=== PATIENT | female | born 1940 | race Caucasian/White ===

== ENCOUNTER → 2016-12-14 | Outpatient (CLI) | payer OTHER | LOC: CIMAGING 07:43 | DX: R41.0 Disorientation, unspecified (principal) | CPT/HCPCS: 70450-PO ==

== ENCOUNTER 2016-12-15 17:56 | Emergency (ER) | payer OTHER ==
[2016-12-15 18:06] VITALS: TEMP 97.9
--- NOTE | 2016-12-15 18:33 | EDPHY ---
H & P Stated Complaint: hypertension Time Seen by Provider: 12/15/16 18:18 HPI/ROS: CHIEF COMPLAINT: New onset hypertension. HISTORY OF PRESENT ILLNESS: This patient is a 76 year old female with history of Parkinson's disease and chronic pain arriving with her complaining of high blood pressure onset around 10 days ago. She has been measuring orthostatic blood pressures twice a day for the last 10 days, and has noted it to be consistently high around 160/80 , particularly in the morning. She called her primary care provider's office at [place], who recommended she come for evaluation. She is currently asymptomatic. She denies headache, chest pain, or other associated symptoms. She has chronic back pain, and is scheduled for L3-L5 fusion 12/30/[address] Franz. She states her pain has been worse in the morning. She generally takes one Vicodin and 2 Advil to control her pain. She had has multiple falls lately related to gait instability from Parkinson's disease and had a head CT yesterday due to history of prior subdural hematoma, which was negative for acute findings. REVIEW OF SYSTEMS: A 10 point review of systems was performed and is negative with the exception of the elements mentioned in the history of present illness. - Personal History Current Tetanus/Diphtheria Vaccine: Yes Tetanus Vaccine Date: WITHIN 10 Y - Medical/Surgical History PMH: 1. Parkinson's disease 2. Chronic back pain 3. Brain surgery 4. Tonsillectomy 5. Appendectomy 6. Gene transfer therapy 7. Orthostatic BP Hx Asthma: No Hx Chronic Respiratory Disease: No Hx Diabetes: No Hx Cardiac Disease: No Hx Renal Disease: No Hx Cirrhosis: No Hx Alcoholism: No Hx HIV/AIDS: No Hx Splenectomy or Spleen Trauma: No Other PMH: DDD, Pack pain, Polydiculitis, incontinence, dyskinesia, orthostatic , Parkinsons, dyskinesia, cholecystectomy, tonsilectomy, appendectomy, brain surgery. Gene transfer therapy - Social History Smoking Status: Former smoker Additional Social History: . at bedside. PCP Dr. Jefferson. - Physical Exam Exam: General Appearance: Alert, pleasant Eyes: Pupils equal and round, no conjunctival pallor or injection ENT, Mouth: Mucous membranes moist Neck: Normal inspection Respiratory: Lungs are clear to auscultation Cardiovascular: Regular rate and rhythm Gastrointestinal: Abdomen is soft and non-tender Neurological: A&O, motor 5/5, gait not assessed Skin: Warm and dry, no rash Extremities: Nontender, no pedal edema Psychiatric: Mood and affect normal Constitutional: Initial Vital Signs Temperature (C) 36.6 C 12/15/16 18:02 Heart Rate 56 L 12/15/16 18:02 Respiratory Rate 16 12/15/16 18:02 Blood Pressure 160/52 H 12/15/16 18:02 O2 Sat (%) 94 12/15/16 18:02 O2 Delivery Mode Room Air Allergies/Adverse Reactions: No Known Allergies Allergy (Verified 12/15/16 18:01) Home Medications: Medication Instructions Recorded Amantadine HCl [Symmetrel] 100 mg PO TID@,,07/10/13 Carbidopa/Levo Cr 25/100Mg 1 tab PO BID 07/10/13 [Sinemet CR 25/100 MG (*)] Carbidopa/Levodopa 25/100Mg 1 tab PO QID@,,,07/10/13 [Sinemet 25/100 MG (*)] Cholecalciferol Vit D3 [Vitamin D3 5,000 units PO HS 07/10/13 (*)] Citalopram [CeleXA 20 MG] 20 mg PO DAILY 07/10/13 Entacapone [Comtan] 200 mg PO QID@,,,18 07/10/13 Levothyroxine [Synthroid 50 mcg 50 mcg PO DAILY@07/10/13 (*)] Multivitamins [Multivitamin (*)] 1 tab PO DAILY@18 07/10/13 rOPINIRole HCL [Requip XL 6mg] 6 mg PO BID@,07/10/13 Docusate Sodium [Colace 100 MG (*)] 100 mg PO BID 07/17/13 Herbals/Supplements -Info Only 1 ea PO DAILY 07/17/13 C/E/Zn/Cu/OM3/DHA/EPA/LUT/ZEAX 1 each PO BID 04/01/15 [Preservision Areds 2 Softgel] clonazePAM [Klonopin (*)] 0.5 mg PO HS 04/01/15 Aspirin EC [Aspirin EC 81 mg (*)] 81 mg PO DAILY #0 tab 04/06/15 Atorvastatin Calcium [Lipitor 20 20 mg PO DAILY #30 tab 04/06/15 mg (*)] Advil 12/14/16 Gabapentin 12/14/16 Tylenol 12/14/16 Vicodin 5-300 mg Tablet 12/14/16 Medical Decision Making ED Course/Re-evaluation: This patient presents with intermittent hypertension, up to 200/90, which alternates with normal blood pressure, as low as 100/70. She is complicated, given chronic pain, recently stopping Florinef and gabapentin. I discussed with the patient and her that I will not place her on a blood pressure medication this evening, since her blood pressure fluctuates widely and is now normal. She is at increased risk for falling if she becomes hypotensive, given her advanced Parkinson's disease. They would like for her to be cleared for surgery (lumbar fusion) and remained concerned about episodes of elevated BP. Plan to consult with cardiology. I consulted with Dr. Garcia and he will see the patient tomorrow at 10:00 a.m. BP 116/56 on discharge. Return precautions discussed. The patient and her are comfortable with this plan. Differential Diagnosis: Differential diagnosis includes does not limited to intracranial hemorrhage, acute coronary syndrome, acute renal failure, hypertensive urgency. Departure - Departure Disposition: Home, Routine, Self-Care Clinical Impression: Hypertension Qualifiers: Hypertension type: essential hypertension Qualified Code(s): I10 - Essential ( primary) hypertension Condition: Good Instructions: Hypertension (ED) Additional Instructions: 1. Follow up with a interface developer for discussion of your blood pressure concerns. We have referred you to our interface developer diamond die polisher, Dr. Garcia, at [facility]. He will be able to see you at 10:00am tomorrow, as we discussed. 2. Return to the emergency department for severe headache, weakness, fainting, chest pain, difficulty breathing, or other worsening of condition. Referrals: Antonia Jefferson MD [Primary Care Provider] - As per Instructions Saroj Garcia MD [Medical Doctor] - As per Instructions (Dr. Garcia will see you at 10am tomorrow. Go to [facility] (2nd floor).) Report Scribed for: Geri Londono Report Scribed by: Wendy Gutierrez Date of Report: 12/15/16 Time of Report: 18:33 Physician Review and Approval Statement: 12/15/16 18:33 Portions of this note were transcribed by a medical imaging specialist. I personally performed a history, physical exam, medical decision making, and confirmed accuracy of information the transcribed note.
[2016-12-15 18:52] VITALS: BP 116/56; PULSE 55; RESP 18; O2SAT 98
== END 2016-12-15 19:09 | disposition home or self-care (01) ==
DX: I10 Essential (primary) hypertension (principal); G20 Parkinson's disease; Z79.82 Long term (current) use of aspirin; Z87.891 Personal history of nicotine dependence

== ENCOUNTER → 2016-12-26 | Outpatient (CLI) | payer OTHER ==
[~2016-12-26] MED LIST: REGADENOSON 0.4 MG/5 ML SYR IVP ONE
--- NOTE | 2016-12-26 18:35 | CPR ---
[f rep st] NONINVASIVE CARDIAC PROCEDURE REPORT NAME OF STUDY: Lexiscan myocardial perfusion imaging study. INDICATION FOR STRESS TEST: Pre-surgical cardiac evaluation, hypertension, multiple cardiac risk fac tors, sedentary lifestyle. PRE: After obtaining informed consent, ensuring patient's n.p.o. status of caffeine for greater than 12 hours, the patient was placed on electrocardiogram. Initial EKG showed sinus rhythm, normal axis , with no significant ST or T-wave abnormalities suggesting of ischemia. Initial blood pressure 180/ 88, saturation 94%. The patient denies of any chest pain, shortness of breath, or symptoms suggestin g of ischemia. INJECTION: Patient was given Lexiscan slow IV push, followed by nuclear isotope. Patient reported m ild chest pressure within 1 minute of injection, reporting radiating into her abdomen. She was noted to have some mild flattening of T-waves in her lateral leads with injection. The patient was given caffeinated beverage, and within 5 minutes, symptoms all subsided. EKG returned back to baseline, bl ood pressure remained stable throughout the procedure, final blood pressure 150/60, saturation 98%. IMPRESSION: A 76-year-old female, going in for significant back surgery, undergoing pre-surgical car diac evaluation with Lexiscan myocardial perfusion imaging study, the patient reporting mild chest pr essure with injection of Lexiscan and noted with flattening of the T-waves within 1 minute, which ret urned back to normal within 5 minutes post injection with caffeine beverage. Vital signs are stable, she is asymptomatic at this time, and denies of any symptoms suggesting of ischemia. She will finis h post-stress MPI imaging in Nuclear Medicine at this time. /[id number]/MODL
== END ==
LOC: FIMAGING 13:59
PROVIDERS: ATTEND Physician Assistant
PROC: C22G1ZZ Tomographic (Tomo) Nuclear Medicine Imaging of Myocardium using Technetium 99m (Tc-99m) (ICD-10-PCS; principal; 2016-12-26)
DX: Z01.810 Encounter for preprocedural cardiovascular examination (principal); I10 Essential (primary) hypertension
CPT/HCPCS: 78452; A9500; J2785

== ENCOUNTER 2016-12-30 05:37 | Inpatient (IN) | payer OTHER ==
[~2016-12-30 05:37] MED LIST changes: -REGADENOSON 0.4 MG/5 ML SYR IVP ONE; +ceFAZolin 2 GM/SWFI 2 GM/20 ML SYR IVP ONE
[2016-12-30] MEDS ORDERED: GABAPENTIN 300 MG CAP PO ONE (05:57)
[2016-12-30] MEDS ORDERED: morphINE PF 5 MG/10 ML INJ IT ONE (05:57)
[2016-12-30] MEDS ORDERED: morphINE SR 15 MG TAB PO ONE (05:57)
[2016-12-30] MEDS ORDERED: ACETAMINOPHEN 500 MG TAB PO ONE (05:57)
[2016-12-30] MEDS ORDERED: LIDOCAINE 1% 2 ML INJ ID PRN (06:00)
[2016-12-30] MEDS ORDERED: LR 1,000 ML IV ONE (06:00)
[2016-12-30] MEDS ORDERED: ceFAZolin 2 GM/DEXTROSE 100 ML IV ONE (06:00)
[2016-12-30] MEDS ORDERED: BUPIVACAINE 0.25% 30 ML SDV ONE (06:45)
[2016-12-30] MEDS ORDERED: CHLORHEXIDINE GLUC HIBICLENS 118 ML BTL TP ONE (06:46)
[2016-12-30] MEDS ORDERED: CITRATE DEXTROSE SOLN 500 ML BAG ONE (06:46)
[2016-12-30] MEDS ORDERED: BACITRACIN 50,000 UNITS/10 ML SYR IRR ONE (06:47)
[2016-12-30] MEDS ORDERED: MIDAZOLAM 2 MG/2 ML VIAL IVP ONE (07:03)
--- NOTE | 2016-12-30 07:06 | PDHPUP ---
History & Physical Update H&P update statement: This history and physical update is based on an assessment of the patient which was completed after admission or registration (within 24 hours), but prior to the surgery/procedure. H&P update: H&P reviewed & patient examined, no change in patient's condition since H&P completed (Consents signed and site marked. Plan for 2 staged anterior /posterior L4/L5/S1 ALIF and fusion.)
--- NOTE | 2016-12-30 07:16 | PDANEPAE ---
ANE History of Present Illness A and P fusion ANE Past Medical History - Cardiovascular History Hx Hypertension: No Hx Arrhythmias: No Hx Chest Pain: No Hx Coronary Artery / Peripheral Vascular Disease: No Hx CHF / Valvular Disease: No Hx Palpitations: No Cardiovascular History Comment: Hx of Orthostatic Hypotension - Pulmonary History Hx COPD: No Hx Asthma/Reactive Airway Disease: No Hx Recent Upper Respiratory Infection: No Hx Oxygen in Use at Home: No Hx Sleep Apnea: No Sleep Apnea Screening Result - Last Documented: Negative - Neurologic History Hx Cerebrovascular Accident: No Hx Seizures: No Hx Dementia: No Neurologic History Comment: Parkinsons. Hx of Right parietal subdural hematoma - Endocrine History Hx Diabetes: No Hypothyroid: No Hyperthyroid: No Obesity: no Endocrine History Comment: Hypothyroid - Renal History Hx Renal Disorders: No - Liver History Hx Hepatic Disorders: No - Neurological & Psychiatric Hx Hx Neurological and Psychiatric Disorders: Yes Neurological / Psychiatric History Comment: CITALOPRAM - Cancer History Hx Cancer: No - Congenital Disorder History Hx Congenital Disorders: No - GI History Hx Gastrointestinal Disorders: Yes Gastrointestinal History Comment: Chronic constipation - Other Health History Other Health History: Hx of Anemia. Osteoporosis - Chronic Pain History Chronic Pain: Yes - Surgical History Prior Surgeries: L4-L5 Laminectomy. L5-S1 Laminoforaminotomy. 2012 Revision L4 -5 Laminectomy. L2-3,L3-4 Laminectomy decompression. Eye surgery. Foot neuroma surgery. Facial Cosmetic surgery. Appendectomy. Cholecystectomy. Tonsillectomy ANE Review of Systems Review of Systems: - Exercise capacity METS (RN): 3 METS ANE Patient History - Allergies Allergies/Adverse Reactions: No Known Allergies Allergy (Verified 12/15/16 18:01) - Home Medications Home Medications: Amantadine HCl [Symmetrel] 100 mg PO TID@,,07/10/13 [Last Taken 12/29/16] Carbidopa/Levo Cr 25/100Mg [Sinemet CR 25/100 MG (*)] 1 tab PO BID 07/10/13 [ Last Taken 12/29/16] Carbidopa/Levodopa 25/100Mg [Sinemet 25/100 MG (*)] 1 tab PO QID@,,,18 [Last Taken 12/29/16] Cholecalciferol Vit D3 [Vitamin D3 (*)] 5,000 units PO HS 07/10/13 [Last Taken 12/23/16] Citalopram [CeleXA 20 MG] 20 mg PO DAILY 07/10/13 [Last Taken 12/29/16] Entacapone [Comtan] 200 mg PO QID@,,,07/10/13 [Last Taken 12/29/16] Levothyroxine [Synthroid 50 mcg (*)] 50 mcg PO DAILY@07/10/13 [Last Taken ] Multivitamins [Multivitamin (*)] 1 tab PO DAILY@07/10/13 [Last Taken 12/29/16 ] rOPINIRole HCL [Requip XL 6mg] 6 mg PO BID@,07/10/13 [Last Taken 12/29/16] Docusate Sodium [Colace 100 MG (*)] 100 mg PO BID 07/17/13 [Last Taken 12/29/16] Herbals/Supplements -Info Only 1 ea PO DAILY 07/17/13 [Last Taken 12/23/16] C/E/Zn/Cu/OM3/DHA/EPA/LUT/ZEAX [Preservision Areds 2 Softgel] 1 each PO BID [Last Taken 12/29/16] clonazePAM [Klonopin (*)] 0.5 mg PO HS 04/01/15 [Last Taken 12/29/16] Advil 12/14/16 [Last Taken 12/23/16] Gabapentin 12/14/16 [Last Taken 12/28/16] Tylenol 12/14/16 [Last Taken 12/29/16] Vicodin 5-300 mg Tablet 12/14/16 [Last Taken 12/29/16] - NPO status NPO Since - Liquids (Date): 12/29/16 NPO Since - Liquids (Time): 23:45 NPO Since - Solids (Date): 12/29/16 NPO Since - Solids (Time): 10:00 - Anes Hx Anes Hx: no prior problems - Smoking Hx Smoking Status: Former smoker - Alcohol Use Alcohol Use: Rarely - Family Anes Hx Family Anes Hx: none Family Hx Anesthesia Complications: NONE ANE Labs/Vital Signs - Vital Signs Blood Pressure: 193/75 Heart Rate: 52 Respiratory Rate: 16 O2 Sat (%): 95 Height: 157.48 cm Weight: 52.163 kg ANE Physical Exam - Airway Neck exam: decreased ROM Mallampati Score: Class 1 Mouth exam: normal dental/mouth exam - Pulmonary Pulmonary: no respiratory distress - Cardiovascular Cardiovascular: regular rate and rhythym, systolic murmur - ASA Status ASA Status: III ANE Anesthesia Plan Anesthesia Plan: general endotracheal anesthesia Lines/Monitors: arterial line Specialized Airway: video laryngoscope
[2016-12-30] MEDS ORDERED: fentaNYL 100 MCG/2 ML INJ ONE ×6 (07:21→14:27)
[2016-12-30] MEDS ORDERED: LIDOCAINE 2% 5 ML SDV ONE (07:22)
[2016-12-30] MEDS ORDERED: ROCURONIUM 50 MG/5 ML VIAL ONE ×2 (07:22→08:34)
[2016-12-30] MEDS ORDERED: DEXAMETHASONE 4 MG/ML VIAL ONE (07:22)
[2016-12-30] MEDS ORDERED: PROPOFOL/EMULSION 500 MG/50 ML BOTTLE IV ONE (07:22)
[2016-12-30] MEDS ORDERED: GLYCOPYRROLATE 0.2 MG/1 ML VIAL ONE ×2 (07:22→13:54)
[2016-12-30] MEDS ORDERED: MIDAZOLAM 2 MG/2 ML VIAL ONE (07:39)
[2016-12-30] MEDS ORDERED: BUPIVACAINE 0.5% 30 ML SDV ONE (07:39)
[2016-12-30] MEDS ORDERED: PETROLAT,WHT/MIN OIL/SOD CHL 3.5 GM OPHT.OINT ONE ×3 (07:40→13:54)
[2016-12-30] MEDS ORDERED: PROPOFOL 200 MG/20 ML VIAL ONE ×2 (08:25→13:01)
[2016-12-30] MEDS ORDERED: REMIFENTANIL HCL 1 MG VIAL ONE (08:36)
[2016-12-30] MEDS ORDERED: SURGIFLO MATRIX KIT WITH THROMBIN TP ONE (09:52)
[2016-12-30] MEDS ORDERED: epHEDrine SULFATE 10 MG/ML SYR ONE (10:47)
[2016-12-30] MEDS ORDERED: THROMBIN (BOVINE) 20,000 UNIT VIAL TP ONE (11:34)
[2016-12-30] MEDS ORDERED: CARBIDOPA/LEVODOPA 25 MG/100 MG TAB PO ONE (11:45)
[2016-12-30] MEDS ORDERED: ceFAZolin 2 GM/SWFI 2 GM/20 ML SYR IVP ONE ×2 (13:00→13:15)
[2016-12-30] MEDS ORDERED: ONDANSETRON 4 MG/2 ML VIAL IVP PRN (13:27)
[2016-12-30] MEDS ORDERED: NALOXONE HCL 0.4 MG/ML INJ IVP PRN (13:27)
[2016-12-30] MEDS ORDERED: HYDROmorphONE/DILAUDID 1 MG/ML INJ IVP PRN ×2 (13:27→14:08)
[2016-12-30] MEDS ORDERED: NEOSTIGMINE METHYLSULFATE 3 MG/3 ML SYR ONE (13:54)
[2016-12-30] MEDS ORDERED: BISACODYL 10 MG SUPP PR PRN (14:08)
[2016-12-30] MEDS ORDERED: POLYETHYLENE GLYCOL 3350 17 GM PKT PO PRN (14:08)
[2016-12-30] MEDS ORDERED: MAGNESIUM HYDROXIDE 30 ML UDCUP PO PRN (14:08)
[2016-12-30] MEDS ORDERED: DIAZEPAM 10 MG/2 ML SYR IVP PRN (14:08)
[2016-12-30] MEDS ORDERED: diphenhydrAMINE 25 MG CAP PO PRN (14:08)
[2016-12-30] MEDS ORDERED: METHOCARBAMOL 750 MG TAB PO PRN (14:08)
[2016-12-30] MEDS ORDERED: LACTULOSE 20 GM/30 ML UDCUP PO PRN (14:08)
[2016-12-30] MEDS ORDERED: ONDANSETRON DISINTEGRATING 4 MG TAB PO PRN (14:08)
[2016-12-30] MEDS: CARBIDOPA/LEVODOPA 25 MG/100 MG TAB PO SCH ×2 (14:15→19:22)
--- NOTE | 2016-12-30 14:22 | POSTOPPROG ---
Post Op Note Date of Operation: 12/30/16 Surgeon: Lia Springer Corral Boss: Elijah Springer PA-C Anesthesiologist: Cortez Anesthesia: GET(General Endotracheal) Pre-op Diagnosis: lumbar spondylolisthesis, weakness Post-op Diagnosis: same Indication: nerve compression, spondylolisthesis Procedure: L4/5/S1 ALIF with L3-S1 posterior fuison Findings: Please see dictation Inf/Abcess present in the surg proc area at time of surgery?: No Depth: Organ Space EBL: 100-500 Complications: none Drains: Hunter Mojica Specimen(s): none PA Addendum - Addendum .: S: Pt in PACU, c/o abdominal pain O: Awake and alert Tremor with increased muscle tone MAEx4 Motor 5/5 BUE, 5/5 BLE with exception of L EHL 4+ to 5-/5 Incisions are cdi +LT JPx1 Steve in A: 76 yo F with Parkinson's disease s/p L4/5/S1 ALIFs with L3-S1 posterior fusion P: PT/OT Brace when OOB TEDs, SCDs, Lovenox POD#1 (24 hrs post op) Clear liquid diet Post op xrays pending Call NS with any issues/questions D/w Dr Franz
[2016-12-30] MEDS: fentaNYL 100 MCG/2 ML INJ IVP PRN ×2 (14:28→14:43)
[2016-12-30] MEDS ORDERED: HYDROmorphONE/DILAUDID 1 MG/ML INJ ONE (14:45)
[2016-12-30] MEDS: NS W/ 20 KCl/L 1,000 ML IV SCH (16:42)
[2016-12-30] MEDS: ceFAZolin 2 GM in D5W 100 ML IV SCH ×2 (17:00→23:26)
[2016-12-30] MEDS: ROPINIROLE HCL 6 MG PO SCH (17:03)
[2016-12-30] MEDS: DIAZEPAM 5 MG TAB PO PRN ×2 (17:13→23:26)
[2016-12-30] MEDS: POLYETHYLENE GLYCOL 3350 17 GM PKT PO SCH ×2 (17:19→21:58)
[2016-12-30] MEDS: ENTACAPONE 200 MG TAB PO SCH (19:22)
[2016-12-30] MEDS: MULTIVITAMINS 1 EACH TAB PO SCH (19:23)
--- NOTE | 2016-12-30 20:49 | GOP ---
[f rep st] OPERATIVE REPORT DATE OF OPERATION: 12/30/2016 SURGEON: Korey Franz MD CO-SURGEON: Cj Andrade MD COMPLICATIONS: None. PROFESSOR OF FOOD BIOCHEMISTRY: ELIJAH Puri ANESTHESIA: General. PREOPERATIVE DIAGNOSIS: 1. History of prior lumbar laminectomy L3 through S1 with grade 1/grade 2 spondylolisthesis L4 and L5. 2. L5-S1 spondylosis. 3. Bilateral severe foraminal stenosis. 4. Low back pain and lower extremity radiculopathy and weakness. 5. Treatment refractory to nonoperative intervention. POSTOPERATIVE DIAGNOSIS: 1. History of prior lumbar laminectomy L3 through S1 with grade 1/grade 2 spondylolisthesis L4 and L5. 2. L5-S1 spondylosis. 3. Bilateral severe foraminal stenosis. 4. Low back pain and lower extremity radiculopathy and weakness. 5. Treatment refractory to nonoperative intervention. PROCEDURE PERFORMED: 1. Anterior arthrodesis with approach to L4, L5, and S1. 2. L4-L5 diskectomy and interbody fusion using a 16 mm x 12-degree perimeter Peek cage filled with morselized allograft. 3. Anterior lumbar fusion L4-L5 with a large Medtronic Pivox plate. 4. L5-S1 diskectomy and interbody fusion using a 14 mm x 8-degree perimeter Peek cage filled with morselized allograft. 5. Anterior lumbar fusion L5-S1 with a large Medtronic Pivox plate. 6. Use of intraoperative fluoroscopy, less than 1-hour physician time. 7. Use of neuromonitoring. FINDINGS: per imaging SPECIMENS: None. ESTIMATED BLOOD LOSS: 250 mL. The patient received 135 mL of her blood back from the [facility]. INDICATIONS: Patient is a 76-year-old woman with prior history of lumbar laminectomy L3 through S1 from which she did quite well for several years. She presented with lower extremity radiculopathy, back pain and weakness. She had evidence of Parkinson's as well and a scoliosis. After discussion of risks, benefits, and treatment alternatives, we decided to proceed forth with surgery as described above. Please note, this is stage 1 of a planned 2-stage anterior- posterior surgery. Stage 2 will be dictated in a separate operative report. DESCRIPTION OF PROCEDURE: Patient was brought to the operating theater and underwent general endotracheal anesthesia without complication. She had Venodynes, HEDY hose, and the appropriate lines placed by Anesthesia. Her arms were maintained extended out to the sides and she was maintained supine with a small bump placed under the small of her back. The anterior abdomen was then prepped and draped in the usual sterile surgical fashion. A time-out was completed per protocol, and the patient received antibiotics within [address] Andrade and his team will then dictate in a separate operative report the anterior approach to the L4, L5, S1 levels. Once this was completed, our team was called into the field. We confirmed our level at the L4-L5 level using lateral fluoroscopy and a spinal needle. At this point, we completed L4-5 distraction using sequential distraction to a 16 mm interbody space. We then completed a an L4-L5 discectomy and prepared the cartilaginous endplates. We measured the interbody space and placed a 16 mm x 12-degree perimeter Peek cage filled with morselized allograft into the L4-5 disk space. We secured a large Medtronic Pivox plate onto the anterior vertebral bodies with a screw into L4 and a screw into L5. Lateral x-rays demonstrated good placement of the hardware and good distraction of the L4-5 foramina. We then moved down to the L5-S1 space where we completed a distraction of the L5 -S1 interspace and completed an L5-S1 diskectomy. We prepared the cartilaginous endplates and measured the interbody space. We placed a 14 mm x 8 -degree perimeter Peek cage filled with morselized allograft into the L5-S1 disk space. We secured a large Medtronic Pivox plate onto the vertebral bodies of L5 and S1 anteriorly. AP and lateral x-rays demonstrated good placement of the hardware and good distraction at both levels. At this point, Dr. Andrade and his team will dictate in a separate operative report the anterior abdominal closure. There were no complications and no noted changes on neuromonitoring throughout the procedure. /[id number]/MODL MTDD
--- NOTE | 2016-12-30 21:09 | GOP ---
[f rep st] OPERATIVE REPORT DATE OF OPERATION: 12/30/2016 SURGEON: Korey Franz MD HEALTH INFORMATION SYSTEMS TECHNICIAN: ELIJAH Puri ANESTHESIA: General. PREOPERATIVE DIAGNOSIS: 1. L4-L5 grade 1/grade 2 spondylolisthesis with spondylosis L5-S1. 2. History of prior lumbar laminectomy L3 through S1. 3. Lower extremity radiculopathy and weakness. 4. Back pain. 5. Treatment refractory to nonoperative intervention. POSTOPERATIVE DIAGNOSIS: 1. L4-L5 grade 1/grade 2 spondylolisthesis with spondylosis L5-S1. 2. History of prior lumbar laminectomy L3 through S1. 3. Lower extremity radiculopathy and weakness. 4. Back pain. 5. Treatment refractory to nonoperative intervention. PROCEDURE PERFORMED: 1. Posterior arthrodesis with approach to L3, L4, L5, S1. 2. Posterolateral fusion with bilateral pedicle screw placement into L3, L4, L5 , S1 from YR Free Solera 4.75 system. 3. Posterolateral fusion bilaterally L3 to S1 with morselized autograft. 4. Use of intraoperative 3D Stealth navigation. 5. Use of intraoperative fluoroscopy, less than 1-hour physician time. 6. Use of neuromonitoring. FINDINGS: per imaging SPECIMENS: None. ESTIMATED BLOOD LOSS: 100 mL. INDICATIONS: Patient is a 76-year-old woman with a history of Parkinson's and prior laminectomy of L3 through S1 from which she did quite well for several years. She presented with lower extremity claudication, back pain and weakness , and evidence of grade 1/grade 2 spondylolisthesis of L4-5 and spondylosis L5- S1. After discussion of risks, benefits, and treatment alternatives, we decided to proceed forth with surgery as described above. The patient now presents for surgical intervention. Please note, this is stage 2 of a planned 2 -stage surgical procedure. Stage 1 was an anterior lumbar interbody fusion at L4 through S1 which was completed earlier in the day and is dictated in a separate operative report. DESCRIPTION OF PROCEDURE: Patient was already asleep at the time of this dictation from completion of stage 1 anterior surgery. At this point, the patient was flipped prone onto the Hunter table and the lower lumbar region prepped and draped in usual sterile surgical fashion. Another time-out was completed per protocol. The patient had re-dosing of her antibiotics at the appropriate time. All bony processes were inspected and padded. The previous lumbar incision was infiltrated with Marcaine with epinephrine and taken down with the scalpel blade. Using the monopolar, the incision was then taken down the midline at which point we landed on the inferior aspect of the spinous process of L2 and skived off laterally and a subperiosteal dissection carried out over the L3, L4, L5, and S1 levels. We attached the 3D Stealth navigation clamp to the spinous process of L2 and completed a 3D Stealth navigation spin. Using 3D Stealth navigation, we placed the pilot boat operator holes for the bilateral pedicle screws into L4, L5 and S1. The patient had extremely tiny elongated pedicles at L4 and given the fact that her bone was quite soft, I elected to add 1 set of screws into L3 to assist with reduction of the stress into the L4-L5 spondylolisthesis. We then tapped and placed a 6.5 x 55 mm screw on the left at L3, 6.5 x 45 mm screw on the right at L3, a 4.5 x 50 mm screw bilaterally in L4, 6.5 x 40 mm screw bilaterally in L5, and a 7.5 x 40 mm screw bilaterally in S1 from the YR Free Solera 4.75 system. Another 3D Stealth navigation spin demonstrated good placement of the hardware. We then decorticated the bone bilaterally between L3 and S1. We placed 2 lordotic rods into the heads of the screws between L3 and S1 and secured them down with cap screws, which were tightened per director cloud transformation's setting. The wound was irrigated copiously with bacitracin irrigation and drain left in the subfascial space. The wound was then closed in multiple layers using Vicryl sutures for the deep layers and Dermabond for the skin. The patient was noted to have some changes on neuromonitoring in a subcortical manner. She was still asleep at the time of this dictation. There were no other complications. COMPLICATIONS: None. /[id number]/MODL MTDD
[2016-12-30] MEDS: ONDANSETRON 4 MG/2 ML VIAL IVP PRN (21:51)
[2016-12-30] MEDS: ACETAMINOPHEN 500 MG TAB PO SCH (21:52)
[2016-12-30] MEDS: PRESERVISION AREDS2 FORMULA EYE VIT 1 EACH PO SCH (21:54)
[2016-12-30] MEDS: CHOLECALCIFEROL VIT D3 1,000 UNITS TAB PO SCH (21:55)
[2016-12-30] MEDS: clonazePAM 0.5 MG TAB PO SCH (21:55)
[2016-12-30] MEDS: CARBIDOPA/LEVO CR 25 MG/100 MG TAB PO SCH (21:55)
[2016-12-30] MEDS: SENNOSIDES/DOCUSATE SODIUM TAB PO SCH (21:56)
[2016-12-30] MEDS: FAMOTIDINE 20 MG TAB PO SCH (21:56)
[2016-12-30] MEDS: DOCUSATE SODIUM 100 MG CAP PO SCH (21:56)
[2016-12-30] MEDS ORDERED: ceFAZolin 2 GM/DEXTROSE 100 ML IV SCH (22:00)
[2016-12-30] MEDS: oxyCODONE IR 5 MG TAB PO PRN (23:26)
[2016-12-31] MEDS: oxyCODONE IR 5 MG TAB PO PRN ×3 (03:24→12:24)
[2016-12-31 05:38] LABS: % IMMATURE GRANULYOCYTES 0.2 % (0.0-1.1); ABSOLUTE IMMATURE GRANULOCYTES 0.01 10^3/uL (0.00-0.10); ADD DIFF? NO; ADD MORPH? NO; ADD SCAN? NO; ATYPICAL LYMPHOCYTE FLAG 0 (0-99); FRAGMENT RBC FLAG 0 (0-99); HEMATOCRIT 27.7 % (38.0-47.0); HEMOGLOBIN 9.1 g/dL (12.6-16.3); LEFT SHIFT FLG 20 (0-99); LIPEMIA HEMOLYSIS FLAG 80 (0-99); MEAN CELL HEMOGLOBIN 30.6 pg (27.9-34.1); MEAN CELL HEMOGLOBIN CONCENTR. 32.9 g/dL (32.4-36.7); MEAN CELL VOLUME 93.3 fL (81.5-99.8); MEAN PLATELET VOLUME 9.2 fL (8.7-11.7); PLATELET CLUMPS FLAG 10 (0-99); PLATELET COUNT 153 10^3/uL (150-400); RED BLOOD CELL COUNT 2.97 10^6/uL (4.18-5.33); RED CELL DISTRIBUTION WIDTH 12.8 % (11.5-15.2)
[2016-12-31 06:00] LABS: ANION GAP 7 mEq/L (8-16); CALCIUM 7.5 mg/dL (8.5-10.4); CARBON DIOXIDE 26 mEq/l (22-31); CHLORIDE 110 mEq/L (97-110); CREATININE 0.8 mg/dL (0.6-1.0); GLOMERULAR FILTRATION RATE > 60; GLUCOSE 91 mg/dL (70-100); POTASSIUM 3.9 mEq/L (3.5-5.2); SODIUM 143 mEq/L (134-144)
[2016-12-31] MEDS: NS W/ 20 KCl/L 1,000 ML IV SCH (06:04)
[2016-12-31] MEDS: ACETAMINOPHEN 500 MG TAB PO SCH ×3 (06:14→20:55)
[2016-12-31] MEDS: ENTACAPONE 200 MG TAB PO SCH ×4 (06:15→17:15)
[2016-12-31] MEDS: LEVOTHYROXINE 50 MCG TAB PO SCH (06:15)
[2016-12-31] MEDS: CARBIDOPA/LEVODOPA 25 MG/100 MG TAB PO SCH ×4 (06:16→17:16)
[2016-12-31] MEDS: ROPINIROLE HCL 6 MG PO SCH ×2 (06:16→14:15)
--- NOTE | 2016-12-31 07:27 | NEUSURGPN ---
Assessment/Plan: A: 76 yo F with Parkinson's disease s/p L4/5/S1 ALIFs with L3-S1 posterior fusion POD1 P: PT/OT Brace when OOB TEDs, SCDs, Lovenox POD today Clear liquid diet, advance per general surgery Post op xrays pending Call NS with any issues/questions Continue SHARON drain this morning D/w Dr Franz Subjective: low back pain, tolerable with medications, resting comfortably Objective: Awake and alert, calm with out tremor this morning MAEx4 Motor 5/5 BUE, 5/5 BLE with exception of L EHL 4+ to 5-/5 Incisions are cdi - Physician Discussed Patient with : [facility] Physical Exam - Vitals, I&O, Labs I and O 12/30/16 12/31/16 01/01/17 05:59 05:59 05:59 Intake Total 5380 Output Total 1320 Balance 4060 Weight 52.163 kg Intake: Oral (ml) 250 IV Intake (ml) 4000 IV Infused (ml) 1130 NS W/ 20 KCl/L 1,000 ml @ 1130 75 mls/hr IV CONT MOSHE Rx #:[id number] Output: Urine (ml) 650 Catheter 650 Estimated Blood Loss (ml) 350 SHARON Drain Output (ml) 320 #1 Posterior Back Hunter 320 Mojica Vital Signs Temp Pulse Resp BP Pulse Ox 37.0 C 67 16 125/36 H 97 12/31/16 03:39 12/31/16 03:39 12/31/16 03:39 12/31/16 03:39 12/31/16 03:39 Laboratory Results 12/31/16 04:59 12/31/16 04:59 ICD10 Worksheet Patient Problems: Problems Problem Status Onset Transient ischemic attack Active Generalized weakness Acute Hypertension Acute Hypocalcemia Acute Intracranial hemorrhage following injury Acute Parkinson disease Acute Subdural hematoma, acute Acute
[2016-12-31] MEDS: ATORVASTATIN CALCIUM 20 MG TAB PO SCH (09:27)
[2016-12-31] MEDS: GABAPENTIN 300 MG CAP PO SCH (09:27)
[2016-12-31] MEDS: DOCUSATE SODIUM 100 MG CAP PO SCH ×2 (09:27→20:57)
[2016-12-31] MEDS: CITALOPRAM 20 MG TAB PO SCH (09:27)
[2016-12-31] MEDS: PRESERVISION AREDS2 FORMULA EYE VIT 1 EACH PO SCH ×2 (09:27→20:56)
[2016-12-31] MEDS: AMANTADINE HCL 100 MG CAP PO SCH ×2 (09:27→13:24)
[2016-12-31] MEDS: SENNOSIDES/DOCUSATE SODIUM TAB PO SCH ×2 (09:28→20:58)
[2016-12-31] MEDS: FAMOTIDINE 20 MG TAB PO SCH ×2 (09:28→20:57)
[2016-12-31] MEDS: CARBIDOPA/LEVO CR 25 MG/100 MG TAB PO SCH ×2 (09:29→20:56)
[2016-12-31] MEDS: POLYETHYLENE GLYCOL 3350 17 GM PKT PO SCH ×3 (09:32→20:58)
--- NOTE | 2016-12-31 10:51 | SOAPPROG ---
SOAP Progress Note Assessment/Plan: Assessment/Plan: 76yo F POD#1 s/p anterior spinal exposure for ALIF - Abdomen is soft and minimally distended. Incision is covered with clean dressing, will plan to remove tomorrow - Tolerating the CLD without nausea or vomiting, has hypoactive bowel sounds. Plan to keep clears today, likely advance tomorrow if continues to progress. 12/31/16 10:50 Subjective: Pain last night, feeling better today. No bowel function. Objective: Vital Signs Temp Pulse Resp BP Pulse Ox 36.4 C 74 14 130/49 H 97 12/31/16 07:31 12/31/16 07:31 12/31/16 07:31 12/31/16 07:31 12/31/16 07:31 Laboratory Results 12/31/16 04:59 12/31/16 04:59 12/30/16 12/31/16 01/01/17 05:59 05:59 05:59 Intake Total 5380 Output Total 1320 Balance 4060 ICD10 Worksheet Patient Problems: Problems Problem Status Onset Transient ischemic attack Active Generalized weakness Acute Hypertension Acute Hypocalcemia Acute Intracranial hemorrhage following injury Acute Parkinson disease Acute Subdural hematoma, acute Acute
[2016-12-31 13:17] LABS: CK-MB INTERPRETATION NEGATIVE (NEGATIVE); TROPONIN I < 0.012 ng/mL (0.000-0.034)
--- NOTE | 2016-12-31 13:24 | CPEKG ---
Heart Rate: 77 RR Interval: 779 P-R Interval: 172 QRSD Interval: 86 QT Interval: 396 QTC Interval: 449 P [place]: 23 QRS [place]: 43 T Wave [place]: -56 EKG Severity - ABNORMAL ECG - EKG Impression: SINUS RHYTHM EKG Impression: ATRIAL PREMATURE COMPLEX EKG Impression: CONSIDER LEFT VENTRICULAR HYPERTROPHY EKG Impression: BORDERLINE T ABNORMALITIES, INFERIOR LEADS Electronically Signed By: Kody Thakkar 31-Dec-2016 19:31:01
--- NOTE | 2016-12-31 15:40 | ASMTCMCOM ---
CM Note CM Note Notes: Pt w Parkinsons; had planned surgery for back pain, spondylolisthesis. PT rec inpatient rehab, OT rec SNF. This CM did not get to meet pt to discuss d/c plan of care as pt was having chest pain. Of note: Chart review indicates pt has had [facility] in past. CM to follow. Date Signed: 12/31/2016 03:39 PM Electronically Signed By:EVAN Zurita
--- NOTE | 2016-12-31 15:54 | PDGENHP ---
History and Physical - Chief Complaint Acute chest pain - History of Present Illness PCP: Dr. Jefferson Primary Service: NSGY Dr. Franz Reason for Consultation: Chest pain HPI: 76 yo F experienced acute chest pain characterized as a pressure-like sensation located in her left upper quadrant and mid-epigastric/substernal area , with onset of symptoms on POD#1 ALIF anterior approach, after going down for a lumbar x-ray. Duration was approx 30 minutes, and resolved w/o intervention. She reports it was exacerbated by palpated the specific location in her LUQ. She has yet to have a BM and has some associated abdominal bloating, hunger. Her witnessed the event, and he reports no SOB/diaphoresis. Prior to the surgery, patient had otherwise not been experiencing any abd/chest pain, and her recent physical activity has been impaired by her LE radiculopathy. History Information - Allergies/Home Medication List Allergies/Adverse Reactions: No Known Allergies Allergy (Verified 12/15/16 18:01) Home Medications: Amantadine HCl [Symmetrel] 100 mg PO TID@,,07/10/13 [Last Taken 12/29/16] Carbidopa/Levo Cr 25/100Mg [Sinemet CR 25/100 MG (*)] 1 tab PO BID 07/10/13 [ Last Taken 12/29/16] Carbidopa/Levodopa 25/100Mg [Sinemet 25/100 MG (*)] 1 tab PO QID@,,,18 [Last Taken 04/01/15] Citalopram [CeleXA 20 MG] 20 mg PO DAILY 07/10/13 [Last Taken 04/01/15] Entacapone [Comtan] 200 mg PO QID@,,,07/10/13 [Last Taken 04/01/15] Multivitamins [Multivitamin (*)] 1 tab PO DAILY@07/10/13 [Last Taken 03/31/15 ] rOPINIRole HCL [Requip XL 6mg] 6 mg PO BID@,16 07/10/13 [Last Taken 04/01/15] Docusate Sodium [Colace 100 MG (*)] 100 mg PO DAILY 07/17/13 [Last Taken ] Herbals/Supplements -Info Only 1 ea PO DAILY 07/17/13 [Last Taken Unknown] C/E/Zn/Cu/OM3/DHA/EPA/LUT/ZEAX [Preservision Areds 2 Softgel] 1 each PO BID [Last Taken 12/29/16] clonazePAM [Klonopin (*)] 0.5 mg PO HS 04/01/15 [Last Taken 03/31/15] Acetaminophen [Tylenol 325mg (*)] 325 mg PO Q6 PRN 12/30/16 [Last Taken Unknown] Gabapentin [Neurontin 300 MG (*)] 300 mg PO DAILY 12/30/16 [Last Taken Unknown] Hydrocodone/Acetaminophen [[place] 5/325 (*)] 1 each PO DAILY PRN 12/30/16 [Last Taken Unknown] I have personally reviewed and updated: family history, medical history, social history, surgical history - Past Medical History Additional medical history: Parkinson's Disease with autonomic disregulation. SDH 2013. Osteopenia. Chronic opiate dependency from chronic pain. Hypothyroidism. TIA 2015. Depression. Pulmonary HTN. GERD. HLD. HTN. Radiculopathy from spinal stenosis - Surgical History Reports: cholecystectomy Additional surgical history: L3-S1 laminectomy x 2 ([address] Vaughn). SI injection 07/27. CEA R 2015 - Family History Additional family history: Father w/ [place] at 88, Mother w/ breast/uterine cancer, Sibling w/ melanoma - Social History Smoking Status: Former smoker Alcohol Use: Rarely Drug Use: None Additional social history: normally ambulatory Review of Systems Review of Systems: ROS: 10pt was reviewed & negative except for what was stated in HPI & below Cardiac: Reports: chest pain Gastrointestinal: Reports: abdominal pain, constipation Physical Exam Physical Exam: Temp Pulse Resp BP Pulse Ox 36.6 C 68 16 146/67 H 97 12/31/16 10:55 12/31/16 10:55 12/31/16 10:55 12/31/16 10:55 12/31/16 10:55 O2 (L/minute) 2 Constitutional: no apparent distress, appears nourished, not in pain Eyes: PERRL, anicteric sclera, EOMI Ears, Nose, Mouth, Throat: moist mucous membranes, hearing normal, ears appear normal, no oral mucosal ulcers Cardiovascular: regular rate and rhythym, no murmur, rub, or gallop, No edema Respiratory: no respiratory distress, no rales or rhonchi, clear to auscultation Gastrointestinal: normoactive bowel sounds, no palpable masses, tenderness ( around surg site on L, mid-epigastric area), No guarding, No rebound Skin: other (no erythema around surg site, no induration or ecchymoses) Neurologic: AAOx3, sensation intact bilaterally, weakness (4/5 motor bilat LE w / midline inversion LLE), No facial droop Psychiatric: not anxious, thought process linear, other (lethargic but arousable to voice), No agitated Lab Data & Imaging Review 12/31/16 04:59 12/31/16 04:59 WBC 5.63 10^3/uL (3.80-9.50) 12/31/16 04:59 RBC 2.97 10^6/uL (4.18-5.33) L 12/31/16 04:59 Hgb 9.1 g/dL (12.6-16.3) L 12/31/16 04:59 Hct 27.7 % (38.0-47.0) L 12/31/16 04:59 MCV 93.3 fL (81.5-99.8) 12/31/16 04:59 MCH 30.6 pg (27.9-34.1) 12/31/16 04:59 MCHC 32.9 g/dL (32.4-36.7) 12/31/16 04:59 RDW 12.8 % (11.5-15.2) 12/31/16 04:59 Plt Count 153 10^3/uL (150-400) 12/31/16 04:59 MPV 9.2 fL (8.7-11.7) 12/31/16 04:59 Neut % (Auto) 73.8 % (39.3-74.2) 12/31/16 04:59 Lymph % (Auto) 18.8 % (15.0-45.0) 12/31/16 04:59 [place] % (Auto) 6.2 % (4.5-13.0) 12/31/16 04:59 Eos % (Auto) 0.5 % (0.6-7.6) L 12/31/16 04:59 Baso % (Auto) 0.5 % (0.3-1.7) 12/31/16 04:59 Nucleat RBC Rel Count 0.0 % (0.0-0.2) 12/31/16 04:59 Absolute Neuts (auto) 4.15 10^3/uL (1.70-6.50) 12/31/16 04:59 Absolute Lymphs (auto) 1.06 10^3/uL (1.00-3.00) 12/31/16 04:59 Absolute Monos (auto) 0.35 10^3/uL (0.30-0.80) 12/31/16 04:59 Absolute Eos (auto) 0.03 10^3/uL (0.03-0.40) 12/31/16 04:59 Absolute Basos (auto) 0.03 10^3/uL (0.02-0.10) 12/31/16 04:59 Absolute Nucleated RBC 0.00 10^3/uL (0-0.01) 12/31/16 04:59 Immature Gran % 0.2 % (0.0-1.1) 12/31/16 04:59 Immature Gran # 0.01 10^3/uL (0.00-0.10) 12/31/16 04:59 Sodium 143 mEq/L (134-144) 12/31/16 04:59 Potassium 3.9 mEq/L (3.5-5.2) 12/31/16 04:59 Chloride 110 mEq/L (97-110) 12/31/16 04:59 Carbon Dioxide 26 mEq/l (22-31) 12/31/16 04:59 Anion Gap 7 mEq/L (8-16) L 12/31/16 04:59 BUN 25 mg/dL (7-23) H 12/31/16 04:59 Creatinine 0.8 mg/dL (0.6-1.0) 12/31/16 04:59 Estimated GFR > 60 12/31/16 04:59 Glucose 91 mg/dL (70-100) 12/31/16 04:59 Calcium 7.5 mg/dL (8.5-10.4) L 12/31/16 04:59 Creatine Kinase 1464 IU/L (0-156) H 12/31/16 12:37 CK-MB (CK-2) Fraction 19.30 ng/mL (0.00-3.19) H 12/31/16 12:37 CK-MB (CK-2) % 1.3 % (0.0-4.0) 12/31/16 12:37 Creatine Kinase Interp NEGATIVE (NEGATIVE) 12/31/16 12:37 Troponin I < 0.012 ng/mL (0.000-0.034) 12/31/16 12:37 Patient ABO/Rh O POSITIVE 12/29/16 13:25 Antibody Screen NEGATIVE 12/29/16 13:25 Visualized and Interpreted EKG results: Yes EKG Interpretation: Positive for: other (NSR w/ isolated ARSH in V3, Q III) Assessment & Plan Assessment: 76 yo F w/ acute chest pain following ALIF Plan: # Chest pain. Acute, new problem, further w/u indicated. Suspect this is 2/2 either ileus/constipation, or surgical site pain. - that said, reviewed outside records (12/26/16 nuc stress test w/ possibly tiny area of inferior apex ischemia) and patient could have had evelio-op myocardial ischemia - repeat Trop at 6 p.m., monitor on tele - suspect elevated CK/CK-MB are post-surg muscular irritation, and, if above negative, would not recommend repeat stress test given that she just had Nuc/ Echo as part of pre-op eval (reviewed 12/29/16 [facility] note by Moni Viera) - w/o tachycardia or hypoxia, likelihood of PE is very low, will not get further w/u unless situation changes - will get CXR to ensure no PTX/CHF, eval for atelectasis and cont IS - treat post-surg pain regularly, under direction of primary service - aggressively work towards BM # Post-op ileus. Acute, BS present but no BM, patient feeling constipated, likely contributing to above - bowel regimen ordered - adv diet under primary service direction # Chronic pain w/ continuous opiate dependency. Currently receiving adequate pain mgmt # HTN. Chronic, cont home Rx, monitor for hypotension w/ hx of autonomic dysregulation Hospital Medicine will continue to consult daily and will f/u above. Discussed w/ Shelli Dill, hospitalist, she has signed out patient to me for evaluation.
[2016-12-31] MEDS: DIAZEPAM 5 MG TAB PO PRN (16:20)
[2016-12-31] MEDS: ENOXAPARIN 40 MG/0.4 ML SYR SC SCH (17:15)
[2016-12-31] MEDS: MULTIVITAMINS 1 EACH TAB PO SCH (17:15)
[2016-12-31] MEDS ORDERED: FLU VACC QS 2017-18 (3YR+)/PF 0.5 ML SYR (FLUARIX QUAD) IM ONE (17:38)
[2016-12-31] MEDS: CHOLECALCIFEROL VIT D3 1,000 UNITS TAB PO SCH (20:56)
[2016-12-31] MEDS: clonazePAM 0.5 MG TAB PO SCH (20:57)
[2016-12-31] MEDS: ONDANSETRON 4 MG/2 ML VIAL IVP PRN (23:57)
[2017-01-01] MEDS: NS W/ 20 KCl/L 1,000 ML IV SCH ×2 (00:14→05:44)
[2017-01-01] MEDS: oxyCODONE IR 5 MG TAB PO PRN ×4 (02:56→23:11)
[2017-01-01 05:19] LABS: % IMMATURE GRANULYOCYTES 0.5 % (0.0-1.1); ABSOLUTE IMMATURE GRANULOCYTES 0.04 10^3/uL (0.00-0.10); ADD DIFF? NO; ADD MORPH? NO; ADD SCAN? NO; ATYPICAL LYMPHOCYTE FLAG 0 (0-99); FRAGMENT RBC FLAG 0 (0-99); HEMATOCRIT 25.7 % (38.0-47.0); HEMOGLOBIN 8.1 g/dL (12.6-16.3); LEFT SHIFT FLG 50 (0-99); LIPEMIA HEMOLYSIS FLAG 80 (0-99); MEAN CELL HEMOGLOBIN 29.8 pg (27.9-34.1); MEAN CELL HEMOGLOBIN CONCENTR. 31.5 g/dL (32.4-36.7); MEAN CELL VOLUME 94.5 fL (81.5-99.8); MEAN PLATELET VOLUME 9.1 fL (8.7-11.7); PLATELET CLUMPS FLAG 10 (0-99); PLATELET COUNT 138 10^3/uL (150-400); RED BLOOD CELL COUNT 2.72 10^6/uL (4.18-5.33); RED CELL DISTRIBUTION WIDTH 12.5 % (11.5-15.2)
[2017-01-01 05:30] LABS: ANION GAP 6 mEq/L (8-16); CALCIUM 7.7 mg/dL (8.5-10.4); CARBON DIOXIDE 26 mEq/l (22-31); CHLORIDE 109 mEq/L (97-110); CREATININE 0.6 mg/dL (0.6-1.0); GLOMERULAR FILTRATION RATE > 60; GLUCOSE 91 mg/dL (70-100); SODIUM 141 mEq/L (134-144)
[2017-01-01] MEDS: ACETAMINOPHEN 500 MG TAB PO SCH ×3 (05:50→20:48)
[2017-01-01] MEDS: CARBIDOPA/LEVODOPA 25 MG/100 MG TAB PO SCH ×4 (05:50→18:12)
[2017-01-01] MEDS: AMANTADINE HCL 100 MG CAP PO SCH ×3 (05:50→13:51)
[2017-01-01] MEDS: ENTACAPONE 200 MG TAB PO SCH ×4 (05:51→18:12)
[2017-01-01] MEDS: LEVOTHYROXINE 50 MCG TAB PO SCH (05:51)
[2017-01-01] MEDS: ROPINIROLE HCL 6 MG PO SCH ×2 (05:52→13:58)
--- NOTE | 2017-01-01 08:14 | SOAPPROG ---
SOAP Progress Note Assessment/Plan: Assessment/Plan: 76yo F POD#2 s/p anterior spinal exposure for ALIF - Abdomen remains soft and ND. She is tolerating clears and passing flatus. Has decent bowel sounds. advance diet to reg 12/31/16 10:50 01/01/17 08:14 Subjective: Passing flatus, tolerating clears Objective: Vital Signs Temp Pulse Resp BP Pulse Ox 36.9 C 72 16 117/49 L 98 12/31/16 23:28 12/31/16 23:28 12/31/16 23:28 12/31/16 23:28 12/31/16 23:28 Laboratory Results 01/01/17 05:00 01/01/17 05:00 12/31/16 01/01/17 01/02/17 05:59 05:59 05:59 Intake Total 5380 500 Output Total 1320 983 Balance 4060 -786 ICD10 Worksheet Patient Problems: Problems Problem Status Onset Transient ischemic attack Active Generalized weakness Acute Hypertension Acute Hypocalcemia Acute Intracranial hemorrhage following injury Acute Parkinson disease Acute Subdural hematoma, acute Acute
[2017-01-01] MEDS: PRESERVISION AREDS2 FORMULA EYE VIT 1 EACH PO SCH ×2 (08:52→20:47)
[2017-01-01] MEDS: ENOXAPARIN 40 MG/0.4 ML SYR SC SCH ×2 (08:52→09:18)
[2017-01-01] MEDS: POLYETHYLENE GLYCOL 3350 17 GM PKT PO SCH ×3 (08:52→21:19)
[2017-01-01] MEDS: DOCUSATE SODIUM 100 MG CAP PO SCH ×2 (08:52→21:19)
[2017-01-01] MEDS: SENNOSIDES/DOCUSATE SODIUM TAB PO SCH ×2 (08:52→21:19)
[2017-01-01] MEDS: ATORVASTATIN CALCIUM 20 MG TAB PO SCH (08:53)
[2017-01-01] MEDS: FAMOTIDINE 20 MG TAB PO SCH ×2 (08:53→20:48)
[2017-01-01] MEDS: CARBIDOPA/LEVO CR 25 MG/100 MG TAB PO SCH ×2 (08:53→20:48)
[2017-01-01] MEDS: CITALOPRAM 20 MG TAB PO SCH (08:53)
[2017-01-01] MEDS: GABAPENTIN 300 MG CAP PO SCH (08:54)
[2017-01-01] MEDS ORDERED: diphenhydrAMINE 25 MG CAP PO PRN (09:08)
[2017-01-01] MEDS ORDERED: METHOCARBAMOL 750 MG TAB PO PRN (09:08)
--- NOTE | 2017-01-01 09:15 | HOSPPROG ---
Hospitalist Progress Note Assessment/Plan: Assessment: 76 yo F w/ acute chest pain following ALIF, c/b acute encephalopathy Plan: # Chest pain. Acute, most likely 2/2 post-surg abd pain in LUQ + constipation, trops neg, CXR normal (personally interpreted) # Acute encephalopathy. Evidenced by global brain dysfunction characterized by somnolence, poor concentration, poor attention, delayed cognition, all of which is an acute change this AM from our encounter yesterday, most likely 2/2 toxic effects of multiple pain Rx - she received valium 5 + klonopin 0.5 + gabapentin 30 + oxy IR 5 last PM, all likely contributing - since the valium and oxy IR are new and being used for acute pain, would recommend reducing dosages and gauging response - since klonopin and gabapentin are home Rx, will cont at current doses - reduced PRN dosing of benadryl and robaxin, discontinued IV PRNs to avoid confusion - since her RN and I have concerns about PO intake while she is so encephalopathic, we will increase rate of maint IVF to 100cc/hr # Atelectasis. Acute, L base on exam, 2/2 poor mentation and surg site pain - get IS # Post-op ileus. Acute, BS present but no BM - bowel regimen ordered - adv diet under primary service direction - suppository/enema if mental status remains suppressed # Acute blood loss anemia. Hgb 9->8, no current loss apparent, cont to monitor Hgb daily # Chronic pain w/ continuous opiate dependency. See Rx adjustments above # HTN. Chronic, cont home Rx, monitor for hypotension w/ hx of autonomic dysregulation # Acute urinary retention. Straight cath yesterday, likely retaining 2/2 immobility and pain Rx, cont to monitor via bladder scanner # Parkinson's Disease. Chronic, cont home Rx, anticipate protracted recovery in setting of this high-risk co-morbidity Hospital Medicine will continue to consult daily and will f/u above. Subjective: patient feels better than yesterday, but she cannot articulate, somnolent Objective: Vital Signs Temp Pulse Resp BP Pulse Ox 36.7 C 76 14 129/47 H 99 01/01/17 08:00 01/01/17 08:00 01/01/17 08:00 01/01/17 08:00 01/01/17 08:00 Laboratory Results 01/01/17 05:00 01/01/17 05:00 12/31/16 01/01/17 01/02/17 05:59 05:59 05:59 Intake Total 5380 500 Output Total 3730 123 Balance 4060 -649 - Physical Exam Constitutional: no apparent distress, appears nourished, not in pain Cardiovascular: regular rate and rhythym, no murmur, rub, or gallop, No edema Respiratory: reduced air movement (L base on insp), No expiratory wheeze, No inspiratory crackles, No bronchial breath sounds, No respiratory distress Gastrointestinal: normoactive bowel sounds, no palpable masses, tenderness (LUQ around surg site), No guarding, No rebound, No distension Skin: other (no erythema around surg bandage) Neurologic: sensation intact bilaterally, CN II-XII Intact, other (AAOx2 ( person and time, not place)), No weakness (motor 5/5 mental health worker) Psychiatric: not anxious, encephalopathic, flat affect, poor memory, other ( concentration 5/7, delayed verbal responsiveness, somnolent, arousable to verbal stimuli), No agitated ICD10 Worksheet Patient Problems: Problems Problem Status Onset Transient ischemic attack Active Intracranial hemorrhage following injury Acute Subdural hematoma, acute Acute Parkinson disease Acute Generalized weakness Acute Hypocalcemia Acute Hypertension Acute
[2017-01-01] MEDS ORDERED: diphenhydrAMINE 12.5 MG/5 ML UDCUP PO PRN (09:17)
--- NOTE | 2017-01-01 14:29 | NEUSURGPN ---
Assessment/Plan: A: 76 yo F with Parkinson's disease s/p L4/5/S1 ALIFs with L3-S1 posterior fusion POD1 P: PT/OT Brace when OOB TEDs, SCDs, Lovenox Advance per general surgery. Post op xrays with intact hardware Call NS with any issues/questions Appreciate medical assistance with management. d/c SHARON drain today Optmize pain management without increasing solumence. Discussed with nurse. D/w Dr Franz Subjective: low back pain, Denies any leg pain numbness, tingling or weakness. Objective: NAD Alert adn appropriately answering questions. MAEx4 5/5 and equal in BUE and BLE. Incision c/d/i - Physician Discussed Patient with : [facility] Physical Exam - Vitals, I&O, Labs I and O 12/31/16 01/01/17 01/02/17 05:59 05:59 05:59 Intake Total 5380 500 Output Total 1320 983 Balance 4060 -483 Weight 52.163 kg Intake: Oral (ml) 250 IV Intake (ml) 4000 IV Infused (ml) 1130 500 NS W/ 20 KCl/L 1,000 ml @ 1130 500 100 mls/hr IV CONT MOSHE Rx#:[id number] Output: Urine (ml) 650 783 Bedside Commode 383 Catheter 650 400 Estimated Blood Loss (ml) 350 SHARON Drain Output (ml) 320 200 #1 Posterior Back Hunter 320 200 Mojica Other: Intake Quantity Yes Sufficient Output Comment Catheter Straight cath by RN Number of Voids Bedside Commode 1 Catheter 1 Bladder Scan Volume (ml) Bedside Commode 460 526 Vital Signs Temp Pulse Resp BP Pulse Ox 36.7 C 76 14 129/47 H 99 01/01/17 08:00 01/01/17 08:00 01/01/17 08:00 01/01/17 08:00 01/01/17 08:00 Laboratory Results 01/01/17 05:00 01/01/17 05:00 ICD10 Worksheet Patient Problems: Problems Problem Status Onset Transient ischemic attack Active Generalized weakness Acute Hypertension Acute Hypocalcemia Acute Intracranial hemorrhage following injury Acute Parkinson disease Acute Subdural hematoma, acute Acute
[2017-01-01] MEDS: MULTIVITAMINS 1 EACH TAB PO SCH (18:12)
[2017-01-01] MEDS: CHOLECALCIFEROL VIT D3 1,000 UNITS TAB PO SCH (20:45)
[2017-01-01] MEDS: DIAZEPAM 5 MG TAB PO PRN (20:49)
[2017-01-01] MEDS: clonazePAM 0.5 MG TAB PO SCH (20:49)
[2017-01-02] MEDS: oxyCODONE IR 5 MG TAB PO PRN (04:58)
[2017-01-02] MEDS: LEVOTHYROXINE 50 MCG TAB PO SCH (04:58)
[2017-01-02] MEDS: ACETAMINOPHEN 500 MG TAB PO SCH ×3 (04:58→20:37)
--- NOTE | 2017-01-02 07:07 | NEUSURGPN ---
Date of Surgery: 12/30/16 Post Op Day: 3 Assessment/Plan: Assessment: 76 yo F with Parkinson's disease s/p L4/5 and L5/S1 ALIFs with L3- S1 posterior fusion POD3 Plan: -continue with PT/OT -pt with some confusion last night and medications were held-better this am per reports -Brace when OOB -TEDs, SCDs, Lovenox -Advance diet per general surgery -Post op xrays with intact hardware -Call NS with any issues or questions -Appreciate medical assistance with management -SHARON drain removed yesterday -optmize pain management without confusion -D/W Dr Franz Subjective: Awake and alert. NAD. Pt with reports of some confusion last night that is a bit better. No new [place]/neck/chest/abd or gu complaints Objective: NAD, alert appropriately answering questions MAEx4 5/5 and equal in BUE and BLE. Incision c/d/i Neuro Check Frequency: per routine Urinary Catheter in Place: No - Physician Discussed Patient with : [facility] Physical Exam - Vitals, I&O, Labs I and O 01/01/17 01/02/17 01/03/17 05:59 05:59 05:59 Intake Total 500 475 Output Total 983 810 Balance -483 -335 Intake: Oral (ml) 475 IV Infused (ml) 500 NS W/ 20 KCl/L 1,000 ml @ 500 100 mls/hr IV CONT MOSHE Rx#:[id number] Output: Urine (ml) 783 750 Bedside Commode 383 750 Catheter 400 SHARON Drain Output (ml) 200 60 #1 Posterior Back Hunter 200 60 Mojica Other: Intake Quantity Yes Sufficient Output Comment Catheter Straight cath by RN Number of Voids Bedside Commode 1 1 Catheter 1 Number of Stools Bedside Commode 1 Bladder Scan Volume (ml) Bedside Commode 460 526 Vital Signs Temp Pulse Resp BP Pulse Ox 36.6 C 80 18 163/88 H 97 01/02/17 04:13 01/02/17 04:13 01/02/17 04:13 01/02/17 04:13 01/02/17 04:13 Laboratory Results 01/01/17 05:00 01/01/17 05:00 ICD10 Worksheet Patient Problems: Problems Problem Status Onset Transient ischemic attack Active Generalized weakness Acute Hypertension Acute Hypocalcemia Acute Intracranial hemorrhage following injury Acute Parkinson disease Acute Subdural hematoma, acute Acute
[2017-01-02] MEDS: PRESERVISION AREDS2 FORMULA EYE VIT 1 EACH PO SCH ×2 (08:24→20:38)
[2017-01-02] MEDS: CITALOPRAM 20 MG TAB PO SCH (08:24)
[2017-01-02] MEDS: CARBIDOPA/LEVODOPA 25 MG/100 MG TAB PO SCH ×4 (08:25→18:26)
[2017-01-02] MEDS: GABAPENTIN 300 MG CAP PO SCH (08:25)
[2017-01-02] MEDS: CARBIDOPA/LEVO CR 25 MG/100 MG TAB PO SCH ×2 (08:25→20:38)
[2017-01-02] MEDS: AMANTADINE HCL 100 MG CAP PO SCH ×3 (08:26→14:04)
[2017-01-02] MEDS: FAMOTIDINE 20 MG TAB PO SCH ×2 (08:26→20:40)
[2017-01-02] MEDS: ENTACAPONE 200 MG TAB PO SCH ×4 (08:26→18:26)
[2017-01-02] MEDS: DOCUSATE SODIUM 100 MG CAP PO SCH ×2 (08:26→20:40)
[2017-01-02] MEDS: ATORVASTATIN CALCIUM 20 MG TAB PO SCH (08:26)
[2017-01-02] MEDS: ENOXAPARIN 40 MG/0.4 ML SYR SC SCH (08:27)
--- NOTE | 2017-01-02 09:57 | SOAPPROG ---
SOAP Progress Note Assessment/Plan: Assessmen/Plan:76yo F POD#3 s/p anterior spinal exposure for ALIF. Diet advanced yesterday. Tolerating it well. Had pancakes this am. Bowel protocol ordered. Appreciated NS and IM's input. S: Pain is controlled. Sitting up in chair with abd binder/brace in place. Was apparently very confused yesterday. This is my first day seeing patient, however , mental status seems appropriate this morning. O: alert, nad, no pallor, smiling abd binder/brace on. +BS. soft. Did not directly view surgical incision as patient was with visitors. Plan to return later today. 01/02/17 09:53 Objective: Vital Signs Temp Pulse Resp BP Pulse Ox 36.9 C 79 18 143/61 H 90 L 01/02/17 07:46 01/02/17 08:40 01/02/17 07:46 01/02/17 08:40 01/02/17 07:46 Laboratory Results 01/01/17 05:00 01/01/17 05:00 01/01/17 01/02/17 01/03/17 05:59 05:59 05:59 Intake Total 500 475 Output Total 983 810 Balance -483 -335 ICD10 Worksheet Patient Problems: Problems Problem Status Onset Transient ischemic attack Active Generalized weakness Acute Hypertension Acute Hypocalcemia Acute Intracranial hemorrhage following injury Acute Parkinson disease Acute Subdural hematoma, acute Acute
[2017-01-02] MEDS: ROPINIROLE HCL 6 MG PO SCH ×2 (10:46→16:00)
[2017-01-02] MEDS: POLYETHYLENE GLYCOL 3350 17 GM PKT PO SCH ×3 (10:47→20:40)
[2017-01-02] MEDS: SENNOSIDES/DOCUSATE SODIUM TAB PO SCH ×2 (10:47→20:41)
--- NOTE | 2017-01-02 12:12 | POSTANESTH ---
Post Anesthetic Evaluation Cardiovascular Status: Normal, Stable Respiratory Status: Normal, Stable Level of Consciousness/Mental Status: Can Participate in Eval Pain Control: Adequate, Prn Tx Ordered Nausea/Vomiting Control: Adequate, Prn Tx Ordered Complications Possibly Related to Anesthesia: None Noted
--- NOTE | 2017-01-02 14:58 | HOSPPROG ---
Hospitalist Progress Note Assessment/Plan: Assessment: 76 yo F w/ acute chest pain following ALIF, c/b acute encephalopathy Plan: # Chest pain. Acute, most likely 2/2 post-surg abd pain in LUQ + constipation, trops neg, CXR normal # Acute encephalopathy. Evidenced by global brain dysfunction characterized by somnolence, poor concentration, poor attention, delayed cognition, all of which are an acute change, most likely 2/2 toxic effects of multiple pain Rx - persisting today, warranting further w/u to r/o infxn/anemia/HALEY, get CBC and BMP - suspect that meds continue to cause this - received valium last PM, klonopin last PM, oxy IR 5mg this AM, robaxin 375 this AM - reduce robaxin further to quarter tab PRN, reduce oxy IR to 2.5mg PRN, cont benzos as needed, as her spasms seem to escalate at night - if WBC rising, get UA # Atelectasis. Acute, L base on exam, 2/2 poor mentation and surg site pain - get IS # Post-op ileus. Resolved # Acute blood loss anemia. Hgb 9->8, no current loss apparent, cont to monitor Hgb daily # Chronic pain w/ continuous opiate dependency. See Rx adjustments above # HTN. Chronic, cont home Rx, monitor for hypotension w/ hx of autonomic dysregulation # Acute urinary retention. Cont to monitor via bladder scanner # Parkinson's Disease. Chronic, cont home Rx, anticipate protracted recovery in setting of this high-risk co-morbidity Hospital Medicine will continue to consult daily and will f/u above. Subjective: patient lethargic this afternoon, more active in AM, moved bowels Objective: Vital Signs Temp Pulse Resp BP Pulse Ox 36.6 C 84 16 122/58 H 92 01/02/17 11:19 01/02/17 11:19 01/02/17 11:19 01/02/17 11:19 01/02/17 11:19 Laboratory Results 01/01/17 05:00 01/01/17 05:00 01/01/17 01/02/17 01/03/17 05:59 05:59 05:59 Intake Total 500 475 240 Output Total 983 810 300 Balance -483 -335 -60 - Physical Exam Constitutional: no apparent distress, not in pain, chronically ill appearing, No uncomfortable Cardiovascular: regular rate and rhythym, no murmur, rub, or gallop, No edema Respiratory: reduced air movement (poor effort), No expiratory wheeze, No inspiratory crackles, No bronchial breath sounds Gastrointestinal: normoactive bowel sounds, tenderness (around surg site), No guarding, No distension Skin: other (no erythema/induration/ecchymoses/break-down around surg site on abd) Neurologic: sensation intact bilaterally, weakness (motor 4/5 bilat LE proximally), other (AAOx2 (person and place), masked facies) Psychiatric: not anxious, encephalopathic (w/ concentration 4/7), flat affect, No agitated ICD10 Worksheet Patient Problems: Problems Problem Status Onset Transient ischemic attack Active Intracranial hemorrhage following injury Acute Subdural hematoma, acute Acute Parkinson disease Acute Generalized weakness Acute Hypocalcemia Acute Hypertension Acute
--- NOTE | 2017-01-02 16:15 | ASMTCMCOM ---
CM Note CM Note Notes: Patient is POD #3 ALIF with acute chest pain following procedure. Per PT eval today, patient may be candidate for [facility] inpatient rehab. Consult was ordered, and Brooke Love from inpatient rehab said she will "follow" patient. CM will also follow for discharge planning. Date Signed: 01/02/2017 04:14 PM Electronically Signed By:Merna Connor RN
[2017-01-02 16:24] LABS: % IMMATURE GRANULYOCYTES 0.5 % (0.0-1.1); ABSOLUTE IMMATURE GRANULOCYTES 0.03 10^3/uL (0.00-0.10); ADD DIFF? NO; ADD MORPH? NO; ADD SCAN? NO; ATYPICAL LYMPHOCYTE FLAG 0 (0-99); FRAGMENT RBC FLAG 0 (0-99); HEMATOCRIT 24.6 % (38.0-47.0); HEMOGLOBIN 7.8 g/dL (12.6-16.3); LEFT SHIFT FLG 20 (0-99); LIPEMIA HEMOLYSIS FLAG 80 (0-99); MEAN CELL HEMOGLOBIN 29.5 pg (27.9-34.1); MEAN CELL HEMOGLOBIN CONCENTR. 31.7 g/dL (32.4-36.7); MEAN CELL VOLUME 93.2 fL (81.5-99.8); MEAN PLATELET VOLUME 8.8 fL (8.7-11.7); PLATELET CLUMPS FLAG 0 (0-99); PLATELET COUNT 175 10^3/uL (150-400); RED BLOOD CELL COUNT 2.64 10^6/uL (4.18-5.33); RED CELL DISTRIBUTION WIDTH 12.3 % (11.5-15.2)
[2017-01-02 17:28] LABS: ANION GAP 7 mEq/L (8-16); CALCIUM 7.5 mg/dL (8.5-10.4); CARBON DIOXIDE 27 mEq/l (22-31); CHLORIDE 105 mEq/L (97-110); CREATININE 0.6 mg/dL (0.6-1.0); GLOMERULAR FILTRATION RATE > 60; GLUCOSE 97 mg/dL (70-100); POTASSIUM 3.4 mEq/L (3.5-5.2); SODIUM 139 mEq/L (134-144)
[2017-01-02] MEDS: MULTIVITAMINS 1 EACH TAB PO SCH (18:26)
[2017-01-02] MEDS: CHOLECALCIFEROL VIT D3 1,000 UNITS TAB PO SCH (20:39)
[2017-01-02] MEDS: clonazePAM 0.5 MG TAB PO SCH (20:39)
[2017-01-03] MEDS: ACETAMINOPHEN 500 MG TAB PO SCH ×3 (06:09→21:05)
[2017-01-03] MEDS: CARBIDOPA/LEVO CR 25 MG/100 MG TAB PO SCH ×4 (06:10→17:58)
[2017-01-03] MEDS: ENTACAPONE 200 MG TAB PO SCH ×4 (06:10→17:58)
[2017-01-03] MEDS: AMANTADINE HCL 100 MG CAP PO SCH ×5 (06:10→15:13)
[2017-01-03] MEDS: LEVOTHYROXINE 50 MCG TAB PO SCH (06:11)
[2017-01-03] MEDS: ROPINIROLE HCL 6 MG PO SCH ×2 (06:11→15:16)
--- NOTE | 2017-01-03 07:43 | NEUSURGPN ---
Assessment/Plan: Assessment: 76 yo F with Parkinson's disease s/p L4/5 and L5/S1 ALIFs with L3- S1 posterior fusion POD#4 Plan: -continue with PT/OT -pt with some confusion yesterday, pain meds reduced. OK this AM. -Brace when OOB -TEDs, SCDs, Lovenox -Advance diet per general surgery -Post op xrays with intact hardware -Call NS with any issues or questions -Appreciate medical assistance with management -optmize pain management without confusion -Dispo: to rehab/SNF when cleared by IM -Pt seen and D/W Dr Franz Subjective: Pt resting in bed, states she is feeling good and making progress this AM. Objective: AAOx3 NAD VSS MAEx4 Motor 5/5 BLE +LT Incisions dressed Urinary Catheter in Place: No - Physician Discussed Patient with : Osei Patient Seen by : Osei Neurosurgery Physical Exam - Vitals, I&O, Labs I and O 01/02/17 01/03/17 01/04/17 05:59 05:59 05:59 Intake Total 475 240 400 Output Total 810 1100 Balance -335 -860 400 Intake: Oral (ml) 475 240 400 Output: Urine (ml) 750 1100 Bedside Commode 750 1100 SHARON Drain Output (ml) 60 #1 Posterior Back Hunter 60 Mojica Other: Intake Quantity Yes Sufficient Number of Voids Bedside Commode 1 1 Number of Stools Bedside Commode 1 Bladder Scan Volume (ml) Bedside Commode 526 Vital Signs Temp Pulse Resp BP Pulse Ox 36.8 C 81 16 164/86 H 93 01/03/17 07:20 01/03/17 07:20 01/03/17 00:00 01/03/17 07:20 01/03/17 07:20 Laboratory Results 01/02/17 16:16 01/02/17 16:16 ICD10 Worksheet Patient Problems: Problems Problem Status Onset Transient ischemic attack Active Generalized weakness Acute Hypertension Acute Hypocalcemia Acute Intracranial hemorrhage following injury Acute Parkinson disease Acute Subdural hematoma, acute Acute
[2017-01-03] MEDS: oxyCODONE IR 5 MG TAB PO PRN (07:46)
[2017-01-03] MEDS: SENNOSIDES/DOCUSATE SODIUM TAB PO SCH ×2 (07:47→21:01)
[2017-01-03] MEDS: PRESERVISION AREDS2 FORMULA EYE VIT 1 EACH PO SCH ×2 (07:47→21:03)
[2017-01-03] MEDS: ENOXAPARIN 40 MG/0.4 ML SYR SC SCH (07:48)
[2017-01-03] MEDS: ATORVASTATIN CALCIUM 20 MG TAB PO SCH (07:48)
[2017-01-03] MEDS: CITALOPRAM 20 MG TAB PO SCH (07:48)
[2017-01-03] MEDS: GABAPENTIN 300 MG CAP PO SCH (07:48)
[2017-01-03] MEDS: FAMOTIDINE 20 MG TAB PO SCH ×2 (07:48→21:01)
[2017-01-03] MEDS: POLYETHYLENE GLYCOL 3350 17 GM PKT PO SCH ×3 (07:49→21:07)
[2017-01-03] MEDS: DOCUSATE SODIUM 100 MG CAP PO SCH ×2 (07:49→21:01)
[2017-01-03] MEDS ORDERED: POTASSIUM CL 20 MEQ TAB PO ONE (09:27)
--- NOTE | 2017-01-03 09:32 | HOSPPROG ---
Hospitalist Progress Note Assessment/Plan: Assessment: 76 yo F w/ acute chest pain following ALIF, c/b acute encephalopathy and acute blood loss anemia Plan: # Chest pain. Not cardiac, resolved # Acute encephalopathy. Evidenced by global brain dysfunction characterized by somnolence, poor concentration, poor attention, delayed cognition, all of which are an acute change, most likely 2/2 toxic effects of multiple pain Rx - patient has returned to baseline, tolerating current pain Rx well - continue the current Rx at SNF # Atelectasis. Acute, resolved - cont IS, on room air # Post-op ileus. Resolved, moved bowels x 1 - cont bowel regimen at [facility] # Acute blood loss anemia. Hgb 9->7.8, no current loss apparent - rec repeat Hgb/Hct at [facility] in 1 week, labs to be followed up by NSGY at clinic appt # Chronic pain w/ continuous opiate dependency. Cont current Rx # HTN. Chronic, cont home Rx, has wide fluctuations and is at risk of hypotension if too tightly managed - cont current home Rx w/o changes # Acute urinary retention. Resolved # Parkinson's Disease. Chronic, cont home Rx, anticipate protracted recovery in setting of this high-risk co-morbidity Patient is medically safe for discharge to SNF w/ outpt f/u via NSGY. Subjective: pain better managed, mentation improved Objective: Vital Signs Temp Pulse Resp BP Pulse Ox 36.8 C 81 16 164/86 H 93 01/03/17 07:20 01/03/17 07:20 01/03/17 00:00 01/03/17 07:20 01/03/17 07:20 Laboratory Results 01/02/17 16:16 01/02/17 16:16 01/02/17 01/03/17 01/04/17 05:59 05:59 05:59 Intake Total 475 240 400 Output Total 810 1100 Balance -335 -860 400 - Physical Exam Constitutional: no apparent distress, not in pain, chronically ill appearing, No uncomfortable Cardiovascular: regular rate and rhythym, no murmur, rub, or gallop, No edema Respiratory: no respiratory distress, no rales or rhonchi, clear to auscultation Gastrointestinal: normoactive bowel sounds, soft, non-tender abdomen, no palpable masses, other (L abd surg site) Skin: other (no erythema/induration/ecchymoses or break down at surg site, ariadna in place) Neurologic: AAOx3, No facial droop Psychiatric: interacting appropriately, not anxious, not encephalopathic, thought process linear ICD10 Worksheet Patient Problems: Problems Problem Status Onset Transient ischemic attack Active Intracranial hemorrhage following injury Acute Subdural hematoma, acute Acute Parkinson disease Acute Generalized weakness Acute Hypocalcemia Acute Hypertension Acute
--- NOTE | 2017-01-03 10:22 | SOAPPROG ---
SOAP Progress Note Assessment/Plan: Assessmen/Plan:76yo F POD#4 s/p anterior spinal exposure for ALIF. Seen with internal medicine today. Possible d/c to SNF today. [place] out late next week. Will add f/u info to d/c plan. S: Tolerating diet. Pain controlled. No complaints. O: alert, nad, slouched in bed, comfortable, does not want to be moved. abd soft, appropriately ttp, inc cdi c ariadna, no erythema. 01/03/17 10:21 Objective: Vital Signs Temp Pulse Resp BP Pulse Ox 36.8 C 81 16 164/86 H 93 01/03/17 07:20 01/03/17 07:20 01/03/17 00:00 01/03/17 07:20 01/03/17 07:20 Laboratory Results 01/02/17 16:16 01/02/17 16:16 01/02/17 01/03/17 01/04/17 05:59 05:59 05:59 Intake Total 475 240 400 Output Total 810 1100 Balance -335 -860 400 ICD10 Worksheet Patient Problems: Problems Problem Status Onset Transient ischemic attack Active Generalized weakness Acute Hypertension Acute Hypocalcemia Acute Intracranial hemorrhage following injury Acute Parkinson disease Acute Subdural hematoma, acute Acute
[2017-01-03] MEDS: MULTIVITAMINS 1 EACH TAB PO SCH (17:58)
[2017-01-03] MEDS: DIAZEPAM 5 MG TAB PO PRN (21:02)
[2017-01-03] MEDS: CHOLECALCIFEROL VIT D3 1,000 UNITS TAB PO SCH (21:03)
[2017-01-03] MEDS: clonazePAM 0.5 MG TAB PO SCH (21:04)
[2017-01-04] MEDS: METHOCARBAMOL 500 MG TAB PO PRN (01:15)
[2017-01-04] MEDS: oxyCODONE IR 5 MG TAB PO PRN (01:16)
[2017-01-04] MEDS: CARBIDOPA/LEVO CR 25 MG/100 MG TAB PO SCH ×4 (06:06→18:43)
[2017-01-04] MEDS: ACETAMINOPHEN 500 MG TAB PO SCH ×3 (06:06→21:07)
[2017-01-04] MEDS: ENTACAPONE 200 MG TAB PO SCH ×4 (06:06→18:43)
[2017-01-04] MEDS: LEVOTHYROXINE 50 MCG TAB PO SCH (06:06)
[2017-01-04] MEDS: ROPINIROLE HCL 6 MG PO SCH ×2 (06:09→15:11)
--- NOTE | 2017-01-04 08:16 | SOAPPROG ---
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 Objective: Vital Signs Temp Pulse Resp BP Pulse Ox 36.7 C 78 16 161/83 H 94 01/04/17 08:09 01/04/17 08:09 01/04/17 08:09 01/04/17 08:09 01/04/17 08:09 Laboratory Results 01/02/17 16:16 01/02/17 16:16 01/03/17 01/04/17 01/05/17 05:59 05:59 05:59 Intake Total 240 400 Output Total 1100 1240 Balance -860 -840 AAOx4, +FC PERRL, EOMI, no facial droop 5/5 + light touch C/D/I ICD10 Worksheet Patient Problems: Problems Problem Status Onset Transient ischemic attack Active Generalized weakness Acute Hypertension Acute Hypocalcemia Acute Intracranial hemorrhage following injury Acute Parkinson disease Acute Subdural hematoma, acute Acute
--- NOTE | 2017-01-04 09:17 | HOSPPROG ---
Hospitalist Progress Note Assessment/Plan: 76 yo F w/ acute chest pain following ALIF, c/b acute encephalopathy and acute blood loss anemia. Today is my first encounter with the patient, chart reviewed. # Chest pain. Not cardiac, resolved -trop negative # Acute encephalopathy. -resolved/ back to her baseline #spondylolisthesis -s/p L3-S1 spinal fusion # Atelectasis. Acute, resolved - cont IS, on room air # Post-op ileus. Resolved - cont bowel regimen at [facility] # Acute blood loss anemia. Hgb 9->7.8, no current loss apparent - recheck today to be sure not trending down *Hypokalemia -electrolyte protocol # Chronic pain w/ continuous opiate dependency. Cont current Rx # HTN. - cont current home Rx w/o changes # Acute urinary retention. Resolved # Parkinson's Disease. -home meds resumed #. Plan: awaiting input for IP rehab/dc per neurosurgery Subjective: Hallie is feeling much better today/ no complaints. Objective: Vital Signs Temp Pulse Resp BP Pulse Ox 36.7 C 78 16 161/83 H 94 01/04/17 08:09 01/04/17 08:09 01/04/17 08:09 01/04/17 08:09 01/04/17 08:09 Laboratory Results 01/02/17 16:16 01/02/17 16:16 01/03/17 01/04/17 01/05/17 05:59 05:59 05:59 Intake Total 240 400 Output Total 1100 1240 Balance -860 -840 - Physical Exam Constitutional: no apparent distress, chronically ill appearing Eyes: PERRL Ears, Nose, Mouth, Throat: hearing normal Cardiovascular: regular rate and rhythym Respiratory: no respiratory distress, reduced air movement Gastrointestinal: normoactive bowel sounds Skin: warm Musculoskeletal: generalized weakness Neurologic: AAOx3 Psychiatric: interacting appropriately ICD10 Worksheet Patient Problems: Problems Problem Status Onset Transient ischemic attack Active Generalized weakness Acute Hypertension Acute Hypocalcemia Acute Intracranial hemorrhage following injury Acute Parkinson disease Acute Subdural hematoma, acute Acute
[2017-01-04] MEDS ORDERED: PROTOCOL POTASSIUM 1 DOSE MISC PRN (09:21)
[2017-01-04] MEDS: SENNOSIDES/DOCUSATE SODIUM TAB PO SCH ×2 (09:32→20:15)
[2017-01-04] MEDS: GABAPENTIN 300 MG CAP PO SCH (09:33)
[2017-01-04] MEDS: ATORVASTATIN CALCIUM 20 MG TAB PO SCH (09:33)
[2017-01-04] MEDS: FAMOTIDINE 20 MG TAB PO SCH ×2 (09:33→20:15)
[2017-01-04] MEDS: DOCUSATE SODIUM 100 MG CAP PO SCH ×2 (09:33→20:15)
[2017-01-04] MEDS: ENOXAPARIN 40 MG/0.4 ML SYR SC SCH (09:33)
[2017-01-04] MEDS: AMANTADINE HCL 100 MG CAP PO SCH ×2 (09:33→15:11)
[2017-01-04] MEDS: PRESERVISION AREDS2 FORMULA EYE VIT 1 EACH PO SCH ×2 (09:33→20:14)
[2017-01-04] MEDS: CITALOPRAM 20 MG TAB PO SCH (09:33)
[2017-01-04] MEDS: POLYETHYLENE GLYCOL 3350 17 GM PKT PO SCH ×3 (09:34→21:07)
[2017-01-04 10:04] LABS: HEMATOCRIT 28.7 % (38.0-47.0); HEMOGLOBIN 9.3 g/dL (12.6-16.3)
[2017-01-04 10:15] LABS: POTASSIUM 3.9 mEq/L (3.5-5.2)
--- NOTE | 2017-01-04 16:44 | ASMTCMCOM ---
CM Note CM Note Notes: Spoke with Linda from [facility] [phone] and faxed updated clinicals F [phone]. No ins auth received today. Noni from [facility] to call tomorrow and may file a complaint with [facility] for this pt's delay in d/c. Also spoke with Win and Kevin who have not received ins auth either. Date Signed: 01/04/2017 04:43 PM Electronically Signed By:EVAN Moreno
[2017-01-04] MEDS: MULTIVITAMINS 1 EACH TAB PO SCH (18:42)
[2017-01-04 18:51] LABS: POTASSIUM 4.2 mEq/L (3.5-5.2)
[2017-01-04] MEDS: DIAZEPAM 5 MG TAB PO PRN (20:13)
[2017-01-04] MEDS: CHOLECALCIFEROL VIT D3 1,000 UNITS TAB PO SCH (20:15)
[2017-01-04] MEDS: clonazePAM 0.5 MG TAB PO SCH (20:16)
[2017-01-05] MEDS: oxyCODONE IR 5 MG TAB PO PRN (04:18)
[2017-01-05] MEDS: METHOCARBAMOL 500 MG TAB PO PRN ×2 (04:19→20:54)
[2017-01-05 05:44] LABS: POTASSIUM 3.9 mEq/L (3.5-5.2)
[2017-01-05] MEDS: LEVOTHYROXINE 50 MCG TAB PO SCH (06:12)
[2017-01-05] MEDS: CARBIDOPA/LEVO CR 25 MG/100 MG TAB PO SCH ×4 (06:12→18:34)
[2017-01-05] MEDS: ACETAMINOPHEN 500 MG TAB PO SCH ×3 (06:12→21:04)
[2017-01-05] MEDS: ENTACAPONE 200 MG TAB PO SCH ×4 (06:12→18:34)
[2017-01-05] MEDS: AMANTADINE HCL 100 MG CAP PO SCH ×3 (06:12→15:49)
[2017-01-05] MEDS: ROPINIROLE HCL 6 MG PO SCH ×2 (06:19→15:20)
[2017-01-05 07:43] VITALS: RESP 16
--- NOTE | 2017-01-05 08:11 | NEUSURGPN ---
Date of Surgery: 12/30/16 Post Op Day: 6 Assessment/Plan: Assessment: 76 yo F POD#6 L3-S1 fusion Plan: neuro: stable and doing well overall PT/OT scd/sparkle/lovenox for dvt prophylaxis post op x-rays look great case management looking at SNF options contact neurosurgery with any questions/concerns discussed with Dr Franz Subjective: Patient leg pain improved but not completely gone, feeling better each day Objective: AxO x4 PERRLA, EOMI 5/5 BUE, BLE Sensation intact to light touch BLE Posterior dressing CDI Anterior incision site CDI with ariadna Neuro Check Frequency: per routine Urinary Catheter in Place: No - Physician Discussed Patient with : Osei Neurosurgery Physical Exam - Vitals, I&O, Labs I and O 01/04/17 01/05/17 01/06/17 05:59 05:59 05:59 Intake Total 400 750 Output Total 1240 500 Balance -840 250 Intake: Oral (ml) 400 750 Output: Urine (ml) 1240 500 Bedside Commode 1240 500 Other: Intake Quantity Yes Sufficient Number of Voids Bedside Commode 2 1 Toilet 1 Post Void Residual Scan Volume (ml) Bedside Commode 157 Vital Signs Temp Pulse Resp BP Pulse Ox 36.7 C 78 16 158/68 H 100 01/05/17 07:41 01/05/17 07:41 01/05/17 07:41 01/05/17 07:41 01/05/17 07:41 Laboratory Results 01/04/17 09:53 01/05/17 04:43 ICD10 Worksheet Patient Problems: Problems Problem Status Onset Transient ischemic attack Active Generalized weakness Acute Hypertension Acute Hypocalcemia Acute Intracranial hemorrhage following injury Acute Parkinson disease Acute Subdural hematoma, acute Acute
--- NOTE | 2017-01-05 09:04 | HOSPPROG ---
Hospitalist Progress Note Assessment/Plan: 76 yo F w/ acute chest pain following ALIF, c/b acute encephalopathy and acute blood loss anemia. # Chest pain. Not cardiac, resolved -trop negative # Acute encephalopathy. -resolved/ back to her baseline #spondylolisthesis -s/p L3-S1 spinal fusion # Atelectasis. Acute, resolved - cont IS, on room air # Post-op ileus. Resolved - cont bowel regimen at SNF # Acute blood loss anemia. -repeat labs are stable *Hypokalemia -electrolyte protocol #insomnia -add melatonin # Chronic pain w/ continuous opiate dependency. Cont current Rx # HTN. - cont current home Rx w/o changes # Acute urinary retention. Resolved # Parkinson's Disease. -home meds resumed #. Plan: dc per neurosurgery Subjective: Hallie has no complaints except she is tired/didn't sleep well. Objective: Vital Signs Temp Pulse Resp BP Pulse Ox 36.7 C 78 16 158/68 H 100 01/05/17 07:41 01/05/17 07:41 01/05/17 07:41 01/05/17 07:41 01/05/17 07:41 Laboratory Results 01/04/17 09:53 01/05/17 04:43 01/04/17 01/05/17 01/06/17 05:59 05:59 05:59 Intake Total 400 750 Output Total 1240 500 Balance -840 250 - Physical Exam Constitutional: chronically ill appearing, uncomfortable Eyes: PERRL Ears, Nose, Mouth, Throat: hearing normal Cardiovascular: regular rate and rhythym Respiratory: no respiratory distress Gastrointestinal: normoactive bowel sounds Skin: warm Musculoskeletal: generalized weakness Neurologic: AAOx3 Psychiatric: interacting appropriately, not anxious ICD10 Worksheet Patient Problems: Problems Problem Status Onset Transient ischemic attack Active Generalized weakness Acute Hypertension Acute Hypocalcemia Acute Intracranial hemorrhage following injury Acute Parkinson disease Acute Subdural hematoma, acute Acute
[2017-01-05] MEDS: ENOXAPARIN 40 MG/0.4 ML SYR SC SCH (09:05)
[2017-01-05] MEDS: PRESERVISION AREDS2 FORMULA EYE VIT 1 EACH PO SCH ×2 (09:05→20:54)
[2017-01-05] MEDS: SENNOSIDES/DOCUSATE SODIUM TAB PO SCH ×2 (09:05→20:54)
[2017-01-05] MEDS: ATORVASTATIN CALCIUM 20 MG TAB PO SCH (09:05)
[2017-01-05] MEDS: FAMOTIDINE 20 MG TAB PO SCH ×2 (09:05→20:55)
[2017-01-05] MEDS: POLYETHYLENE GLYCOL 3350 17 GM PKT PO SCH ×3 (09:05→21:05)
[2017-01-05] MEDS: DOCUSATE SODIUM 100 MG CAP PO SCH ×2 (09:05→21:06)
[2017-01-05] MEDS: CITALOPRAM 20 MG TAB PO SCH (09:05)
[2017-01-05] MEDS: GABAPENTIN 300 MG CAP PO SCH (09:05)
[2017-01-05] MEDS ORDERED: POTASSIUM CL 10 MEQ TAB PO ONE (10:49)
[2017-01-05] MEDS ORDERED: POTASSIUM CL 20 MEQ/15 ML UDCUP PO ONE (15:15)
--- NOTE | 2017-01-05 16:48 | ASMTCMCOM ---
CM Note CM Note Notes: This pm Luis Angel declined authorizing [facility] inpatient rehab, stating pt did not meet inpatient rehab level of care (pt is minimal assist and at baseline pt has assist w ADLs). Luis Angel has authorized [facility] and [facility] SNFs. Pt chose [facility]. Pt Vladimir wants to appeal the denial w Luis Angel, per [employer] ([phone]) this can take 2-4 business days. Luis Angel case # is [id number] F:[phone]. Updated neurosurgery RENATE Frias. Informed Vladimir pursuing an appeal can result in pt being here through early next week, [facility] can transfer pt to inpatient rehab if [employer] appeal approves inpatient rehab level of care and Dr. Franz approves SNF level of care. Vladimir wants to discuss further with pt. RN and RENATE Frias updated. CM to follow. Date Signed: 01/05/2017 04:48 PM Electronically Signed By:EVAN Zurita
[2017-01-05] MEDS: MULTIVITAMINS 1 EACH TAB PO SCH (18:34)
[2017-01-05 18:50] LABS: POTASSIUM 4.3 mEq/L (3.5-5.2)
[2017-01-05] MEDS: CHOLECALCIFEROL VIT D3 1,000 UNITS TAB PO SCH (20:54)
[2017-01-05] MEDS: DIAZEPAM 5 MG TAB PO PRN (20:55)
[2017-01-05] MEDS: clonazePAM 0.5 MG TAB PO SCH (20:56)
[2017-01-05] MEDS ORDERED: MELATONIN 3 MG TAB PO SCH (21:00)
[2017-01-06] MEDS: DIAZEPAM 5 MG TAB PO PRN (05:27)
[2017-01-06] MEDS: ACETAMINOPHEN 500 MG TAB PO SCH ×2 (05:27→14:15)
[2017-01-06] MEDS: LEVOTHYROXINE 50 MCG TAB PO SCH (05:27)
[2017-01-06] MEDS: CARBIDOPA/LEVO CR 25 MG/100 MG TAB PO SCH ×3 (06:03→14:11)
[2017-01-06] MEDS: AMANTADINE HCL 100 MG CAP PO SCH ×3 (06:03→14:11)
[2017-01-06] MEDS: ROPINIROLE HCL 6 MG PO SCH ×2 (06:03→14:12)
[2017-01-06] MEDS: ENTACAPONE 200 MG TAB PO SCH ×3 (06:03→14:10)
[2017-01-06] MEDS: PRESERVISION AREDS2 FORMULA EYE VIT 1 EACH PO SCH (07:45)
[2017-01-06] MEDS: CITALOPRAM 20 MG TAB PO SCH (07:46)
[2017-01-06] MEDS: FAMOTIDINE 20 MG TAB PO SCH (07:46)
[2017-01-06] MEDS: SENNOSIDES/DOCUSATE SODIUM TAB PO SCH (07:46)
[2017-01-06] MEDS: GABAPENTIN 300 MG CAP PO SCH (07:47)
[2017-01-06] MEDS: DOCUSATE SODIUM 100 MG CAP PO SCH (07:47)
[2017-01-06] MEDS: ENOXAPARIN 40 MG/0.4 ML SYR SC SCH (07:47)
[2017-01-06] MEDS: ATORVASTATIN CALCIUM 20 MG TAB PO SCH (07:47)
[2017-01-06] MEDS: POLYETHYLENE GLYCOL 3350 17 GM PKT PO SCH (07:47)
--- NOTE | 2017-01-06 07:49 | NEUSURGPN ---
Assessment/Plan: Assessment: 76 yo F POD#7 L3-S1 fusion Plan: neuro: stable and doing well overall PT/OT scd/sparkle/lovenox for dvt prophylaxis post op x-rays show stable hardware dispo: dc to rehab once placement obtained contact neurosurgery with any questions/concerns discussed with Dr Franz Subjective: Pt resting in bedside chair, states she is happy overall with surgery. Objective: AAOx3 NAD VSS MAEx4 Motor 5/5 BLE Brace on, up in chair +LT Urinary Catheter in Place: No - Physician Discussed Patient with : Osei Neurosurgery Physical Exam - Vitals, I&O, Labs I and O 01/05/17 01/06/17 01/07/17 05:59 05:59 05:59 Intake Total 750 1050 Output Total 500 1325 Balance 250 -275 Intake: Oral (ml) 750 1050 Output: Urine (ml) 500 1325 Bedside Commode 500 Toilet 1325 Other: Intake Quantity Yes Sufficient Number of Voids Bedside Commode 1 Toilet 1 1 Vital Signs Temp Pulse Resp BP Pulse Ox 36.9 C 68 16 167/67 H 100 01/05/17 23:53 01/05/17 23:53 01/05/17 23:53 01/06/17 03:34 01/05/17 23:53 Laboratory Results 01/04/17 09:53 01/06/17 05:19 ICD10 Worksheet Patient Problems: Problems Problem Status Onset Transient ischemic attack Active Generalized weakness Acute Hypertension Acute Hypocalcemia Acute Intracranial hemorrhage following injury Acute Parkinson disease Acute Subdural hematoma, acute Acute
[2017-01-06 08:07] VITALS: TEMP 97.7
--- NOTE | 2017-01-06 13:45 | HOSPPROG ---
Hospitalist Progress Note Assessment/Plan: 76 yo F w/ acute chest pain following ALIF, c/b acute encephalopathy and acute blood loss anemia. First encounter, chart reviewed. D/W CM. # Chest pain. Not cardiac, resolved -trop negative # Acute encephalopathy. -resolved/ back to her baseline #spondylolisthesis -s/p L3-S1 spinal fusion # Atelectasis. Acute, resolved - cont IS, on room air # Post-op ileus. Resolved - cont bowel regimen at SNF # Acute blood loss anemia. -repeat labs are stable *Hypokalemia -electrolyte protocol #insomnia -add melatonin # Chronic pain w/ continuous opiate dependency. Cont current Rx # HTN. - cont current home Rx w/o changes # Acute urinary retention. Resolved # Parkinson's Disease. -home meds resumed #. Plan: dc per neurosurgery wants inpt rehab insurance denied, appealing insurance Subjective: Feels well. No pain currently. No issues. Objective: Vital Signs Temp Pulse Resp BP Pulse Ox 36.5 C 76 16 132/44 H 97 01/06/17 08:00 01/06/17 08:00 01/06/17 08:00 01/06/17 08:00 01/06/17 08:00 Laboratory Results 01/04/17 09:53 01/06/17 05:19 01/05/17 01/06/17 01/07/17 05:59 05:59 05:59 Intake Total 750 1050 480 Output Total 500 1325 Balance 250 -275 480 - Physical Exam Constitutional: no apparent distress, appears nourished, not in pain Eyes: PERRL, anicteric sclera, EOMI Ears, Nose, Mouth, Throat: moist mucous membranes, hearing normal, ears appear normal Cardiovascular: regular rate and rhythym, No JVD, No edema Respiratory: no respiratory distress, no rales or rhonchi, reduced air movement Gastrointestinal: normoactive bowel sounds, No tenderness, No ascites Skin: warm, normal color, No mottled Musculoskeletal: no joint effusions, pain with ROM, generalized weakness Neurologic: AAOx3 Psychiatric: interacting appropriately, not anxious, not encephalopathic ICD10 Worksheet Patient Problems: Problems Problem Status Onset Transient ischemic attack Active Intracranial hemorrhage following injury Acute Subdural hematoma, acute Acute Parkinson disease Acute Generalized weakness Acute Hypocalcemia Acute Hypertension Acute
--- NOTE | 2017-01-06 15:22 | PDIAF ---
- Diagnosis Code Status: Full Code - Medication Management Discharge Medications: Medications to Continue on Transfer Amantadine HCl [Symmetrel] 100 mg PO TID@,,07/10/13 [Last Taken 12/29/16] Carbidopa/Levo Cr 25/100Mg [Sinemet CR 25/100 MG (*)] 1 tab PO BID 07/10/13 [ Last Taken 12/29/16] Citalopram [CeleXA 20 MG] 20 mg PO DAILY 07/10/13 [Last Taken 04/01/15] Entacapone [Comtan] 200 mg PO QID@,,,07/10/13 [Last Taken 04/01/15] Multivitamins [Multivitamin (*)] 1 tab PO DAILY@18 07/10/13 [Last Taken 03/31/15 ] rOPINIRole HCL [Requip XL 6mg] 6 mg PO BID@,07/10/13 [Last Taken 04/01/15] Docusate Sodium [Colace 100 MG (*)] 100 mg PO DAILY 07/17/13 [Last Taken ] clonazePAM [Klonopin (*)] 0.5 mg PO HS 04/01/15 [Last Taken 03/31/15] Atorvastatin Calcium [Lipitor 20 mg (*)] 20 mg PO DAILY #30 tab 04/06/15 [Last Taken Unknown] Gabapentin [Neurontin 300 MG (*)] 300 mg PO DAILY 12/30/16 [Last Taken Unknown] Acetaminophen [Tylenol ES 500 mg (*)] 1,000 mg PO Q8HRS tab 01/06/17 [Last Taken Unknown] Cholecalciferol Vit D3 [Vitamin D3 (*)] 5,000 units PO HS tab 01/06/17 [Last Taken Unknown] Diazepam [Valium 5 MG (*)] 2.5 mg PO Q8 PRN tab 01/06/17 [Last Taken Unknown] Enoxaparin [Lovenox 40 MG (*)] 40 mg SC DAILY syr 01/06/17 [Last Taken Unknown] Famotidine [Pepcid 20 MG (*)] 20 mg PO BID tab 01/06/17 [Last Taken Unknown] Levothyroxine [Synthroid 50 mcg (*)] 50 mcg PO DAILY@06 tab 01/06/17 [Last Taken Unknown] Melatonin [Melatonin 3 MG (*)] 3 mg PO HS tab 01/06/17 [Last Taken Unknown] Methocarbamol [Robaxin 500 mg (*)] 250 mg PO QID PRN tab 01/06/17 [Last Taken Unknown] oxyCODONE IR [Oxycodone Ir (*)] 2.5 mg PO Q4HRS PRN tab 01/06/17 [Last Taken Unknown] Discharge Medications: Refer to the Discharge Home Medication list for PRN reason. - Orders Services needed: Registered Nurse, Physical Therapy, Occupational Therapy Diet Recommendation: no restrictions on diet Diet Texture: Regular Texture Diet - Follow Up Care Current Providers and Referrals: Cj Andrade MD [Medical Doctor] - follow up in 10 days (please call for an appt for late next week for post op check and staple removal) Antonia Jefferson MD [Primary Care Provider] -
[2017-01-06 15:34] VITALS: BP 134/46; PULSE 80; O2SAT 100
--- NOTE | 2017-01-06 16:42 | ASMTCMCOM ---
CM Note CM Note Notes: In the afternoon pt reported [employer] responded to his appeal and now authorizes [facility] inpatient rehab. Noni Tran at [facility] IPR confirmed w [employer] and d/c orders obtained. Pt husb agrees to have [employer] pt and transport set for 1600. Orders obtained via [employer] and FARHAD Gómez to call report. Date Signed: 01/06/2017 04:42 PM Electronically Signed By:EVAN Zurita
--- NOTE | 2017-01-06 16:44 | ASDISCHSUM ---
Discharge Information Plan Status:Inpatient Rehab Medically Cleared to Leave: Discharge Date:01/06/2017 04:21 PM D/C Disposition:[facility] Acute ADT D/C Disposition:Home, Routine, Self-Care Projected Discharge Date:01/06/2017 11:00 AM Transportation at D/C:Wheelchair Van Discharge Delay Reason: Follow-Up Date:01/06/2017 11:00 AM Discharge Slot: Final Diagnosis: Placement Information Referral Type:*Correction/SNF Referral ID:[id number] Provider Name: Address 1: Phone Number: Address 2: Fax Number: City: Selection Factors: State: Referral Type:Rehabilitation Hospital Referral ID:[id number] Provider Name:[facility] Address 1:[address] [place] [address] Phone Number: Address 2: Fax Number: [facility]:[place] Selection Factors: State:[place] Patient Contact Information Contact Name:ALTAGRACIA Relationship: Address:[address] [place] [address] City:[place] Alternate Phone: State/Zip Code:[place] [phone] Email: Financial Information Financial Class:Medicare Advantage Plans Primary Plan Desc:LUIS ANGEL TORRES MEDICARE Primary Plan Number:[id number] Secondary Plan Desc: Secondary Plan Number: Assessment Information [facility] CM Progress Note CM Note CM Note Notes: Pt w Parkinsons; had planned surgery for back pain, spondylolisthesis. PT rec inpatient rehab, OT rec SNF. This CM did not get to meet pt to discuss d/c plan of care as pt was having chest pain. Of note: Chart review indicates pt has had [facility] in past. CM to follow. Date Signed: 12/31/2016 03:39 PM Electronically Signed By:EVAN Zurita [facility] CM Progress Note CM Note CM Note Notes: Patient is POD #3 ALIF with acute chest pain following procedure. Per PT eval today, patient may be candidate for [facility] inpatient rehab. Consult was ordered, and Brooke Ratliffkahlil from inpatient rehab said she will "follow" patient. CM will also follow for discharge planning. Date Signed: 01/02/2017 04:14 PM Electronically Signed By:Merna Connor RN [facility] CM Progress Note CM Note CM Note Notes: Spoke with Linda from [facility] [phone] and faxed updated clinicals [phone]. No ins auth received today. Noni from [facility] to call tomorrow and may file a complaint with Luis Angel for this pt's delay in d/c. Also spoke with [place] and Kevin who have not received ins auth either. Date Signed: 01/04/2017 04:43 PM Electronically Signed By:EVAN Moreno [facility] CM Progress Note CM Note CM Note Notes: This pm Luis Angel declined authorizing [facility] inpatient rehab, stating pt did not meet inpatient rehab level of care (pt is minimal assist and at baseline pt has assist w ADLs). [facility] has authorized [facility] and [facility] SNFs. Pt chose [facility]. Pt Vladimir wants to appeal the denial khadar Plasencia, per [employer] ([phone]) this can take 2-4 business days. Luis Angel case # is [id number] F:[phone]. Updated neurosurgery RENATE Frias. Informed Vladimir pursuing an appeal can result in pt being here through early next week, [facility] can transfer pt to inpatient rehab if [employer] appeal approves inpatient rehab level of care and Dr. Franz approves SNF level of care. Vladimir wants to discuss further with pt. RN and RENATE Frias updated. CM to follow. Date Signed: 01/05/2017 04:48 PM Electronically Signed By:EVAN Zurita [facility] CM Progress Note CM Note CM Note Notes: In the afternoon pt lilibeth Plasencia responded to his appeal and now authorizes [facility] inpatient rehab. Noni Tran at [facility] IPR confirmed w [employer] and d/c orders obtained. Pt tasia agrees to have [employer] pt and transport set for 1600. Orders obtained via [employer] and FARHAD Gómez to call report. Date Signed: 01/06/2017 04:42 PM Electronically Signed By:EVAN Zurita Intervention Information
== END 2017-01-06 16:21 | DRG 453 ==
LOC: F3N 05:37
PROVIDERS: ADMIT Neurological Surgery; ATTEND Neurological Surgery
PROC: 0SG3071 Fusion of Lumbosacral Joint with Autologous Tissue Substitute, Posterior Approach, Posterior Column, Open Approach (ICD-10-PCS; principal; 2016-12-30 07:15)
PROC: 0SG30A0 Fusion of Lumbosacral Joint with Interbody Fusion Device, Anterior Approach, Anterior Column, Open Approach (ICD-10-PCS; principal; 2016-12-30 07:15)
PROC: 0SG1071 Fusion of 2 or more Lumbar Vertebral Joints with Autologous Tissue Substitute, Posterior Approach, Posterior Column, Open Approach (ICD-10-PCS; principal; 2016-12-30 07:15)
PROC: 4A10X4G Monitoring of Central Nervous Electrical Activity, Intraoperative, External Approach (ICD-10-PCS; principal; 2016-12-30 07:15)
PROC: 8E0WXBZ Computer Assisted Procedure of Trunk Region (ICD-10-PCS; principal; 2016-12-30 07:15)
PROC: 00NY0ZZ Release Lumbar Spinal Cord, Open Approach (ICD-10-PCS; principal; 2016-12-30 07:15)
PROC: 0SG00A0 Fusion of Lumbar Vertebral Joint with Interbody Fusion Device, Anterior Approach, Anterior Column, Open Approach (ICD-10-PCS; principal; 2016-12-30 07:15)
PROC: 01NB0ZZ Release Lumbar Nerve, Open Approach (ICD-10-PCS; principal; 2016-12-30 07:15)
PROC: 0ST20ZZ Resection of Lumbar Vertebral Disc, Open Approach (ICD-10-PCS; principal; 2016-12-30 07:15)
DX: M43.16 Spondylolisthesis, lumbar region (principal); M47.27 Other spondylosis with radiculopathy, lumbosacral region; K91.89 Other postprocedural complications and disorders of digestive system; K56.0 Paralytic ileus; G92 Toxic encephalopathy; T40.2X5A Adverse effect of other opioids, initial encounter; T42.4X5A Adverse effect of benzodiazepines, initial encounter; D62 Acute posthemorrhagic anemia; R33.9 Retention of urine, unspecified; E87.6 Hypokalemia; G20 Parkinson's disease; M81.0 Age-related osteoporosis without current pathological fracture; Z87.310 Personal history of (healed) osteoporosis fracture; F11.20 Opioid dependence, uncomplicated; I10 Essential (primary) hypertension; E03.9 Hypothyroidism, unspecified; Z87.891 Personal history of nicotine dependence; Z23 Encounter for immunization
CPT/HCPCS: 97110-GP; 97116-GP; 97162-GP; 97165-GO; 97166-GO; 97530-GO; 97530-GP; 97535-GO; C1713; C1762; G0008; G8978-GP-CL; G8979-GP-CJ; G8987-GO-CK; G8988-GO-CI; J0171; J0690; J1100; J1170; J1650; J2250; J2405; J2704; J2710; J3010; J7060

== ENCOUNTER 2017-01-06 16:26 | Inpatient (IN) | payer OTHER ==
--- NOTE | 2017-01-06 19:19 | GHP ---
[f rep st] HISTORY AND PHYSICAL POST-ADMISSION PHYSICIAN EVALUATION AND REHABILITATION TREATMENT PLAN DATE OF ADMISSION: 01/06/2017 DATE OF EVALUATION: 01/06/2017 TIME OF EVALUATION: 1520 hours. REFERRING FACILITY: [facility]. IMPAIRMENT GROUP: 3.2, DATE OF ONSET: 12/20/2016 REFERRING PHYSICIAN: Dr. Franz. CONSULTING PHYSICIANS: She was seen by the hospitalist service, Dr. Kennedy. REHABILITATION DIAGNOSIS: Debility due to Parkinson disease following lumbar surgery. ETIOLOGIC DIAGNOSIS: Parkinsonism. DATE OF SURGERY: 12/30/2016 HISTORY OF PRESENT ILLNESS: This patient had severe lumbar spinal stenosis and spondylolisthesis. She had low back and sciatic pain. She had had 2 previous lumbar surgeries. She underwent an elective L4-5 and L5-S1 anterior lumbar interbody fusion, and an L3 to S1 posterior fusion on 12/30/2016. Postoperatively, she had acute encephalopathy, atelectasis, postop ileus, anemia , and urinary retention. Her medical issues were stabilized. She was participating in therapies and appropriate for inpatient rehabilitation. She currently complains of feeling weak in the legs. However, she has been able to stand up and walk, and she is enthusiastic to work with therapies. STUDIES AND LABS IN THE HOSPITAL: She had anemia, which was improving. Her most recent hemoglobin and hematocrit were at 9.3 and 28.7 on 01/04/2017. She may have had a transfusion because the previous numbers on 01/02 were 7.8 and 24.6. Serum chemistry showed a low potassium at 3.4 01/02/2017, which improved likely with supplementation. Otherwise, renal function and electrolytes were overall within normal limits. There was an episode of chest pain. She had an elevated creatine kinase, but a negative troponin, and the creatine kinase was not consistent with myocardial ischemia. EKG showed a normal sinus rhythm with atrial premature complexes and was possibly consistent with left ventricular hypertrophy. Chest x-ray done the day after surgery showed mild perihilar bronchitis, with no focal infiltrate, CHF, or pneumothorax. PRECAUTIONS: She is a fall risk. She has orthopedic precautions, with spinal precautions. ACTIVE COMORBIDITIES: She has no active tier 1, tier 2, or tier 3 comorbidities. PAST MEDICAL HISTORY: 1. Parkinson disease diagnosed in 1992, and she was enrolled in an experimental trial with stem cells. 2. Spinal stenosis and radiculopathy. 3. Subdural hematoma in 2013. 4. Osteopenia. 5. Hypothyroidism. 6. TIA in 2016. 7. Depression. 8. Pulmonary hypertension. 9. Gastroesophageal reflux disorder. 10. Dyslipidemia. 11. Hypertension. PAST SURGICAL HISTORY: She has had a cholecystectomy. She had an L3-S1 laminectomy x2 in 2008 and in 2011. She had a sacroiliac injection in July of 2016. She had a carotid endarterectomy on the right in 2015. PRE-HOSPITAL MEDICATIONS: 1. Amantadine 100 mg p.o. three times daily at 7:00 a.m., 10:00 a.m., and 1400 hours. 2. Carbidopa/levodopa continuous release 25/100 mg, 1 tab p.o. twice daily. 3. Carbidopa/levodopa 25/100 mg, 1 tab p.o. four times daily at 0700 hours, 10 o'clock, 1400 hours, and 1800 hours. 4. Citalopram 20 mg p.o. daily. 5. Entacapone 200 mg p.o. four times daily. 6. Multivitamin, 1 tab p.o. daily. 7. Ropinirole 6 mg p.o. twice daily. 8. Docusate 100 mg p.o. daily. 9. PreserVision soft gel, 1 p.o. twice daily. 10. Clonazepam 0.5 mg p.o. at bedtime. 11. Acetaminophen 325 mg p.o. q.6 hours p.r.n. 12. Gabapentin 300 mg p.o. daily. 13. Hydrocodone/acetaminophen 5/325, one p.o. daily p.r.n. ADMISSION MEDICATIONS: 1. Acetaminophen 1000 mg p.o. q.8 hours. 2. Amantadine 100 mg p.o. three times daily at 0700 hours, 10 o'clock, and 1400 hours. 3. Atorvastatin 20 mg p.o. daily. 4. Carbidopa/levodopa continuous release 25/100 mg, 1 p.o. twice daily. 5. Cholecalciferol 5000 units p.o. at bedtime. 6. Citalopram 20 mg p.o. daily. 7. Clonazepam 0.5 mg at bedtime. 8. Diazepam 2.5 mg p.o. q.8 hours p.r.n. 9. Docusate 100 mg p.o. daily. 10. Enoxaparin 40 mg subcutaneous daily. 11. Entacapone 200 mg four times daily. 12. Famotidine 20 mg p.o. twice daily. 13. Gabapentin 300 mg p.o. daily. 14. Levothyroxine 50 mcg p.o. daily. 15. Melatonin 3 mg p.o. at bedtime. 16. Methocarbamol 250 mg p.o. four times daily p.r.n. 17. Multivitamin p.o. daily at 1800 hours. 18. Oxycodone 2.5 mg p.o. q.4 hours p.r.n. 19. Ropinirole 6 mg p.o. twice daily at 0700 hours and 1600 hours. ALLERGIES: There are no known drug allergies. FAMILY HISTORY: Father suffered an NH at age 88. Mother had breast and uterine cancer. She has had a sibling with melanoma. PSYCHOSOCIAL HISTORY: She is . She lives with her . She has 2 local sons. 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 She is a nonsmoker and nondrinker. She has a history of smoking in the past. She uses alcohol rarely. REVIEW OF SYSTEMS: She is remarkably pain-free. She reports that the pain that went down her legs previously has resolved. She feels she is still somewhat weak in the legs, and she feels wobbly when she stands up. She denies lightheadedness with standing. She feels she is fairly flexible and does not feel that she has rigidity. She denies fevers or chills, cough or dyspnea, nausea, vomiting, constipation, or diarrhea. She had a large bowel movement today and had been constipated previously. She denies dysuria or urinary frequency. She denies joint pain, joint stiffness, or swelling. She denies skin rash or skin breakdown. She is in good spirits. Otherwise, a 10-point review of systems is negative. PHYSICAL EXAMINATION: VITAL SIGNS: Vitals are not yet available in the chart. This afternoon at the hospital, her blood pressure was 134/46. Her heart rate was 80. Respiratory rate was 16. Oxygen saturation was 100% on 2 L and in the morning, it was 97% on room air. Temperature was 36.5 degrees centigrade. Her weight is 52.2 kg, for a body mass index of 21. GENERAL: This is a thin, elderly woman, who appears her chronologic age. Cooperative and in no acute distress. HEENT: Extraocular movements are intact. Mucous membranes are mildly dry. Dentition is in good condition. There is no posterior oropharyngeal mucus. She has an uncrowded airway, Mallampati class 1. NECK: Supple. HEART: There is a regular rate and rhythm, with no murmurs , rubs, or gallops. LUNGS: Clear to auscultation bilaterally. ABDOMEN: Soft , nontender, and nondistended, with normoactive bowel sounds. EXTREMITIES: There is no cyanosis, clubbing, or edema. The radial and dorsalis pedis pulses are 2+ bilaterally. NEUROLOGIC: She is alert and oriented x3. She is hypophonic. Cranial nerves 2 through 12 are grossly intact. There is no focal weakness. Sensation is intact to light touch. Deep tendon reflexes are 2+ bilaterally at the biceps, patellae, and Achilles tendons. There is no rigidity. She has full faces. She was observed subsequently to be standing in her room with her 4-wheeled walker. She appeared to be somewhat unsteady, with mildly flexed posture at the hips and knees. There was no tremor. She has mild dyskinesia, with subtle involuntary movements of the shoulders and arms. SKIN: She has a well-approximated surgical scar arcing from midline suprapubic towards her left abdomen below the umbilicus. It is stapled. There is no drainage or erythema. She has a midline lumbar incision, which appears to be either glued or to have internal sutures. There is no dehiscence and no drainage. CURRENT LEVEL OF FUNCTION: Per the pre-admission screen regarding diet, feeding , and swallowing, she required setup. Dressing required total assist in sitting for upper body. Bladder: She was noted to have urinary incontinence. She required straight catheterization during her hospital stay. Subsequently, she was voiding well. She was continent of bowel. Bed mobility required moderate assistance for log rolling, and that was consistent with today's exam. Transfers required moderate assistance with voice cues. She was using a 4- wheeled walker. Balance required minimal to moderate assistance. Endurance was fair. She ambulated 6 feet with minimal to moderate assistance with voice cues. She was noted to have periods of confusion. IMPRESSION: This patient is a 76-year-old woman with a long history of Parkinson disease and spinal stenosis, with essentially a failed back after 2 previous surgeries. She came in electively and had a definitive operative repair with anterior lumbar interbody fusion at L4-5 and L5-S1, and a posterior fusion at L3-S1. She had postoperative complications including encephalopathy, atelectasis, ileus, anemia, and urinary retention. However, she has largely recovered from these complications, is surprisingly pain-free, and is appropriate for inpatient rehabilitation. She will benefit from physical and occupational therapy to optimize her mobility and activities of daily living; from nursing care for fall risk, bowel and bladder, skin integrity, and wound healing; and medication administration and education. She will benefit from the care of a physician regarding pain management, Parkinson disease, anemia, cardiopulmonary status, and DVT prophylaxis. Her goal is to complete a rehabilitation course and go home with her family and home health services. For a safe discharge, it is anticipated that she will achieve independence with eating and grooming, modified independence or continue to require some assistance for bathing, dressing and transfers, and ambulation with a least restrictive device for household distances. She will have physical therapy and occupational therapy for 90 minutes per day per discipline on 5-7 days per week. Her expected duration of stay is 7-10 days. It is anticipated that upon discharge, she will continue to benefit from home health services, including nursing, a nurse's aide, a social media developer, occupational therapy, and physical therapy. PLAN: 1. Debility with Parkinson disease and lumbar spinal surgery on 12/30/16. PT and OT to optimize mobility and activities of daily living. 2. Status post lumbar surgery. She is relatively pain-free. She will be continued on pain medications ordered out of the hospital, which are acetaminophen and low-dose oxycodone. She also has methocarbamol and diazepam in case there are muscle spasms. 3. Parkinson disease. Continue her medications. She sees Dr. Jena Winslow at the [facility] neurology department in [place] and would consider asking for her advice should the dyskinesias prove to be limiting in therapy or should she have freezing episodes. Consider speech therapy referral regarding hypophonia. 4. Possible coronary artery disease. She had an evaluation for chest pain while in the hospital. The hospitalist noted that she had a nuclear stress test prior to surgery, which showed a small area of ischemia. However, she ruled out for any myocardial etiology of her chest pain. She is on atorvastatin. She has a history of hypertension, but is not on any antihypertensives at present. She denies orthostatic symptoms. If she has elevated blood pressure, we will have a low threshold to initiate antihypertensive medications, but would rule out orthostatic hypotension first. 5. Hypothyroidism. Continue her levothyroxine. 6. Question of delirium and sleep-wake issues. She has clonazepam prescribed at bedtime. There is also a prescription for melatonin on a p.r.n. basis. She will be observed for full clearing of her mental status and for adequate sleep. 7. Constipation, possibly due to pain medications. Has responded to laxatives. She has docusate prescribed out of the hospital. I will add p.r.n. senna and polyethylene glycol. 8. DVT prophylaxis. Continue enoxaparin until her mobility is considerably improved. 9. Famotidine has also presumably been prescribed for gastroenterological prophylaxis. 10. Anemia. We will recheck her blood counts in the morning to be assured that her anemia is resolving. 11. Hypokalemia in the hospital has resolved, and there is no need to continue to follow her serum chemistries. FOLLOWUP: She is to follow up in [address] Cj Andrade for a postop check and staple removal. Dr. Anrdade assisted in the anterior approach to the surgery. She is to follow up with her primary care provider, Dr. Antonia Jefferson after her discharge. /[id number]/MODL MTDD
--- NOTE | 2017-01-06 19:25 | PDOREHIP ---
Admission [facility] - Admission - 3 Day Assessment Period Admission Date/Day 1: 01/06/17 Day 2: 01/07/17 Day 3: 01/08/17 - Active Diagnoses Comorbidities and Co-existing Conditions at Admission: 62371. None of the Above - Skin Conditions Unhealed Pressure Ulcer (1 or more/Stage 1 or >)-Admission: 0. No
[2017-01-06] MEDS: MELATONIN 3 MG TAB PO SCH (20:34)
[2017-01-06] MEDS: ACETAMINOPHEN 500 MG TAB PO SCH (20:34)
[2017-01-06] MEDS: ENTACAPONE 200 MG TAB PO SCH (20:34)
[2017-01-06] MEDS: CHOLECALCIFEROL VIT D3 2,000 UNITS TAB/CAP PO SCH (20:34)
[2017-01-06] MEDS: FAMOTIDINE 20 MG TAB PO SCH (20:34)
[2017-01-06] MEDS: clonazePAM 0.5 MG TAB PO SCH (20:34)
[2017-01-06] MEDS: CARBIDOPA/LEVO CR 25 MG/100 MG TAB PO SCH (20:34)
[2017-01-06] MEDS: MULTIVITAMINS 1 EACH TAB PO SCH (20:37)
[2017-01-06] MEDS: METHOCARBAMOL 500 MG TAB PO PRN (20:37)
[2017-01-07] MEDS: ACETAMINOPHEN 500 MG TAB PO SCH ×3 (05:01→21:11)
[2017-01-07] MEDS: LEVOTHYROXINE 50 MCG TAB PO SCH (05:01)
[2017-01-07] MEDS: GABAPENTIN 300 MG CAP PO SCH (07:39)
[2017-01-07] MEDS: AMANTADINE HCL 100 MG CAP PO SCH ×3 (07:39→14:41)
[2017-01-07] MEDS: CITALOPRAM 20 MG TAB PO SCH (07:39)
[2017-01-07] MEDS: CARBIDOPA/LEVO CR 25 MG/100 MG TAB PO SCH ×2 (07:39→21:11)
[2017-01-07] MEDS: FAMOTIDINE 20 MG TAB PO SCH ×2 (07:39→21:11)
[2017-01-07] MEDS: DOCUSATE SODIUM 100 MG CAP PO SCH (07:40)
[2017-01-07] MEDS: ENTACAPONE 200 MG TAB PO SCH ×4 (07:40→17:45)
[2017-01-07] MEDS: ENOXAPARIN 40 MG/0.4 ML SYR SC SCH (07:40)
[2017-01-07] MEDS ORDERED: ATORVASTATIN CALCIUM 20 MG TAB PO SCH (09:00)
[2017-01-07] MEDS: ROPINIROLE HCL PO SCH ×2 (11:24→16:32)
[2017-01-07 12:16] LABS: % IMMATURE GRANULYOCYTES 1.5 % (0.0-1.1); ABSOLUTE IMMATURE GRANULOCYTES 0.12 10^3/uL (0.00-0.10); ADD DIFF? NO; ADD MORPH? NO; ADD SCAN? NO; ATYPICAL LYMPHOCYTE FLAG 10 (0-99); FRAGMENT RBC FLAG 0 (0-99); HEMATOCRIT 27.2 % (38.0-47.0); LEFT SHIFT FLG 20 (0-99); LIPEMIA HEMOLYSIS FLAG 80 (0-99); MEAN CELL HEMOGLOBIN 30.4 pg (27.9-34.1); MEAN CELL HEMOGLOBIN CONCENTR. 33.1 g/dL (32.4-36.7); MEAN CELL VOLUME 91.9 fL (81.5-99.8); MEAN PLATELET VOLUME 9.2 fL (8.7-11.7); PLATELET CLUMPS FLAG 0 (0-99); PLATELET COUNT 423 10^3/uL (150-400); RED BLOOD CELL COUNT 2.96 10^6/uL (4.18-5.33); RED CELL DISTRIBUTION WIDTH 13.2 % (11.5-15.2)
[2017-01-07] MEDS: METHOCARBAMOL 500 MG TAB PO PRN (14:41)
--- NOTE | 2017-01-07 14:55 | SOAPPROG ---
SOAP Progress Note Assessment/Plan: * status post lumbar surgery * Continue aggressive therapy * Parkinson's * Stable on current medications * possible coronary artery disease * Denying chest pain * hypothyroidism * constipation * Improved * anemia * Stable Subjective: No new complaints. Had a large bowel movement yesterday Objective: Vital Signs Temp Pulse Resp BP Pulse Ox 36.6 C 84 18 147/76 H 92 01/07/17 06:53 01/07/17 06:53 01/07/17 06:53 01/07/17 06:53 01/07/17 06:53 Laboratory Results 01/07/17 10:20 01/06/17 01/07/17 01/08/17 05:59 05:59 05:59 Intake Total 555 311 Output Total 250 Balance 305 311 Physical Exam - Physical Exam General Appearance: WD/WN, alert, no apparent distress EENT: PERRL/EOMI Respiratory: No respiratory distress Neuro/Psych: alert, normal mood/affect, oriented x 3 ICD10 Worksheet Patient Problems: Problems Problem Status Onset Transient ischemic attack Active Generalized weakness Acute Hypertension Acute Hypocalcemia Acute Intracranial hemorrhage following injury Acute Parkinson disease Acute Subdural hematoma, acute Acute
[2017-01-07] MEDS: MULTIVITAMINS 1 EACH TAB PO SCH (17:44)
[2017-01-07] MEDS: CHOLECALCIFEROL VIT D3 2,000 UNITS TAB/CAP PO SCH (21:10)
[2017-01-07] MEDS: ATORVASTATIN CALCIUM 20 MG TAB PO SCH (21:11)
[2017-01-07] MEDS: MELATONIN 3 MG TAB PO SCH (21:11)
[2017-01-07] MEDS: CALCIUM CARBONATE 500 MG TAB PO SCH (21:11)
[2017-01-07] MEDS: clonazePAM 0.5 MG TAB PO SCH (21:11)
[2017-01-08] MEDS: LEVOTHYROXINE 50 MCG TAB PO SCH (05:01)
[2017-01-08] MEDS: ACETAMINOPHEN 500 MG TAB PO SCH ×3 (05:01→20:09)
[2017-01-08] MEDS: ROPINIROLE HCL PO SCH ×2 (07:01→15:53)
[2017-01-08] MEDS: CARBIDOPA/LEVO CR 25 MG/100 MG TAB PO SCH ×2 (07:02→20:10)
[2017-01-08] MEDS: ENTACAPONE 200 MG TAB PO SCH ×4 (07:02→17:56)
[2017-01-08] MEDS: AMANTADINE HCL 100 MG CAP PO SCH ×3 (07:02→14:29)
[2017-01-08] MEDS: ENOXAPARIN 40 MG/0.4 ML SYR SC SCH (08:26)
[2017-01-08] MEDS: CITALOPRAM 20 MG TAB PO SCH (08:26)
[2017-01-08] MEDS: GABAPENTIN 300 MG CAP PO SCH (08:26)
[2017-01-08] MEDS: CALCIUM CARBONATE 500 MG TAB PO SCH ×2 (08:26→20:09)
[2017-01-08] MEDS: DOCUSATE SODIUM 100 MG CAP PO SCH (08:26)
[2017-01-08] MEDS: FAMOTIDINE 20 MG TAB PO SCH ×2 (08:26→20:10)
--- NOTE | 2017-01-08 11:54 | SOAPPROG ---
SOAP Progress Note Assessment/Plan: * status post lumbar surgery * Continue aggressive therapy * Parkinson's * Stable on current medications * possible coronary artery disease * Denying chest pain * hypothyroidism * constipation * Prune juice and possible suppository today * anemia * Stable 01/08/17 11:53 Subjective: Having a little bit of abdominal pain. She feels that this is constipation Objective: Vital Signs Temp Pulse Resp BP Pulse Ox 36.8 C 77 16 164/71 H 93 01/08/17 06:33 01/08/17 06:33 01/08/17 06:33 01/08/17 06:33 01/08/17 06:33 Laboratory Results 01/07/17 10:20 01/07/17 01/08/17 01/09/17 05:59 05:59 05:59 Intake Total 555 611 240 Output Total 250 800 Balance 305 -189 240 Physical Exam - Physical Exam General Appearance: alert, no apparent distress Respiratory: No respiratory distress Abdomen: normal bowel sounds, non-tender, distended (Slightly), other (Incision is clean and dry) Back: Other (Incision is clean) Neuro/Psych: alert, normal mood/affect, oriented x 3 ICD10 Worksheet Patient Problems: Problems Problem Status Onset Transient ischemic attack Active Generalized weakness Acute Hypertension Acute Hypocalcemia Acute Intracranial hemorrhage following injury Acute Parkinson disease Acute Subdural hematoma, acute Acute
[2017-01-08] MEDS: METHOCARBAMOL 500 MG TAB PO PRN (14:31)
[2017-01-08] MEDS: MULTIVITAMINS 1 EACH TAB PO SCH (17:55)
[2017-01-08] MEDS: CHOLECALCIFEROL VIT D3 2,000 UNITS TAB/CAP PO SCH (20:09)
[2017-01-08] MEDS: MELATONIN 3 MG TAB PO SCH (20:09)
[2017-01-08] MEDS: clonazePAM 0.5 MG TAB PO SCH (20:09)
[2017-01-08] MEDS: ATORVASTATIN CALCIUM 20 MG TAB PO SCH (20:10)
[2017-01-09] MEDS: ACETAMINOPHEN 500 MG TAB PO SCH ×3 (05:50→20:26)
[2017-01-09] MEDS: LEVOTHYROXINE 50 MCG TAB PO SCH (05:50)
[2017-01-09] MEDS: CARBIDOPA/LEVO CR 25 MG/100 MG TAB PO SCH ×2 (06:50→20:29)
[2017-01-09] MEDS: AMANTADINE HCL 100 MG CAP PO SCH ×3 (06:50→15:01)
[2017-01-09] MEDS: ENTACAPONE 200 MG TAB PO SCH ×4 (06:50→18:30)
[2017-01-09] MEDS: ROPINIROLE HCL PO SCH ×2 (06:58→15:53)
[2017-01-09] MEDS ORDERED: BISACODYL 10 MG SUPP PR PRN (09:12)
[2017-01-09] MEDS: oxyCODONE IR 5 MG TAB PO PRN (10:01)
[2017-01-09] MEDS: ENOXAPARIN 40 MG/0.4 ML SYR SC SCH (10:03)
[2017-01-09] MEDS: GABAPENTIN 300 MG CAP PO SCH (10:04)
[2017-01-09] MEDS: CALCIUM CARBONATE 500 MG TAB PO SCH ×2 (10:05→20:26)
[2017-01-09] MEDS: CITALOPRAM 20 MG TAB PO SCH (10:05)
[2017-01-09] MEDS: DOCUSATE SODIUM 100 MG CAP PO SCH (10:06)
[2017-01-09] MEDS: FAMOTIDINE 20 MG TAB PO SCH ×2 (10:06→20:29)
[2017-01-09] MEDS: SENNOSIDES 1 TAB PO SCH (10:06)
[2017-01-09] MEDS: POLYETHYLENE GLYCOL 3350 17 GM PKT PO SCH (10:10)
--- NOTE | 2017-01-09 11:21 | SOAPPROG ---
SOAP Progress Note Assessment/Plan: Assessment: Debility with Parkinson disease and lumbar spinal surgery on 12/30/16. PT and OT to optimize mobility and activities of daily living. * Initial functional independence measure 87 on 01/09/2017. Ambulated 200 feet contact guard assist with 4 wheeled walker. Climbed and descended 12 stairs with bilateral hand rail contact guard assist. Has fatigue in the afternoon after therapies. Minimal assist for ADLs, needs cuing for strategies regarding spinal got precautions. * ContinuePT & OT to optimize mobility and ADLs Status post lumbar surgery. * She is relatively pain-free. She will be continued on pain medications ordered out of the hospital, which are acetaminophen and low-dose oxycodone. She also has methocarbamol and diazepam in case there are muscle spasms. Question of delirium and sleep-wake issues; possible cognitive impairment. * She has clonazepam prescribed at bedtime. There is also a prescription for melatonin on a p.r.n. basis. She will be observed for full clearing of her mental status and for adequate sleep. * Scored / on SLUMS, c/w dementia. Deficits to executive function including decreased organization, planning and working memory. Continue MINE SAFETY DIRECTOR. Constipation, possibly due to pain medications. Has responded to laxatives. * She has docusate prescribed out of the hospital. I will add p.r.n. senna and polyethylene glycol. Anemia. * Slight decrease H/H 01/07/17. Recheck 01/10/17 along with iron panel. Parkinson disease. Continue her medications. * She sees Dr. Jena Winslow at the [facility] neurology department in [place] and would consider asking for her advice should the dyskinesias prove to be limiting in therapy or should she have freezing episodes. Consider speech therapy referral regarding hypophonia. Possible coronary artery disease. * She had an evaluation for chest pain while in the hospital. The hospitalist noted that she had a nuclear stress test prior to surgery, which showed a small area of ischemia. However, she ruled out for any myocardial etiology of her chest pain. * She is on atorvastatin. * She has a history of hypertension, but is not on any antihypertensives at present. She denies orthostatic symptoms. If she has elevated blood pressure, we will have a low threshold to initiate antihypertensive medications, but would rule out orthostatic hypotension first. Hypothyroidism. Continue her levothyroxine. Hypokalemia in the hospital has resolved, and there is no need to continue to follow her serum chemistries. DVT prophylaxis. * Continue enoxaparin until her mobility is considerably improved. * Famotidine has also presumably been prescribed for gastroenterological prophylaxis. FOLLOWUP: D/W [facility]. She is to see Dr. Andrade 01/16/17 at 1:15 PM. OK to D/C [facility] at 2 weeks, 01/14/17. She is to follow up with her primary care provider, Dr. Antonia Jefferson after her discharge. Attended staffing, 15 minutes. Discussed with case management, dietitian, nursing, PT, OT, MINE SAFETY DIRECTOR. Lives with in a ranch style home and he is likely available for 24 hour supervision. Set discharge goal of 01/13-2016. Home PT, OT and MINE SAFETY DIRECTOR. Plan: 01/09/17 11:09 Objective: Vital Signs Temp Pulse Resp BP Pulse Ox 36.7 C 79 18 118/61 95 01/09/17 06:14 01/09/17 06:14 01/09/17 06:14 01/09/17 10:00 01/09/17 06:14 Laboratory Results 01/07/17 10:20 01/08/17 01/09/17 01/10/17 05:59 05:59 05:59 Intake Total 611 1226 300 Output Total 800 500 Balance -189 726 300 - Time Spent With Patient Time Spent With Patient: Greater than 35 minutes floor time today, including more than 50% of time in coordination of care during staffing meeting, and counseling patient. ICD10 Worksheet Patient Problems: Problems Problem Status Onset Transient ischemic attack Active Generalized weakness Acute Hypertension Acute Hypocalcemia Acute Intracranial hemorrhage following injury Acute Parkinson disease Acute Subdural hematoma, acute Acute
[2017-01-09] MEDS: MULTIVITAMINS 1 EACH TAB PO SCH (18:30)
[2017-01-09] MEDS: clonazePAM 0.5 MG TAB PO SCH (20:29)
[2017-01-09] MEDS: ATORVASTATIN CALCIUM 20 MG TAB PO SCH (20:29)
[2017-01-09] MEDS: MELATONIN 3 MG TAB PO SCH (20:29)
[2017-01-09] MEDS: CHOLECALCIFEROL VIT D3 2,000 UNITS TAB/CAP PO SCH (20:29)
[2017-01-10] MEDS: ACETAMINOPHEN 500 MG TAB PO SCH ×3 (05:09→20:54)
[2017-01-10] MEDS: LEVOTHYROXINE 50 MCG TAB PO SCH (05:09)
[2017-01-10] MEDS: ROPINIROLE HCL PO SCH ×2 (06:22→16:16)
[2017-01-10] MEDS: AMANTADINE HCL 100 MG CAP PO SCH ×3 (06:22→13:35)
[2017-01-10] MEDS: ENTACAPONE 200 MG TAB PO SCH ×4 (06:22→18:05)
[2017-01-10] MEDS: CARBIDOPA/LEVO CR 25 MG/100 MG TAB PO SCH ×2 (06:22→20:54)
[2017-01-10] MEDS: POLYETHYLENE GLYCOL 3350 17 GM PKT PO SCH (08:15)
[2017-01-10] MEDS: ENOXAPARIN 40 MG/0.4 ML SYR SC SCH (08:15)
[2017-01-10] MEDS: oxyCODONE IR 5 MG TAB PO PRN ×2 (08:16→18:32)
[2017-01-10] MEDS: CITALOPRAM 20 MG TAB PO SCH (08:16)
[2017-01-10] MEDS: DOCUSATE SODIUM 100 MG CAP PO SCH (08:16)
[2017-01-10] MEDS: SENNOSIDES 1 TAB PO SCH (08:16)
[2017-01-10] MEDS: GABAPENTIN 300 MG CAP PO SCH (08:16)
[2017-01-10] MEDS: FAMOTIDINE 20 MG TAB PO SCH ×2 (08:17→20:54)
[2017-01-10] MEDS: CALCIUM CARBONATE 500 MG TAB PO SCH ×2 (08:19→20:51)
--- NOTE | 2017-01-10 11:12 | SOAPPROG ---
ANDREWS Progress Note Assessment/Plan: 76-year-old woman with a past medical history of Parkinson's now status post a repeat lumbar surgery comma L4 comma 5 and L5, S1 anterior lumbar interbody fusion and L3-S1 posterior fusion on 12/30/2016 complicated by delirium and other medical complications on inpatient rehabilitation for impairments in mobility, self-care, and cognition Today's update: A total of 40 minutes was spent on the floor in the care of the patient, the majority of which was spent in counseling and coordination of care regarding dangers of supine hypertension and possible treatment options for orthostasis. Her therapy is otherwise going well, no other new concerns today. Delirium is resolving. Impaired mobility and self-care with Parkinson disease and lumbar spinal surgery on 12/30/16. PT and OT to optimize mobility and activities of daily living. * Initial functional independence measure 87 on 01/09/2017. Ambulated 200 feet contact guard assist with 4 wheeled walker. Climbed and descended 12 stairs with bilateral hand rail contact guard assist. Has fatigue in the afternoon after therapies. Minimal assist for ADLs, needs cuing for strategies regarding spinal got precautions. * ContinuePT & OT to optimize mobility and ADLs Supine hypertension and orthostatic hypotensive drop: This is a challenging problem that seems to be presenting with supine hypertension of extremely high values, sometimes with systolics over 200. Subsequently, she stands up and her blood pressure drops considerably, sometimes more than 50 points of an systolic and 30 points in diastolic without substantial change in her heart rate. This is most consistent with supine hypertension, or baseline hypertension, with an overlying orthostatic hypotensive drop that then drops or into the normal blood pressure range, sometimes around 130s/70s. The hypotension is likely related to her Parkinson's, the underlying supine hypertension is likely primary hypertension. Treatment is much more complicated. Currently, her level of supine hypertension is very concerning for stroke or cardiac event. * Consider initiation of a traditional beta-samson such as atenolol, metoprolol , or propranolol that exerts its action primarily on beta blockade. Avoid newer generation beta-blockers that have an affect on the peripheral vascular resistance. Simultaneously, consider addition of leg wraps and abdominal binders to prevent orthostatic hypotensive drop, and consider blood pressure support with a peripherally acting drugs such as Midrin. The goal would be to normalize blood pressure both supine and while out of bed, but treating different mechanisms. Plan to discuss this with Dr. Moreau and consider bringing in other consultants. May implement plan today. Status post lumbar surgery. * She is relatively pain-free. She will be continued on pain medications ordered out of the hospital, which are acetaminophen and low-dose oxycodone. She also has methocarbamol and diazepam in case there are muscle spasms. Delirium and sleep-wake issues; possible cognitive impairment. * She has clonazepam prescribed at bedtime. There is also a prescription for melatonin on a p.r.n. basis. She will be observed for full clearing of her mental status and for adequate sleep. * Scored 19/30 on SLUMS, c/w dementia. Deficits to executive function including decreased organization, planning and working memory. 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 Constipation, possibly due to pain medications. Has responded to laxatives. * She has docusate prescribed out of the hospital. I will add p.r.n. senna and polyethylene glycol. Anemia. * Slight decrease H/H 01/07/17. Recheck along with iron panel. Parkinson disease. Continue her medications. * She sees Dr. Jena Winslow at the [facility] ([place], [place]) neurology department in [place] and would consider asking for her advice should the dyskinesias prove to be limiting in therapy or should she have freezing episodes. Consider speech therapy referral regarding hypophonia. * The patient notes that she had a substantial drop in the dosing of her Parkinson's medications going into her surgery with the goal to prevent surgical complications from on intentional movements. She does note that with the considerable drop in the medication doses she has not noticed a functional difference in her other symptoms. She wants her providers to be aware of that in considering dosages going forward. Possible coronary artery disease. * She had an evaluation for chest pain while in the hospital. The hospitalist noted that she had a nuclear stress test prior to surgery, which showed a small area of ischemia. However, she ruled out for any myocardial etiology of her chest pain. * She is on atorvastatin. * See discussion about blood pressure above Hypothyroidism. Continue her levothyroxine. Hypokalemia in the hospital has resolved, and there is no need to continue to follow her serum chemistries. DVT prophylaxis. * Continue enoxaparin until her mobility is considerably improved. * Famotidine has also presumably been prescribed for gastroenterological prophylaxis. FOLLOWUP: D/W [facility]. She is to see Dr. Andrade 01/16/17 at 1:15 PM. OK to D/C ariadna at 2 weeks, 01/14/17. She is to follow up with her primary care provider, Dr. Antonia Jefferson after her discharge. Lives with in a ranch style home and he is likely available for 24 hour supervision. Set discharge goal of 01/13-01/16/2017. Home PT, OT and BOTTLING ATTENDANT. 01/10/17 11:04 01/10/17 11:14 Subjective: Chief complaint: Supine hypertension and orthostatic drop No acute events overnight. Patient denies any lightheadedness when getting up, no new chest pain, shortness of breath, or any new numbness, tingling, or weakness. She notes that she has had a very challenging time managing her blood pressure in the past sometimes with systolics over 200 which have confounded her physicians. She has at times in the past had orthostatic hypotension with symptoms of lightheadedness, but is not experiencing those things currently. She works with Jena Winslow on her primary Parkinson's management. She notes that there was some discussion of managing her supine hypertension prior to her surgery but the team elected to hold off until afterwards. Additionally she states that she had a substantial decrease in the amount of her Parkinson's medications and did not notice a functional change. Objective: Vital Signs Temp Pulse Resp BP Pulse Ox 36.6 C 72 15 177/98 H 94 01/10/17 05:47 01/10/17 05:47 01/10/17 05:47 01/10/17 05:47 01/10/17 05:47 Laboratory Results 01/07/17 10:20 01/09/17 01/10/17 01/11/17 05:59 05:59 05:59 Intake Total 1226 1210 300 Output Total 500 600 Balance 726 610 300 Physical Exam - Physical Exam General Appearance: WD/WN, alert, no apparent distress, thin EENT: No scleral icterus (R), No scleral icterus (L) Respiratory: normal breath sounds, rales, No respiratory distress, No accessory muscle use, No rhonchi, No wheezing, No prolonged expiration, No prolonged inspiration, No pain on movement Cardiac/Chest: normal peripheral pulses, regular rate, rhythm, No edema, No bradycardia, No diastolic murmur, No systolic murmur, No irregularly irregular Abdomen: normal bowel sounds, non-tender, soft Skin: normal color, warm/dry, No cyanosis Extremities: non-tender, No pedal edema, No calf tenderness, No swelling Neuro/Psych: alert, normal mood/affect, oriented x 3, other (Endorses confusion at night, improving) ICD10 Worksheet Patient Problems: Problems Problem Status Onset Transient ischemic attack Active Generalized weakness Acute Hypertension Acute Hypocalcemia Acute Intracranial hemorrhage following injury Acute Parkinson disease Acute Subdural hematoma, acute Acute
[2017-01-10] MEDS: MULTIVITAMINS 1 EACH TAB PO SCH (18:05)
[2017-01-10] MEDS: DIAZEPAM 5 MG TAB PO PRN (18:32)
[2017-01-10] MEDS: ATORVASTATIN CALCIUM 20 MG TAB PO SCH (20:52)
[2017-01-10] MEDS: CHOLECALCIFEROL VIT D3 2,000 UNITS TAB/CAP PO SCH (20:53)
[2017-01-10] MEDS: clonazePAM 0.5 MG TAB PO SCH (20:53)
[2017-01-10] MEDS: MELATONIN 3 MG TAB PO SCH (21:23)
[2017-01-10] MEDS: PROPRANOLOL HCL 20 MG TAB PO SCH (21:23)
[2017-01-11] MEDS: ACETAMINOPHEN 500 MG TAB PO SCH ×3 (04:52→20:46)
[2017-01-11] MEDS: LEVOTHYROXINE 50 MCG TAB PO SCH (04:52)
[2017-01-11] MEDS: AMANTADINE HCL 100 MG CAP PO SCH ×3 (07:20→13:57)
[2017-01-11] MEDS: ENTACAPONE 200 MG TAB PO SCH ×4 (07:20→17:38)
[2017-01-11] MEDS: ROPINIROLE HCL PO SCH ×2 (07:22→16:06)
[2017-01-11] MEDS: CARBIDOPA/LEVO CR 25 MG/100 MG TAB PO SCH ×2 (07:30→20:26)
[2017-01-11] MEDS: SENNOSIDES 1 TAB PO SCH (08:47)
[2017-01-11] MEDS: CITALOPRAM 20 MG TAB PO SCH (08:47)
[2017-01-11] MEDS: ENOXAPARIN 40 MG/0.4 ML SYR SC SCH (08:47)
[2017-01-11] MEDS: DOCUSATE SODIUM 100 MG CAP PO SCH (08:47)
[2017-01-11] MEDS: CALCIUM CARBONATE 500 MG TAB PO SCH ×2 (08:47→20:27)
[2017-01-11] MEDS: FAMOTIDINE 20 MG TAB PO SCH ×2 (08:47→20:26)
[2017-01-11] MEDS: POLYETHYLENE GLYCOL 3350 17 GM PKT PO SCH (08:48)
[2017-01-11] MEDS: GABAPENTIN 300 MG CAP PO SCH (08:50)
--- NOTE | 2017-01-11 09:38 | SOAPPROG ---
SOAP Progress Note Assessment/Plan: Assessment: Debility with Parkinson disease and lumbar spinal surgery on 12/30/16. PT and OT to optimize mobility and activities of daily living. * Initial functional independence measure 87 on 01/09/2017. Ambulated 200 feet contact guard assist with 4 wheeled walker. Climbed and descended 12 stairs with bilateral hand rail contact guard assist. Has fatigue in the afternoon after therapies. Minimal assist for ADLs, needs cuing for strategies regarding spinal got precautions. * Continue PT & OT to optimize mobility and ADLs Status post lumbar surgery. * She is relatively pain-free. She will be continued on pain medications ordered out of the hospital, which are acetaminophen and low-dose oxycodone. She also has methocarbamol and diazepam in case there are muscle spasms. Question of delirium and sleep-wake issues; possible cognitive impairment. * She has clonazepam prescribed at bedtime. There is also a prescription for melatonin on a p.r.n. basis. She will be observed for full clearing of her mental status and for adequate sleep. * Scored /30 on SLUMS, c/w dementia. Deficits to executive function including decreased organization, planning and working memory. 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 Supine hypertension and orthostatic hypotensive drop: Supine systolics sometimes over 200. Subsequently, she stands up and her blood pressure drops considerably, sometimes more than 50 points of an systolic and 30 points in diastolic without substantial change in her heart rate. * This is most consistent with orthostatic hypotension related to her Parkinson' s, the underlying supine hypertension is likely primary hypertension. * Initiated propranolol 20 mg at HS started 01/10/2017. Was not hypertensive early this morning 01/11/2017. Constipation, possibly due to pain medications. Has responded to laxatives. * She has docusate prescribed out of the hospital. Added p.r.n. senna and polyethylene glycol. Anemia. * Slight decrease H/H 01/07/17. Recheck 01/10/17 along with iron panel. Parkinson disease. Continue her medications. * She sees Dr. Jena Winslow at the [facility] neurology department in [place] and would consider asking for her advice should the dyskinesias prove to be limiting in therapy or should she have freezing episodes. Consider speech therapy referral regarding hypophonia. Possible coronary artery disease. * She had an evaluation for chest pain while in the hospital. The hospitalist noted that she had a nuclear stress test prior to surgery, which showed a small area of ischemia. However, she ruled out for any myocardial etiology of her chest pain. * She is on atorvastatin. * She has a history of hypertension, but is not on any antihypertensives at present. She denies orthostatic symptoms. If she has elevated blood pressure, we will have a low threshold to initiate antihypertensive medications, but would rule out orthostatic hypotension first. Hypothyroidism. Continue her levothyroxine. Hypokalemia in the hospital has resolved, and there is no need to continue to follow her serum chemistries. DVT prophylaxis. * Continue enoxaparin until her mobility is considerably improved. * Famotidine has also presumably been prescribed for gastroenterological prophylaxis. FOLLOWUP: D/W [facility]. She is to see Dr. Andrade 01/16/17 at 1:15 PM. OK to D/C ariadna at 2 weeks, 01/14/17. She is to follow up with her primary care provider, Dr. Antonia Jefferson after her discharge. Lives with in a ranch style home and he is likely available for 24 hour supervision. Set discharge goal of 01/13-01/16/2017. 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 Plan: 01/09/17 11:09 01/11/17 09:33 Subjective: No complaints. Not in pain. Reports she awoke about 3 in the morning. This often happens to her. Sometimes she is not sure if it is morning or afternoon or time for breakfast. Sometimes she just feels restless. Pain is not awakening her from sleep. Sometimes she finds it difficult to move when she is awake in bed. She was prescribed clonazepam to treat insomnia and it is helpful. Objective: Vital Signs Temp Pulse Resp BP Pulse Ox 36.5 C 62 16 146/67 H 96 01/11/17 05:51 01/11/17 05:51 01/11/17 05:51 01/11/17 05:51 01/11/17 05:51 Laboratory Results 01/07/17 10:20 01/10/17 01/11/17 01/12/17 05:59 05:59 05:59 Intake Total 1210 940 118 Output Total 600 1000 Balance 610 -60 118 Physical Exam - Physical Exam General Appearance: WD/WN, alert, no apparent distress Respiratory: No respiratory distress, No accessory muscle use Skin: normal color, warm/dry Neuro/Psych: alert, normal mood/affect, oriented x 3 ICD10 Worksheet Patient Problems: Problems Problem Status Onset Transient ischemic attack Active Generalized weakness Acute Hypertension Acute Hypocalcemia Acute Intracranial hemorrhage following injury Acute Parkinson disease Acute Subdural hematoma, acute Acute
[2017-01-11] MEDS: METHOCARBAMOL 500 MG TAB PO PRN (16:07)
[2017-01-11] MEDS: MULTIVITAMINS 1 EACH TAB PO SCH (17:38)
[2017-01-11] MEDS ORDERED: MAGNESIUM HYDROXIDE 30 ML UDCUP PO PRN (18:11)
[2017-01-11] MEDS: CHOLECALCIFEROL VIT D3 2,000 UNITS TAB/CAP PO SCH (20:25)
[2017-01-11] MEDS: clonazePAM 0.5 MG TAB PO SCH (20:26)
[2017-01-11] MEDS: MELATONIN 3 MG TAB PO SCH (20:26)
[2017-01-11] MEDS: ATORVASTATIN CALCIUM 20 MG TAB PO SCH (20:27)
[2017-01-11] MEDS: DIAZEPAM 5 MG TAB PO PRN (20:42)
[2017-01-11] MEDS: PROPRANOLOL HCL 20 MG TAB PO SCH (20:46)
[2017-01-12] MEDS: LEVOTHYROXINE 50 MCG TAB PO SCH (05:27)
[2017-01-12] MEDS: ACETAMINOPHEN 500 MG TAB PO SCH ×3 (05:27→20:56)
[2017-01-12] MEDS: ENTACAPONE 200 MG TAB PO SCH ×4 (08:26→18:06)
[2017-01-12] MEDS: POLYETHYLENE GLYCOL 3350 17 GM PKT PO SCH (08:26)
[2017-01-12] MEDS: CARBIDOPA/LEVO CR 25 MG/100 MG TAB PO SCH ×2 (08:26→20:58)
[2017-01-12] MEDS: CITALOPRAM 20 MG TAB PO SCH (08:26)
[2017-01-12] MEDS: DOCUSATE SODIUM 100 MG CAP PO SCH (08:26)
[2017-01-12] MEDS: SENNOSIDES 1 TAB PO SCH (08:26)
[2017-01-12] MEDS: FAMOTIDINE 20 MG TAB PO SCH ×2 (08:26→20:57)
[2017-01-12] MEDS: ENOXAPARIN 40 MG/0.4 ML SYR SC SCH (08:26)
[2017-01-12] MEDS: GABAPENTIN 300 MG CAP PO SCH (08:26)
[2017-01-12] MEDS: CALCIUM CARBONATE 500 MG TAB PO SCH ×2 (08:26→20:58)
[2017-01-12] MEDS: AMANTADINE HCL 100 MG CAP PO SCH ×3 (08:26→13:38)
--- NOTE | 2017-01-12 08:30 | SOAPPROG ---
ANDREWS Progress Note Assessment/Plan: 76-year-old woman with a past medical history of Parkinson's now status post a repeat lumbar surgery comma L4 comma 5 and L5, S1 anterior lumbar interbody fusion and L3-S1 posterior fusion on 12/30/2016 complicated by delirium and other medical complications on inpatient rehabilitation for impairments in mobility, self-care, and cognition Today's update: Patient endorses that delirium has improved quite a bit, still has difficulty sleeping at night. She has used amitriptyline in the past for sleep and she felt that it was very effective though she does not remember the dose. She is not sure why she stopped it. She has not had experience with trazodone in the past. Plan to switch to low-dose amitriptyline and stop the p.r.n. diazepam. A total of 25 minutes was spent on the floor in the care of the patient, the majority of which was spent in the counseling and coordination of care regarding sleep management strategies and delirium prevention. Debility with Parkinson disease and lumbar spinal surgery on 12/30/16. PT and OT to optimize mobility and activities of daily living. * Initial functional independence measure 87 on 01/09/2017. Ambulated 200 feet contact guard assist with 4 wheeled walker. Climbed and descended 12 stairs with bilateral hand rail contact guard assist. Has fatigue in the afternoon after therapies. Minimal assist for ADLs, needs cuing for strategies regarding spinal got precautions. * Continue PT & OT to optimize mobility and ADLs Status post lumbar surgery. * She is relatively pain-free. She will be continued on pain medications ordered out of the hospital, which are acetaminophen and low-dose oxycodone. She also has methocarbamol and diazepam in case there are muscle spasms. Delirium and sleep-wake issues; possible cognitive impairment. Multifactorial, likely also exacerbated by use of benzodiazepines. * She has clonazepam prescribed at bedtime. There is also a prescription for melatonin on a p.r.n. basis. She will be observed for full clearing of her mental status and for adequate sleep. * Scored 19/30 on SLUMS, c/w dementia. Deficits to executive function including decreased organization, planning and working memory. 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 * Trial of amitriptyline 25 mg p.o. at bedtime and stopping p.r.n. diazepam Supine hypertension and orthostatic hypotensive drop: Supine systolics sometimes over 200. Subsequently, she stands up and her blood pressure drops considerably, sometimes more than 50 points of an systolic and 30 points in diastolic without substantial change in her heart rate. * This is most consistent with orthostatic hypotension related to her Parkinson' s, the underlying supine hypertension is likely primary hypertension. * Initiated propranolol 20 mg at HS started 01/10/2017. Constipation, possibly due to pain medications. Has responded to laxatives. * She has docusate prescribed out of the hospital. Added p.r.n. senna and polyethylene glycol. Anemia. * Slight decrease H/H 01/07/17. Recheck 01/10/17 along with iron panel. Parkinson disease. Continue her medications. * She sees Dr. Jena Winslow at the [facility] neurology department in [place] and would consider asking for her advice should the dyskinesias prove to be limiting in therapy or should she have freezing episodes. Consider speech therapy referral regarding hypophonia. Possible coronary artery disease. * She had an evaluation for chest pain while in the hospital. The hospitalist noted that she had a nuclear stress test prior to surgery, which showed a small area of ischemia. However, she ruled out for any myocardial etiology of her chest pain. * She is on atorvastatin. * She has a history of hypertension, but is not on any antihypertensives at present. She denies orthostatic symptoms. If she has elevated blood pressure, we will have a low threshold to initiate antihypertensive medications, but would rule out orthostatic hypotension first. Hypothyroidism. Continue her levothyroxine. Hypokalemia in the hospital has resolved, and there is no need to continue to follow her serum chemistries. DVT prophylaxis. * Continue enoxaparin until her mobility is considerably improved. * Famotidine has also presumably been prescribed for gastroenterological prophylaxis. FOLLOWUP: D/W [facility]. She is to see Dr. Andrade 01/16/17 at 1:15 PM. OK to D/C ariadna at 2 weeks, 01/14/17. She is to follow up with her primary care provider, Dr. Antonia Jefferson after her discharge. Lives with in a ranch style home and he is likely available for 24 hour supervision. Set discharge goal of 01/13-01/16/2017. 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 01/10/17 11:04 01/10/17 11:14 01/12/17 08:27 Subjective: Chief complaint: Delirium No acute events overnight. Patient denies symptoms of confusion at night right now. She still has nighttime waking. She states she has been on clonazepam for years for sleep as she wakes up at about 3:00 a.m. and cannot go back to sleep. She also notes that the diazepam is new also for sleep management. It sounds like she has not had issues with delirium prior to this hospitalization, counseled her at length about the relationship between medications such as clonazepam and diazepam and delirium. She notes that she has tried amitriptyline in the past it was very helpful for sleep, she does not recall the dose. She has not worked with trazodone in the past. She is open to trying amitriptyline instead of the diazepam. Objective: Vital Signs Temp Pulse Resp BP Pulse Ox 36.8 C 62 15 138/87 H 95 01/12/17 06:18 01/12/17 06:18 01/12/17 06:18 01/12/17 06:18 01/12/17 06:18 Laboratory Results 01/07/17 10:20 01/11/17 01/12/17 01/13/17 05:59 05:59 05:59 Intake Total 940 728 200 Output Total 1000 225 Balance -60 503 200 Physical Exam - Physical Exam General Appearance: alert, no apparent distress EENT: No scleral icterus (R), No scleral icterus (L) Respiratory: No respiratory distress, No accessory muscle use Cardiac/Chest: normal peripheral pulses, regular rate, rhythm Skin: normal color, warm/dry, No cyanosis Neuro/Psych: alert, normal mood/affect ICD10 Worksheet Patient Problems: Problems Problem Status Onset Transient ischemic attack Active Generalized weakness Acute Hypertension Acute Hypocalcemia Acute Intracranial hemorrhage following injury Acute Parkinson disease Acute Subdural hematoma, acute Acute
[2017-01-12] MEDS: ROPINIROLE HCL PO SCH ×2 (08:33→16:36)
[2017-01-12] MEDS: MULTIVITAMINS 1 EACH TAB PO SCH (18:06)
[2017-01-12] MEDS: PROPRANOLOL HCL 20 MG TAB PO SCH (20:55)
[2017-01-12] MEDS: MELATONIN 3 MG TAB PO SCH (20:57)
[2017-01-12] MEDS: clonazePAM 0.5 MG TAB PO SCH (20:57)
[2017-01-12] MEDS: ATORVASTATIN CALCIUM 20 MG TAB PO SCH (20:57)
[2017-01-12] MEDS: AMITRIPTYLINE HCL 25 MG TAB PO SCH (20:58)
[2017-01-12] MEDS: CHOLECALCIFEROL VIT D3 2,000 UNITS TAB/CAP PO SCH (20:58)
[2017-01-13] MEDS: ACETAMINOPHEN 500 MG TAB PO SCH ×3 (05:30→21:03)
[2017-01-13] MEDS: LEVOTHYROXINE 50 MCG TAB PO SCH ×2 (05:31→05:32)
[2017-01-13] MEDS: POLYETHYLENE GLYCOL 3350 17 GM PKT PO SCH (07:59)
[2017-01-13] MEDS: CITALOPRAM 20 MG TAB PO SCH (07:59)
[2017-01-13] MEDS: CARBIDOPA/LEVO CR 25 MG/100 MG TAB PO SCH ×2 (07:59→20:35)
[2017-01-13] MEDS: ROPINIROLE HCL PO SCH ×2 (07:59→16:25)
[2017-01-13] MEDS: FAMOTIDINE 20 MG TAB PO SCH ×2 (07:59→20:35)
[2017-01-13] MEDS: SENNOSIDES 1 TAB PO SCH (08:00)
[2017-01-13] MEDS: CALCIUM CARBONATE 500 MG TAB PO SCH ×2 (08:00→20:36)
[2017-01-13] MEDS: DOCUSATE SODIUM 100 MG CAP PO SCH (08:00)
[2017-01-13] MEDS: ENTACAPONE 200 MG TAB PO SCH ×4 (08:00→18:51)
[2017-01-13] MEDS: ENOXAPARIN 40 MG/0.4 ML SYR SC SCH (08:00)
[2017-01-13] MEDS: GABAPENTIN 300 MG CAP PO SCH (08:00)
[2017-01-13] MEDS: AMANTADINE HCL 100 MG CAP PO SCH ×3 (08:00→14:46)
--- NOTE | 2017-01-13 10:37 | SOAPPROG ---
SOAP Progress Note Assessment/Plan: Assessment: Debility with Parkinson disease and lumbar spinal surgery on 12/30/16. PT and OT to optimize mobility and activities of daily living. * Initial functional independence measure 87 on 01/09/2017. Ambulated 200 feet contact guard assist with 4 wheeled walker. Climbed and descended 12 stairs with bilateral hand rail, contact guard assist. Has fatigue in the afternoon after therapies. Minimal assist for ADLs, needs cuing for strategies regarding spinal precautions. * Continue PT & OT to optimize mobility and ADLs Status post lumbar surgery. * She is relatively pain-free. She will be continued on pain medications ordered out of the hospital, which are acetaminophen and low-dose oxycodone. She also has methocarbamol in case there are muscle spasms. * Remove ariadna today 01/13/2017. Question of delirium and sleep-wake issues; possible cognitive impairment. * She has clonazepam prescribed at bedtime. There is also a prescription for melatonin on a p.r.n. basis. Slept better last night 01/12/2017 with amitriptyline 25 mg. * Scored /30 on SLUMS, c/w dementia. Deficits to executive function including decreased organization, planning and working memory. 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 Supine hypertension and orthostatic hypotensive drop: Supine systolics sometimes over 200. Subsequently, she stands up and her blood pressure drops considerably, sometimes more than 50 points of an systolic and 30 points in diastolic without substantial change in her heart rate. * This is most consistent with orthostatic hypotension related to her Parkinson' s, the underlying supine hypertension is likely primary hypertension. * Initiated propranolol 20 mg at started 01/10/2017. Constipation, possibly due to pain medications. Has responded to laxatives. * She has docusate prescribed out of the hospital. Added p.r.n. senna and polyethylene glycol. Anemia. * Slight decrease H/H 01/07/17. Improved 01/13/17 but with iron deficiency on iron panel. * Start ferrous sulfate 325 mg q.day today for a one-month duration. Parkinson disease. Continue her medications. * She sees Dr. Jena Winslow at the [facility] neurology department in [place] and would consider asking for her advice should the dyskinesias prove to be limiting in therapy or should she have freezing episodes. Consider speech therapy referral regarding hypophonia. Possible coronary artery disease. * She had an evaluation for chest pain while in the hospital. The hospitalist noted that she had a nuclear stress test prior to surgery, which showed a small area of ischemia. However, she ruled out for any myocardial etiology of her chest pain. * She is on atorvastatin. * She has a history of hypertension, but is not on any antihypertensives at present. She denies orthostatic symptoms. If she has elevated blood pressure, we will have a low threshold to initiate antihypertensive medications, but would rule out orthostatic hypotension first. Hypothyroidism. Continue her levothyroxine. Hypokalemia in the hospital has resolved, and there is no need to continue to follow her serum chemistries. DVT prophylaxis. * Continue enoxaparin until her mobility is considerably improved. * Famotidine has also presumably been prescribed for gastroenterological prophylaxis. FOLLOWUP: D/W [facility]. She is to see Dr. Andrade 01/16/17 at 1:15 PM. She is to follow up with her primary care provider, Dr. Antonia Jefferson after her discharge. Lives with in a ranch style home and he is likely available for 24 hour supervision. Reassess early next week regarding progress toward discharge. 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 01/13/17 12:25 Subjective: She slept better last night with amitriptyline. She complains of itching under bandage on her low back. Pain is well controlled. No cough, dyspnea, fevers, chills. Objective: Vital Signs Temp Pulse Resp BP Pulse Ox 36.6 C 62 15 165/87 H 94 01/13/17 05:48 01/13/17 05:48 01/13/17 05:48 01/13/17 05:48 01/13/17 05:48 Laboratory Results 01/07/17 10:20 01/12/17 01/13/17 01/14/17 05:59 05:59 05:59 Intake Total 728 750 540 Output Total 225 351 Balance 503 399 540 Physical Exam - Physical Exam General Appearance: WD/WN, alert, no apparent distress Respiratory: No respiratory distress, No accessory muscle use Cardiac/Chest: No edema Skin: normal color, warm/dry (Abdominal incision with ariadna, clean dry intact. Lumbar incision closed, minimal eschar, clean dry intact.) Neuro/Psych: alert, normal mood/affect, oriented x 3, other (Minimal assist to arise to seated from supine) ICD10 Worksheet Patient Problems: Problems Problem Status Onset Transient ischemic attack Active Generalized weakness Acute Hypertension Acute Hypocalcemia Acute Intracranial hemorrhage following injury Acute Parkinson disease Acute Subdural hematoma, acute Acute
[2017-01-13 11:46] LABS: HEMOGLOBIN 9.6 g/dL (12.6-16.3)
[2017-01-13 12:05] LABS: % SATURATION 16 % (20-55); TOTAL IRON BINDING CAPACITY 265 ug/dL (260-490)
[2017-01-13] MEDS: MULTIVITAMINS 1 EACH TAB PO SCH (18:51)
[2017-01-13] MEDS: clonazePAM 0.5 MG TAB PO SCH (20:34)
[2017-01-13] MEDS: CHOLECALCIFEROL VIT D3 2,000 UNITS TAB/CAP PO SCH (20:35)
[2017-01-13] MEDS: ATORVASTATIN CALCIUM 20 MG TAB PO SCH (20:35)
[2017-01-13] MEDS: PROPRANOLOL HCL 20 MG TAB PO SCH (20:36)
[2017-01-13] MEDS: MELATONIN 3 MG TAB PO SCH (20:36)
[2017-01-13] MEDS: AMITRIPTYLINE HCL 25 MG TAB PO SCH (20:36)
[2017-01-14] MEDS: AMANTADINE HCL 100 MG CAP PO SCH ×3 (06:00→14:29)
[2017-01-14] MEDS: CARBIDOPA/LEVO CR 25 MG/100 MG TAB PO SCH ×2 (06:00→20:15)
[2017-01-14] MEDS: ACETAMINOPHEN 500 MG TAB PO SCH ×3 (06:00→20:16)
[2017-01-14] MEDS: ENTACAPONE 200 MG TAB PO SCH ×4 (06:01→17:12)
[2017-01-14] MEDS: ROPINIROLE HCL PO SCH ×2 (06:02→16:27)
[2017-01-14] MEDS: FAMOTIDINE 20 MG TAB PO SCH ×2 (08:56→20:16)
[2017-01-14] MEDS: DOCUSATE SODIUM 100 MG CAP PO SCH (08:56)
[2017-01-14] MEDS: ENOXAPARIN 40 MG/0.4 ML SYR SC SCH (08:56)
[2017-01-14] MEDS: CITALOPRAM 20 MG TAB PO SCH (08:56)
[2017-01-14] MEDS: CALCIUM CARBONATE 500 MG TAB PO SCH ×2 (08:56→20:15)
[2017-01-14] MEDS: POLYETHYLENE GLYCOL 3350 17 GM PKT PO SCH (08:57)
[2017-01-14] MEDS: SENNOSIDES 1 TAB PO SCH (08:57)
[2017-01-14] MEDS: GABAPENTIN 300 MG CAP PO SCH (08:57)
--- NOTE | 2017-01-14 10:25 | SOAPPROG ---
SOAP Progress Note Assessment/Plan: Assessment: Debility with Parkinson disease and lumbar spinal surgery on 12/30/16. PT and OT to optimize mobility and activities of daily living. * Initial functional independence measure 87 on 01/09/2017. Ambulated 200 feet contact guard assist with 4 wheeled walker. Climbed and descended 12 stairs with bilateral hand rail, contact guard assist. Has fatigue in the afternoon after therapies. Minimal assist for ADLs, needs cuing for strategies regarding spinal precautions. * Continue PT & OT to optimize mobility and ADLs Status post lumbar surgery. * She is relatively pain-free. She will be continued on pain medications ordered out of the hospital, which are acetaminophen and low-dose oxycodone. She also has methocarbamol in case there are muscle spasms. ADVISED TO APPLY ICE TO LUMBAR REGION FOR LOCAL PAIN +/- SPASMS * Remove ariadna today 01/13/2017. Question of delirium and sleep-wake issues; possible cognitive impairment. * She has clonazepam prescribed at bedtime. There is also a prescription for melatonin on a p.r.n. basis. Slept better last night 01/12/2017 with amitriptyline 25 mg. * Scored /30 on SLUMS, c/w dementia. Deficits to executive function including decreased organization, planning and working memory. 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 Supine hypertension and orthostatic hypotensive drop: Supine systolics sometimes over 200. Subsequently, she stands up and her blood pressure drops considerably, sometimes more than 50 points of an systolic and 30 points in diastolic without substantial change in her heart rate. * This is most consistent with orthostatic hypotension related to her Parkinson' s, the underlying supine hypertension is likely primary hypertension. * Initiated propranolol 20 mg at started 01/10/2017. Constipation, possibly due to pain medications. Has responded to laxatives. * She has docusate prescribed out of the hospital. Added p.r.n. senna and polyethylene glycol. Parkinson disease. Continue her medications. * She sees Dr. Jena Winslow at the [facility] neurology department in [place] and would consider asking for her advice should the dyskinesias prove to be limiting in therapy or should she have freezing episodes. Consider speech therapy referral regarding hypophonia. Possible coronary artery disease. * She had an evaluation for chest pain while in the hospital. The hospitalist noted that she had a nuclear stress test prior to surgery, which showed a small area of ischemia. However, she ruled out for any myocardial etiology of her chest pain. * She is on atorvastatin. * She has a history of hypertension, but is not on any antihypertensives at present. She denies orthostatic symptoms. If she has elevated blood pressure, we will have a low threshold to initiate antihypertensive medications, but would rule out orthostatic hypotension first. Hypothyroidism. Continue her levothyroxine. Hypokalemia in the hospital has resolved, and there is no need to continue to follow her serum chemistries. DVT prophylaxis. * Continue enoxaparin until her mobility is considerably improved. * Famotidine has also presumably been prescribed for gastroenterological prophylaxis. Plan: 01/14/17 10:27 Subjective: NO COMPLAINTS THIS AM Objective: Vital Signs Temp Pulse Resp BP Pulse Ox 36.4 C 65 17 138/68 H 95 01/14/17 05:56 01/14/17 05:56 01/14/17 05:56 01/14/17 08:09 01/14/17 05:56 Laboratory Results 01/13/17 10:40 01/13/17 01/14/17 01/15/17 05:59 05:59 04:59 Intake Total 750 1120 420 Output Total 351 300 Balance 399 820 420 Physical Exam - Physical Exam General Appearance: WD/WN, alert, no apparent distress, thin Respiratory: lungs clear, normal breath sounds Cardiac/Chest: regular rate, rhythm (PULSE 68 AND REG), No edema Abdomen: non-tender, soft Back: Other (DECREASED LUMBAR LORDOSIS, MILD PARALUMBAR SPASMS) Skin: normal color, other (LUMBAR INCISION HEALING WELL, NO ERYTHEMA OR DRAINAGE ) Extremities: No swelling, No Jesus's sign (MILD LEFT FOOT DROP FROM PD. NO NOTICEABLE TREMOR) ICD10 Worksheet Patient Problems: Problems Problem Status Onset Transient ischemic attack Active Generalized weakness Acute Hypertension Acute Hypocalcemia Acute Intracranial hemorrhage following injury Acute Parkinson disease Acute Subdural hematoma, acute Acute
[2017-01-14] MEDS: MULTIVITAMINS 1 EACH TAB PO SCH (17:12)
[2017-01-14] MEDS: MELATONIN 3 MG TAB PO SCH (20:14)
[2017-01-14] MEDS: PROPRANOLOL HCL 20 MG TAB PO SCH (20:14)
[2017-01-14] MEDS: AMITRIPTYLINE HCL 25 MG TAB PO SCH (20:15)
[2017-01-14] MEDS: CHOLECALCIFEROL VIT D3 2,000 UNITS TAB/CAP PO SCH (20:15)
[2017-01-14] MEDS: ATORVASTATIN CALCIUM 20 MG TAB PO SCH (20:16)
[2017-01-14] MEDS: clonazePAM 0.5 MG TAB PO SCH (20:16)
[2017-01-15] MEDS: ACETAMINOPHEN 500 MG TAB PO SCH ×3 (05:04→20:32)
[2017-01-15] MEDS: LEVOTHYROXINE 50 MCG TAB PO SCH (05:05)
[2017-01-15] MEDS: AMANTADINE HCL 100 MG CAP PO SCH ×3 (07:20→14:03)
[2017-01-15] MEDS: CARBIDOPA/LEVO CR 25 MG/100 MG TAB PO SCH ×2 (07:20→20:33)
[2017-01-15] MEDS: ENTACAPONE 200 MG TAB PO SCH ×4 (07:20→17:28)
[2017-01-15] MEDS: ROPINIROLE HCL PO SCH ×2 (07:21→16:59)
[2017-01-15] MEDS: ENOXAPARIN 40 MG/0.4 ML SYR SC SCH (07:24)
[2017-01-15] MEDS: CITALOPRAM 20 MG TAB PO SCH (09:14)
[2017-01-15] MEDS: CALCIUM CARBONATE 500 MG TAB PO SCH ×2 (09:14→20:33)
[2017-01-15] MEDS: DOCUSATE SODIUM 100 MG CAP PO SCH (09:14)
[2017-01-15] MEDS: FAMOTIDINE 20 MG TAB PO SCH ×2 (09:15→20:32)
[2017-01-15] MEDS: GABAPENTIN 300 MG CAP PO SCH (09:15)
[2017-01-15] MEDS: SENNOSIDES 1 TAB PO SCH (09:16)
[2017-01-15] MEDS: POLYETHYLENE GLYCOL 3350 17 GM PKT PO SCH (09:16)
--- NOTE | 2017-01-15 10:11 | SOAPPROG ---
SOAP Progress Note Assessment/Plan: Assessment: Debility with Parkinson disease and lumbar spinal surgery on 12/30/16. PT and OT to optimize mobility and activities of daily living. * Initial functional independence measure 87 on 01/09/2017. Ambulated 200 feet contact guard assist with 4 wheeled walker. Climbed and descended 12 stairs with bilateral hand rail, contact guard assist. Has fatigue in the afternoon after therapies. Minimal assist for ADLs, needs cuing for strategies regarding spinal precautions. * Continue PT & OT to optimize mobility and ADLs COGNITVE DEFICITS- APPRECIATE SPEECH THERAPIES INPUT FOR STRATEGIES TO IMPROVE MEMORY Status post lumbar surgery. * She is relatively pain-free. She will be continued on pain medications ordered out of the hospital, which are acetaminophen and low-dose oxycodone. She also has methocarbamol in case there are muscle spasms. ADVISED TO APPLY ICE TO LUMBAR REGION FOR LOCAL PAIN +/- SPASMS. Question of delirium and sleep-wake issues; possible cognitive impairment. * She has clonazepam prescribed at bedtime. There is also a prescription for melatonin on a p.r.n. basis. Slept better last night 01/12/2017 with amitriptyline 25 mg. * Scored /30 on SLUMS, c/w dementia. Deficits to executive function including decreased organization, planning and working memory. 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 Supine hypertension and orthostatic hypotensive drop: Supine systolics sometimes over 200. Subsequently, she stands up and her blood pressure drops considerably, sometimes more than 50 points of an systolic and 30 points in diastolic without substantial change in her heart rate. * This is most consistent with orthostatic hypotension related to her Parkinson' s, the underlying supine hypertension is likely primary hypertension. * Initiated propranolol 20 mg at started 01/10/2017. Constipation, possibly due to pain medications. Has responded to laxatives. * She has docusate prescribed out of the hospital. Added p.r.n. senna and polyethylene glycol. Parkinson disease. Continue her medications. * She sees Dr. Jena Winslow at the [facility] neurology department in [place] and would consider asking for her advice should the dyskinesias prove to be limiting in therapy or should she have freezing episodes. Consider speech therapy referral regarding hypophonia. Possible coronary artery disease. * She had an evaluation for chest pain while in the hospital. The hospitalist noted that she had a nuclear stress test prior to surgery, which showed a small area of ischemia. However, she ruled out for any myocardial etiology of her chest pain. * She is on atorvastatin. * She has a history of hypertension, but is not on any antihypertensives at present. She denies orthostatic symptoms. If she has elevated blood pressure, we will have a low threshold to initiate antihypertensive medications, but would rule out orthostatic hypotension first. Hypothyroidism. Continue her levothyroxine. Hypokalemia in the hospital has resolved, and there is no need to continue to follow her serum chemistries. DVT prophylaxis. * Continue enoxaparin until her mobility is considerably improved. * Famotidine has also presumably been prescribed for gastroenterological prophylaxis. Plan: 01/14/17 10:27 01/15/17 10:08 Subjective: NO NEW COMPLAINTS Objective: Vital Signs Temp Pulse Resp BP Pulse Ox 36.8 C 61 16 142/77 H 95 01/15/17 05:05 01/15/17 05:05 01/15/17 05:05 01/15/17 06:17 01/15/17 05:05 Laboratory Results 01/13/17 10:40 01/14/17 01/15/17 01/16/17 06:59 05:59 05:59 Intake Total 180 Output Total Balance 180 Physical Exam - Physical Exam General Appearance: WD/WN, alert, no apparent distress Respiratory: lungs clear, normal breath sounds Back: Other (LUMBAR INCISION HEALING WELL. MILD PARAPLUMBAR TIGHTNESS) Neuro/Psych: alert, cognition abnormalities (SHORT TREM MEMORY DEFICITS. WORD APRAXIA) ICD10 Worksheet Patient Problems: Problems Problem Status Onset Transient ischemic attack Active Generalized weakness Acute Hypertension Acute Hypocalcemia Acute Intracranial hemorrhage following injury Acute Parkinson disease Acute Subdural hematoma, acute Acute
[2017-01-15] MEDS: oxyCODONE IR 5 MG TAB PO PRN (11:22)
[2017-01-15] MEDS: MULTIVITAMINS 1 EACH TAB PO SCH (17:28)
[2017-01-15] MEDS: CHOLECALCIFEROL VIT D3 2,000 UNITS TAB/CAP PO SCH (20:31)
[2017-01-15] MEDS: MELATONIN 3 MG TAB PO SCH (20:32)
[2017-01-15] MEDS: PROPRANOLOL HCL 20 MG TAB PO SCH (20:32)
[2017-01-15] MEDS: ATORVASTATIN CALCIUM 20 MG TAB PO SCH (20:33)
[2017-01-15] MEDS: AMITRIPTYLINE HCL 25 MG TAB PO SCH (20:33)
[2017-01-15] MEDS: clonazePAM 0.5 MG TAB PO SCH (20:33)
[2017-01-16] MEDS: LEVOTHYROXINE 50 MCG TAB PO SCH (04:53)
[2017-01-16] MEDS: ACETAMINOPHEN 500 MG TAB PO SCH (04:53)
[2017-01-16] MEDS: GABAPENTIN 300 MG CAP PO SCH (08:11)
[2017-01-16] MEDS: CALCIUM CARBONATE 500 MG TAB PO SCH ×2 (08:12→20:22)
[2017-01-16] MEDS: FAMOTIDINE 20 MG TAB PO SCH (08:12)
[2017-01-16] MEDS: AMANTADINE HCL 100 MG CAP PO SCH ×4 (08:12→16:42)
[2017-01-16] MEDS: SENNOSIDES 1 TAB PO SCH (08:12)
[2017-01-16] MEDS: POLYETHYLENE GLYCOL 3350 17 GM PKT PO SCH (08:13)
[2017-01-16] MEDS: CARBIDOPA/LEVO CR 25 MG/100 MG TAB PO SCH ×5 (08:13→20:23)
[2017-01-16] MEDS: DOCUSATE SODIUM 100 MG CAP PO SCH (08:13)
[2017-01-16] MEDS: ENTACAPONE 200 MG TAB PO SCH ×4 (08:13→17:39)
[2017-01-16] MEDS: CITALOPRAM 20 MG TAB PO SCH (08:13)
[2017-01-16] MEDS: ROPINIROLE HCL PO SCH ×2 (08:14→16:43)
[2017-01-16] MEDS: ENOXAPARIN 40 MG/0.4 ML SYR SC SCH (08:20)
--- NOTE | 2017-01-16 09:39 | SOAPPROG ---
SOAP Progress Note Assessment/Plan: Assessment: Debility with Parkinson disease and lumbar spinal surgery on 12/30/16. PT and OT to optimize mobility and activities of daily living. * Initial functional independence measure 87 on 01/09/2017 improved to 96 on 01/16/2017. Ambulated 300 feet standby assist with a 4 wheeled walker. Climbed 12 steps with 1 rail. Setup and supervision for activities of daily living with cues for safety. Will continue to need supervision at home. Climbed and descended 12 stairs with bilateral hand rail, contact guard assist. Has fatigue in the afternoon after therapies. * Continue PT & OT to optimize mobility and ADLs Status post lumbar surgery. * She is relatively pain-free. Change acetaminophen to p.r.n.. Continue ow- dose oxycodone. She also has methocarbamol in case there are muscle spasms. There seems to be no indication for daily gabapentin 3 mg. Will discontinue starting 01/17/2017. * Removed ariadna 01/13/2017. Question of delirium and sleep-wake issues; possible cognitive impairment. * She has clonazepam prescribed at bedtime. There is also a prescription for melatonin on a p.r.n. basis. Sleeping better with amitriptyline 25 mg started 01/12/2017. * Scored 19/30 on SLUMS, c/w dementia. Deficits to executive function including decreased organization, planning and working memory. 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 Supine hypertension and orthostatic hypotensive drop: Supine systolics sometimes over 200. Subsequently, she stands up and her blood pressure drops considerably, sometimes more than 50 points of an systolic and 30 points in diastolic without substantial change in her heart rate. * This is most consistent with orthostatic hypotension related to her Parkinson' s, the underlying supine hypertension is likely primary hypertension. * Initiated propranolol 20 mg at HS started 01/10/2017. Constipation, possibly due to pain medications. Has responded to laxatives. * She has docusate prescribed out of the hospital. Added p.r.n. senna and polyethylene glycol. Anemia. * Slight decrease H/H 01/07/17. Improved 01/13/17 but with iron deficiency on iron panel. * Ferrous sulfate contraindicated with Sinemet. Discussed iron rich foods with dietitian. Parkinson disease. Continue her medications. * Resumed home dosing. Sinemet had been twice daily, now four times daily. Amantadine was prescribed twice daily, changed to four times daily. Entacapone was three times daily, increased to four times daily. Monitor for dyskinesias. May improve her function with therapies in the afternoons. * She sees Dr. Jena Winslow at the [facility] neurology department in [place] and would consider asking for her advice should the dyskinesias prove to be limiting in therapy or should she have freezing episodes. Consider speech therapy referral regarding hypophonia. Possible coronary artery disease. * She had an evaluation for chest pain while in the hospital. The hospitalist noted that she had a nuclear stress test prior to surgery, which showed a small area of ischemia. However, she ruled out for any myocardial etiology of her chest pain. * She is on atorvastatin. Hypothyroidism. Continue her levothyroxine. Hypokalemia in the hospital has resolved, and there is no need to continue to follow her serum chemistries. DVT prophylaxis. * Mobility is considerably improved. Discontinue enoxaparin and famotidine 01/17. FOLLOWUP: D/W [facility]. She is to see Dr. Andrade 01/16/17 at 1:15 PM. She is to follow up with her primary care provider, Dr. Antonia Jefferson after her discharge. Attendant staffing, 15 minutes. Discussed with case management, dietitian, nursing, PT, OT, DIETARY SERVICES MANAGER. Lives with in a ranch style home and he is likely available for 24 hour supervision. They have hired television production assistant for her. Set discharge date for 01/19/2017. Home PT, OT and DIETARY SERVICES MANAGER, bath bench with back, handheld shower head, and tub rail.. 01/16/17 10:42 Subjective: No complaints. Slept well. reviewed medications a noted missing doses of Sinemet, amantadine and entacapone. Patient reported in physical therapy yesterday that she was feeling off. She is happy about being quite pain-free. Objective: Vital Signs Temp Pulse Resp BP Pulse Ox 36.4 C 65 16 166/81 H 96 01/16/17 06:11 01/16/17 06:11 01/16/17 06:11 01/16/17 06:11 01/16/17 06:11 Laboratory Results 01/13/17 10:40 01/15/17 01/16/17 01/17/17 05:59 05:59 05:59 Intake Total 960 640 Balance 960 640 Physical Exam - Physical Exam General Appearance: WD/WN, alert, no apparent distress Respiratory: No respiratory distress, No accessory muscle use Skin: normal color, warm/dry Neuro/Psych: alert, normal mood/affect, oriented x 3 ICD10 Worksheet Patient Problems: Problems Problem Status Onset Transient ischemic attack Active Generalized weakness Acute Hypertension Acute Hypocalcemia Acute Intracranial hemorrhage following injury Acute Parkinson disease Acute Subdural hematoma, acute Acute
[2017-01-16] MEDS ORDERED: MELATONIN 3 MG TAB PO PRN (09:45)
[2017-01-16] MEDS ORDERED: AMANTADINE HCL 100 MG CAP PO SCH (10:00)
[2017-01-16] MEDS ORDERED: CARBIDOPA/LEVO CR 25 MG/100 MG TAB PO SCH (10:00)
[2017-01-16] MEDS: MULTIVITAMINS 1 EACH TAB PO SCH (17:39)
[2017-01-16] MEDS: AMITRIPTYLINE HCL 25 MG TAB PO SCH (20:22)
[2017-01-16] MEDS: ATORVASTATIN CALCIUM 20 MG TAB PO SCH (20:22)
[2017-01-16] MEDS: clonazePAM 0.5 MG TAB PO SCH (20:23)
[2017-01-16] MEDS: PROPRANOLOL HCL 20 MG TAB PO SCH (20:23)
[2017-01-16] MEDS: CHOLECALCIFEROL VIT D3 2,000 UNITS TAB/CAP PO SCH (20:23)
[2017-01-17] MEDS: LEVOTHYROXINE 50 MCG TAB PO SCH (05:07)
[2017-01-17] MEDS: CARBIDOPA/LEVO CR 25 MG/100 MG TAB PO SCH ×4 (06:58→17:51)
[2017-01-17] MEDS: AMANTADINE HCL 100 MG CAP PO SCH ×4 (06:58→16:46)
[2017-01-17] MEDS: ENTACAPONE 200 MG TAB PO SCH ×4 (06:58→17:51)
[2017-01-17] MEDS: ROPINIROLE HCL PO SCH ×2 (07:57→16:44)
[2017-01-17] MEDS: CITALOPRAM 20 MG TAB PO SCH (08:00)
[2017-01-17] MEDS: POLYETHYLENE GLYCOL 3350 17 GM PKT PO SCH ×2 (08:00→08:09)
[2017-01-17] MEDS: DOCUSATE SODIUM 100 MG CAP PO SCH (08:00)
[2017-01-17] MEDS: SENNOSIDES 1 TAB PO SCH (08:00)
[2017-01-17] MEDS: CALCIUM CARBONATE 500 MG TAB PO SCH ×2 (08:00→20:00)
--- NOTE | 2017-01-17 10:01 | SOAPPROG ---
LAURIEAP Progress Note Assessment/Plan: 76-year-old woman with a past medical history of Parkinson's now status post a repeat lumbar surgery comma L4 comma 5 and L5, S1 anterior lumbar interbody fusion and L3-S1 posterior fusion on 12/30/2016 complicated by delirium and other medical complications on inpatient rehabilitation for impairments in mobility, self-care, and cognition Today's update: Patient feels that poor sleep at night may be related to a sustained release dose of Sinemet in the evening. She is requesting that dose to be changed accordingly to a immediate release. I did slightly decrease the dose and changed it to immediate release at her request, keeping the remainder of sustained release doses the same. Remainder of plan is relatively unchanged. A total of 25 minutes was spent on the floor in the care of the patient, the majority of which was spent counseling and coordination of care regarding dosing options for her Parkinson's medications as well as rehabilitation progress and expected outcomes Impairments in mobility and self-care with Parkinson disease and lumbar spinal surgery on 12/30/16. PT and OT to optimize mobility and activities of daily living. * Initial functional independence measure 87 on 01/09/2017 improved to 96 on 01/16/2017. Ambulated 300 feet standby assist with a 4 wheeled walker. Climbed 12 steps with 1 rail. Setup and supervision for activities of daily living with cues for safety. Will continue to need supervision at home. Climbed and descended 12 stairs with bilateral hand rail, contact guard assist. Has fatigue in the afternoon after therapies. * Continue PT & OT to optimize mobility and ADLs Status post lumbar surgery. * She is relatively pain-free. Change acetaminophen to p.r.n.. Continue ow- dose oxycodone. She also has methocarbamol in case there are muscle spasms. There seems to be no indication for daily gabapentin 3 mg. discontinued starting 01/17/2017. * Removed ariadna 01/13/2017. Question of delirium and sleep-wake issues; possible cognitive impairment. * She has clonazepam prescribed at bedtime. There is also a prescription for melatonin on a p.r.n. basis. Sleeping better with amitriptyline 25 mg started 01/12/2017. * Scored 19/30 on SLUMS, c/w dementia. Deficits to executive function including decreased organization, planning and working memory. 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 Supine hypertension and orthostatic hypotensive drop: Supine systolics sometimes over 200. Subsequently, she stands up and her blood pressure drops considerably, sometimes more than 50 points of an systolic and 30 points in diastolic without substantial change in her heart rate. * This is most consistent with orthostatic hypotension related to her Parkinson' s, the underlying supine hypertension is likely primary hypertension. * Initiated propranolol 20 mg at HS started 01/10/2017. Constipation, possibly due to pain medications. Has responded to laxatives. * She has docusate prescribed out of the hospital. Added p.r.n. senna and polyethylene glycol. Anemia. * Slight decrease H/H 01/07/17. Improved 01/13/17 but with iron deficiency on iron panel. * Ferrous sulfate contraindicated with Sinemet. Discussed iron rich foods with dietitian. Parkinson disease. Continue her medications. * Sinemet had been twice daily, now four times daily with immediate release evening dose. Amantadine was prescribed twice daily, changed to four times daily. Entacapone was three times daily, increased to four times daily. Monitor for dyskinesias. May improve her function with therapies in the afternoons. * She sees Dr. Jena Winslow at the [facility] neurology department in [place] and would consider asking for her advice should the dyskinesias prove to be limiting in therapy or should she have freezing episodes. Consider speech therapy referral regarding hypophonia. Possible coronary artery disease. * She had an evaluation for chest pain while in the hospital. The hospitalist noted that she had a nuclear stress test prior to surgery, which showed a small area of ischemia. However, she ruled out for any myocardial etiology of her chest pain. * She is on atorvastatin. Hypothyroidism. Continue her levothyroxine. Hypokalemia in the hospital has resolved, and there is no need to continue to follow her serum chemistries. DVT prophylaxis. * Mobility is considerably improved. Discontinue enoxaparin and famotidine 01/17. FOLLOWUP: D/W [facility]. She is to see Dr. Andrade 01/16/17 at 1:15 PM. She is to follow up with her primary care provider, Dr. Antonia Jefferson after her discharge. Lives with in a ranch style home and he is likely available for 24 hour supervision. They have hired family readiness support assistant for her. Set discharge date for 2016. Home PT, OT and PCI SECURITY CONSULTANT, bath bench with back, handheld shower head, and tub rail. 01/10/17 11:04 01/10/17 11:14 01/12/17 08:27 01/17/17 09:58 Subjective: Chief complaint: Insomnia No acute events overnight. No new shortness of breath or chest pain, no new numbness, tingling, or weakness. She has had some insomnia that she is associating with her sustained release dose of Sinemet. Additionally, she noted that her overall dose of Sinemet was lowered prior to surgery which she did not appreciate caused any ill effects. She is hoping to keep that at a low dose. Overall dose history during this hospitalization is unclear, plan to discuss with Dr. Moreau further. Otherwise, she endorses good progress in rehabilitation. Objective: Vital Signs Temp Pulse Resp BP Pulse Ox 36.6 C 63 15 133/73 H 98 01/17/17 05:23 01/17/17 05:23 01/17/17 05:23 01/17/17 05:23 01/17/17 05:23 Laboratory Results 01/13/17 10:40 01/16/17 01/17/17 01/18/17 05:59 05:59 05:59 Intake Total 960 1490 180 Balance 960 1490 180 Physical Exam - Physical Exam General Appearance: alert, no apparent distress EENT: No scleral icterus (R), No scleral icterus (L) Respiratory: No respiratory distress, No accessory muscle use Cardiac/Chest: normal peripheral pulses, regular rate, rhythm, No edema Skin: normal color, warm/dry, No cyanosis Neuro/Psych: alert, normal mood/affect, oriented x 3 ICD10 Worksheet Patient Problems: Problems Problem Status Onset Transient ischemic attack Active Generalized weakness Acute Hypertension Acute Hypocalcemia Acute Intracranial hemorrhage following injury Acute Parkinson disease Acute Subdural hematoma, acute Acute
[2017-01-17] MEDS: MULTIVITAMINS 1 EACH TAB PO SCH (17:51)
[2017-01-17] MEDS: AMITRIPTYLINE HCL 25 MG TAB PO SCH (20:00)
[2017-01-17] MEDS: CARBIDOPA/LEVODOPA 10MG/100MG 1 TAB PO SCH (20:00)
[2017-01-17] MEDS: clonazePAM 0.5 MG TAB PO SCH (20:01)
[2017-01-17] MEDS: PROPRANOLOL HCL 20 MG TAB PO SCH (20:01)
[2017-01-17] MEDS: ATORVASTATIN CALCIUM 20 MG TAB PO SCH (20:01)
[2017-01-17] MEDS: CHOLECALCIFEROL VIT D3 2,000 UNITS TAB/CAP PO SCH (20:02)
[2017-01-18] MEDS: ACETAMINOPHEN 500 MG TAB PO PRN ×2 (06:08→20:06)
[2017-01-18] MEDS: LEVOTHYROXINE 50 MCG TAB PO SCH (06:08)
[2017-01-18] MEDS: CARBIDOPA/LEVO CR 25 MG/100 MG TAB PO SCH ×4 (07:39→17:00)
[2017-01-18] MEDS: AMANTADINE HCL 100 MG CAP PO SCH ×4 (07:39→17:00)
[2017-01-18] MEDS: ENTACAPONE 200 MG TAB PO SCH ×4 (07:39→17:00)
[2017-01-18] MEDS: CALCIUM CARBONATE 500 MG TAB PO SCH ×2 (07:40→20:06)
[2017-01-18] MEDS: SENNOSIDES 1 TAB PO SCH (07:41)
[2017-01-18] MEDS: DOCUSATE SODIUM 100 MG CAP PO SCH (07:41)
[2017-01-18] MEDS: CITALOPRAM 20 MG TAB PO SCH (07:41)
[2017-01-18] MEDS: POLYETHYLENE GLYCOL 3350 17 GM PKT PO SCH (07:41)
[2017-01-18] MEDS: ROPINIROLE HCL PO SCH ×2 (07:47→17:02)
--- NOTE | 2017-01-18 12:16 | SOAPPROG ---
SOAP Progress Note Assessment/Plan: Assessment: Debility with Parkinson disease and lumbar spinal surgery on 12/30/16. PT and OT to optimize mobility and activities of daily living. * Initial functional independence measure 87 on 01/09/2017 improved to 96 on 01/16/2017. Ambulated 300 feet standby assist with a 4 wheeled walker. Climbed 12 steps with 1 rail. Setup and supervision for activities of daily living with cues for safety. Will continue to need supervision at home. Climbed and descended 12 stairs with bilateral hand rail, contact guard assist. Has fatigue in the afternoon after therapies. * Continue PT & OT to optimize mobility and ADLs Status post lumbar surgery. * She is relatively pain-free. Change acetaminophen to p.r.n.. Continue ow- dose oxycodone. She also has methocarbamol in case there are muscle spasms. There seems to be no indication for daily gabapentin 3 mg. Will discontinue starting 01/17/2017. * Removed ariadna 01/13/2017. Question of delirium and sleep-wake issues; possible cognitive impairment. * She has clonazepam prescribed at bedtime. There is also a prescription for melatonin on a p.r.n. basis. Sleeping better with amitriptyline 25 mg started 01/12/2017. * Scored /30 on SLUMS, c/w dementia. Deficits to executive function including decreased organization, planning and working memory. 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 Supine hypertension and orthostatic hypotensive drop: Supine systolics sometimes over 200. Subsequently, she stands up and her blood pressure drops considerably, sometimes more than 50 points of an systolic and 30 points in diastolic without substantial change in her heart rate. * This is most consistent with orthostatic hypotension related to her Parkinson' s, the underlying supine hypertension is likely primary hypertension. * Initiated propranolol 20 mg at HS started 01/10/2017. * Orthostasis worsened after resumption of home doses of Sinemet and amantadine. Will initiate thigh-high HEDY hose when out of bed. Consider otheroptions if symptoms continue. Constipation, possibly due to pain medications. Has responded to laxatives. * She has docusate prescribed out of the hospital. Added p.r.n. senna and polyethylene glycol. Anemia. * Slight decrease H/H 01/07/17. Improved 01/13/17 but with iron deficiency on iron panel. * Ferrous sulfate contraindicated with Sinemet. Discussed iron rich foods with dietitian. Parkinson disease. Continue her medications. * Resumed home dosing. Sinemet had been twice daily, now four times daily. Amantadine was prescribed twice daily, changed to four times daily. Entacapone was three times daily, increased to four times daily. Monitor for dyskinesias. May improve her function with therapies in the afternoons. * She sees Dr. Jena Winslow at the [facility] neurology department in [place] and would consider asking for her advice should the dyskinesias prove to be limiting in therapy or should she have freezing episodes. Consider speech therapy referral regarding hypophonia. Possible coronary artery disease. * She had an evaluation for chest pain while in the hospital. The hospitalist noted that she had a nuclear stress test prior to surgery, which showed a small area of ischemia. However, she ruled out for any myocardial etiology of her chest pain. * She is on atorvastatin. Hypothyroidism. Continue her levothyroxine. Hypokalemia in the hospital has resolved, and there is no need to continue to follow her serum chemistries. DVT prophylaxis. * Mobility is considerably improved. Discontinue enoxaparin and famotidine 01/17. FOLLOWUP: D/W [facility]. She is to see Dr. Andrade 01/16/17 at 1:15 PM. She is to follow up with her primary care provider, Dr. Antonia Jefferson after her discharge. Attendant staffing, 15 minutes. Discussed with case management, dietitian, nursing, PT, OT, PORCELAIN ENAMEL REPAIRER. Lives with in a ranch style home and he is likely available for 24 hour supervision. They have hired medical office receptionist assistant for her. Discharge home 01/20/2017. Family conference scheduled for 01/20/2017. Home PT , OT and PORCELAIN ENAMEL REPAIRER, bath bench with back, handheld shower head, and tub rail.. 01/18/17 14:41 Subjective: Note of lightheadedness while ambulating in the rose. Nursing found blood pressure to be elevated with systolic in the 180s. She denies any voiding difficulty. Nursing subsequently found her to be quite orthostatic with standing systolic of 70. Objective: Vital Signs Temp Pulse Resp BP Pulse Ox 37.0 C 71 16 169/81 H 93 01/18/17 06:19 01/18/17 06:19 01/18/17 06:19 01/18/17 06:19 01/18/17 06:19 Laboratory Results 01/13/17 10:40 01/17/17 01/18/17 01/19/17 05:59 05:59 05:59 Intake Total 1490 1218 360 Balance 1490 1218 360 Physical Exam - Physical Exam General Appearance: WD/WN, alert, no apparent distress Respiratory: No respiratory distress, No accessory muscle use Abdomen: other (No palpable bladder) Skin: normal color, warm/dry Neuro/Psych: no motor/sensory deficits, alert, normal mood/affect, oriented x 3 , other (Mild dyskinesias.) ICD10 Worksheet Patient Problems: Problems Problem Status Onset Transient ischemic attack Active Generalized weakness Acute Hypertension Acute Hypocalcemia Acute Intracranial hemorrhage following injury Acute Parkinson disease Acute Subdural hematoma, acute Acute
[2017-01-18] MEDS: MULTIVITAMINS 1 EACH TAB PO SCH (17:00)
[2017-01-18] MEDS: CHOLECALCIFEROL VIT D3 2,000 UNITS TAB/CAP PO SCH (20:05)
[2017-01-18] MEDS: CARBIDOPA/LEVODOPA 10MG/100MG 1 TAB PO SCH (20:05)
[2017-01-18] MEDS: PROPRANOLOL HCL 20 MG TAB PO SCH (20:06)
[2017-01-18] MEDS: clonazePAM 0.5 MG TAB PO SCH (20:06)
[2017-01-18] MEDS: ATORVASTATIN CALCIUM 20 MG TAB PO SCH (20:06)
[2017-01-18] MEDS: AMITRIPTYLINE HCL 25 MG TAB PO SCH (20:06)
[2017-01-19] MEDS: CARBIDOPA/LEVO CR 25 MG/100 MG TAB PO SCH ×4 (05:45→16:54)
[2017-01-19] MEDS: LEVOTHYROXINE 50 MCG TAB PO SCH (05:45)
[2017-01-19] MEDS: ENTACAPONE 200 MG TAB PO SCH ×4 (05:45→16:54)
[2017-01-19] MEDS: AMANTADINE HCL 100 MG CAP PO SCH ×4 (05:45→16:54)
[2017-01-19] MEDS: ROPINIROLE HCL PO SCH ×2 (05:46→16:53)
[2017-01-19] MEDS: POLYETHYLENE GLYCOL 3350 17 GM PKT PO SCH (09:57)
[2017-01-19] MEDS: DOCUSATE SODIUM 100 MG CAP PO SCH (09:58)
[2017-01-19] MEDS: CALCIUM CARBONATE 500 MG TAB PO SCH ×2 (09:58→20:19)
[2017-01-19] MEDS: SENNOSIDES 1 TAB PO SCH (09:58)
[2017-01-19] MEDS: CITALOPRAM 20 MG TAB PO SCH (09:58)
--- NOTE | 2017-01-19 14:13 | PDOREHIP ---
Admission IRF-TODD - Admission - 3 Day Assessment Period Admission Date/Day 1: 01/06/17 Day 2: 01/07/17 Day 3: 01/08/17 Discharge IRF-TODD - Discharge - 3 Day Assessment Period 2 Days Prior to Anticipated Discharge Date: 01/18/17 1 Day Prior to Anticipated Discharge Date: 01/19/17 Anticipated Discharge Date: 01/20/17 - Discharge Skin Conditions Unhealed Pressure Ulcer (1 or more/Stage 1 or >)-Discharge: 0. No
--- NOTE | 2017-01-19 16:39 | SOAPPROG ---
SOAP Progress Note Assessment/Plan: Assessment: Debility with Parkinson disease and lumbar spinal surgery on 12/30/16. PT and OT to optimize mobility and activities of daily living. * Initial functional independence measure 87 on 01/09/2017 improved to 96 on 01/16/2017. Ambulated 300 feet standby assist with a 4 wheeled walker. Climbed 12 steps with 1 rail. Setup and supervision for activities of daily living with cues for safety. Doing better functionally after resumption of home dosing of parkinsonian medications. No dyskinesias noted. Will continue to need supervision at home. * Continue PT & OT to optimize mobility and ADLs Status post lumbar surgery. * She is relatively pain-free. Change acetaminophen to p.r.n.. There seems to be no indication for daily gabapentin 3 mg. Discontinued 01/17/2017. * Removed ariadna 01/13/2017. Question of delirium and sleep-wake issues; possible cognitive impairment. * She has clonazepam prescribed at bedtime. There is also a prescription for melatonin on a p.r.n. basis. Sleeping better with amitriptyline 25 mg started 01/12/2017. * Scored 19/30 on SLUMS, c/w dementia. Deficits to executive function including decreased organization, planning and working memory. 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 Supine hypertension and orthostatic hypotensive drop: Supine systolics sometimes over 200. Subsequently, she stands up and her blood pressure drops considerably, sometimes more than 50 points of an systolic and 30 points in diastolic without substantial change in her heart rate. * This is most consistent with orthostatic hypotension related to her Parkinson' s, the underlying supine hypertension is likely primary hypertension. * Initiated propranolol 20 mg at HS started 01/10/2017. * Orthostasis worsened after resumption of home doses of Sinemet and amantadine. Will initiate thigh-high HEDY hose when out of bed. Consider other options if symptoms continue. Constipation, possibly due to pain medications. Has responded to laxatives. * She has docusate prescribed out of the hospital. Added p.r.n. senna and polyethylene glycol. Anemia. * Slight decrease H/H 01/07/17. Improved 01/13/17 but with iron deficiency on iron panel. * Ferrous sulfate contraindicated with Sinemet. Discussed iron rich foods with dietitian. Parkinson disease. Continue her medications. * Resumed home dosing. Sinemet had been twice daily, now four times daily. Amantadine was prescribed twice daily, changed to four times daily. Entacapone was three times daily, increased to four times daily. Monitor for dyskinesias. May improve her function with therapies in the afternoons. * She sees Dr. Jena Winslow at the [facility] neurology department in [place] and would consider asking for her advice should the dyskinesias prove to be limiting in therapy or should she have freezing episodes. Consider speech therapy referral regarding hypophonia. Possible coronary artery disease. * She had an evaluation for chest pain while in the hospital. The hospitalist noted that she had a nuclear stress test prior to surgery, which showed a small area of ischemia. However, she ruled out for any myocardial etiology of her chest pain. * She is on atorvastatin. Hypothyroidism. Continue her levothyroxine. Hypokalemia in the hospital has resolved, and there is no need to continue to follow her serum chemistries. DVT prophylaxis. * Mobility is considerably improved. Discontinue enoxaparin and famotidine 01/17. FOLLOWUP: D/W [facility]. She is to see Dr. Andrade 01/16/17 at 1:15 PM. She is to follow up with her primary care provider, Dr. Antonia Jefferson after her discharge. Attended family meeting, 30 minutes. Discussed with case management, dietitian , nursing, PT, OT, SIGNAL HELPER. Lives with in a ranch style home and he is likely available for 24 hour supervision. They have hired engineering assistant for her. Discharge home 01/20/2017. Home PT, OT and SIGNAL HELPER, bath bench with back, handheld shower head, and tub rail.. 01/19/17 16:36 Subjective: No complaints. Happy to be going home tomorrow. Objective: Vital Signs Temp Pulse Resp BP Pulse Ox 36.4 C 63 16 142/72 H 92 01/19/17 06:11 01/19/17 06:11 01/19/17 06:11 01/19/17 06:11 01/19/17 06:11 Laboratory Results 01/13/17 10:40 01/18/17 01/19/17 01/20/17 05:59 05:59 05:59 Intake Total 1218 1140 358 Balance 1218 1140 358 - Time Spent With Patient Time Spent With Patient: Greater than 35 minutes floor time today, including more than 50% of time in coordination of care and counseling patient and during family meeting. Physical Exam - Physical Exam General Appearance: WD/WN, alert, no apparent distress Respiratory: No respiratory distress, No accessory muscle use Skin: normal color, warm/dry Neuro/Psych: alert, normal mood/affect, oriented x 3, other (Ambulates with flexed posture at knees and hips using 4 wheeled walker. Takes short steps. EN bloc turning. Needs reminders to place hands on arms of chair prior to sitting down.) ICD10 Worksheet Patient Problems: Problems Problem Status Onset Transient ischemic attack Active Generalized weakness Acute Hypertension Acute Hypocalcemia Acute Intracranial hemorrhage following injury Acute Parkinson disease Acute Subdural hematoma, acute Acute
[2017-01-19] MEDS: MULTIVITAMINS 1 EACH TAB PO SCH (16:54)
[2017-01-19] MEDS: AMITRIPTYLINE HCL 25 MG TAB PO SCH (20:19)
[2017-01-19] MEDS: CARBIDOPA/LEVODOPA 10MG/100MG 1 TAB PO SCH (20:19)
[2017-01-19] MEDS: clonazePAM 0.5 MG TAB PO SCH (20:19)
[2017-01-19] MEDS: ATORVASTATIN CALCIUM 20 MG TAB PO SCH (20:19)
[2017-01-19] MEDS: CHOLECALCIFEROL VIT D3 2,000 UNITS TAB/CAP PO SCH (20:20)
[2017-01-19] MEDS: PROPRANOLOL HCL 20 MG TAB PO SCH (20:21)
[2017-01-20] MEDS: ACETAMINOPHEN 500 MG TAB PO PRN (05:20)
[2017-01-20] MEDS: LEVOTHYROXINE 50 MCG TAB PO SCH (05:21)
[2017-01-20 05:50] VITALS: BP 154/73; PULSE 60; RESP 18; TEMP 97.5; O2SAT 94
[2017-01-20] MEDS: SENNOSIDES 1 TAB PO SCH (07:45)
[2017-01-20] MEDS: DOCUSATE SODIUM 100 MG CAP PO SCH (07:45)
[2017-01-20] MEDS: POLYETHYLENE GLYCOL 3350 17 GM PKT PO SCH (07:45)
[2017-01-20] MEDS: AMANTADINE HCL 100 MG CAP PO SCH ×2 (07:45→10:02)
[2017-01-20] MEDS: ROPINIROLE HCL PO SCH (07:45)
[2017-01-20] MEDS: ENTACAPONE 200 MG TAB PO SCH ×2 (07:45→10:02)
[2017-01-20] MEDS: CALCIUM CARBONATE 500 MG TAB PO SCH (07:45)
[2017-01-20] MEDS: CITALOPRAM 20 MG TAB PO SCH (07:46)
[2017-01-20] MEDS: CARBIDOPA/LEVO CR 25 MG/100 MG TAB PO SCH ×2 (07:46→10:02)
--- NOTE | 2017-01-24 04:43 | GDS ---
[f rep st] DISCHARGE SUMMARY ADMITTING DIAGNOSIS: Parkinson disease with debility status post lumbar surgery. OTHER DISCHARGE DIAGNOSES: 1. Cognitive impairment. 2. Orthostatic hypotension. 3. Iron deficiency anemia. 4. Possible coronary artery disease. CONSULTATIONS: There were none. PROCEDURES: There were none. COMPLICATIONS: There were none. HISTORY AND HOSPITAL COURSE: This patient came to [facility] from [facility] where she had undergone an anterior lumbar spinal fusion by Dr. Franz. She has a long history of Parkinson disease and had increased debility after the surgery, so she was appropriate for rehabilitation. She did well in rehabilitation. Her initial functional independence measure was 87 on 01/09/2017. This is consistent with assisted living level of function. She was able to ambulate 200 feet with contact guard assist and a 4- wheeled walker. She could climb and descend 12 stairs with bilateral hand rails and contact guard assist. She had afternoon fatigue after therapies. During her stay, her dosing of her parkinsonian medications was returned to her home dosing, and she had considerable improvement with the afternoon fatigue. Her functional independence measure improved to 96 by 01/16/2017, which is almost at independent function, but still in the realm of assisted living level of function. She had ambulated 300 feet with standby assist using a 4-wheeled walker. Should climb 12 steps with 1 rail. She required setup and supervision for activities of daily living with cues for safety. She continued to need supervision for safety in the home setting. She had likely delirium including sleep-wake reversal when she 1st was admitted. Amitriptyline was added on 01/12/2017 to her other hypnotics, which were clonazepam and melatonin, and she was sleeping better. The [facility] Mental Status Exam was administered, and she scored 19/30, which is in the dementia range. She was noted to have deficits to executive function including decreased organization, planning, and working memory. These deficits contributed to her need for supervision. She had orthostatic hypotension and was noted to have considerable hypertension in the supine position in the evenings with a systolic as high as 200. She was begun on propranolol at 20 mg at h.s., and no longer had such markedly elevated blood pressures. She did, however, continue to have orthostatic hypotension, sometimes with a drop as much as 50 points systolic with 30 points diastolic with no change in her heart rate, consistent with autonomic dysfunction associated with Parkinson disease. This worsened after resumption of home doses of antiparkinsonian medications. She was treated with thigh-high HEDY hose when out of bed. She was noted to have postoperative anemia with an initial slight decrease in hemoglobin and hematocrit from hospitalization when 1st checked on 01/07/2017. This had improved on 01/13/2017, but she had mild iron deficiency on an iron panel. Ferrous sulfate was contraindicated in conjunction with Sinemet, so dietitian was asked to discuss with the patient iron rich foods. While she was in the hospital, she had chest pain and had an evaluation. Hospitalist noted a prior nuclear stress test which showed a small area of ischemia. In the hospital she was ruled out for any myocardial etiology of her chest pain. LABORATORIES AND STUDIES: During her stay on 01/07/2017, CBC showed a hemoglobin of 9 and a hematocrit of 27.2. On 01/13, hemoglobin was 9.6 and hematocrit was 31. Iron panel on 01/13 showed an iron at 42, a TIBC at 265, and an iron saturation at 16%. DISCHARGE PLAN: Condition upon discharge is good. Activity is ad venkatesh but she needs supervision for safety. Diet is regular but to add iron rich foods. DATE OF NEXT APPOINTMENT: She has followup with her neurologist, Dr. Jena Winslow, at the [facility] Neurology Department on 01/24/2017. With general surgeon, Cj Andrade, who assisted with the anterior approach to her lumbar spine, on 01/25/2017. With primary care, Dr. Antonia Jefferson, on 01/26/2017. She saw a neurosurgeon Dr. Korey Franz on 12/2016. ISSUES TO BE ADDRESSED AT FOLLOWUP: 1. Functional status. She will continue to have therapies and can follow up with primary care regarding her progress. 2. Parkinson disease. To follow up with Dr. Jena Winslow. 3. Status post anterior lumbar fusion, to follow up with Dr. Franz and Dr. Andrade. 4. Iron deficiency anemia, she can follow up with primary care. MEDICATIONS AT DISCHARGE: 1. Multivitamin 1 tablet daily. 2. Docusate 100 mg p.o. daily. 3. Cholecalciferol 5000 units p.o. at bedtime. 4. Acetaminophen 1000 mg p.o. q.8 hours. 5. Ropinirole 6 mg p.o. twice daily. 6. Clonazepam 0.5 mg at bedtime. 7. Senna 1 tab p.o. daily. 8. Propranolol 20 mg p.o. at bedtime. 9. Polyethylene glycol 17 g p.o. daily. 10. Levothyroxine 50 mcg p.o. daily. 11. Entacapone 200 mg p.o. four times daily. 12. Citalopram 20 mg p.o. daily. 13. Carbidopa/levodopa 1 tab at 2100 daily. 14. Carbidopa/levodopa CR 10/100 one tab four times daily. 15. Calcium carbonate 500 mg p.o. twice daily. 16. Atorvastatin 20 mg p.o. daily. 17. Amitriptyline 25 mg p.o. at bedtime. 18. Amantadine 100 mg p.o. four times daily. Copy requested to: Dr. Jena Winslow /[id number]/MODL [id number]
== END 2017-01-20 10:45 | disposition home health service (06) | DRG 57 ==
LOC: BREH 16:48
PROVIDERS: ADMIT Internal Medicine; ATTEND Internal Medicine
DX: G20 Parkinson's disease (principal); R53.81 Other malaise; R41.844 Frontal lobe and executive function deficit; Z48.811 Encounter for surgical aftercare following surgery on the nervous system; Z98.1 Arthrodesis status; G90.3 Multi-system degeneration of the autonomic nervous system; F05 Delirium due to known physiological condition; I10 Essential (primary) hypertension; R07.9 Chest pain, unspecified; K59.00 Constipation, unspecified; G47.00 Insomnia, unspecified; D64.89 Other specified anemias; M85.89 Other specified disorders of bone density and structure, multiple sites; E03.9 Hypothyroidism, unspecified; I27.20 Pulmonary hypertension, unspecified; F32.9 Major depressive disorder, single episode, unspecified; K21.9 Gastro-esophageal reflux disease without esophagitis; Z86.73 Personal history of transient ischemic attack (TIA), and cerebral infarction without residual deficits
CPT/HCPCS: 92507-GN; 92522-GN; 97110-GO; 97110-GP; 97112-GO; 97112-GP; 97116-GP; 97162-GP; 97166-GO; 97530-GO; 97530-GP; 97532-GO; 97535-GO; 99366-GO; J1650

== ENCOUNTER → 2017-02-16 | Outpatient (CLI) | payer OTHER | LOC: FIMAGING 14:07 | PROVIDERS: ATTEND Physician Assistant Surgical | DX: Z09 Encounter for follow-up examination after completed treatment for conditions other than malignant neoplasm (principal); Z98.1 Arthrodesis status; K59.00 Constipation, unspecified ==

== ENCOUNTER → 2017-03-27 | Outpatient (CLI) | payer OTHER | LOC: FIMAGING 13:50 | PROVIDERS: ATTEND Physician Assistant Surgical | DX: Z09 Encounter for follow-up examination after completed treatment for conditions other than malignant neoplasm (principal); Z98.1 Arthrodesis status ==

== ENCOUNTER 2017-04-15 07:37 | Emergency (ER) | payer OTHER ==
--- NOTE | 2017-04-15 08:01 | EDPHY ---
HPI/HX/ROS/PE/MDM Narrative: CHIEF COMPLAINT: Fall HPI: This patient is a non-anticoagulated 76 y/o female history of Parkinson's disease complaining of back, jaw, and head pain secondary to a mechanical fall this morning. She has had frequent falls recently, six in the last seven days, secondary to imbalance due to her Parkinson's presentation. This imbalance comes on very quickly and unpredictably. She sometimes walks with a walker, sometimes without. This morning, she went to the restroom and then lost her balance suddenly as she was turning to hospitalist nocturnist physician the light. She struck her right side and jaw on the tub. She was able to contact a family member, who found her lying next to the tub and brought her to the emergency department. The patient denies loss of consciousness. She complains of difficulty breathing due to pain in her back. No vomiting, fever, diarrhea, dizziness, or other associated symptoms. REVIEW OF SYSTEMS: Aside from elements discussed in the HPI, a comprehensive 10-point review of systems was reviewed and is negative. PMH: Parkinson's disease. Hyperlipidemia (Atorvastatin) . Multilevel back surgery, L3-S1, 12/30/16. SOCIAL HISTORY: PHYSICAL EXAM: General:Patient is alert, in no acute distress. ENT:Eyes are normal to inspection. ENT inspection normal. Neck: Normal inspection. Full range of motion. Respiratory: Tenderness to anterior part of lower costal margin. No respiratory distress. Breath sounds normal bilaterally. Cardiovascular: Regular rate and rhythm. Strong peripheral pulses. Normal cap refill. Abdomen:The abdomen is nontender to palpation. There are no peritoneal signs. There are normal bowel sounds. Back: Normal to inspection. No tenderness to palpation. Skin: Normal color. No rash. Warm and dry. Extremities: Normal appearance. Full range of motion. Neuro: Oriented x3. Normal motor function. Normal sensory function. ED Course: 76 y/o female with history of Parkinson's disease presents with right-sided rib and jaw pain secondary to a fall earlier today. Exam reveals tenderness to anterior part of lower costal margin. Plan for CT head and cervical spine. Plan for x-ray ribs. Administered 2mg IV morphine for pain relief. Rib/chest x-ray negative for fracture or other acute processes. 09:[address] Arguello, radiologist. CT head/c-spine negative for acute processes. 09:45 Reassessed patient. Discussed imaging results. She refuses CT chest for further evaluation. She is still experiencing pain despite 2mg morphine, but she declines additional pain medication pain medication at this time. Patient has an incentive spirometer at home. She generally takes 1000mg acetaminophen Q8 , discussed use of ibuprofen for pain/anti-inflammatory effects. Plan to discharge home in good condition. Follow up and return precautions discussed. The patient is comfortable with this plan. - Data Points Imaging Results: Imaging Impressions Cervical Spine CT 04/15/17 07:52 Impression: 1. No acute fracture or soft tissue swelling. 2. Multilevel degenerative disk disease, worse at the C4-C5 and C5-C6 levels and is unchanged. 3. If the patient has persistent pain or neurologic deficits, consider cervical spine MRI. Findings discussed with Emergency Department physician, Tang Hodge MD, on 04/15/2017, 9:40. Head CT 04/15/17 07:52 Impression: Negative. No acute intracranial hemorrhage or fracture. Findings discussed with Emergency Department physician, Tang Hodge MD, on 04/15/2017, 0940 hours. Ribs w/Chest X-Ray 04/15/17 07:52 Impression: Negative. No pneumothorax, effusion, or discernible acute rib fracture. Imaging: Discussed imaging studies w/ order desk caller Radiologist, I viewed and interpreted images myself Medications Given: Discontinued Medications Morphine Sulfate (Morphine) 2 mg IVP EDNOW ONE Stop: 04/15/17 08:10 Last Admin: 04/15/17 08:28 Dose: 2 mg General Time Seen by Provider: 04/15/17 07:45 Initial Vital Signs: Initial Vital Signs Temperature (C) 36.4 C 04/15/17 07:39 Heart Rate 81 04/15/17 07:39 Respiratory Rate 17 04/15/17 07:39 Blood Pressure 162/79 H 04/15/17 07:39 O2 Sat (%) 98 04/15/17 07:39 O2 Delivery Mode Room Air Allergies/Adverse Reactions: No Known Allergies Allergy (Verified 04/15/17 07:39) Home Medications: Medication Instructions Recorded Multivitamins [Multivitamin (*)] 1 tab PO DAILY@18 07/10/13 Docusate Sodium [Colace 100 MG (*)] 100 mg PO DAILY 07/17/13 Acetaminophen [Tylenol ES 500 mg 1,000 mg PO Q8HRS tab 01/06/17 (*)] Cholecalciferol Vit D3 [Vitamin D3 5,000 units PO HS tab 01/06/17 (*)] Amantadine HCl [Symmetrel] 100 mg PO TID@07,,14 #90 cap 01/19/17 Amitriptyline HCl [Elavil] 25 mg PO HS #30 tab 01/19/17 Atorvastatin Calcium [Lipitor 20 20 mg PO DAILY #30 tab 01/19/17 mg (*)] Calcium Carbonate [Oyster Shell 500 mg PO BID tab 01/19/17 Calcium 500 mg (*)] Carbidopa/Levo Cr 25/100Mg 1 tab PO 0700,1000,1400,1800 #120 01/19/17 [Sinemet CR 25/100 MG (*)] tab.cr Carbidopa/Levodopa 10/100Mg 1 tab PO 2100 #30 tab 01/19/17 [Sinemet 10/100 MG (*)] Citalopram [CeleXA 20 MG] 20 mg PO DAILY #30 tab 01/19/17 Entacapone [Comtan] 200 mg PO QID@,,14,18 #120 tab 01/19/17 Levothyroxine [Synthroid 50 mcg 50 mcg PO DAILY@06 #30 tab 01/19/17 (*)] Polyethylene Glycol 3350 [Miralax 17 gm PO DAILY pkt 01/19/17 17 gm (*)] Propranolol HCl [Inderal 20mg (*)] 20 mg PO HS #30 tab 01/19/17 Sennosides [Senokot] 1 tab PO DAILY tab 01/19/17 clonazePAM [Klonopin (*)] 0.5 mg PO HS #30 tab 01/19/17 rOPINIRole HCL [Requip XL 6mg] 6 mg PO BID@,16 #60 tab.er.24h 01/19/17 Departure - Departure Disposition: Home, Routine, Self-Care Clinical Impression: Contusion of rib on right side Qualifiers: Encounter type: initial encounter Qualified Code(s): S20.211A - Contusion of right front wall of thorax, initial encounter Contusion of face Qualifiers: Encounter type: initial encounter Qualified Code(s): S00.83XA - Contusion of other part of head, initial encounter Condition: Good Instructions: Contusion in Adults (ED), Rib Contusion (ED), Facial Contusion ( ED) Additional Instructions: 1. Follow up with your primary care provider for further evaluation. 2. You may take Ibuprofen as directed on the packaging as needed for pain. 3. Use your incentive spirometer at home as directed. 4. Return to the emergency department for worsening pain, severe headache, confusion, vomiting, difficulty breathing, chest pain, or other worsening of condition. Referrals: Silvia Live DO [Doctor of Osteopathy] - As per Instructions Report Scribed for: Tang Hodge Report Scribed by: Wendy Gutierrez Date of Report: 04/15/17 Time of Report: 09:02 Physician Review and Approval Statement: Portions of this note were transcribed by an ED scribe. I personally performed the history, physical exam, and medical decision making; and confirm the accuracy of the information in the transcribed note.
[2017-04-15 08:31] VITALS: RESP 16; O2SAT 97
[2017-04-15 10:06] LABS: PLATELET COUNT 307 10^3/uL (150-400)
[2017-04-15 10:22] VITALS: BP 158/78; PULSE 72; TEMP 98.6
== END 2017-04-15 10:22 | disposition home or self-care (01) ==
DX: S20.211A Contusion of right front wall of thorax, initial encounter (principal); S00.83XA Contusion of other part of head, initial encounter; G20 Parkinson's disease; W01.190A Fall on same level from slipping, tripping and stumbling with subsequent striking against furniture, initial encounter; Y92.89 Other specified places as the place of occurrence of the external cause; Y93.89 Activity, other specified
CPT/HCPCS: 96374

== ENCOUNTER 2017-05-21 22:51 | Emergency (ER) | payer OTHER ==
[2017-05-21 23:00] VITALS: TEMP 98.2
--- NOTE | 2017-05-21 23:49 | EDPHY ---
H & P Stated Complaint: Skin Tear Time Seen by Provider: 05/21/17 23:10 HPI/ROS: HPI The patient presents with fall which occurred just prior to arrival. She was seated and fell forward, cutting her right forearm on her wooden bed. She did hit her posterior occiput as well. She did not lose consciousness. She said she felt "wobbly" and this is what led to her fall. She does not have a headache, nausea or vomiting. She does have a history of Parkinson's disease associated with gait disturbance and frequent falls. Her reports that over the last 1 week or to her falls have become more frequent and she seems more unsteady on her feet. He also reports that she is very photophobic when she goes out into the sun. She has had some hallucinations as well which are visual over the last 1 week. They are not sure if this is related to her Parkinson's. She had these before about 2 years ago while admitted to the hospital. She says in general she has not been sleeping well. REVIEW OF SYSTEMS Constitutional: No fever, no chills. Eyes: No discharge. ENT: No sore throat. Cardiovascular: No chest pain, no palpitations. Respiratory: No cough, no shortness of breath. Gastrointestinal: No abdominal pain, no vomiting. Genitourinary: No hematuria. Musculoskeletal: No back pain. Skin: No rashes. Neurological: No headache. PMHx: Parkinson's disease, history of subdural hematoma, spinal surgery Soc Hx: Lives at home with her FHx: PHYSICAL General Appearance: Alert, no distress Eyes: Pupils equal and round no pallor or injection ENT, Mouth: Mucous membranes moist Respiratory: There are no retractions, lungs are clear to auscultation Cardiovascular: Regular rate and rhythm Gastrointestinal: Abdomen is soft and non-tender, no masses, bowel sounds normal Neurological: A&O, moves all extremities, parkinsonian tremor is present Skin: Warm and dry, no rashes Musculoskeletal: Neck is supple non tender Extremities: symmetrical, full range of motion, right medial forearm with 8 cm skin tear with skin flap which is about half a cm Psychiatric: Patient is oriented X 3, there is no agitation Source: Patient, Family - Personal History Current Tetanus/Diphtheria Vaccine: Unsure Current Tetanus Diphtheria and Acellular Pertussis (TDAP): Unsure Tetanus Vaccine Date: WITHIN 10 Y - Medical/Surgical History Hx Asthma: No Hx Chronic Respiratory Disease: No Hx Diabetes: No Hx Cardiac Disease: No Hx Renal Disease: No Hx Cirrhosis: No Hx Alcoholism: No Hx HIV/AIDS: No Hx Splenectomy or Spleen Trauma: No Other PMH: DDD, Pack pain, Polydiculitis, incontinence, dyskinesia, orthostatic , Parkinsons, dyskinesia, cholecystectomy, tonsilectomy, appendectomy, brain surgery. Gene transfer therapy/back surg - Social History Smoking Status: Former smoker Constitutional: Initial Vital Signs Temperature (C) 36.8 C 05/21/17 22:57 Heart Rate 58 L 05/21/17 22:57 Respiratory Rate 18 05/21/17 22:57 Blood Pressure 132/74 H 05/21/17 22:57 O2 Sat (%) 97 05/21/17 22:57 O2 Delivery Mode Room Air Allergies/Adverse Reactions: No Known Allergies Allergy (Verified 04/15/17 07:39) Home Medications: Medication Instructions Recorded Multivitamins [Multivitamin (*)] 1 tab PO DAILY@18 07/10/13 Docusate Sodium [Colace 100 MG (*)] 100 mg PO DAILY 07/17/13 Acetaminophen [Tylenol ES 500 mg 1,000 mg PO Q8HRS tab 01/06/17 (*)] Cholecalciferol Vit D3 [Vitamin D3 5,000 units PO HS tab 01/06/17 (*)] Amantadine HCl [Symmetrel] 100 mg PO TID@,, #90 cap 01/19/17 Atorvastatin Calcium [Lipitor 20 20 mg PO DAILY #30 tab 01/19/17 mg (*)] Calcium Carbonate [Oyster Shell 500 mg PO BID tab 01/19/17 Calcium 500 mg (*)] Carbidopa/Levo Cr 25/100Mg 1 tab PO 0700,1000,1400,1800 #120 01/19/17 [Sinemet CR 25/100 MG (*)] tab.cr Carbidopa/Levodopa 10/100Mg 1 tab PO 2100 #30 tab 01/19/17 [Sinemet 10/100 MG (*)] Citalopram [CeleXA 20 MG] 20 mg PO DAILY #30 tab 01/19/17 Entacapone [Comtan] 200 mg PO QID@,,,18 #120 tab 01/19/17 Levothyroxine [Synthroid 50 mcg 50 mcg PO DAILY@06 #30 tab 01/19/17 (*)] Polyethylene Glycol 3350 [Miralax 17 gm PO DAILY pkt 01/19/17 17 gm (*)] Sennosides [Senokot] 1 tab PO DAILY tab 01/19/17 clonazePAM [Klonopin (*)] 0.5 mg PO HS #30 tab 01/19/17 rOPINIRole HCL [Requip XL 6mg] 6 mg PO BID@07,16 #60 tab.er.24h 01/19/17 Cephalexin [Keflex (*)] 500 mg PO Q6H #28 cap 05/22/17 Medical Decision Making - Diagnostics Imaging Results: Imaging Impressions Head CT 05/21/17 23:40 Impression: 1. Mild age-related atrophy stable in appearance. 2. No hemorrhage, mass effect, or definite acute peripheral infarct. If symptoms worsen, additional imaging may be necessary. Findings discussed with Gladys Carabllo MD at 0:04 hour, 05/22/2017. Differential Diagnosis: This is a 76-year-old female with Parkinson's disease, brought in by her after a fall which occurred just prior to arrival. She fell from a seated position onto her right arm and hit her head. She did not have any loss of consciousness. She has been more unsteady on her feet over the last 1-2 weeks, also experiencing photophobia and hallucinations. Unclear if this is related to Parkinson's disease versus intracranial process. She does not have any fever or nuchal rigidity making meningitis unlikely. Given that she has had frequent falls she could have had a head injury leading to concussion or intracranial hemorrhage and that could be causing some of her symptoms. These also could be related to worsening Parkinson's disease. In the emergency department, plan for CT scan of head, basic labs and wound care for her skin tear. Given that there is avulsion of tissue, sutures will not be helpful. Plan for cleansing of wound and will place antibiotic ointment and a dressing. Patient's CT scan of her head was unremarkable. Her labs were checked and were indicative of urinary tract infection. I feel this could be responsible for some of her symptoms including her hallucinations an increased unsteadiness. I have given her a dose of ceftriaxone here. Urine culture has been sent. I will discharge her with Thomasflex. She will follow up with her primary care doctor as needed. I have answered all of her questions. - Data Points Laboratory Results: Laboratory Results 05/22/17 00:00 05/22/17 00:00 05/22/17 05/22/17 05/22/17 00:15 00:00 00:00 WBC 8.24 10^3/uL 10^3/uL (3.80-9.50) RBC 4.28 10^6/uL 10^6/uL (4.18-5.33) Hgb 12.1 g/dL L g/dL (12.6-16.3) Hct 37.7 % L % (38.0-47.0) MCV 88.1 fL fL (81.5-99.8) MCH 28.3 pg pg (27.9-34.1) MCHC 32.1 g/dL L g/dL (32.4-36.7) RDW 15.7 % H % (11.5-15.2) Plt Count 283 10^3/uL 10^3/uL (150-400) MPV 8.6 fL L fL (8.7-11.7) Neut % (Auto) 63.8 % % (39.3-74.2) Lymph % (Auto) 22.9 % % (15.0-45.0) [place] % (Auto) 8.1 % % (4.5-13.0) Eos % (Auto) 4.1 % % (0.6-7.6) Baso % (Auto) 0.7 % % (0.3-1.7) Nucleat RBC Rel Count 0.0 % % (0.0-0.2) Absolute Neuts (auto) 5.25 10^3/uL 10^3/uL (1.70-6.50) Absolute Lymphs (auto) 1.89 10^3/uL 10^3/uL (1.00-3.00) Absolute Monos (auto) 0.67 10^3/uL 10^3/uL (0.30-0.80) Absolute Eos (auto) 0.34 10^3/uL 10^3/uL (0.03-0.40) Absolute Basos (auto) 0.06 10^3/uL 10^3/uL (0.02-0.10) Absolute Nucleated RBC 0.00 10^3/uL 10^3/uL (0-0.01) Immature Gran % 0.4 % % (0.0-1.1) Immature Gran # 0.03 10^3/uL 10^3/uL (0.00-0.10) Sodium 147 mEq/L H mEq/L (135-145) Potassium 4.6 mEq/L mEq/L (3.5-5.2) Chloride 108 mEq/L mEq/L (97-110) Carbon Dioxide 28 mEq/l mEq/l (22-31) Anion Gap 11 mEq/L mEq/L (8-16) BUN 33 mg/dL H mg/dL (7-23) Creatinine 1.0 mg/dL mg/dL (0.6-1.0) Estimated GFR 54 Glucose 77 mg/dL mg/dL (70-100) Calcium 9.3 mg/dL mg/dL (8.5-10.4) Total Bilirubin 0.6 mg/dL mg/dL (0.1-1.4) AST 25 IU/L IU/L (14-46) ALT 23 IU/L IU/L (9-52) Alkaline Phosphatase 139 IU/L H IU/L (38-126) Total Protein 6.7 g/dL g/dL (6.3-8.2) Albumin 4.2 g/dL g/dL (3.5-5.0) Urine Color SHELLIE Urine Appearance CLEAR Urine pH 6.0 (5.0-7.5) Ur Specific [place] 1.023 (1.002-1.030) Urine Protein NEGATIVE (NEGATIVE) Urine Ketones TRACE H (NEGATIVE) Urine Blood NEGATIVE (NEGATIVE) Urine Nitrate NEGATIVE (NEGATIVE) Urine Bilirubin NEGATIVE (NEGATIVE) Urine Urobilinogen NEGATIVE EU EU (0.2-1.0) Ur Leukocyte Esterase 2+ H (NEGATIVE) Urine RBC 1-3 /hpf /hpf (0-3) Urine WBC 5-10 /hpf H /hpf (0-3) Ur Epithelial Cells TRACE /lpf /lpf (NONE-1+) Urine Mucus TRACE /lpf /lpf (NONE-1+) Urine Glucose NEGATIVE (NEGATIVE) Medications Given: Discontinued Medications Ceftriaxone Sodium/Dextrose (Rocephin 1 Gm (Premix)) 50 mls @ 100 mls/hr IV EDNOW ONE PRN Reason: Protocol Stop: 05/22/17 01:32 Last Admin: 05/22/17 01:08 Dose: 50 mls Departure - Departure Disposition: Home, Routine, Self-Care Clinical Impression: Fall Qualifiers: Encounter type: initial encounter Qualified Code(s): W19.XXXA - Unspecified fall, initial encounter UTI (urinary tract infection) Qualifiers: Urinary tract infection type: site unspecified Hematuria presence: without hematuria Qualified Code(s): N39.0 - Urinary tract infection, site not specified Laceration of right forearm Qualifiers: Encounter type: initial encounter Qualified Code(s): S51.811A - Laceration without foreign body of right forearm, initial encounter Condition: Good Instructions: Urinary Tract Infection in Women (ED), Acute Wounds (ED) Additional Instructions: Please return to the emergency department if your worse in any way. Please complete the course of antibiotics for urinary tract infection. We will call you if your culture results show that you should be on a different antibiotic. You should change her dressing once a day on your arm and apply antibiotic ointment to it. You should avoid swimming for 1-2 weeks or until the wound is mostly healed. Referrals: Antonia Jefferson MD [Primary Care Provider] - As per Instructions Prescriptions: Cephalexin [Keflex (*)] 500 mg PO Q6H #28 cap
[2017-05-22 00:09] LABS: PLATELET COUNT 283 10^3/uL (150-400)
[2017-05-22 01:29] VITALS: BP 131/74; PULSE 79; RESP 16; O2SAT 95
== END 2017-05-22 01:35 | disposition home or self-care (01) ==
DX: S51.811A Laceration without foreign body of right forearm, initial encounter (principal); N39.0 Urinary tract infection, site not specified; B96.89 Other specified bacterial agents as the cause of diseases classified elsewhere; G20 Parkinson's disease; Z87.891 Personal history of nicotine dependence; W18.09XA Striking against other object with subsequent fall, initial encounter
CPT/HCPCS: 70450; 96374; 99285; J0696

== ENCOUNTER → 2017-06-16 | Outpatient (CLI) | payer OTHER | LOC: FIMAGING 08:20 | DX: G31.9 Degenerative disease of nervous system, unspecified (principal); R29.6 Repeated falls; G20 Parkinson's disease; I95.1 Orthostatic hypotension ==

== ENCOUNTER 2017-06-19 09:19 | Emergency (ER) | payer OTHER ==
[2017-06-19 10:49] LABS: PLATELET COUNT 237 10^3/uL (150-400)
--- NOTE | 2017-06-19 10:57 | EDPHY ---
H & P Smoking Status: Former smoker Time Seen by Provider: 06/19/17 09:33 HPI/ROS: CHIEF COMPLAINT: Fall, head injury HISTORY OF PRESENT ILLNESS: 76-year-old female presents to the emergency department with her after having an unwitnessed fall at home. The patient has a history of Parkinson's disease. The notes that she has had frequent falls specially over last several months. He also notes a decline in her ability to take care of herself and walk independently and feed herself over last 3 weeks. She has fallen multiple times sometimes multiple times per day. Today he states that she was resting in bed and he went to get her Parkinson's medication and when he came back up to the room he found her lying on the ground and her head was up against the leg of a wooden chair. He did not hear a fall. He notes that she was slurring her words which is not uncommon for her specially in the morning, however he seemed to think that she was a bit more out of it. He does report that they have been changing her medications a bit. She apparently had a decrease in some for Parkinson's medication because of her insomnia. Then they also tried increased her Klonopin. The patient has no headache. She denies neck or back pain. She was complaining of some pain and some numbness in her left fingers. Her appetite has been normal per her . REVIEW OF SYSTEMS: Constitutional: No fever, no chills. Eyes: No double or blurry vision. ENT: No sore throat. Respiratory: No cough, no shortness of breath. Cardiac: No chest pain. Gastrointestinal: No abdominal pain, vomiting or diarrhea. Genitourinary: No dysuria. Musculoskeletal: No neck or back pain. Skin: No rashes. Neurological: No headache. (Luiza Fabian) Past Medical/Surgical History: Degenerative disc disease, Parkinson's, dyskinesia, frequent falls, cholecystectomy, tonsillectomy, appendectomy, history of subdural hematoma, back surgery (Luiza Fabian) Social History: and lives independently with her and has home health. (Luiza Fabian) Physical Exam: General Appearance: Alert, no distress. at bedside. The patient is very soft-spoken and difficult to understand. No visible signs of trauma to her head. She is tremulous. Eyes: Pupils equal and round. Extraocular motions are all intact. ENT: Mouth: Mucous membranes appears very dry Respiratory: No wheezing, rhonchi, or rales, lungs are clear to auscultation. Cardiovascular: Regular rate and rhythm. Gastrointestinal: Abdomen is soft and nontender, no masses, no rebound or guarding, bowel sounds normal. Neurological: Alert and oriented x 3, cranial nerves II through XII grossly intact Skin: Warm and dry, no rashes. Musculoskeletal: Nontender to palpate along the cervical, thoracic or lumbar spine. Neck is supple. Extremities: Resolving ecchymosis noted to the anterior aspect of her right knee. She has full range of motion of her upper lower extremities. Her gait is not tested. Psychiatric: Patient is oriented X 3, there is no agitation. (Luiza Fabian) Constitutional: Initial Vital Signs Temperature (C) 36.7 C 06/19/17 09:23 Heart Rate 56 L 06/19/17 09:23 Respiratory Rate 20 06/19/17 09:23 Blood Pressure 141/95 H 06/19/17 09:23 O2 Sat (%) 95 06/19/17 09:23 O2 Delivery Mode Room Air Allergies/Adverse Reactions: No Known Allergies Allergy (Verified 06/19/17 09:22) Home Medications: Medication Instructions Recorded Multivitamins [Multivitamin (*)] 1 tab PO DAILY@18 07/10/13 Docusate Sodium [Colace 100 MG (*)] 100 mg PO DAILY 07/17/13 Acetaminophen [Tylenol ES 500 mg 1,000 mg PO Q8HRS tab 01/06/17 (*)] Cholecalciferol Vit D3 [Vitamin D3 5,000 units PO HS tab 01/06/17 (*)] Amantadine HCl [Symmetrel] 100 mg PO TID@,, #90 cap 01/19/17 Atorvastatin Calcium [Lipitor 20 20 mg PO DAILY #30 tab 01/19/17 mg (*)] Calcium Carbonate [Oyster Shell 500 mg PO BID tab 01/19/17 Calcium 500 mg (*)] Carbidopa/Levo Cr 25/100Mg 1 tab PO 0700,1000,1400,1800 #120 01/19/17 [Sinemet CR 25/100 MG (*)] tab.cr Carbidopa/Levodopa 10/100Mg 1 tab PO 2100 #30 tab 01/19/17 [Sinemet 10/100 MG (*)] Citalopram [CeleXA 20 MG] 20 mg PO DAILY #30 tab 01/19/17 Entacapone [Comtan] 200 mg PO QID@07,,14,18 #120 tab 01/19/17 Levothyroxine [Synthroid 50 mcg 50 mcg PO DAILY@06 #30 tab 01/19/17 (*)] Polyethylene Glycol 3350 [Miralax 17 gm PO DAILY pkt 01/19/17 17 gm (*)] Sennosides [Senokot] 1 tab PO DAILY tab 01/19/17 clonazePAM [Klonopin (*)] 0.5 mg PO HS #30 tab 01/19/17 rOPINIRole HCL [Requip XL 6mg] 6 mg PO BID@07,16 #60 tab.er.24h 01/19/17 Cephalexin [Keflex (*)] 500 mg PO Q6H #28 cap 05/22/17 Medical Decision Making - Diagnostics Imaging: Discussed imaging studies w/ hat and cap parts cutter hand Radiologist ED Course/Re-evaluation: 76-year-old female with a known history of Parkinson's presents to the emergency department after she potentially fell and hit her head. Her notes a significant change in her activities of daily leaving and living independently in that she has had numerous falls and requires assistance now with walking and sitting in a chair and getting to the bathroom and meals. This is a change even from the last [address] imaging of the brain reveals no intracranial bleeding. No acute findings noted. The case was discussed with Dr. Lucas Quintana, secondary supervising physician, who did not directly evaluate the patient but agrees with treatment and plan. Given her history of frequent falls, laboratory studies have been drawn. She does have a reported history of a recent urinary tract infection treated with antibiotics. I spoke with the patient's primary care provider, Dr. Jefferson, at 12:10 p.m. She will see them as scheduled in follow-up on Monday. She did not feel that she needed to see the many sooner. The felt comfortable taking her home. He will return to the emergency department with her if he has any other concerns. (Luiza Fabian) I did not see this patient while she was in the emergency department. However her care was discussed with the PA while the patient was in the department. I agree with treatment plan and management (Lucas Quintana) Differential Diagnosis: Head injury including but not limited to concussion, skull fracture, intraparenchymal contusion, subarachnoid, subdural and epidural hematoma. (Luiza Fabian) - Data Points Laboratory Results: Laboratory Results 06/19/17 10:36 06/19/17 10:36 Medications Given: Discontinued Medications Sodium Chloride (Ns) 500 mls @ 0 mls/hr IV ONCE ONE PRN Reason: Wide Open Stop: 06/19/17 11:05 Last Admin: 06/19/17 11:29 Dose: 500 mls Departure - Departure Disposition: Home, Routine, Self-Care Clinical Impression: Head injury, Parkinson disease, History of frequent falls Condition: Good Instructions: Parkinson Disease (ED), Head Injury (ED), Fall Prevention (ED) Additional Instructions: Keep scheduled follow-up appointment with your primary care provider on Monday. Return to the emergency department if she develops a fever, if she develops headache, vomiting, altered mental status, or any other concerns. Referrals: Antonia Jefferson MD [Primary Care Provider] - 2-3 days without fail
[2017-06-19] MEDS ORDERED: NS 500 ML IV ONE (11:04)
[2017-06-19 12:27] VITALS: BP 129/59
== END 2017-06-19 12:27 | disposition home or self-care (01) ==
DX: S09.90XA Unspecified injury of head, initial encounter (principal); G20 Parkinson's disease; Z87.891 Personal history of nicotine dependence; Z91.81 History of falling; W18.39XA Other fall on same level, initial encounter; Y92.009 Unspecified place in unspecified non-institutional (private) residence as the place of occurrence of the external cause; Y99.8 Other external cause status; Y93.89 Activity, other specified

== ENCOUNTER 2017-06-20 16:37 | Inpatient (IN) | payer OTHER ==
--- NOTE | 2017-06-20 17:38 | EDPHY ---
H & P Time Seen by Provider: 06/20/17 17:10 HPI/ROS: HPI Delirium. Needs placement. 76-year-old female by private vehicle with . This patient has a history of Parkinson's, frequent falls as well as dementia. Patient was seen in the emergency department just yesterday when she was evaluated after she fell. She currently ambulates with a walker but was somebody right behind her. She fell backwards and struck her head. She had a negative noncontrast CT scan of her brain yesterday. She also had an MRI of her brain a couple of days ago on June 16. This showed no acute pathology. She was at her rehab facility today with her . The rehab staff was unable to work with her because of her inability to follow commands. He then was taking her to see her neurologist, Dr. Winslow, when she tried to get out of a moving car thinking that she saw her dog across the street. Her feels that this time that he can no longer take care of her safely at home. He is requesting us to evaluate her again, admit her to the hospital and arrange for placement to a higher level of care. ROS: Constitutional: No fever, no chills. As above. Eyes: No discharge. No changes in vision. ENT: No sore throat. No nasal congestion or rhinorrhea. Respiratory: No cough. No shortness of breath. Cardiac: No chest pain, no palpitations. Gastrointestinal: No abdominal pain, no vomiting, no diarrhea. Genitourinary: No hematuria. No dysuria or increased frequency with urination. Musculoskeletal: No back pain. No neck pain. No myalgias or arthralgias. Skin: No rashes. Neurological: No headache. No focal weakness or altered sensation. Past medical history: Degenerative disc disease, Parkinson's, incontinence, dyskinesia, orthostatic hypotension, dementia, cholecystectomy, tonsillectomy, appendectomy, brain surgery. Social history: Here with her . No smoking. No alcohol. Physical Exam: General Appearance: Alert, no distress, intermittently shots her eyes. This patient is responding to questions appropriately and in full sentences. This patient appears well-hydrated and well-nourished. Eyes: Pupils equal and round no pallor or injection. No lid edema, erythema or injection. ENT, Mouth: Mucous membranes are moist. The pharyngeal tissues are unremarkable. No edema or swelling. No asymmetry suggestive of abscess. No erythema or exudates. Respiratory: There are no retractions, lungs are clear to auscultation with good air movement bilaterally. Cardiovascular: Regular rate and rhythm. No murmur. Gastrointestinal: Abdomen is soft and nontender, no masses, bowel sounds normal. No focal tenderness at McBurney's point. No Pisano sign. Neurological: Motor sensory function is grossly intact. Cranial nerves are grossly normal. Shorts shuffling gait. Skin: Warm and dry, no rashes. Musculoskeletal: Neck is supple and nontender. Extremities are symmetrical. All joints range without pain or impingement. Psychiatric: No agitation. No depression. Database: EKG: Imaging: Procedures: Emergency department course: Vital signs reviewed and are normal. IV placed. She will be started on IV normal saline with 500 cc to be given over the next hour. Discussed plan for admission for placement to a long-term facility or residential with . He endorses. 5:45 p.m., spoke with hospitalist Dr. Linda Sutherland, patient accepted for admission. The patient's remaining emergency department course under my care has been uneventful. Results of blood work discussed with the patient and her . She was admitted to the hospitalist service in stable condition. Differential Diagnosis: The differential diagnosis on this patient includes but is not limited to dementia, Parkinson's disease, failure to thrive, delirium. This represents a partial list of diagnoses considered. These considerations are based on history , physical exam, past history, reassessment and diagnostic testing. Smoking Status: Former smoker Constitutional: Initial Vital Signs Temperature (C) 36.7 C 06/20/17 16:45 Heart Rate 64 06/20/17 16:45 Respiratory Rate 18 06/20/17 16:45 Blood Pressure 133/69 H 06/20/17 16:45 O2 Sat (%) 94 06/20/17 16:45 O2 Delivery Mode Room Air Allergies/Adverse Reactions: No Known Allergies Allergy (Verified 06/20/17 16:44) Home Medications: Medication Instructions Recorded Multivitamins [Multivitamin (*)] 1 tab PO DAILY@18 07/10/13 Docusate Sodium [Colace 100 MG (*)] 100 mg PO BID 07/17/13 Cholecalciferol Vit D3 [Vitamin D3 5,000 units PO HS tab 01/06/17 (*)] Calcium Carbonate [Oyster Shell 500 mg PO BID tab 01/19/17 Calcium 500 mg (*)] Carbidopa/Levo Cr 25/100Mg 1 tab PO 0700,1000,1400,1800 #120 01/19/17 [Sinemet CR 25/100 MG (*)] tab.cr Citalopram [CeleXA 20 MG] 20 mg PO DAILY #30 tab 01/19/17 Entacapone [Comtan] 200 mg PO QID@07,,,18 #120 tab 01/19/17 Levothyroxine [Synthroid 50 mcg 50 mcg PO DAILY@06 #30 tab 01/19/17 (*)] Sennosides [Senokot] 1 tab PO DAILY tab 01/19/17 clonazePAM [Klonopin (*)] 0.5 mg PO HS #30 tab 01/19/17 Amantadine HCl [Symmetrel] 100 mg PO QID@,,14,18 06/20/17 Atorvastatin Calcium [Lipitor 20 20 mg PO HS 06/20/17 mg (*)] C/E/Zn/Cu/OM3/DHA/EPA/LUT/ZEAX 1 each PO BID 06/20/17 [Preservision Areds 2 Softgel] hydrALAZINE [Apresoline 10 mg (*)] 10 mg PO HS PRN 06/20/17 rOPINIRole HCL [Requip XL 6mg] 6 mg PO BID@07,14 06/20/17 Medical Decision Making - Data Points Laboratory Results: Laboratory Results 06/20/17 17:30 06/20/17 17:30 06/20/17 06/20/17 17:30 17:30 WBC 7.12 10^3/uL 10^3/uL (3.80-9.50) RBC 4.28 10^6/uL 10^6/uL (4.18-5.33) Hgb 12.4 g/dL L g/dL (12.6-16.3) Hct 38.8 % % (38.0-47.0) MCV 90.7 fL fL (81.5-99.8) MCH 29.0 pg pg (27.9-34.1) MCHC 32.0 g/dL L g/dL (32.4-36.7) RDW 13.9 % % (11.5-15.2) Plt Count 247 10^3/uL 10^3/uL (150-400) MPV 9.2 fL fL (8.7-11.7) Neut % (Auto) 68.6 % % (39.3-74.2) Lymph % (Auto) 15.2 % % (15.0-45.0) Sweet [place] % (Auto) 9.3 % % (4.5-13.0) Eos % (Auto) 5.2 % % (0.6-7.6) Baso % (Auto) 1.4 % % (0.3-1.7) Nucleat RBC Rel Count 0.0 % % (0.0-0.2) Absolute Neuts (auto) 4.89 10^3/uL 10^3/uL (1.70-6.50) Absolute Lymphs (auto) 1.08 10^3/uL 10^3/uL (1.00-3.00) Absolute Monos (auto) 0.66 10^3/uL 10^3/uL (0.30-0.80) Absolute Eos (auto) 0.37 10^3/uL 10^3/uL (0.03-0.40) Absolute Basos (auto) 0.10 10^3/uL 10^3/uL (0.02-0.10) Absolute Nucleated RBC 0.00 10^3/uL 10^3/uL (0-0.01) Immature Gran % 0.3 % % (0.0-1.1) Immature Gran # 0.02 10^3/uL 10^3/uL (0.00-0.10) Sodium 145 mEq/L mEq/L (135-145) Potassium 4.5 mEq/L mEq/L (3.5-5.2) Chloride 109 mEq/L mEq/L (97-110) Carbon Dioxide 26 mEq/l mEq/l (22-31) Anion Gap 10 mEq/L mEq/L (8-16) BUN 42 mg/dL H mg/dL (7-23) Creatinine 1.1 mg/dL H mg/dL (0.6-1.0) Estimated GFR 48 Glucose 84 mg/dL mg/dL (70-100) Calcium 9.5 mg/dL mg/dL (8.5-10.4) Total Bilirubin 0.7 mg/dL mg/dL (0.1-1.4) Conjugated Bilirubin 0.6 mg/dL H mg/dL (0.0-0.5) Unconjugated Bilirubin 0.1 mg/dL mg/dL (0.0-1.1) AST 26 IU/L IU/L (14-46) ALT 27 IU/L IU/L (9-52) Alkaline Phosphatase 117 IU/L IU/L (38-126) Total Protein 7.1 g/dL g/dL (6.3-8.2) Albumin 4.4 g/dL g/dL (3.5-5.0) Ethyl Alcohol < 10 mg/dL mg/dL (0-10) Medications Given: Discontinued Medications Sodium Chloride (Ns) 500 mls @ 0 mls/hr IV EDNOW ONE; Wide Open PRN Reason: Protocol Stop: 06/20/17 17:44 Last Admin: 06/20/17 18:48 Dose: 500 mls Departure - Departure Disposition: [facility] Acute Clinical Impression: Delirium
[2017-06-20] MEDS ORDERED: NS 500 ML IV ONE (17:43)
[2017-06-20] MEDS ORDERED: ACETAMINOPHEN 325 MG TAB PO PRN (17:45)
[2017-06-20] MEDS ORDERED: ONDANSETRON 4 MG/2 ML VIAL IVP PRN (17:45)
[2017-06-20] MEDS ORDERED: ONDANSETRON DISINTEGRATING 4 MG TAB PO PRN (17:45)
[2017-06-20 17:52] LABS: PLATELET COUNT 247 10^3/uL (150-400)
[2017-06-20] MEDS ORDERED: hydrALAZINE 10 MG TAB PO PRN (20:14)
[2017-06-20] MEDS: CALCIUM CARBONATE 500 MG TAB PO SCH (20:50)
[2017-06-20] MEDS: PRESERVISION AREDS2 FORMULA EYE VIT 1 EACH PO SCH (20:50)
[2017-06-20] MEDS: CHOLECALCIFEROL VIT D3 1,000 UNITS TAB PO SCH (20:50)
[2017-06-20] MEDS: DOCUSATE SODIUM 100 MG CAP PO SCH (20:51)
[2017-06-20] MEDS: ATORVASTATIN CALCIUM 20 MG TAB PO SCH (20:52)
--- NOTE | 2017-06-20 20:59 | GHP ---
[f rep st] HISTORY AND PHYSICAL DATE OF ADMISSION: 06/20/2017 CHIEF COMPLAINT: Falls, hallucinations. HISTORY OF PRESENT ILLNESS: A 76-year-old female with history of Parkinson disease, followed by Dr. Winslow at [facility], was brought in by her . She was seen in the ER yesterday after a fall. At that time, she had a negative CT head. Her neurologist ordered an MRI and brain MRI that was done 06/16 that showed no acute infarct or hemorrhage. It showed nonspecific hyperintense FLAIR in the brainstem and through the white matter. Yesterday, her found her in her bedroom on her back. She was awake. It was unclear if she crawled down or fell. She was at her physical therapy today, and they said that she has declined rapidly over the last week, both with her cognition and speech. She normally uses a walker 24 hours a day, but needs assistance. Per her , she was walking with a cane 3 weeks ago several blocks without issue. Today, she tried to jump out of the car as she thought she saw her dog on the street. He is mainly concerned about increased hallucinations and falls. Her specialist recommended changing her medications, skipping her evening dose of levodopa, as well as amantadine, thought to cause insomnia. This has been going on for the past week. She has missed her levothyroxine dose for several weeks. UA yesterday showed 5-10 whites, and she has been complaining of increased urinary frequency. She has been eating and drinking less. She is now needing more assistance with her ADLs. Since March, she has had nearly 30 falls or near fall episodes. She had a recent lumbar surgery and now is pain free. She is not on any narcotics. She has had no medication changes. REVIEW OF SYSTEMS: I completed a 10-point review of systems, negative except as noted in the HPI. PAST MEDICAL HISTORY: Pulmonary hypertension, depression, subdural hematoma in 2013, osteopenia, Parkinson's I said diagnosed in 1989. E coli UTI, lumbar stenosis, GERD, hyperlipidemia. PAST SURGICAL HISTORY: 1. L4-5, L5-S1 fusion. 2. L3-S1 fusion. FAMILY HISTORY: Dad had IL at 88. Mother with breast and uterine cancer. SOCIAL HISTORY: She is since 1994. Lives in [place]. 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 Uses a walker. HOME MEDICATIONS: Requip 6 mg b.i.d., hydralazine 10 mg q.h.s., Klonopin 0.5 q.h.s., senna, multivitamin, levothyroxine 50 mcg daily, has missed several weeks. 20 mg q.i.d., docusate, citalopram 20 mg daily, vitamin D3, levodopa 1 tab p.o. 0700, 1000, 1400 and 1800, calcium, atorvastatin 20 q.h.s., amantadine 100 mg q.i.d. ALLERGIES: No known drug allergies. PHYSICAL EXAMINATION: VITAL SIGNS: Temperature 36.5, blood pressure 154/64, heart rate 50s, respirations 16, 94% on room air. GENERAL: Thin female lying in bed, no acute distress. HEENT: PERRLA. Mildly dry mucous membranes. CV: Regular rhythm. No murmurs, gallops, or rubs. LUNGS: Clear. ABDOMEN: Soft, nontender, nondistended. No suprapubic or CVA tenderness. MUSCULOSKELETAL: She is moving all extremities. NEURO: No focal deficits. PSYCH: Alert and oriented. LABS: UA 06/19/2017, 5-10 WBCs, trace leukocyte esterase. Blood alcohol is negative. Sodium 145, potassium 4.5, chloride 109, carbon dioxide 26, creatinine 1.1 (baseline 0.9 to 1.0). LFTs within normal. TSH is pending. WBC 7, hemoglobin 12, hematocrit 38, platelets 247. CT head 06/19/2017 features with no acute intracranial abnormality. ASSESSMENT AND PLAN: 1. Falls: This is more frequent over the last several weeks. I would suspect this is related to her Parkinson's or polypharmacy. CT head and recent MRI were negative for acute hemorrhage. Repeat a UA and culture here as has had increased dysuria. Afebrile without leukocytosis. Denies any other infectious symptoms. Check an EKG. Check a TSH. Have PT/OT. 2. Parkinson's. Resume home medications for now. Call Dr. Winslow in morning 3. Pyuria: UA and culture. 4. Lumbar stenosis. Recent surgery, now back pain-free. She is not on any narcotics. 5. Gastroesophageal reflux disease. PPI. 6. Hyperlipidemia. Statin. 7. Depression: home medications. This has been a sudden decline and query if this is progression of her disease. 8. Hypertension. cont home meds 9. Diet: Regular. 10. Deep venous thrombosis prophylaxis. SCDs. Disposition: Patient warrants inpatient admission given recurrent falls requiring PT, OT, possible placement. /[id number]/MODL MTDD
[2017-06-20] MEDS ORDERED: clonazePAM 0.5 MG TAB PO SCH (21:00)
[2017-06-20] MEDS ORDERED: NS 1,000 ML IV SCH (22:15)
[2017-06-21] MEDS: ENTACAPONE 200 MG TAB PO SCH ×4 (06:48→17:52)
[2017-06-21] MEDS: CARBIDOPA/LEVO CR 25 MG/100 MG TAB PO SCH ×4 (06:48→17:52)
[2017-06-21] MEDS: AMANTADINE HCL 100 MG CAP PO SCH ×3 (06:48→15:26)
[2017-06-21] MEDS: LEVOTHYROXINE 50 MCG TAB PO SCH (06:48)
[2017-06-21] MEDS: 1/2 NS 1,000 ML IV SCH ×2 (06:49→20:12)
[2017-06-21] MEDS ORDERED: ROPINIROLE HCL 6 MG PO SCH ×3 (07:00→09:45)
[2017-06-21] MEDS: ENOXAPARIN 40 MG/0.4 ML SYR SC SCH (08:48)
[2017-06-21] MEDS: CITALOPRAM 20 MG TAB PO SCH (08:49)
[2017-06-21] MEDS: CALCIUM CARBONATE 500 MG TAB PO SCH ×2 (08:49→20:16)
[2017-06-21] MEDS: SENNOSIDES 1 TAB PO SCH (08:49)
[2017-06-21] MEDS: PRESERVISION AREDS2 FORMULA EYE VIT 1 EACH PO SCH ×2 (08:49→20:14)
[2017-06-21] MEDS: DOCUSATE SODIUM 100 MG CAP PO SCH ×2 (08:49→20:48)
--- NOTE | 2017-06-21 10:03 | PDMN ---
Medical Necessity Medical necessity: [facility] neurology: Increased falls, hallucinations, increased urinary frequency, sig. decline in last 3 weeks, poss. related to Parkinson' s vs. ? further monitoring, eval and tx. needed > 2 midnights anticipated.
--- NOTE | 2017-06-21 10:27 | HOSPPROG ---
Hospitalist Progress Note Assessment/Plan: Falls - Seems like this is related to her Parkinson's. No e/o acute infection. CT brain neg for acute process. Also had recent brain MRI without acute change. The klonopin could be contributory though she's been on this for several years. -decrease Klonopin dose -PT/OT eval -Neurology to see Parkinsons - Marked retropulsion and worsening symptoms. I have a call out to Dr. Winslow, her movement disorder specialist, for recommendations and have also requested a neurology consult here. -cont Entacapone, Sinemet, Ropinirole -f/u neurology / movement disorder specialist recommendations Hypernatremia / Hyperchloremia - change to 1/2 NS, recheck BMP this afternoon. Hypertension - BP's labile -cont hs hydralazine Hyperlipidemia - cont statin GERD - cont PPI Depression - Cont celexa DVT PPLX - Lovenox Full code Subjective: Pt is confused, hallucinatory at times. Unsafe with PT, who reported marked retropulsion. No fevers/chills. No CP, cough, SOB. No neurodeficits Objective: Vital Signs Temp Pulse Resp BP Pulse Ox 36.9 C 57 L 18 171/67 H 91 L 06/21/17 09:00 06/21/17 09:00 06/21/17 09:00 06/21/17 09:00 06/21/17 09:00 Laboratory Results 06/21/17 03:17 06/20/17 06/21/17 06/22/17 05:59 05:59 05:59 Intake Total 950 790 Output Total 150 250 Balance 800 540 - Physical Exam Constitutional: no apparent distress Eyes: PERRL Ears, Nose, Mouth, Throat: moist mucous membranes Cardiovascular: regular rate and rhythym Respiratory: no respiratory distress Gastrointestinal: normoactive bowel sounds, soft, non-tender abdomen Skin: warm Musculoskeletal: other (b/l tremor) Neurologic: other (confused) Psychiatric: poor memory ICD10 Worksheet Patient Problems: Problems Problem Status Onset Delirium Acute Transient ischemic attack Active Generalized weakness Acute Hypertension Acute Hypocalcemia Acute Intracranial hemorrhage following injury Acute Subdural hematoma, acute Acute
[2017-06-21] MEDS ORDERED: ROPINIROLE HCL 4 MG PO SCH (13:51)
--- NOTE | 2017-06-21 13:53 | ASMTCMCOM ---
CM Note CM Note Notes: Discussed pt in rounds today and met w/pt and , Vladimir. Pt has hx of Parkinsons and has had rapid recent decline in functioning. , very supportive, helps care for her and also has private duty help w/[facility]. They just recently have needed private duty help. They are interested in [facility] prior to going home as pt was there last December and had very good experience. PT recommending inpt rehab, OT- SNF. Notified Noni at Inpt rehab of eval order. Date Signed: 06/21/2017 01:52 PM Electronically Signed By:Aidee Lainez RN
[2017-06-21] MEDS: MULTIVITAMINS 1 EACH TAB PO SCH (17:52)
[2017-06-21] MEDS: ATORVASTATIN CALCIUM 20 MG TAB PO SCH (20:14)
[2017-06-21] MEDS: CHOLECALCIFEROL VIT D3 1,000 UNITS TAB PO SCH (20:15)
[2017-06-21] MEDS: clonazePAM 0.5 MG TAB PO SCH (20:17)
[2017-06-22] MEDS ORDERED: hydrALAZINE 10 MG TAB PO PRN (04:12)
[2017-06-22] MEDS: ENTACAPONE 200 MG TAB PO SCH ×4 (04:31→20:54)
[2017-06-22] MEDS: CARBIDOPA/LEVO CR 25 MG/100 MG TAB PO SCH ×4 (04:31→20:53)
[2017-06-22] MEDS: LEVOTHYROXINE 50 MCG TAB PO SCH (04:31)
[2017-06-22] MEDS: ROPINIROLE HCL 4 MG PO SCH ×2 (04:37→16:20)
--- NOTE | 2017-06-22 05:03 | GCON ---
[f rep st] CONSULTATION NEUROLOGIC CONSULTATION REFERRING PHYSICIAN: Skylar Kenney MD HISTORY: The patient is a 76-year-old woman who has advanced Parkinson disease, and the history is o btained from reviewing the medical records and discussions directly with the patient, who is a reliab le historian for some aspects, but other aspects of her history are little more challenging to fully ascertain yet. I am in the process of trying to fully understand everything, but there is a nice rev iew and a general sense of what is occurring from all my review of records. Basically, it sounds as if there has been Parkinson disease for over 20 years and her care has been established with movement disorder specialist, Dr. Winslow, at the [facility], and she sees her in the [facility] regularly. The patient has been struggling with falls recently and was directly a dmitted to the hospital yesterday because of inability to be safe in her home environment. She has h ad undoubtedly innumerable adjustments in medications over the years and is currently on a regimen th at had been relatively stable. Unfortunately, she has had a rather subacute decline and this has aff ected some of her cognition, as well as her physical skills. There have been some hallucinations and inappropriate behavior including nearly trying to jump out of a moving car. When it comes to ascert aining this kind of historical detail, the patient cannot provide any of this directly. She does ack nowledge that she sometimes has hallucinations. According to Dr. Kenney's note from today, she had extensive discussions with Dr. Winslow and it was recommended that the patient have lowering of her dopa mine agonist, ropinirole, as well as amantadine. At this point, amantadine has been cut in half and her ropinirole is currently on hold, but she is continuing on her dopamine therapy. That specific do sing at this point is Sinemet CR at 7 in the morning, 10 in the morning, 1400, and 1800. She is also on Comtan 200 mg at those same times 4 times a day. The amantadine dosing is 100 mg at 0800 and 140 0. Previously, she was taking ropinirole 6 mg at 0700 and at 1400. In her current state, she is telling me that she has had the frequent falls, and then tells me she barajas d spine surgery back in January, through I believe a [facility] neurosurgeon, and had an excellent result after 5 years of chronic back pain. She said that mostly resolved. However, she s ays when she spoke to her surgeon about falling, he advised her to go to the hospital. I do not real ly have direct confirmation of exactly what happened, but that is what she is telling me. At times, she makes some tangential and confusing statements that are hard to fully interpret. PAST MEDICAL HISTORY: Notable for multiple emergency room visits and evaluations for falls, among ot her medical problems. The patient has history of lumbar spine disease with spinal surgery apparently in January. There was a very good result by her report in terms of controlling pain. History of p ulmonary hypertension, depression, subdural hematoma in 2013, E. coli urinary tract infection and the prior spinal stenosis, hyperlipidemia, reflux. FAMILY HISTORY: Of myocardial infarction at 88. Breast and uterine cancer in mother. 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 The information we have has been that she typically would ambulate with a walker, and even a cane as recently as 3 weeks ago. There is also reference that Dr. Barnett had recommended skipping an evening d ose of levodopa, as well as amantadine, which was thought to be causing some insomnia. That aspect o f her problem had been going on over the course of a week. It is documented that since March she h as probably had as many as 30 falls or near falls, and according to the records her has felt he really can no longer manage her care at home and is considering her need for higher level of care. PHYSICAL EXAM: The blood pressure is 171/70, pulse of 60, respirations 20, temperature 37.1. In regency meridian, she is lying in the bed, no acute distress. She was initially lethargic when I went in, but aw anahi and maintained eye contact throughout my evaluation. Her interaction at times seemed as if she w as quite confused, but with careful elaboration and listening to what she was saying, much of what feliberto hernandez described seemed logical and probably reliable. She mumbles so frequently that it is sometimes anjum d to understand what she is saying, but then she can clarify. At times, I think she is making jokes and that can make it a little confusing as to what she actually understands. On direct questioning, she thought it was June 05. She knew it was 2017. She thought she was "still in [place]." She co roger tell me her old address, although she missed the actual street number by 1 number, and then she s ays she now lives at another address, but I could not confirm if that is true or not. She can relate the fact that she has had the spinal surgery and described that. She can talk to me about her disea se and some manifestations of it included on/off periods and freezing and frequent falls. She is den maxx any focal numbness or weakness at the moment. Pupils are 3 mm and reactive. Extraocular movements are intact. Normal facial sensation. Some decr eased facial expression without focal facial weakness. No oral buccal dyskinesias. In the upper ext remities, she has periodic myoclonic jerks and some dyskinetic movements and a little bit of tremulou sness, but not a classic unilateral resting tremor. Similar comments can be made about what I witnes sed in the lower extremities at times. She is bradykinetic with some hypertonicity. There is more t remulousness on [id number]-[id number]-ctak on the left and there is motor impersistence. There is not gross atax ic movement. In fact, on wymceu-uj-sawn on the right the degree of tremor is fairly mild and she is accurate on her movement. The rapid alternating movements are slowed. Muscle bulk is generally decr eased. Muscle power is symmetric and about 4/5 bilaterally. Reflexes 2+. Sensation is preserved. I did not have her try to walk with me currently. I have reviewed her recent emergency room visits, as well as the documentation of imaging with head C T and brain MRI, which were obtained on May 21 and then June 16, respectively. There is no ifrah dence of hemorrhage or stroke, but just vascular disease in a nonspecific fashion. She had another h ead CT obtained on June 19, and that study shows no changes compared to the prior studies with estrellita scent changes and atrophy. LABORATORY STUDIES: White count is 7000, hematocrit is 38%, platelet count 247,000, normal INR. Alison ciro: Sodium 145, potassium 4.1, chloride 113, BUN 34, creatinine 0.9. Urinalysis showing 5-10 wh ite blood cells from June 20, and also from the 9th. Nonspecific bacteria identified. Negative d rug screen. IMPRESSION: This 70 minute visit total unit time consisted of detailed review of her history and dis cussions with her examination and discussions about a treatment plan. I did not get to talk direct zack maderactly to Dr. Winslow, but the most logical approach for her management is to continue to work as close ly as possible with her regular treating neurologist and movement disorder specialist. We can contin ue to make rounds and participate in any way that is helpful as long she is here at our hospital. I do not have any different recommendations from what is being tried and what will undoubtedly be a tri al and error process to see if we can maximize her function utilizing subtle medication adjustments a nd physical and occupational therapy. There are some cognitive changes that have included either amna lucinations or delusional thinking, and she does have significant risk of this phenomenon. Perhaps a djustment in medicines will minimize this. I do not know enough about her chronic history to know ho w truly different she is, but it sounds as if these declines have been rather profound over the last month and it does seem reasonable to consider higher level of care. I am sure I will get an opportun ity to speak to her as well. We will try to do so soon as I can, make sure I understand his expectations and goals. Copy requested to: Jena Winslow /[id number]/ANDRESSAL
[2017-06-22] MEDS ORDERED: ROPINIROLE HCL 4 MG PO SCH (07:00)
--- NOTE | 2017-06-22 08:28 | NEUROPROG ---
Assessment: Pt seems to be stable but not at baseline and still is in a state of mild delirium and physical decline. No clear explanation for the decline at this point beyond the meds and underlying disease. Dr. Winslow is willing to work with Dr. Kenney and medical team to guide therapy. Therefore I will not attempt to cloud the picture by making changes to the meds. This consistency will be best, but certainly I am happy to add input as needed. Thanks, Duarte Objective: Vital Signs Temp Pulse Resp BP Pulse Ox 36.8 C 61 16 157/46 H 93 06/22/17 07:50 06/22/17 07:50 06/22/17 07:50 06/22/17 07:50 06/22/17 07:50 Laboratory Results 06/22/17 03:26 06/21/17 06/22/17 06/23/17 05:59 05:59 05:59 Intake Total 950 1707 Output Total 150 1600 Balance 800 107 Allergies/Adverse Reactions: No Known Allergies Allergy (Verified 06/20/17 16:44)
[2017-06-22] MEDS ORDERED: D5W 250 ML IV ONE (09:00)
[2017-06-22] MEDS: CITALOPRAM 20 MG TAB PO SCH (10:14)
[2017-06-22] MEDS: ENOXAPARIN 40 MG/0.4 ML SYR SC SCH (10:14)
[2017-06-22] MEDS: PRESERVISION AREDS2 FORMULA EYE VIT 1 EACH PO SCH ×2 (10:14→20:56)
[2017-06-22] MEDS: DOCUSATE SODIUM 100 MG CAP PO SCH ×2 (10:14→20:55)
[2017-06-22] MEDS: CALCIUM CARBONATE 500 MG TAB PO SCH ×2 (10:15→20:56)
[2017-06-22] MEDS: SENNOSIDES 1 TAB PO SCH (10:17)
--- NOTE | 2017-06-22 10:38 | HOSPPROG ---
Hospitalist Progress Note Assessment/Plan: Falls - Seems like this is related to her Parkinson's with marked retropulsion. No e/o acute infection. CT brain neg for acute process. Also had recent brain MRI without acute change. The klonopin could be contributory though she' s been on this for several years. -decreased Klonopin dose -cont PT/OT -likely needs higher level of care / placement Parkinsons - Marked retropulsion and worsening delirium and hallucinatory symptoms. Considering Requip and Hydralazine as possible agents which could hasten delirium. -decrease requip to 4 gm bid -decrease amantadine to 100 mg bid (2nd dose before 3 pm) -d/c hydralazine -cont Entacapone, Sinemet (will d/w neurology if she is too dopaminergic with severe dyskinesia- might she need less sinemet?) -f/u neurology / movement disorder specialist recommendations (Dr. Jena Winslow, cell/pager) -will also inquire abt addition of melatonin at bedtime to possibly help regulate her circadian rhythm, I'm not sure if this is appropriate in advanced parkinsons Hypernatremia / Hyperchloremia - Na responded to hypotonic fluids, but these were stopped during nightclub manager for unclear reasons -resume 03/14 NS -recheck Na this afternoon and in am Hypertension - BP's labile -d/c hydralazine due to risk of delirium side effect Hyperlipidemia - cont statin GERD - cont PPI Depression - Cont celexa DVT PPLX - Lovenox Full code Dispo - cont inpt, CM to work on placement options as she is not safe to d/c home with severe movement disorder, fall risk and unable to ambulate without assistance. Subjective: Pt sleeping soundly. Had an uneventful night. No fevers. Not eating much, but notes she did ask for an ensure and is drinking a little more. Objective: Vital Signs Temp Pulse Resp BP Pulse Ox 36.8 C 61 16 157/46 H 93 06/22/17 07:50 06/22/17 07:50 06/22/17 07:50 06/22/17 07:50 06/22/17 07:50 Laboratory Results 06/22/17 03:26 06/21/17 06/22/17 06/23/17 05:59 05:59 05:59 Intake Total 950 1707 Output Total 150 1600 Balance 800 107 - Physical Exam Constitutional: no apparent distress Eyes: PERRL Ears, Nose, Mouth, Throat: moist mucous membranes Cardiovascular: regular rate and rhythym Respiratory: no respiratory distress Gastrointestinal: normoactive bowel sounds, soft, non-tender abdomen Skin: warm Musculoskeletal: other (marked dyskinesias when awake) Psychiatric: encephalopathic ICD10 Worksheet Patient Problems: Problems Problem Status Onset Delirium Acute Transient ischemic attack Active Generalized weakness Acute Hypertension Acute Hypocalcemia Acute Intracranial hemorrhage following injury Acute Subdural hematoma, acute Acute
[2017-06-22] MEDS: AMANTADINE HCL 100 MG CAP PO SCH ×2 (10:57→16:18)
--- NOTE | 2017-06-22 15:18 | ASMTCMCOM ---
CM Note CM Note Notes: Pts case discussed in morning rounds. CM spoke w/ Vladimir, on the phone regarding d/c POC. Vladimir's first choice is [facility] inpatient rehab. CM spoke w/ Noni from inpatient rehab and they are in the process to get authorization. CM spoke w/ Vladimir about a back up plan if insurance does not approve authorization for inpatient rehab. Vladimir would like referrals made to [facility]. CM to follow. Plan: Inpatient rehab vs SNF Date Signed: 06/22/2017 03:18 PM Electronically Signed By:TU Bajwa
[2017-06-22] MEDS: 1/2 NS 1,000 ML IV SCH (20:53)
[2017-06-22] MEDS: ATORVASTATIN CALCIUM 20 MG TAB PO SCH (20:54)
[2017-06-22] MEDS: CHOLECALCIFEROL VIT D3 1,000 UNITS TAB PO SCH (20:55)
[2017-06-22] MEDS: MULTIVITAMINS 1 EACH TAB PO SCH (20:56)
[2017-06-22] MEDS: QUEtiapine FUMARATE 25 MG TAB PO PRN (20:57)
[2017-06-22] MEDS: clonazePAM 0.5 MG TAB PO SCH (20:58)
[2017-06-23] MEDS: ENTACAPONE 200 MG TAB PO SCH ×4 (06:19→21:59)
[2017-06-23] MEDS: LEVOTHYROXINE 50 MCG TAB PO SCH (06:19)
[2017-06-23] MEDS: CARBIDOPA/LEVO CR 25 MG/100 MG TAB PO SCH ×4 (06:19→21:59)
[2017-06-23] MEDS: ROPINIROLE HCL 4 MG PO SCH ×2 (06:28→16:49)
[2017-06-23] MEDS: AMANTADINE HCL 100 MG CAP PO SCH ×2 (08:14→16:48)
[2017-06-23] MEDS: PRESERVISION AREDS2 FORMULA EYE VIT 1 EACH PO SCH ×2 (09:32→22:01)
[2017-06-23] MEDS: ENOXAPARIN 40 MG/0.4 ML SYR SC SCH (09:33)
[2017-06-23] MEDS: DOCUSATE SODIUM 100 MG CAP PO SCH ×2 (09:33→22:02)
[2017-06-23] MEDS: CALCIUM CARBONATE 500 MG TAB PO SCH ×2 (09:33→22:01)
[2017-06-23] MEDS: CITALOPRAM 20 MG TAB PO SCH (09:33)
[2017-06-23] MEDS: SENNOSIDES 1 TAB PO SCH (09:33)
--- NOTE | 2017-06-23 10:07 | ECHO ---
[email or web address] [address] [address] Main: [phone] Fax: Transthoracic Echocardiogram Name: LEXY GILMORE MR#: [id number] Study Date: 06/23/2017 Study Time: 07:32 AM Date of : 1940 Age: 76 year(s) Height: 157.5 cm (62 in.) Weight: 48.08 kg (106 lb.) BSA: 1.46 m2 Gender: Female Examination: Echo Indication: Enlarged cardiac dilhouette on CXR/question heart failure Image Quality: Technically Difficult Contrast: Requested by: Skylar Kenney BP: 149 mmHg/74 mmHg Heart Rate: Rhythm: Indication: Enlarged cardiac dilhouette on CXR/question heart failure Procedure Staff Quantitative Research Analyst: Linh Simmons RDCS Reading Physician: Brian Saunders MD Requesting Provider: Conclusions: No pericardial effusion. Ejection fraction 75%. No regional wall motion abnormalities. Elevated right ventricular systolic pressure at 59 mm of mercury with normal right ventricular size and function. Mild tricuspid and mitral regurgitation. Measurements: Chambers Valvular Assessment AV/MV Valvular Assessment TV/PV Normal Normal Normal Name Value Range Name Value Range Name Value Range Ao Gianna (MM): 3.2 cm (2.2 cm-3.7 AV meanP mmHg ( - ) TR Vmax: 3.68 mm/s ( - ) cm) MV E Vmax: 0.86 m/s ( - ) TR PGmax: 54 mmHg ( - ) IVSd (2D): 0.6 cm (0.6 cm-1.1 MV A Vmax: 0.66 m/s ( - ) syst. PAP: 59 mmHg ( - ) cm) MV E/A: 1.30 ( - ) LVDd (2D): 4.5 cm (3.9 cm-5.3 cm) LVDs (2D): 2.8 cm (2.1 cm-4 cm) LVPWd (2D): 0.7 cm ( - ) LVEF (MOD4): 73 % (>=55 %) EF Range: 70-75 % Continued Measurements: Chambers Valvular Assessment AV/MV Valvular Assessment TV/PV Name Value Name Value Name Value LADs: 3.5 cm MV E' Septal: 0.07 m/s CVP (est.): 5 mmHg LADs Lon.5 cm MV E/E' Septal: 13.00 LA Area: 13.6 cm2 MV E/E' Lateral: 8.50 Patient: LEXY GILMORE Study Date: 06/23/2017 Page 1 of 2 07:32 AM Findings: Left Ventricle: Normal size left ventricle. No LV hypertrophy. Normal global systolic LV function. The ejection fraction is estimated to be 70-75 %. No regional wall motion abnormality. Normal diastolic LV function. Right Ventricle: Normal size right ventricle. Left Atrium: The left atrium is normal in size. Right Atrium: The right atrium is normal in size. Mitral Valve: The mitral valve is normal in appearance and function. Mild mitral valve regurgitation is present. Aortic Valve: Minimal aortic cusp calcification is noted. Trivial aortic valve regurgitation. Tricuspid Valve: The tricuspid valve is normal in appearance and function. Mild tricuspid regurgitation is present. The pulmonary artery pressure is mild to moderately increased. RVSP is 59mmHG.. Pulmonic Valve: Pulmonary valve not well visualized. Trivial to mild pulmonic valve regurgitation. Aorta: The aorta is normal. Pericardium: No pericardial effusion. Left side pleural effusion. (No Signature Object) Patient: LEXY GILMORE Study Date: 06/23/2017 Page 2 of 2 07:32 AM [id number]
--- NOTE | 2017-06-23 13:17 | HOSPPROG ---
Hospitalist Progress Note Assessment/Plan: Falls - Likely related to her Parkinson's with marked retropulsion. No e/o acute infection. CT brain neg for acute process. Also had recent brain MRI without acute change. The klonopin could be contributory though she's been on this for several years. -decreased Klonopin dose -cont PT/OT -likely needs higher level of care / placement for safety Parkinsons - Marked retropulsion and worsening delirium and hallucinatory symptoms. Considering Requip and Hydralazine as possible agents which could hasten delirium. Symptoms seem improved with decreased doses of Requip and Amantadine. -decreased requip to 4 gm bid -decreased amantadine to 100 mg bid (2nd dose before 3 pm) -d/c'd hydralazine -cont Entacapone, Sinemet at current doses -f/u neurology / movement disorder specialist recommendations (Dr. Jena Winslow, cell/pager) -also added low dose seroquel at bedtime and this seems to be helping to regulate her sleep/wake cycle Hypernatremia / Hyperchloremia - resolved with hypotonic fluids, since d/c'd Hypertension - BP's labile -d/c'd hydralazine due to risk of delirium side effect Hyperlipidemia - cont statin GERD - cont PPI Depression - Cont celexa DVT PPLX - Lovenox Full code Dispo - cont inpt, CM to work on placement options as she is not safe to d/c home with severe movement disorder, fall risk and unable to ambulate without assistance. Likely needs memory care. Also, will request palliative care involvement given end stage parkinsons picture. Subjective: Pt doing a bit better this am. She is up in chair, commnicating better. Denies hallucinations at this time. No CP, SOB, orthonpnea or PND. NO fevers. Taking po better. Ambulates in halls with assistance and walker. Objective: Vital Signs Temp Pulse Resp BP Pulse Ox 36.6 C 77 12 153/78 H 93 06/23/17 12:14 06/23/17 12:14 06/23/17 12:14 06/23/17 12:14 06/23/17 12:14 Microbiology 06/20/17 21:25 Urine Culture - Final Unspecified [place] Types Laboratory Results 06/23/17 08:20 06/22/17 06/23/17 06/24/17 05:59 05:59 05:59 Intake Total 1707 1600 Output Total 1600 500 750 Balance 107 1100 -750 - Physical Exam Constitutional: no apparent distress Eyes: PERRL Ears, Nose, Mouth, Throat: moist mucous membranes Cardiovascular: regular rate and rhythym Respiratory: no respiratory distress, clear to auscultation Gastrointestinal: normoactive bowel sounds, soft, non-tender abdomen Skin: warm Musculoskeletal: abnormal gait, other Neurologic: other (marked dyskinesias, severe parkinsonian tremor) ICD10 Worksheet Patient Problems: Problems Problem Status Onset Delirium Acute Transient ischemic attack Active Generalized weakness Acute Hypertension Acute Hypocalcemia Acute Intracranial hemorrhage following injury Acute Subdural hematoma, acute Acute
--- NOTE | 2017-06-23 14:39 | ASMTCMCOM ---
CM Note CM Note Notes: 06/23/2017 Case Management Note Reviewed chart. Discussed with team members during rounds this morning. Lengthy phone call with Bipin today. Pt was denied inpatient rehab stay by [facility]. Informed who is contemplating an appeal. [facility] and [facility] have both declined pt d/t high level of needs. Both will follow along over the weekend but neither anticipate being able to accept pt unless behaviors and mentation improve. Discussed above with Bipin. Discussed that memory care SNF rehab would be able to provide the appropriate levels of care. Bipin was distressed, stating that his should be able to return to her baseline of a month ago of ambulating 2 miles a day with just a cane and without any dementia related issues. Bipin did agree to referrals to [facility] ([phone]) and [facility] ([phone]). Faxed referrals to all three and left VM with all three admission offices. Placement will be pending bed availability and authorization from [facility]. [facility] is not open on the weekends for authorizations. Case Management d/c poc: to memory care unit for SNF rehab pending acceptance and authorization from [facility]. Case Management to follow. Date Signed: 06/23/2017 02:38 PM Electronically Signed By:Kendra Toro RN
[2017-06-23] MEDS: MULTIVITAMINS 1 EACH TAB PO SCH (16:48)
[2017-06-23] MEDS: QUEtiapine FUMARATE 25 MG TAB PO PRN (22:02)
[2017-06-23] MEDS: ATORVASTATIN CALCIUM 20 MG TAB PO SCH (22:02)
[2017-06-23] MEDS: clonazePAM 0.5 MG TAB PO SCH (22:02)
[2017-06-24] MEDS: CARBIDOPA/LEVO CR 25 MG/100 MG TAB PO SCH ×4 (06:00→18:11)
[2017-06-24] MEDS: LEVOTHYROXINE 50 MCG TAB PO SCH (06:00)
[2017-06-24] MEDS: ENTACAPONE 200 MG TAB PO SCH ×4 (06:01→18:11)
[2017-06-24] MEDS: ROPINIROLE HCL 4 MG PO SCH ×2 (07:25→15:11)
[2017-06-24] MEDS: ENOXAPARIN 40 MG/0.4 ML SYR SC SCH (08:12)
[2017-06-24] MEDS: CITALOPRAM 20 MG TAB PO SCH (08:13)
[2017-06-24] MEDS: PRESERVISION AREDS2 FORMULA EYE VIT 1 EACH PO SCH ×2 (08:13→20:10)
[2017-06-24] MEDS: DOCUSATE SODIUM 100 MG CAP PO SCH ×2 (08:13→20:08)
[2017-06-24] MEDS: AMANTADINE HCL 100 MG CAP PO SCH ×2 (08:14→15:11)
[2017-06-24] MEDS: SENNOSIDES 1 TAB PO SCH (08:14)
[2017-06-24] MEDS: CALCIUM CARBONATE 500 MG TAB PO SCH ×2 (08:14→20:09)
--- NOTE | 2017-06-24 10:22 | HOSPPROG ---
Hospitalist Progress Note Assessment/Plan: Falls - Likely related to her Parkinson's with marked retropulsion. No e/o acute infection. CT brain neg for acute process. Also had recent brain MRI without acute change. The klonopin could be contributory though she's been on this for several years. Also, she had been using marijuana. -decreased Klonopin dose -cont PT/OT -working on appeal for inpt rehab per 's wishes Parkinsons - Marked retropulsion and worsening delirium and hallucinatory symptoms seem improved with decreased doses of Requip and Amantadine. In addition, consider if the marijuana disrupted her sleep cycle and agrees she will stop this. -decreased requip to 4 gm bid -decreased amantadine to 100 mg bid (2nd dose before 3 pm) -d/c'd hydralazine -cont Entacapone, Sinemet at current doses -f/u neurology / movement disorder specialist recommendations (Dr. Jena Winslow, cell/pager) -also added low dose seroquel at bedtime and this seems to be helping to regulate her sleep/wake cycle Mild hypoxemia - ~90% room air. CXR reviewed- possible mild pulmonary edema vs pneumonitis. Echo nl. -send resp viral panel -one time low dose lasix Hypernatremia / Hyperchloremia - resolved with hypotonic fluids, since d/c'd Hypertension - BP's labile -d/c'd hydralazine due to risk of delirium side effect Hyperlipidemia - cont statin GERD - cont PPI Depression - Cont celexa DVT PPLX - Lovenox Full code Dispo - cont inpt, desires inpt rehab placement and we are working on appeal process for this. Subjective: Pt doing better. More present, less hallucinatory and less delirious. Ambulating in halls. notes recent URI symptoms, coughing and sneezing. No fevers. No headaches. Objective: Vital Signs Temp Pulse Resp BP Pulse Ox 36.6 C 82 16 157/82 H 92 06/24/17 07:51 06/24/17 07:51 06/24/17 07:51 06/24/17 07:51 06/24/17 07:51 Laboratory Results 06/23/17 08:20 06/23/17 06/24/17 06/25/17 05:59 05:59 05:59 Intake Total 1600 600 Output Total 500 1750 Balance 1100 -1150 - Physical Exam Constitutional: no apparent distress Eyes: PERRL Ears, Nose, Mouth, Throat: moist mucous membranes Cardiovascular: regular rate and rhythym Respiratory: no respiratory distress, clear to auscultation Gastrointestinal: normoactive bowel sounds, soft, non-tender abdomen Skin: warm Musculoskeletal: abnormal gait Neurologic: other (dyskinesias, tremor) Psychiatric: poor memory ICD10 Worksheet Patient Problems: Problems Problem Status Onset Delirium Acute Transient ischemic attack Active Generalized weakness Acute Hypertension Acute Hypocalcemia Acute Intracranial hemorrhage following injury Acute Subdural hematoma, acute Acute
[2017-06-24] MEDS ORDERED: FUROSEMIDE 20 MG/2 ML VIAL IVP ONE (10:28)
--- NOTE | 2017-06-24 13:26 | ASMTCMCOM ---
CM Note CM Note Notes: Patient discussed in rounds. Her continues to request acute inpatient rehab upon discharge and is unable to consider an alternate plan. He has asked hospitalist Dr Kenney to appeal to [facility] since they did not authorize the rehab stay. She is attempting to speak with someone at [facility] but is realistic in telling Vladimir that this will likely not happen over the weekend. When I asked Vladimir to consider a backup plan, he says that patient has been to [facility] 2x and that they have told him they'd like to have her. I supposed we will revisit this with [facility] staff on Monday. In the meantime, we have sent referrals to some Memory Care units. Date Signed: 06/24/2017 01:25 PM Electronically Signed By:Merna Connor RN
[2017-06-24] MEDS: MULTIVITAMINS 1 EACH TAB PO SCH (18:11)
[2017-06-24] MEDS: CHOLECALCIFEROL VIT D3 1,000 UNITS TAB PO SCH (20:08)
[2017-06-24] MEDS: ATORVASTATIN CALCIUM 20 MG TAB PO SCH (20:08)
[2017-06-24] MEDS: QUEtiapine FUMARATE 25 MG TAB PO SCH (20:09)
[2017-06-24] MEDS: clonazePAM 0.5 MG TAB PO SCH (20:11)
[2017-06-25] MEDS: LEVOTHYROXINE 50 MCG TAB PO SCH (06:10)
[2017-06-25] MEDS: CARBIDOPA/LEVO CR 25 MG/100 MG TAB PO SCH ×4 (07:42→17:43)
[2017-06-25] MEDS: ENTACAPONE 200 MG TAB PO SCH ×4 (07:42→17:43)
[2017-06-25] MEDS: AMANTADINE HCL 100 MG CAP PO SCH ×2 (07:43→14:19)
[2017-06-25] MEDS: ROPINIROLE HCL 4 MG PO SCH ×2 (07:43→14:19)
[2017-06-25] MEDS: SENNOSIDES 1 TAB PO SCH (07:46)
[2017-06-25] MEDS: ENOXAPARIN 40 MG/0.4 ML SYR SC SCH (07:46)
[2017-06-25] MEDS: CITALOPRAM 20 MG TAB PO SCH (07:47)
[2017-06-25] MEDS: PRESERVISION AREDS2 FORMULA EYE VIT 1 EACH PO SCH ×2 (07:47→20:00)
[2017-06-25] MEDS: CALCIUM CARBONATE 500 MG TAB PO SCH ×2 (07:47→20:02)
[2017-06-25] MEDS: DOCUSATE SODIUM 100 MG CAP PO SCH ×2 (07:48→20:01)
--- NOTE | 2017-06-25 10:52 | HOSPPROG ---
Hospitalist Progress Note Assessment/Plan: Falls - Likely related to her Parkinson's with marked retropulsion. No e/o acute infection. CT brain neg for acute process. Also had recent brain MRI without acute change. The klonopin could be contributory though she's been on this for several years. Also, she had been using marijuana. -decreased Klonopin dose -cont PT/OT -working on appeal for inpt rehab per 's wishes Parkinsons - Marked retropulsion and worsening delirium and hallucinatory symptoms seem improved with decreased doses of Requip and Amantadine. In addition, consider if the marijuana disrupted her sleep cycle and agrees she will stop this. -cont decreased requip dose 4 gm bid -decreased amantadine dose 100 mg bid (2nd dose before 3 pm) -d/c'd hydralazine -cont Entacapone, Sinemet at current doses -f/u neurology / movement disorder specialist regarding changes in status ( Dr. Jena Winslow, cell/pager) -cont low dose seroquel at bedtime as this seems to be helping to regulate her sleep/wake cycle. -seems to be close to baseline now Delirium - seems resolved. I suspect she had disruption of sleep, contributing to hallucinations and delirium. -cont seroquel Mild hypoxemia - Improved after IV Lasix yest, now 95% on room air. CXR - possible mild pulmonary edema vs pneumonitis. BNP elevated. Echo nl. Hypernatremia / Hyperchloremia - resolved with hypotonic fluids, since d/c'd Hypertension - BP's labile -d/c'd hydralazine due to risk of delirium side effect -treat if persistently elevated Hyperlipidemia - cont statin GERD - cont PPI Depression - Cont celexa DVT PPLX - Lovenox Full code Dispo - cont inpt, desires inpt rehab placement and we are working on appeal process for this as [facility] denied it. Waiting for call back from [facility] for "peer to peer" conversation. It seems she has done well at inpt rehab in past as a bridge to home. Subjective: Pt mentating much more clearly today, improving every day. Sleeping better. No fevers/chills. No CP or SOB. Ambulating in halls. Still with significant dyskinesia, but overall nearing baseline. Objective: Vital Signs Temp Pulse Resp BP Pulse Ox 37.0 C 74 16 163/109 H 94 06/25/17 06:57 06/25/17 06:57 06/25/17 06:57 06/25/17 06:57 06/25/17 06:57 Microbiology 06/24/17 18:15 Respiratory Panel (PCR) - Final Nasal, Sinus - Swab No Organism Detected Laboratory Results 06/25/17 03:26 06/24/17 06/25/17 06/26/17 05:59 05:59 05:59 Intake Total 600 450 Output Total 1750 900 Balance -1150 -450 - Physical Exam Constitutional: no apparent distress Eyes: PERRL Ears, Nose, Mouth, Throat: moist mucous membranes Cardiovascular: regular rate and rhythym Respiratory: no respiratory distress, clear to auscultation Gastrointestinal: normoactive bowel sounds, soft, non-tender abdomen Skin: warm Musculoskeletal: abnormal gait Neurologic: AAOx3, other (dyskinesias less today) Psychiatric: interacting appropriately ICD10 Worksheet Patient Problems: Problems Problem Status Onset Delirium Acute Transient ischemic attack Active Generalized weakness Acute Hypertension Acute Hypocalcemia Acute Intracranial hemorrhage following injury Acute Subdural hematoma, acute Acute
[2017-06-25] MEDS: MULTIVITAMINS 1 EACH TAB PO SCH (17:43)
[2017-06-25] MEDS: QUEtiapine FUMARATE 25 MG TAB PO SCH (20:01)
[2017-06-25] MEDS: ATORVASTATIN CALCIUM 20 MG TAB PO SCH (20:02)
[2017-06-25] MEDS: clonazePAM 0.5 MG TAB PO SCH (20:02)
[2017-06-25] MEDS: CHOLECALCIFEROL VIT D3 1,000 UNITS TAB PO SCH (20:03)
[2017-06-26] MEDS: LEVOTHYROXINE 50 MCG TAB PO SCH (05:54)
[2017-06-26] MEDS: ENTACAPONE 200 MG TAB PO SCH ×4 (08:59→17:45)
[2017-06-26] MEDS: AMANTADINE HCL 100 MG CAP PO SCH ×2 (08:59→14:22)
[2017-06-26] MEDS: CARBIDOPA/LEVO CR 25 MG/100 MG TAB PO SCH ×4 (08:59→17:44)
[2017-06-26] MEDS: ROPINIROLE HCL 4 MG PO SCH ×2 (09:46→14:22)
[2017-06-26] MEDS: CITALOPRAM 20 MG TAB PO SCH (09:47)
[2017-06-26] MEDS: DOCUSATE SODIUM 100 MG CAP PO SCH ×2 (09:47→20:29)
[2017-06-26] MEDS: ENOXAPARIN 40 MG/0.4 ML SYR SC SCH (09:47)
[2017-06-26] MEDS: SENNOSIDES 1 TAB PO SCH (09:47)
[2017-06-26] MEDS: CALCIUM CARBONATE 500 MG TAB PO SCH ×2 (09:47→20:29)
[2017-06-26] MEDS: PRESERVISION AREDS2 FORMULA EYE VIT 1 EACH PO SCH ×2 (09:47→20:29)
--- NOTE | 2017-06-26 12:11 | ASMTCMCOM ---
CM Note CM Note Notes: 06/26/2017 Case Management Note Call from Dr. Kenney. [facility]. Per Dr. Kenney pt is authorized for inpatient rehab by reviewing [facility]. Notified Brooke Dye at Inpatient Rehab. Brooke to contact [facility] for confirmation. Inpatient rehab will have a bed available tomorrow for pt. Notified members of interdisciplinary team during rounds of d/c poc. Notified family. Case Management d/c poc: to Inpatient Rehab tomorrow. Case Management to follow. Date Signed: 06/26/2017 12:10 PM Electronically Signed By:Kendra Toro RN
--- NOTE | 2017-06-26 17:39 | HOSPPROG ---
Hospitalist Progress Note Assessment/Plan: DIAGNOSES: # Severe gait instability with repeated Falls at home * Causative factors include severe Parkinson's disease, medications including Klonopin, hydralazine, marijuana and significant doses of multiple other medicines that may interact # Acute Delirium - seems resolved. * Multifactorial causes, including multiple medications, marijuana, sleep disruption and others * cont seroquel; marijuana stops at this time, doses of some medicines decreased # Parkinsons moderately advanced * The worsening retropulsion happening at such a rapid rate suggests acute issues, nothing shows up on imaging and there is no sign of infection * Suspect multiple medications, marijuana, sleep disruption and variety of other factors # Hypernatremia / Hyperchloremia - * resolved with hypotonic fluids, since d/c'd # Hypertension - BP's labile * d/c'd hydralazine due to risk of delirium side effect # Mild hypoxemia - * Improved after IV Lasix now 95% on room air. * CXR - possible mild pulmonary edema vs pneumonitis but no fevers or cough; staff has not noticed any tendency for aspiration nor has BNP elevated. Echo nl. # Hyperlipidemia - cont statin # GERD - cont PPI # Depression - Cont celexa PLANS: -continue fall risk precautions, PT, OT -continue at currently decreased doses of am anti Taz and Requip, her usual doses of and tack up own and Sinemet -continue off hydralazine -continue low-dose Seroquel at bedtime to help with sleep-wake cycle and resolving delirium, consider stopping this medicine over time -f/u neurology / movement disorder specialist regarding changes in status (Dr. Jena Winslow, cell/pager) -she has now been accepted at the inpatient rehabilitation unit, planned to transport her there potentially tomorrow if bed available, not available today Had multiple visits with the patient and her family at bedside today. All above reviewed with him in detail patient also seen on multidisciplinary rounds SUBJECTIVE: The patient is still having quite a bit of balance issues but feels physically comfortable otherwise. She and her both note that her mentation is notably better again today. No headaches, eating well, no fever symptoms She did work with physical therapy this morning and still has severe retropulsion and having quite a bit of difficulty ambulating even with the assistance of the therapists with that. This notably is in contrast to the patient walking independently outdoors 1-2 miles daily just 2 months ago. The notes that she has had stated decline over the last 6 weeks or so but a much more rapid decline in the last week or 2. Also notably here the medication schedule has been difficult as her usual dose times come in the middle of our shift change and her doses of come later making her have more trouble working with therapist this morning. OBJECTIVE Vitals reviewed: Stable without fever Saw Filer, my review: Sinus Exam: alert oriented talkative today skin warm dry color ok resps not labored lungs clear BSs heart regular abd soft nondistended nontender, bowel sounds present limbs warm, no edema iv site ok Laboratory data: Basic metabolic panel today is normal Objective: Vital Signs Temp Pulse Resp BP Pulse Ox 36.9 C 67 14 121/77 H 92 06/26/17 13:25 06/26/17 13:25 06/26/17 13:25 06/26/17 13:25 06/26/17 13:25 Laboratory Results 06/26/17 03:22 06/25/17 06/26/17 06/27/17 06:59 06:59 06:59 Intake Total 450 220 440 Output Total 900 1025 Balance -450 -805 440 - Time Spent With Patient Time Spent with Patient: greater than 35 minutes Time Spent with Patient: Greater than 35 minutes spent on this patients care, greater than 50% of time spent counseling, educating, and coordinating care regarding the above mentioned plan. ICD10 Worksheet Patient Problems: Problems Problem Status Onset Delirium Acute Transient ischemic attack Active Generalized weakness Acute Hypertension Acute Hypocalcemia Acute Intracranial hemorrhage following injury Acute Subdural hematoma, acute Acute
[2017-06-26] MEDS: MULTIVITAMINS 1 EACH TAB PO SCH (17:44)
[2017-06-26] MEDS: CHOLECALCIFEROL VIT D3 1,000 UNITS TAB PO SCH (20:29)
[2017-06-26] MEDS: clonazePAM 0.5 MG TAB PO SCH (20:29)
[2017-06-26] MEDS: QUEtiapine FUMARATE 25 MG TAB PO SCH (20:29)
[2017-06-26] MEDS: ATORVASTATIN CALCIUM 20 MG TAB PO SCH (20:29)
[2017-06-27] MEDS: CARBIDOPA/LEVO CR 25 MG/100 MG TAB PO SCH ×3 (06:01→13:41)
[2017-06-27] MEDS: LEVOTHYROXINE 50 MCG TAB PO SCH (06:02)
[2017-06-27] MEDS: AMANTADINE HCL 100 MG CAP PO SCH ×2 (06:02→13:41)
[2017-06-27] MEDS: ENTACAPONE 200 MG TAB PO SCH ×3 (06:02→13:41)
[2017-06-27] MEDS: ROPINIROLE HCL 4 MG PO SCH ×2 (06:48→13:42)
[2017-06-27] MEDS: PRESERVISION AREDS2 FORMULA EYE VIT 1 EACH PO SCH (08:26)
[2017-06-27] MEDS: DOCUSATE SODIUM 100 MG CAP PO SCH (08:26)
[2017-06-27] MEDS: CALCIUM CARBONATE 500 MG TAB PO SCH (08:26)
[2017-06-27] MEDS: SENNOSIDES 1 TAB PO SCH (08:26)
[2017-06-27] MEDS: ENOXAPARIN 40 MG/0.4 ML SYR SC SCH (08:26)
[2017-06-27] MEDS: CITALOPRAM 20 MG TAB PO SCH (08:26)
[2017-06-27 12:48] VITALS: BP 167/54
--- NOTE | 2017-06-27 12:51 | PDIAF ---
- Diagnosis Diagnosis: gait instability, parkinsons, acute encephalopathy Code Status: Full Code - Medication Management Discharge Medications: Medications to Continue on Transfer Multivitamins [Multivitamin (*)] 1 tab PO DAILY@18 07/10/13 [Last Taken 06/20/17 ] Docusate Sodium [Colace 100 MG (*)] 100 mg PO BID 07/17/13 [Last Taken 06/20/17] Cholecalciferol Vit D3 [Vitamin D3 (*)] 5,000 units PO HS tab 01/06/17 [Last Taken 06/19/17] Calcium Carbonate [Oyster Shell Calcium 500 mg (*)] 500 mg PO BID tab 01/19/17 [Last Taken 06/20/17 09:00] Carbidopa/Levo Cr 25/100Mg [Sinemet CR 25/100 MG (*)] 1 tab PO 0700,1000,1400, 1800 #120 tab.cr 01/19/17 [Last Taken 06/20/17 14:00] Citalopram [CeleXA 20 MG] 20 mg PO DAILY #30 tab 01/19/17 [Last Taken 06/20/17] Entacapone [Comtan] 200 mg PO QID@07,,,18 #120 tab 01/19/17 [Last Taken 12/28 14:00] Levothyroxine [Synthroid 50 mcg (*)] 50 mcg PO DAILY@06 #30 tab 01/19/17 [Last Taken 06/20/17] Sennosides [Senokot] 1 tab PO DAILY tab 01/19/17 [Last Taken 06/20/17] Atorvastatin Calcium [Lipitor 20 mg (*)] 20 mg PO HS 06/20/17 [Last Taken ] C/E/Zn/Cu/OM3/DHA/EPA/LUT/ZEAX [Preservision Areds 2 Softgel] 1 each PO BID 12/28 [Last Taken 06/20/17] rOPINIRole HCL [Requip] 4 mg PO BID #60 tablet 06/21/17 [Last Taken Unknown] Amantadine HCl [Symmetrel] 100 mg PO 0600,1400 cap 06/27/17 [Last Taken Unknown ] Enoxaparin [Lovenox 40 MG (*)] 40 mg SC DAILY syr 06/27/17 [Last Taken Unknown] Ropinirole Hcl [Requip Xl 6mg] 4 mg PO BID@0600,1400 06/27/17 [Last Taken Unknown] clonazePAM [Klonopin (*)] 0.25 mg PO HS tab 06/27/17 [Last Taken Unknown] Discharge Medications: Refer to the Discharge Home Medication list for PRN reason. - Orders Services needed: Registered Nurse, Certified Shipbuilding Draftsperson, Master Chimney Repairer , Physical Therapy, Occupational Therapy Isolation Type: None Diet Recommendation: no restrictions on diet Diet Texture: Regular Texture Diet - Follow Up Care Current Providers and Referrals: Antonia Jefferson MD [Primary Care Provider] - As per Instructions
--- NOTE | 2017-06-27 13:23 | PDDCSUM ---
Discharge Summary Discharge Summary: DISCHARGE DIAGNOSES: # Severe gait instability with repeated Falls at home # Acute encephalopathy / Delirium # Parkinsons moderately advanced # Acute Hypernatremia / Hyperchloremia # Hypertension complicated by orthostatic hypotension, symptomatic # Mild hypoxemia # Hyperlipidemia # GERD # Depression CONSULTANTS: Dr. Duarte Johnson, neurology PROCEDURES: Echocardiogram HOSPITAL COURSE SUMMARY: This patient with a long history of advanced Parkinson's disease, with also a history of repeated falls with some injury, comes into the hospital at this time with significant progression in balance issues occurring over period of several weeks but rapidly advancing over approximately a week before admission. She also was fairly confused at the time of admission. There were no fevers or other signs or symptoms of specific infection. She had been seen by her neurologist who recommended that she be hospitalized. As she came in that was clearly acute encephalopathy. There are no fevers and we did not find evidence of acute infection, acute organ failure, acute electrolyte abnormalities of significance. There was mild hypernatremia likely related to some dehydration. She also was identified as having significant orthostasis that was symptomatic. The patient had multiple medications that were likely aggravating her problems including hydralazine for hypertension, combination of 4 different medicines for her Parkinson's with high likelihood of interactions and side effects, scheduled use of clonazepam at moderately high dosing, and she was also using marijuana at home. The patient was brought in the hospital, hydrated, and there medication adjustments. Her hydralazine was discontinued. Her clonazepam her amantadine and her Requip were all decreased in dose. Over time with these changes see had a fairly remarkable recovery with returned to her baseline mentation, and some improvement in her balance and ambulation. However she still remains unsafe on her feet with high fall risk. This patient 2 months ago was walking outdoors on a regular doses 1-2 miles daily. At this point she still requiring assistance of therapist at her side to walk short distances in the hallway here to keep from falling largely due to retropulsion. She is safe for discharge from hospital but at this point as she is at very high fall risk we have recommended she not go directly home. We have arranged for her to be transferred today to the inpatient rehabilitation center at the [facility] of this facility. PENDING TEST RESULTS: None MEDICATION CHANGES: Decrease in doses of her amantadine and Requip Discontinuation of hydralazine due to her marked orthostasis Also she had been using marijuana at home and with strongly recommended that she discontinue use of any marijuana or other mind-altering substances including alcohol due to risk of falls and confusion FOLLOW-UP PLAN: Transfer today to inpatient rehabilitation unit Upon discharge she will follow up with her primary neurologist for review an ongoing monitoring and management Greater than 35 minutes bedside and care coordination time today
--- NOTE | 2017-06-27 13:29 | ASMTLACE ---
LEAH Length of stay for Answers: 4-6 days current admission Acuity / Level of Answers: Yes Care: Did the patient have an inpatient admission? Comorbidities - select Answers: Dementia all that apply History of falls Other Notes: Hx of parkinson's, GERD # of Emergency department Answers: 5-8 visits in the last 6 months Social determinants Answers: Mental health diagnosis (anxiety, depression, pers onality disorders, etc.) Score: 21 Date Signed: 06/27/2017 01:28 PM Electronically Signed By:Kendra Toro RN
--- NOTE | 2017-06-27 16:46 | ASDISCHSUM ---
Discharge Information Plan Status:Inpatient Rehab Medically Cleared to Leave:06/27/2017 Discharge Date:06/27/2017 02:25 PM D/C Disposition:[facility] IP ADT D/C Disposition:[facility] IP Projected Discharge Date:06/24/2017 11:00 AM Transportation at D/C:Wheelchair Van Discharge Delay Reason: Follow-Up Date:06/24/2017 11:00 AM Discharge Slot: Final Diagnosis: Placement Information Referral Type:*Care Home/SNF Referral ID:[id number] Provider Name: Address 1: Phone Number: Address 2: Fax Number: City: Selection Factors: State: Referral Type:Rehabilitation Hospital Referral ID:[id number] Provider Name:[facility] Address 1:[address] [place] [address] Phone Number: Address 2: Fax Number: [facility]:[place] Selection Factors: State:[place] Patient Contact Information Contact Name:ALTAGRACIA Relationship: Address:[address] [place] [address] City:State mental health facility Phone: State/Zip Code:[place] [phone] Email: Financial Information Financial Class:Medicare Advantage Plans Primary Plan Desc:[facility] [employer] [facility]ORRES MEDICARE Primary Plan Number:[id number] Secondary Plan Desc: Secondary Plan Number: Assessment Information LACE LACE Length of stay for Answers: 4-6 days current admission Acuity / Level of Answers: Yes Care: Did the patient have an inpatient admission? Comorbidities - select Answers: Dementia all that apply History of falls Other Notes: Hx of parkinson's, GERD # of Emergency department Answers: 5-8 visits in the last 6 months Social determinants Answers: Mental health diagnosis (anxiety, depression, pers onality disorders, etc.) Score: 21 Date Signed: 06/27/2017 01:28 PM Electronically Signed By:Kendra Toro RN [facility] Progress Note CM Note CM Note Notes: Discussed pt in rounds today and met w/pt and , Vladimir. Pt has hx of Parkinsons and has had rapid recent decline in functioning. , very supportive, helps care for her and also has private duty help w/[employer]. They just recently have needed private duty help. They are interested in [facility] Inpt Rehab prior to going home as pt was there last December and had very good experience. PT recommending inpt rehab, OT- SNF. Notified Noni at Inpt rehab of eval order. Date Signed: 06/21/2017 01:52 PM Electronically Signed By:Aidee Lainez RN [facility] Progress Note CM Note CM Note Notes: Pts case discussed in morning rounds. CM spoke w/ Vladimir, on the phone regarding d/c POC. Vladimir's first choice is [facility] inpatient rehab. CM spoke w/ Noni from inpatient rehab and they are in the process to get authorization. CM spoke w/ Vladimir about a back up plan if insurance does not approve authorization for inpatient rehab. Vladimir would like referrals made to [facility], [facility]. CM to follow. Plan: Inpatient rehab vs SNF Date Signed: 06/22/2017 03:18 PM Electronically Signed By:TU Bajwa [facility] Progress Note CM Note CM Note Notes: 06/23/2017 Case Management Note Reviewed chart. Discussed with team members during rounds this morning. Lengthy phone call with Bipin today. Pt was denied inpatient rehab stay by [facility]. Informed who is contemplating an appeal. [facility] and [facility] have both declined pt d/t high level of needs. Both will follow along over the weekend but neither anticipate being able to accept pt unless behaviors and mentation improve. Discussed above with Bipin. Discussed that memory care SNF rehab would be able to provide the appropriate levels of care. Bipin was distressed, stating that his should be able to return to her baseline of a month ago of ambulating 2 miles a day with just a cane and without any dementia related issues. Bipin did agree to referrals to [facility] ([phone]) and [facility] ([phone]). Faxed referrals to all three and left VM with all three admission offices. Placement will be pending bed availability and authorization from [facility]. [facility] is not open on the weekends for authorizations. Case Management d/c poc: to memory care unit for SNF rehab pending acceptance and authorization from [facility]. Case Management to follow. Date Signed: 06/23/2017 02:38 PM Electronically Signed By:Kendra Toro RN [facility] CM Progress Note CM Note CM Note Notes: Patient discussed in rounds. Her continues to request acute inpatient rehab upon discharge and is unable to consider an alternate plan. He has asked hospitalist Dr Kenney to appeal to [facility] since they did not authorize the rehab stay. She is attempting to speak with someone at [facility] but is realistic in telling Vladimir that this will likely not happen over the weekend. When I asked Vladimir to consider a backup plan, he says that patient has been to [facility] 2x and that they have told him they'd like to have her. I supposed we will revisit this with [facility] staff on Monday. In the meantime, we have sent referrals to some Memory Care units. Date Signed: 06/24/2017 01:25 PM Electronically Signed By:Merna Connor RN [facility] CM Progress Note CM Note CM Note Notes: 06/26/2017 Case Management Note Call from Dr. Kenney. She completed the Peer to Peer call with [facility] review MD this morning. Per Dr. Kenney pt is authorized for inpatient rehab by reviewing [facility]. Notified Brooke Dye at Inpatient Rehab. Brooke to contact [facility] for confirmation. Inpatient rehab will have a bed available tomorrow for pt. Notified members of interdisciplinary team during rounds of d/c poc. Notified family. Case Management d/c poc: to Inpatient Rehab tomorrow. Case Management to follow. Date Signed: 06/26/2017 12:10 PM Electronically Signed By:Kendra Toro RN Intervention Information Intervention Type:*IM-Signed Date of Service:06/27/2017 01:57 PM Patient Type:Inpatient Staff Member:Henna Moy Hours: Discipline: Severity: Comment:
== END 2017-06-27 14:25 | DRG 56 ==
LOC: F2W 20:12
PROVIDERS: ADMIT Internal Medicine; ATTEND Internal Medicine
DX: G20 Parkinson's disease (principal); G93.49 Other encephalopathy; N39.0 Urinary tract infection, site not specified; E87.0 Hyperosmolality and hypernatremia; F02.81 Dementia in other diseases classified elsewhere, unspecified severity, with behavioral disturbance; R29.6 Repeated falls; R09.02 Hypoxemia; E86.0 Dehydration; I95.1 Orthostatic hypotension; M48.061 Spinal stenosis, lumbar region without neurogenic claudication; K21.9 Gastro-esophageal reflux disease without esophagitis; E78.5 Hyperlipidemia, unspecified; F32.9 Major depressive disorder, single episode, unspecified; I10 Essential (primary) hypertension; E87.8 Other disorders of electrolyte and fluid balance, not elsewhere classified
CPT/HCPCS: 80305; 97110-GP; 97112-GP; 97116-GP; 97163-GP; 97166-GO; 97530-GO; 97530-GP; 97535-GO; G0480; G8987-GO-CL; G8988-GO-CJ; J1650; J1940

== ENCOUNTER 2017-06-26 12:30 | Inpatient (IN) | payer OTHER ==
[2017-06-27] MEDS ORDERED: ACETAMINOPHEN 650 MG/20.3 ML UDCUP PO PRN (16:06)
[2017-06-27] MEDS: ENTACAPONE 200 MG TAB PO SCH ×2 (16:31→21:06)
[2017-06-27] MEDS: AMANTADINE HCL 100 MG CAP PO SCH (16:32)
[2017-06-27] MEDS: MULTIVITAMINS 1 EACH TAB PO SCH (16:32)
[2017-06-27] MEDS: CARBIDOPA/LEVO CR 25 MG/100 MG TAB PO SCH ×2 (16:33→21:02)
[2017-06-27] MEDS ORDERED: CARBIDOPA/LEVO CR 25 MG/100 MG TAB PO SCH (18:00)
[2017-06-27] MEDS ORDERED: ENTACAPONE 200 MG TAB PO SCH (18:00)
--- NOTE | 2017-06-27 18:07 | GHP ---
[f rep st] HISTORY AND PHYSICAL POST ADMISSION PHYSICIAN EVALUATION AND REHABILITATION TREATMENT PLAN DATE OF ADMISSION: 06/27/2017 DATE OF EVALUATION: 06/27/2017. TIME OF EVALUATION: 1530. REFERRING FACILITY: [facility]. REFERRING PHYSICIAN: Melissa Sutherland MD IMPAIRMENT GROUP: 3.2. DATE OF ONSET: 06/20/2017. REHABILITATION DIAGNOSIS: Parkinson disease with recent falls and hallucinations. ETIOLOGIC DIAGNOSIS: Parkinsonism. HISTORY OF PRESENT ILLNESS: This patient has a history of Parkinson disease since 1989. She was admitted to [facility] on 06/20/2017 due to falls and hallucination. She had a decline in function over several weeks. In the hospital, she had medication changes made with reduction in clonazepam from 0.5 mg at h.s. to 0.25 mg, reduction in amantadine from q.i.d. to b.i.d. at 100 mg and elimination of hydralazine. She had improved mental status, but continues to be retropulsive and a fall risk and she is appropriate for inpatient rehabilitation. Additionally, there was hypernatremia, which resolved with hypotonic fluids. There was mild hypoxemia and possible mild pulmonary edema versus pneumonitis. This improved after IV Lasix. STUDIES/LABS: During her hospitalization, BMP was overall within normal limits. She had some hypernatremia with sodium as high as 149, but this normalized and on the day before discharge, her BMP was overall normal. BNP was markedly elevated at 4770 on 06/23/2017. Liver function tests revealed a slightly high conjugated bilirubin at 0.6, but otherwise was normal and TSH was normal. CBC revealed very mild anemia with a hemoglobin slightly low at 12.5, hematocrit was normal, MCHC was slightly low at 32, otherwise CBC was unremarkable. Urinalysis showed 1+ protein, trace ketones, trace leukocyte esterase and 5-10 white blood cells per high-powered field. Urine microbiology grew 4 colony types. She also had a respiratory panel done on a nasal swab which did not detect any viral organisms. Toxicology screen in the serum was negative for ethyl alcohol and in the urine was negative for any substances of abuse. Echocardiogram showed normal left ventricular systolic function, no diastolic dysfunction, and pulmonary hypertension with RVSP of 59. PRECAUTIONS: She is a fall risk. ACTIVE COMORBIDITIES: She has no active tier 1, tier 2 or tier 3 comorbidities. PAST MEDICAL HISTORY: 1. Parkinson disease since 1989. 2. Degenerative disk disease. 3. Orthostatic hypotension. 4. Cognitive impairment. 5. Cholecystitis. 6. Appendicitis. 7. Subdural hematoma in 2013. 8. Hypertension. 9. Hypothyroidism. 10. CHF with diastolic dysfunction and pulmonary hypertension with RVSP 59 in 2016. PAST SURGICAL HISTORY: 1. Cholecystectomy. 2. Appendectomy. 3. Lumbar fusion surgery. MEDICATIONS: 1. Multivitamin daily. 2. Docusate 100 mg p.o. b.i.d. 3. Cholecalciferol 5000 units p.o. q.h.s. 4. Calcium carbonate 500 mg p.o. b.i.d. 5. Carbidopa/levodopa 25/100 one tablet p.o. at 0700, 1000, 1400 and 1800. 6. Citalopram 20 mg p.o. daily. 7. Entacapone 200 mg p.o. q.i.d. at 0700, 1000, 1400 and 1800. 8. Levothyroxine 50 mcg p.o. daily. 9. Senna 1 tab p.o. daily. 10. Clonazepam 0.5 mg p.o. q.h.s. 11. Amantadine 100 mg q.i.d. at 0700, 1000, 1400 and 1800. 12. Atorvastatin 20 mg p.o. q.h.s. 13. PreserVision vitamins 2 p.o. b.i.d. 14. Hydralazine 10 mg p.o. q.h.s. p.r.n. 15. Ropinirole 6 mg p.o. b.i.d. at 0700 and 1400. ADMISSION MEDICATIONS: 1. Ropinirole 4 mg p.o. b.i.d. 2. PreserVision soft gels 1 p.o. b.i.d. 3. Atorvastatin 20 mg p.o. q.h.s. 4. Senna 1 tab p.o. daily. 5. Levothyroxine 50 mcg p.o. daily. 6. Entacapone 200 mg p.o. q.i.d. at 0700, 1000, 1400 and 1800. 7. Citalopram 20 mg p.o. daily. 8. Carbidopa/levodopa 1 tab p.o. at 0700, 1000, 1400 and 1800. 9. Multivitamin 1 tab p.o. daily. 10. Docusate 100 mg p.o. b.i.d. 11. Cholecalciferol 5000 units p.o. q.h.s. 12. Calcium carbonate 500 mg p.o. b.i.d. 13. Clonazepam 0.25 mg p.o. q.h.s. 14. Enoxaparin 40 mg subcutaneous daily. 15. Amantadine 100 mg p.o. at 0600 and 1400. ALLERGIES: There are no known drug allergies. 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 She is . She lives with her . She is a nonsmoker. FAMILY HISTORY: Noncontributory. REVIEW OF SYSTEMS: She reports that she has had weight loss and the chart documents a 5 kg weight loss since December of 2016. She has a reduced appetite. She denies nausea, vomiting, constipation, or diarrhea. She denies chest pain or palpitations. She denies fevers or chills. She has some low back pain related to her falls, but otherwise is not in pain. She has been sleeping well. Otherwise, a 10-point review of systems is negative. PHYSICAL EXAM: VITAL SIGNS: Blood pressure is 150/76, heart rate is 66, respiratory rate is 17, oxygen saturation is 95% on room air. Temperature is 37.1 degrees centigrade. Her weight is 46.9 kg for a body mass index of 18.9. GENERAL: This is a thin woman, dressed in street clothes, lying in bed, cooperative and in no acute distress. HEENT: Extraocular movements are intact. Pupils are equal, round, reactive to light. Mucous membranes are moist. Dentition is in good condition. She has non crowded airway. NECK: Supple. She has slight right torticollis. HEART: There is regular rate and rhythm with no murmurs, rubs, or gallops. LUNGS: Clear to auscultation bilaterally. ABDOMEN: Soft, nontender, nondistended with normoactive active bowel sounds. No hepatosplenomegaly. EXTREMITIES: There is no cyanosis, clubbing, or edema. Radial and dorsalis pedis pulses are 2+ bilaterally. NEUROLOGIC: She is alert and oriented x3. Cranial nerves 2-12 are grossly intact. She is hypophonic. She has slight right torticollis. She has no focal weakness and sensation is intact to light touch. She has a mild resting tremor. She has bradykinesia when she sits up. She is retropulsive. NEUROLOGIC EXAM: There is no erin rigidity, but she also exhibits mitgehen, in which she goes with the examiner's movements rather than being fully relaxed to allow assessment of rigidity. CURRENT LEVEL OF FUNCTION per the pre-admission screen. Regarding diet, feeding , and swallowing, she was on a regular diet but needed moderate assistance. For grooming, she needed minimal assistance with voice cues. Bathing required moderate assistance. Dressing the upper body required moderate assistance and lower body required moderate assistance. Toileting required maximal assistance with voice cues for clothing management. Toilet transfer required maximal assistance with voice cues. She was continent of bladder and bowel. She required moderate assistance for bed mobility. She required maximal assistance with voice cues for transfers and was noted to be retropulsive. She used a 4- wheeled walker. Seated balance required standby assist. Standing balance required maximal assist with voice cues and she was retropulsive. Endurance was poor to fair. She ambulated 175 feet with standby assist and voice cues for reciprocal arm swing and gait pattern. She also ambulated 400 feet with a 4- wheeled walker and modified independence to contact guard assist with a narrow base of support. Regarding cognition, she was noted to have some confusion and she was noted to have increased tone in the upper and lower extremities as well as chorea type movements in all 4 extremities. IMPRESSION: This is a 76-year-old woman who has had Parkinson disease for nearly 30 years. She has been managed by Dr. Jena Winslow at the [facility] at the [facility] in [place]. Dr. Winslow's phone number is [phone]. She has had recent medication changes, but developed confusion, hallucinations, hypernatremia, and frequent falls. She had brain imaging with an MRI several days prior to admission and subsequently after another fall with head trauma, after which she had a head CT. Imaging was unrevealing of any etiology regarding her recent decline. It was thought that use of marijuana may have played a role, specifically causing sleep disturbance. Additionally in the hospital medications which might promote delirium were either reduced or discontinued. Hydralazine was discontinued. Amantadine was reduced, clonazepam was reduced and ropinirole was reduced. She had considerable improvement in her mental status and normalization of her electrolytes, but continues to be debilitated with deficits to mobility, retropulsion when she sits or stands and deficits to cognition and activities of daily living. She is otherwise medically stable and appropriate for inpatient rehabilitation. She will benefit from physical and occupational therapy to optimize mobility and activities of daily living, and speech therapy regarding cognition as well as hypophonia. Her goal is to complete a rehabilitation stay and return home with her and supportive services. For a safe discharge it is anticipated that she will achieve independence with eating, grooming, and bed mobility. She will achieve modified independence for transfers and ambulation with the least restrictive device. She may continue to require assistance for dressing and bathing as well as household management, meal preparation and shopping. She will have therapy with physical therapy, occupational therapy, and speech and language pathology for 60 minutes per day for each discipline on 5-7 days of the week. Her expected duration of stay is 7-10 days. It is expected that upon discharge she will continue to benefit from home health services including speech and language pathology, social work, OT and PT. PLAN: 1. Deficits to mobility and activities of daily living due to recent frequent falls and confusion, improved with medication adjustments in the hospital. PT and OT to optimize mobility and activities of daily living to the modified independence to independent level for transfers, ambulation and eating. Expect her to require assistance for other ADLs. 2. Cognitive impairment with likely recent delirium due to medications and possible sleep disturbance. Medications have been adjusted. She will have assessment and treatment per speech and language pathology to optimize her cognition. 3. Hypertension with hydralazine having been discontinued. She is not currently on any other antihypertensives. Blood pressure will be monitored. Consider initiation of antihypertensive medication, but caution regarding orthostatic hypotension. We will check orthostatic blood pressure and pulse. 4. Parkinson disease. Continue carbidopa/levodopa, entacapone and ropinirole. If there are to be any medication changes made they will be due to findings of physical and occupational therapy, and they will be done in consultation with Dr. Winslow ([phone]).at the [facility]. 5. Congestive heart failure, with elevated BNP in the hospital and pulmonary hypertension on echocardiogram. Monitor for any respiratory compromise. She caution with diuretics due to history of orthostatic hypotension. 6. Hypothyroidism. Continue levothyroxine. 7. Dyslipidemia. Continue atorvastatin. 8. Depression. Continue citalopram and consider titrating or augmenting with alternative medications. 9. Insomnia. Continue clonazepam at a lower dose and monitor for adequate sleep. 10. Prophylaxis. She appears to have had good mobility. However, she has been discharged from the hospital on enoxaparin 40 mg subcutaneous daily. We will continue the enoxaparin initially but if mobility continues to be sufficient, we will have a low threshold to discontinue enoxaparin, especially as it increases her risk of bleed should she have a fall and injury. Followup. Her primary care provider is Dr. Antonia Jefferson. She can also follow up with Dr. Winslow at the [facility]. /[id number]/MODL and [id number]/MODL MTDD
[2017-06-27] MEDS: PRESERVISION AREDS2 FORMULA EYE VIT 1 EACH PO SCH (20:18)
[2017-06-27] MEDS: CALCIUM CARBONATE 500 MG TAB PO SCH (20:18)
[2017-06-27] MEDS: CHOLECALCIFEROL VIT D3 1,000 UNITS TAB PO SCH (20:19)
[2017-06-27] MEDS: clonazePAM 0.5 MG TAB PO SCH (20:19)
[2017-06-27] MEDS: DOCUSATE SODIUM 100 MG CAP PO SCH (20:20)
[2017-06-27] MEDS: ROPINIROLE HCL 4 MG PO SCH (20:21)
[2017-06-27] MEDS: ATORVASTATIN CALCIUM 20 MG TAB PO SCH (21:03)
[2017-06-27] MEDS: QUEtiapine FUMARATE 25 MG TAB PO SCH (22:31)
[2017-06-28] MEDS: LEVOTHYROXINE 50 MCG TAB PO SCH (05:04)
[2017-06-28] MEDS: AMANTADINE HCL 100 MG CAP PO SCH ×2 (05:04→13:46)
[2017-06-28] MEDS: ACETAMINOPHEN 325 MG TAB PO PRN (05:30)
[2017-06-28] MEDS ORDERED: AMANTADINE HCL 100 MG CAP PO SCH (06:00)
[2017-06-28] MEDS: ENTACAPONE 200 MG TAB PO SCH ×4 (06:09→17:46)
[2017-06-28] MEDS: CARBIDOPA/LEVO CR 25 MG/100 MG TAB PO SCH ×4 (06:09→17:47)
[2017-06-28] MEDS: PRESERVISION AREDS2 FORMULA EYE VIT 1 EACH PO SCH ×2 (08:35→20:12)
[2017-06-28] MEDS: CALCIUM CARBONATE 500 MG TAB PO SCH ×2 (08:39→20:12)
[2017-06-28] MEDS: CITALOPRAM 20 MG TAB PO SCH (08:39)
[2017-06-28] MEDS: DOCUSATE SODIUM 100 MG CAP PO SCH ×2 (08:40→20:12)
[2017-06-28] MEDS: SENNOSIDES 1 TAB PO SCH (08:40)
[2017-06-28] MEDS: ROPINIROLE HCL 4 MG PO SCH ×2 (09:32→20:40)
[2017-06-28] MEDS: ENOXAPARIN 40 MG/0.4 ML SYR SC SCH (09:34)
--- NOTE | 2017-06-28 09:47 | SOAPPROG ---
SOAP Progress Note Assessment/Plan: Assessment: 76-year-old woman with almost 30 years of Parkinson's disease and recently increased falls and confusion. * Deficits to mobility and activities of daily living due to recent frequent falls and confusion, improved with medication adjustments in the hospital. * PT and OT to optimize mobility and activities of daily living to the modified independence to independent level for transfers, ambulation and eating. Expect her to require assistance for other ADLs. * Cognitive impairment with likely recent delirium due to medications and possible sleep disturbance. Medications have been adjusted. She will have assessment and treatment per speech and language pathology to optimize her cognition. * Hypertension with hydralazine having been discontinued. * Blood pressure was elevated the evening of 06/27/2017. * She is markedly orthostatic, with 43 point drop in systolic blood pressure from supine to standing and no change in heart rate. * Hydralazine was discontinued in the hospital due to history of falls and confusion and possible cognitive effects. * Continue to monitor. Will not initiate any antihypertensives at present. * Parkinson disease. Continue carbidopa/levodopa, entacapone and ropinirole. If there are to be any medication changes made they will be due to findings of physical and occupational therapy, and they will be done in consultation with Dr. Winslow ([phone]).at the [facility]. * Congestive heart failure, with elevated BNP in the hospital and pulmonary hypertension on echocardiogram. * Appears compensated at present, with no need for oxygen and no dyspnea noted with activities. * Would exercisec aution with diuretics due to orthostatic hypotension. * Hypothyroidism. Continue levothyroxine. * Dyslipidemia. Continue atorvastatin. * Depression. Continue citalopram and consider titrating or augmenting with alternative medications. * Insomnia. Continue clonazepam at a lower dose and monitor for adequate sleep. * Prophylaxis. She appears to have had good mobility. However, she has been discharged from the hospital on enoxaparin 40 mg subcutaneous daily. Will continue the enoxaparin initially but if mobility continues to be sufficient, will have a low threshold to discontinue enoxaparin, especially as it increases her risk of bleed should she have a fall and injury. Followup. Her primary care provider is Dr. Antonia Jefferson. She can also follow up with Dr. Winslow at the [facility]. 06/28/17 13:44 Subjective: No complaints. Slept well. Denies pain. No cough or dyspnea, no fevers or chills. Good appetite. Bowels moved today. Objective: Vital Signs Temp Pulse Resp BP Pulse Ox 36.6 C 59 L 15 110/70 90 L 06/28/17 07:14 06/28/17 07:16 06/28/17 07:14 06/28/17 07:16 06/28/17 07:14 06/27/17 06/28/17 06/29/17 05:59 05:59 05:59 Intake Total 120 Output Total 200 200 Balance -200 -80 Physical Exam - Physical Exam General Appearance: WD/WN, alert, no apparent distress, thin Respiratory: normal breath sounds, No crackles, No rhonchi, No wheezing Cardiac/Chest: regular rate, rhythm, No edema, No diastolic murmur, No systolic murmur Skin: normal color, warm/dry Neuro/Psych: alert, normal mood/affect, other (Retropulsive. Minimal tremor.) ICD10 Worksheet Patient Problems: Problems Problem Status Onset Transient ischemic attack Active Delirium Acute Generalized weakness Acute Hypertension Acute Hypocalcemia Acute Intracranial hemorrhage following injury Acute Subdural hematoma, acute Acute
--- NOTE | 2017-06-28 16:08 | PDOREHIP ---
Admission [facility] - Admission - 3 Day Assessment Period Admission Date/Day 1: 06/27/17 Day 2: 06/28/17 Day 3: 06/29/17 - Active Diagnoses Comorbidities and Co-existing Conditions at Admission: 46517. None of the Above - Skin Conditions Unhealed Pressure Ulcer (1 or more/Stage 1 or >)-Admission: 0. No
[2017-06-28] MEDS: MULTIVITAMINS 1 EACH TAB PO SCH (17:48)
[2017-06-28] MEDS: QUEtiapine FUMARATE 25 MG TAB PO SCH (20:11)
[2017-06-28] MEDS: clonazePAM 0.5 MG TAB PO SCH (20:12)
[2017-06-28] MEDS: ATORVASTATIN CALCIUM 20 MG TAB PO SCH (20:12)
[2017-06-28] MEDS: CHOLECALCIFEROL VIT D3 1,000 UNITS TAB PO SCH (20:12)
[2017-06-29] MEDS: CARBIDOPA/LEVO CR 25 MG/100 MG TAB PO SCH ×4 (06:07→17:52)
[2017-06-29] MEDS: ENTACAPONE 200 MG TAB PO SCH ×4 (06:07→17:52)
[2017-06-29] MEDS: LEVOTHYROXINE 50 MCG TAB PO SCH (06:07)
[2017-06-29] MEDS: AMANTADINE HCL 100 MG CAP PO SCH ×2 (06:07→15:03)
[2017-06-29] MEDS: CITALOPRAM 20 MG TAB PO SCH (08:19)
[2017-06-29] MEDS: PRESERVISION AREDS2 FORMULA EYE VIT 1 EACH PO SCH ×2 (08:19→20:37)
[2017-06-29] MEDS: SENNOSIDES 1 TAB PO SCH (08:19)
[2017-06-29] MEDS: CALCIUM CARBONATE 500 MG TAB PO SCH ×2 (08:19→20:37)
[2017-06-29] MEDS: ROPINIROLE HCL 4 MG PO SCH ×2 (08:20→20:55)
[2017-06-29] MEDS: DOCUSATE SODIUM 100 MG CAP PO SCH ×2 (08:20→20:37)
[2017-06-29] MEDS: ENOXAPARIN 40 MG/0.4 ML SYR SC SCH (09:36)
--- NOTE | 2017-06-29 13:56 | SOAPPROG ---
SOAP Progress Note Assessment/Plan: Assessment: 76-year-old woman with almost 30 years of Parkinson's disease and recently increased falls and confusion. * Deficits to mobility and activities of daily living due to recent frequent falls and confusion, improved with medication adjustments in the hospital. * PT and OT to optimize mobility and activities of daily living to the modified independence to independent level for transfers, ambulation and eating. Expect her to require assistance for other ADLs. * Cognitive impairment with likely recent delirium due to medications and possible sleep disturbance. Medications have been adjusted. She will have assessment and treatment per speech and language pathology to optimize her cognition. * Hypertension with hydralazine having been discontinued. * Blood pressure was elevated the evening of 06/27/2017. * She is markedly orthostatic, with 43 point drop in systolic blood pressure from supine to standing and no change in heart rate. * Hydralazine was discontinued in the hospital due to history of falls and confusion and possible cognitive effects. * Continue to monitor. Will not initiate any antihypertensives at present. * Parkinson disease. Continue carbidopa/levodopa, entacapone and ropinirole. If there are to be any medication changes made they will be due to findings of physical and occupational therapy, and they will be done in consultation with Dr. Winslow ([phone]).at the [facility]. 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 * XR L hand to evaluation for dislocation or fracture. * May need MRI to fully diagnose, versus nerve conduction studies. * Mechanism of injury is obscure. * Congestive heart failure, with elevated BNP in the hospital and pulmonary hypertension on echocardiogram. * Appears compensated at present, with no need for oxygen and no dyspnea noted with activities. * Would exercisec aution with diuretics due to orthostatic hypotension. * Hypothyroidism. Continue levothyroxine. * Dyslipidemia. Continue atorvastatin. * Depression. Continue citalopram and consider titrating or augmenting with alternative medications. * Insomnia. Continue clonazepam at a lower dose and monitor for adequate sleep. * Prophylaxis. She appears to have had good mobility. However, she has been discharged from the hospital on enoxaparin 40 mg subcutaneous daily. Will continue the enoxaparin initially but if mobility continues to be sufficient, will have a low threshold to discontinue enoxaparin, especially as it increases her risk of bleed should she have a fall and injury. Followup. Her primary care provider is Dr. Antonia Jefferson. She can also follow up with Dr. Winslow at the [facility]. 06/28/17 13:44 06/29/17 13:40 Subjective: Concerned about fingers of left hand she reports that since her fall she has been unable to extend the 3rd and 4th fingers. She has had transient numbness but does not have numbness right now. There is no pain. Otherwise without complaints. Objective: Vital Signs Temp Pulse Resp BP Pulse Ox 36.4 C 60 16 143/92 H 95 06/29/17 06:15 06/29/17 06:15 06/29/17 06:15 06/29/17 06:15 06/29/17 06:15 06/28/17 06/29/17 06/30/17 05:59 05:59 05:59 Intake Total 120 558 340 Output Total 200 200 300 Balance -80 358 40 Physical Exam - Physical Exam General Appearance: WD/WN, alert, no apparent distress, thin Respiratory: No respiratory distress, No accessory muscle use Skin: normal color, warm/dry Extremities: other (Left hand 3rd and 4th fingers flexed at the MCP joint and unable to actively or passively extend. Normal range of motion of the wrist and the other fingers of the hand. No palmar nodules appreciated.) Neuro/Psych: alert, normal mood/affect, speech abnormalities (Hypophonic) ICD10 Worksheet Patient Problems: Problems Problem Status Onset Transient ischemic attack Active Delirium Acute Generalized weakness Acute Hypertension Acute Hypocalcemia Acute Intracranial hemorrhage following injury Acute Subdural hematoma, acute Acute
[2017-06-29] MEDS: MULTIVITAMINS 1 EACH TAB PO SCH (17:52)
[2017-06-29] MEDS: CHOLECALCIFEROL VIT D3 1,000 UNITS TAB PO SCH (20:37)
[2017-06-29] MEDS: ATORVASTATIN CALCIUM 20 MG TAB PO SCH (20:37)
[2017-06-29] MEDS: QUEtiapine FUMARATE 25 MG TAB PO SCH (20:38)
[2017-06-29] MEDS: clonazePAM 0.5 MG TAB PO SCH (20:38)
[2017-06-30] MEDS: AMANTADINE HCL 100 MG CAP PO SCH ×2 (04:59→14:00)
[2017-06-30] MEDS: LEVOTHYROXINE 50 MCG TAB PO SCH (04:59)
[2017-06-30] MEDS: CITALOPRAM 20 MG TAB PO SCH (07:48)
[2017-06-30] MEDS: PRESERVISION AREDS2 FORMULA EYE VIT 1 EACH PO SCH ×2 (07:48→20:54)
[2017-06-30] MEDS: CARBIDOPA/LEVO CR 25 MG/100 MG TAB PO SCH ×4 (07:48→18:19)
[2017-06-30] MEDS: CALCIUM CARBONATE 500 MG TAB PO SCH ×2 (07:48→20:53)
[2017-06-30] MEDS: SENNOSIDES 1 TAB PO SCH (07:48)
[2017-06-30] MEDS: DOCUSATE SODIUM 100 MG CAP PO SCH ×2 (07:49→20:54)
[2017-06-30] MEDS: ENOXAPARIN 40 MG/0.4 ML SYR SC SCH (07:49)
[2017-06-30] MEDS: ROPINIROLE HCL 4 MG PO SCH ×2 (07:53→20:54)
[2017-06-30] MEDS: ENTACAPONE 200 MG TAB PO SCH ×4 (07:58→18:19)
[2017-06-30] MEDS ORDERED: levETIRAcetam 500 MG TAB PO SCH (10:00)
[2017-06-30 11:21] LABS: PLATELET COUNT 375 10^3/uL (150-400)
--- NOTE | 2017-06-30 12:09 | SOAPPROG ---
SOAP Progress Note Assessment/Plan: Assessment: 76-year-old woman with almost 30 years of Parkinson's disease and recently increased falls and confusion. * Deficits to mobility and activities of daily living due to recent frequent falls and confusion, improved with medication adjustments in the hospital. * Initial functional independence measure of 62 on 06/30/2017. She she can arise from sit to stand with standby assist. She ambulated for 250 ft with standby assist and a front wheeled walker. She is initially retropulsive but subsequently ambulates better. She requires moderate assistance for upper body dressing and moderate to maximal assistance for lower body dressing. Her ambulation is more difficult in a small space or when frequent maneuvering is necessary. OT notes difficulty to let go of the walker to pull up her pants. She required moderate to moderate assistance for showering and maximal assistance for toileting. * Continue PT and OT to optimize mobility and activities of daily living to the modified independence to independent level for transfers, ambulation and eating. Expect her to require assistance for other ADLs. * Cognitive impairment with likely recent delirium due to medications and possible sleep disturbance. Medications have been adjusted in the hospital, with discontinuation of hydralazine, decreasing clonazepam, decrease in ropinirole and decrease in amantadine.. 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 Noted to be worse than on her prior rehabilitation stay last fall. * Continue PIPE FOREMAN. * Seizure 06/30/2017. * No obvious etiology from lab tests or head CT. * Discussed with neurologist Dr. Winslow. Unlikely related to Parkinson's disease or parkinsonian medications. Consider hydralazine withdrawal. Unable to predict likelihood of a subsequent seizure. Also had reduction in dose of clonazepam from 0.5 to 0.25 mg while in the hospital. * Patient does not want to add another medication. Will not continue levetiracetam; had 1 dose this morning after seizure 06/30/2017 Will resume 0.5 mg dose of clonazepam at bedtime. * Insomnia and REM sleep disorder. Continue clonazepam. Increased dose from 0.25 mg at bedtime to 0.5 mg starting 06/30/2017. With increased clonazepam, will discontinue quetiapine. * Hypertension with hydralazine having been discontinued. * Blood pressure was elevated the evening of 06/27/2017. * She is markedly orthostatic, with 43 point drop in systolic blood pressure from supine to standing and no change in heart rate. * Hydralazine was discontinued in the hospital due to history of falls and confusion and possible cognitive effects. * Continue to monitor. Will not initiate any antihypertensives at present. * Had been on HS propranolol initiated during her prior rehabilitation stay last fall. Dr. Winslow reports that her color consultant preferred hydralazine. * Parkinson disease. Continue carbidopa/levodopa, entacapone and ropinirole. If there are to be any medication changes made they will be due to findings of physical and occupational therapy, and they will be done in consultation with Dr. Winslow ([phone]).at the [facility]. 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 * XR L hand ruled out dislocation or fracture 06/29/2017. * May need MRI to fully diagnose, versus nerve conduction studies. * Mechanism of injury is obscure. * OT will focus on maximizing range of motion and use of the fingers. * Congestive heart failure, with elevated BNP in the hospital and pulmonary hypertension on echocardiogram. * Appears compensated at present, with no need for oxygen and no dyspnea noted with activities. * Would exercise caution with diuretics due to orthostatic hypotension. * Hypothyroidism. Continue levothyroxine. * Dyslipidemia. Continue atorvastatin. * Depression. Continue citalopram and consider titrating or augmenting with alternative medications. * Prophylaxis. She appears to have had good mobility. Ambulating 250 ft or more. Will discontinue enoxaparin starting 07/01/2017. Followup. Her primary care provider is Dr. Antonia Jefferson. She will also follow up with Dr. Winslow at the [facility]. Attended staffing, 15 min. Discussed with case management, nursing, dietitian, PT, OT, PIPE FOREMAN. She had 24 hr care with a home care agency augmenting her ' s availability, who works [email or web address]. She will likely continue to need 24 hr supervision. Set discharge date for 07/12/2017. Today's events and current plan discussed in detail with patient and her Vladimir. 06/30/17 13:17 Subjective: Had a seizure this morning. She was in the bathroom with OT and the nurse. She was noted to have increased tremor or tonic-clonic movements of the upper extremities and abnormal eye movements. She was placed sitting on the commode. There was no loss of bladder or bowel control and no tongue biting. She was postictal with disorientation. She reports that she recalls the entire event but when asked about specifics she evidently does not have recollection. She is otherwise without acute complaint. She is not in pain, she slept well, no cough or dyspnea, no fevers or chills. Objective: Vital Signs Temp Pulse Resp BP Pulse Ox 36.7 C 58 L 18 130/79 H 93 06/29/17 19:56 06/29/17 19:56 06/30/17 08:01 06/30/17 08:01 06/29/17 19:56 Laboratory Results 06/30/17 10:10 06/30/17 10:10 06/29/17 06/30/17 07/01/17 05:59 05:59 05:59 Intake Total 558 540 120 Output Total 200 700 300 Balance 358 -160 -180 - Time Spent With Patient Time Spent With Patient: Greater than 35 min floor time today, including more than 50% of time in coordination of care during staffing and regarding arrangements for head CT, and counseling patient and . Physical Exam - Physical Exam General Appearance: WD/WN, alert, no apparent distress, thin Skin: normal color, warm/dry Neuro/Psych: alert, normal mood/affect, oriented x 3 (Initially oriented to self only. Subsequently recovers orientation x3.), abnormal gait (Step through pattern, narrow base, with 4 wheel walker. Has shorter steps and some festination when distracted or when turning.), No motor weakness ICD10 Worksheet Patient Problems: Problems Problem Status Onset Transient ischemic attack Active Delirium Acute Generalized weakness Acute Hypertension Acute Hypocalcemia Acute Intracranial hemorrhage following injury Acute Subdural hematoma, acute Acute
[2017-06-30] MEDS: MULTIVITAMINS 1 EACH TAB PO SCH (18:18)
[2017-06-30] MEDS: clonazePAM 0.5 MG TAB PO SCH (20:53)
[2017-06-30] MEDS: CHOLECALCIFEROL VIT D3 1,000 UNITS TAB PO SCH (20:53)
[2017-06-30] MEDS: ATORVASTATIN CALCIUM 20 MG TAB PO SCH (20:54)
[2017-06-30] MEDS: ACETAMINOPHEN 325 MG TAB PO PRN (23:13)
[2017-07-01] MEDS: LEVOTHYROXINE 50 MCG TAB PO SCH (06:00)
[2017-07-01] MEDS: AMANTADINE HCL 100 MG CAP PO SCH ×2 (06:00→13:41)
[2017-07-01] MEDS: CARBIDOPA/LEVO CR 25 MG/100 MG TAB PO SCH ×4 (08:49→17:39)
[2017-07-01] MEDS: ENTACAPONE 200 MG TAB PO SCH ×4 (08:49→17:39)
[2017-07-01] MEDS: CALCIUM CARBONATE 500 MG TAB PO SCH ×2 (08:51→21:08)
[2017-07-01] MEDS: DOCUSATE SODIUM 100 MG CAP PO SCH ×2 (08:51→22:23)
[2017-07-01] MEDS: PRESERVISION AREDS2 FORMULA EYE VIT 1 EACH PO SCH ×2 (08:51→21:09)
[2017-07-01] MEDS: CITALOPRAM 20 MG TAB PO SCH (08:51)
[2017-07-01] MEDS: ROPINIROLE HCL 4 MG PO SCH ×2 (08:53→22:23)
[2017-07-01] MEDS: SENNOSIDES 1 TAB PO PRN (11:37)
--- NOTE | 2017-07-01 12:55 | HOSPPROG ---
Hospitalist Progress Note Assessment/Plan: Assessment: 76 yo F p/w increased falls and encephalopathy in setting of Parkinson's Disease Plan: # Parkinson's disease. Affects current mobility and ability to complete ADLs, cont home Rx and current Rx dosing of ropinorole and amanantadine - primary neurologist Dr. Winslow [phone], if needed - ongoing PT/OT/CT SCAN TECHNOLOGIST evals # Acute seizure. Occurred on 06/30, initially received Keppra, then Dr. Moreau addressed w/ patient/family/neurologist, decision made not to introduce additional Rx and Keppra discontinued - possibly potentiated by recent benzo reduction, in a patient already pre- disposed to seizure w/ PD - cont on seizure precautions # Suspected trigger finger. Recent pain and swelling in L 3rd PIP, x-ray w/ joint space narrowing at DIP/PIP and OA at 1st - OT placed splint, gauge effect - cont PRN Rx # HTN. Chronic, off hydralazine, SBP 130-150 which is goal in a patient w/ PD induced dysautonomia, do not medicate # Chronic diastolic CHF. No e/o acute exacerbation, cont to monitor volume status, monitor daily weights # Insomnia. Cont klonopin at 0.5mg HS # Hypothyroidism. Cont synthroid Diet. As tolerates PPx. Low risk, ambulating Code. Full Dispo. Ongoing therapy needs, anticipate 07/12/17. Subjective: patient reports no swelling L 3rd digt since splint ring placed Objective: Vital Signs Temp Pulse Resp BP Pulse Ox 36.6 C 61 17 147/78 H 86 L 07/01/17 08:00 07/01/17 08:00 07/01/17 08:00 07/01/17 08:00 07/01/17 08:00 Laboratory Results 06/30/17 10:10 06/30/17 10:10 06/30/17 07/01/17 07/02/17 05:59 05:59 05:59 Intake Total 761 099 0257 Output Total 700 1050 200 Balance -160 -460 840 - Physical Exam Constitutional: no apparent distress, not in pain, chronically ill appearing, other (thin appearing), No uncomfortable Cardiovascular: regular rate and rhythym, no murmur, rub, or gallop, No edema Respiratory: no respiratory distress, no rales or rhonchi, clear to auscultation Gastrointestinal: normoactive bowel sounds, soft, non-tender abdomen, no palpable masses Musculoskeletal: other (full ROM L wrist w/o pain, no joint swelling L 3rd DIP/ PIP/MCP, full flex/ext L 3rd MCP/DIP w/o pain) Neurologic: AAOx3, sensation intact bilaterally, other (masked facies) Psychiatric: not anxious, thought process linear, flat affect, No agitated ICD10 Worksheet Patient Problems: Problems Problem Status Onset Transient ischemic attack Active Intracranial hemorrhage following injury Acute Subdural hematoma, acute Acute Generalized weakness Acute Hypocalcemia Acute Hypertension Acute Delirium Acute
[2017-07-01] MEDS: MULTIVITAMINS 1 EACH TAB PO SCH (17:39)
[2017-07-01] MEDS: ACETAMINOPHEN 325 MG TAB PO PRN (19:47)
[2017-07-01] MEDS: CHOLECALCIFEROL VIT D3 1,000 UNITS TAB PO SCH (21:08)
[2017-07-01] MEDS: ATORVASTATIN CALCIUM 20 MG TAB PO SCH (21:09)
[2017-07-01] MEDS: clonazePAM 0.5 MG TAB PO SCH (21:09)
[2017-07-02] MEDS: AMANTADINE HCL 100 MG CAP PO SCH ×2 (06:03→15:08)
[2017-07-02] MEDS: LEVOTHYROXINE 50 MCG TAB PO SCH (06:03)
[2017-07-02] MEDS: CARBIDOPA/LEVO CR 25 MG/100 MG TAB PO SCH ×4 (07:18→18:05)
[2017-07-02] MEDS: ENTACAPONE 200 MG TAB PO SCH ×4 (07:18→18:05)
[2017-07-02] MEDS: CALCIUM CARBONATE 500 MG TAB PO SCH ×2 (08:42→21:20)
[2017-07-02] MEDS: PRESERVISION AREDS2 FORMULA EYE VIT 1 EACH PO SCH ×2 (08:42→21:21)
[2017-07-02] MEDS: CITALOPRAM 20 MG TAB PO SCH (08:43)
[2017-07-02] MEDS: DOCUSATE SODIUM 100 MG CAP PO SCH ×2 (08:43→21:21)
[2017-07-02] MEDS: ROPINIROLE HCL 4 MG PO SCH ×2 (08:45→21:22)
--- NOTE | 2017-07-02 13:00 | HOSPPROG ---
Hospitalist Progress Note Assessment/Plan: Assessment: 76 yo F p/w increased falls and encephalopathy in setting of Parkinson's Disease Plan: # Parkinson's disease. Affects current mobility and ability to complete ADLs, cont home Rx and current Rx dosing of ropinorole and amantadine - primary neurologist Dr. 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 Occurred on 06/30, initially received Keppra, then Dr. Moreau addressed w/ patient/family/neurologist, decision made not to introduce additional Rx and Keppra discontinued, no further seizures - possibly potentiated by recent benzo reduction, in a patient already pre- disposed to seizure w/ PD - cont on seizure precautions # Trigger finger. Recent pain and swelling in L 3rd PIP, x-ray w/ joint space narrowing at DIP/PIP and OA at 1st - OT placed splint, gauge effect, was removed prior to encounter today - does not appear to be resulting in effusion or ROM difficulty - cont PRN Rx # HTN. Chronic, off hydralazine, SBP 130-150 which is goal in a patient w/ PD induced dysautonomia, do not medicate # Chronic diastolic CHF. No e/o acute exacerbation, cont to monitor volume status, monitor daily weights # Insomnia. Cont klonopin at 0.5mg HS # Hypothyroidism. Cont synthroid Diet. As tolerates PPx. Low risk, ambulating Code. Full Dispo. Ongoing therapy needs, anticipate 07/12/17. Subjective: patient is disgruntled by the use of IS and thinks it is worthless; moving bowels Objective: Vital Signs Temp Pulse Resp BP Pulse Ox 36.4 C 65 14 140/85 H 93 07/02/17 10:54 07/02/17 10:54 07/02/17 10:54 07/02/17 10:54 07/02/17 10:54 Laboratory Results 06/30/17 10:10 06/30/17 10:10 07/01/17 07/02/17 07/03/17 05:59 05:59 05:59 Intake Total 590 1435 200 Output Total 1050 400 Balance -460 1035 200 - Physical Exam Constitutional: no apparent distress, not in pain, chronically ill appearing, No uncomfortable Cardiovascular: regular rate and rhythym, no murmur, rub, or gallop, No edema Respiratory: no respiratory distress, no rales or rhonchi, clear to auscultation Gastrointestinal: normoactive bowel sounds, soft, non-tender abdomen, no palpable masses Musculoskeletal: other (3rd L digit trigger finger, full ROM PIP w/o pain on flexion/extension, no joint effusion, no tenderness over MCP when tendon "pops") Neurologic: AAOx3, sensation intact bilaterally, other (masked facies), No weakness Psychiatric: not anxious, flat affect, agitated (slightly), poor insight, other (perseverates on finger, IS; perceptive observations, but does not appear to follow explanations) ICD10 Worksheet Patient Problems: Problems Problem Status Onset Transient ischemic attack Active Intracranial hemorrhage following injury Acute Subdural hematoma, acute Acute Generalized weakness Acute Hypocalcemia Acute Hypertension Acute Delirium Acute
[2017-07-02] MEDS: ACETAMINOPHEN 325 MG TAB PO PRN (17:01)
[2017-07-02] MEDS: MULTIVITAMINS 1 EACH TAB PO SCH (18:05)
[2017-07-02] MEDS: CHOLECALCIFEROL VIT D3 1,000 UNITS TAB PO SCH (21:20)
[2017-07-02] MEDS: ATORVASTATIN CALCIUM 20 MG TAB PO SCH (21:20)
[2017-07-02] MEDS: clonazePAM 0.5 MG TAB PO SCH (21:21)
[2017-07-03] MEDS: LEVOTHYROXINE 50 MCG TAB PO SCH (05:53)
[2017-07-03] MEDS: AMANTADINE HCL 100 MG CAP PO SCH ×2 (05:53→14:45)
[2017-07-03] MEDS: CARBIDOPA/LEVO CR 25 MG/100 MG TAB PO SCH ×4 (06:07→17:42)
[2017-07-03] MEDS: ENTACAPONE 200 MG TAB PO SCH ×4 (06:08→17:42)
[2017-07-03] MEDS: PRESERVISION AREDS2 FORMULA EYE VIT 1 EACH PO SCH ×2 (08:57→20:42)
[2017-07-03] MEDS: CALCIUM CARBONATE 500 MG TAB PO SCH ×2 (08:59→20:43)
[2017-07-03] MEDS: ROPINIROLE HCL 4 MG PO SCH ×2 (08:59→20:44)
[2017-07-03] MEDS: CITALOPRAM 20 MG TAB PO SCH (08:59)
[2017-07-03] MEDS: DOCUSATE SODIUM 100 MG CAP PO SCH ×2 (09:00→20:42)
--- NOTE | 2017-07-03 13:35 | SOAPPROG ---
SOAP Progress Note Assessment/Plan: Assessment: 76-year-old woman with almost 30 years of Parkinson's disease and recently increased falls and confusion. * Deficits to mobility and activities of daily living due to recent frequent falls and confusion, improved with medication adjustments in the hospital. * Initial functional independence measure of 62 on 06/30/2017. She she can arise from sit to stand with standby assist. She ambulated for 250 ft with standby assist and a front wheeled walker. She is initially retropulsive but subsequently ambulates better. She requires moderate assistance for upper body dressing and moderate to maximal assistance for lower body dressing. Her ambulation is more difficult in a small space or when frequent maneuvering is necessary. OT notes difficulty to let go of the walker to pull up her pants. She required moderate to moderate assistance for showering and maximal assistance for toileting. * Decreased function regarding ambulation over several days as of 07/03/2017. Message left for primary neurologist Dr. Winslow ([phone]) for advise regarding medications. * Continue PT and OT to optimize mobility and activities of daily living to the modified independence to independent level for transfers, ambulation and eating. Expect her to require assistance for other ADLs. * Cognitive impairment with likely recent delirium due to medications and possible sleep disturbance. Medications have been adjusted in the hospital, with discontinuation of hydralazine, decreasing clonazepam, decrease in ropinirole and decrease in amantadine.. 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 Noted to be worse than on her prior rehabilitation stay last fall. 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 * Seizure 06/30/2017. * No obvious etiology from lab tests or head CT. * Discussed with neurologist Dr. Winslow. Unlikely related to Parkinson's disease or parkinsonian medications. Consider hydralazine withdrawal. Unable to predict likelihood of a subsequent seizure. Also had reduction in dose of clonazepam from 0.5 to 0.25 mg while in the hospital. * Patient does not want to add another medication. Will not continue levetiracetam; had 1 dose this morning after seizure 06/30/2017 Will resume 0.5 mg dose of clonazepam at bedtime. * Insomnia and REM sleep disorder. Continue clonazepam. Increased dose from 0.25 mg at bedtime to 0.5 mg starting 06/30/2017. With increased clonazepam, discontinued quetiapine. Sleeping well. * Hypertension with hydralazine having been discontinued due to history of falls and confusion and possible cognitive effects. * Blood pressure was elevated the evening of 06/27/2017. Otherwise adequate control. * She is markedly orthostatic, with 43 point drop in systolic blood pressure from supine to standing and no change in heart rate. * Continue to monitor. Will not initiate any antihypertensives at present. * Had been on HS propranolol initiated during her prior rehabilitation stay last fall. Dr. Winslow reports that her behavioral health consultant preferred hydralazine. * Parkinson disease. Continue carbidopa/levodopa, entacapone and ropinirole. If there are to be any medication changes made they will be due to findings of physical and occupational therapy, and they will be done in consultation with Dr. Winslow at the [facility]. 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 * XR L hand ruled out dislocation or fracture 06/29/2017. * OT reports extensor tendon out of place over 3rd MCP. Has initiated taping. Reports full range of motion. * OT will focus on maximizing range of motion and use of the fingers. * Congestive heart failure, with elevated BNP in the hospital and pulmonary hypertension on echocardiogram. * Appears compensated at present, with no need for oxygen and no dyspnea noted with activities. * Would exercise caution with diuretics due to orthostatic hypotension. * Hypothyroidism. Continue levothyroxine. * Dyslipidemia. Continue atorvastatin. * Depression. Continue citalopram and consider titrating or augmenting with alternative medications. * Prophylaxis. She appears to have had good mobility. Ambulating 250 ft or more. Discontinued enoxaparin starting 07/01/2017. Followup. Her primary care provider is Dr. Antonia Jefferson. She will also follow up with Dr. Winslow at the [facility]. She had 24 hr care with a home care agency augmenting her 's availability , who works acquisition lead. She will likely continue to need 24 hr supervision. Discharge date is 07/12/2017. 07/03/17 13:39 Subjective: Has had episodes of increased freezing. Reported she had an episode 3 days ago when arising from the commode and get stuck in a usp to standing position. She subsequently developed pain in her inner thighs. Therapy staff is also noted episodes of freezing especially when turning or walking backwards. Sometimes she has gait past in a urbina on her toes instead of flat feet. Nurse reports urinary incontinence overnight and yesterday. She is otherwise without complaints. No cough or dyspnea, no fevers or chills. Sleeping very well per Objective: Vital Signs Temp Pulse Resp BP Pulse Ox 36.5 C 63 15 157/77 H 94 07/03/17 06:17 07/03/17 06:17 07/03/17 06:17 07/03/17 08:00 07/03/17 06:17 Laboratory Results 06/30/17 10:10 06/30/17 10:10 07/02/17 07/03/17 07/04/17 05:59 05:59 05:59 Intake Total 1435 700 295 Output Total 400 1300 Balance 1035 -600 295 Physical Exam - Physical Exam General Appearance: WD/WN, alert, no apparent distress, thin Respiratory: No respiratory distress, No accessory muscle use Cardiac/Chest: No edema Skin: normal color, warm/dry Neuro/Psych: alert, normal mood/affect, oriented x 3, abnormal gait (Flexed at hips and knees. Bilateral genu valgus. Short steps and festination if not cued by physical therapist. Has freezing when turning, resolves with cuing by physical therapist. Ambulates with contact guard assist and 4 wheeled walker.) , other (Resting tremor bilateral upper and lower extremities.) ICD10 Worksheet Patient Problems: Problems Problem Status Onset Transient ischemic attack Active Delirium Acute Generalized weakness Acute Hypertension Acute Hypocalcemia Acute Intracranial hemorrhage following injury Acute Subdural hematoma, acute Acute
[2017-07-03] MEDS: MULTIVITAMINS 1 EACH TAB PO SCH (17:42)
[2017-07-03] MEDS: ATORVASTATIN CALCIUM 20 MG TAB PO SCH (20:42)
[2017-07-03] MEDS: CHOLECALCIFEROL VIT D3 1,000 UNITS TAB PO SCH (20:42)
[2017-07-03] MEDS: clonazePAM 0.5 MG TAB PO SCH (20:43)
[2017-07-04] MEDS: LEVOTHYROXINE 50 MCG TAB PO SCH (06:21)
[2017-07-04] MEDS: CARBIDOPA/LEVO CR 25 MG/100 MG TAB PO SCH ×3 (06:21→14:36)
[2017-07-04] MEDS: ENTACAPONE 200 MG TAB PO SCH ×4 (06:21→17:33)
[2017-07-04] MEDS: AMANTADINE HCL 100 MG CAP PO SCH ×2 (06:21→14:32)
[2017-07-04] MEDS: CITALOPRAM 20 MG TAB PO SCH (07:43)
[2017-07-04] MEDS: DOCUSATE SODIUM 100 MG CAP PO SCH ×2 (07:43→20:40)
[2017-07-04] MEDS: CALCIUM CARBONATE 500 MG TAB PO SCH ×2 (07:43→20:40)
[2017-07-04] MEDS: PRESERVISION AREDS2 FORMULA EYE VIT 1 EACH PO SCH ×2 (07:43→20:40)
[2017-07-04] MEDS: ROPINIROLE HCL 4 MG PO SCH ×2 (07:44→20:42)
--- NOTE | 2017-07-04 14:20 | SOAPPROG ---
SOAP Progress Note Assessment/Plan: Assessment: 76-year-old woman with almost 30 years of Parkinson's disease and recently increased falls and confusion. * Parkinson disease. Increased freezing and difficulty with ambulation. Discussed with Dr. Winslow ([phone]), 07/04/2017. Advises change from Sinemet CR to Sinemet immediate release as there is better absorption observe for 1-2 days. If no improvement change from 4 times a day to 5 times a day. * Deficits to mobility and activities of daily living due to recent frequent falls and confusion, improved with medication adjustments in the hospital. * Initial functional independence measure of 62 on 06/30/2017. She she can arise from sit to stand with standby assist. She ambulated for 250 ft with standby assist and a front wheeled walker. She is initially retropulsive but subsequently ambulates better. She requires moderate assistance for upper body dressing and moderate to maximal assistance for lower body dressing. Her ambulation is more difficult in a small space or when frequent maneuvering is necessary. OT notes difficulty to let go of the walker to pull up her pants. She required moderate to moderate assistance for showering and maximal assistance for toileting. * Continue PT and OT to optimize mobility and activities of daily living to the modified independence to independent level for transfers, ambulation and eating. Expect her to require assistance for other ADLs. * Cognitive impairment with likely recent delirium due to medications and possible sleep disturbance. Medications have been adjusted in the hospital, with discontinuation of hydralazine, decreasing clonazepam, decrease in ropinirole and decrease in amantadine.. 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 Noted to be worse than on her prior rehabilitation stay last fall. 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 * Seizure 06/30/2017. * No obvious etiology from lab tests or head CT. * Discussed with neurologist Dr. Winslow. Unlikely related to Parkinson's disease or parkinsonian medications. Consider hydralazine withdrawal. Unable to predict likelihood of a subsequent seizure. Also had reduction in dose of clonazepam from 0.5 to 0.25 mg while in the hospital. * Patient does not want to add another medication. Will not continue levetiracetam; had 1 dose this morning after seizure 06/30/2017 Will resume 0.5 mg dose of clonazepam at bedtime. * Insomnia and REM sleep disorder. Continue clonazepam. Increased dose from 0.25 mg at bedtime to 0.5 mg starting 06/30/2017. With increased clonazepam, discontinued quetiapine. Sleeping well. * Hypertension with hydralazine having been discontinued due to history of falls and confusion and possible cognitive effects. * Blood pressure was elevated the evening of 06/27/2017. Otherwise adequate control. * She is markedly orthostatic, with 43 point drop in systolic blood pressure from supine to standing and no change in heart rate. * Continue to monitor. Will not initiate any antihypertensives at present. * Had been on HS propranolol initiated during her prior rehabilitation stay last fall. Dr. Winslow reports that her senior internet sales consultant preferred hydralazine. 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 * XR L hand ruled out dislocation or fracture 06/29/2017. * OT reports extensor tendon out of place over 3rd MCP. Has initiated taping. Reports full range of motion. * OT will focus on maximizing range of motion and use of the fingers. * Congestive heart failure, with elevated BNP in the hospital and pulmonary hypertension on echocardiogram. * Appears compensated at present, with no need for oxygen and no dyspnea noted with activities. * Would exercise caution with diuretics due to orthostatic hypotension. * Hypothyroidism. Continue levothyroxine. * Dyslipidemia. Continue atorvastatin. * Depression. Continue citalopram and consider titrating or augmenting with alternative medications. * Prophylaxis. She appears to have had good mobility. Ambulating 250 ft or more. Discontinued enoxaparin starting 07/01/2017. Followup. Her primary care provider is Dr. Antonia Jefferson. She will also follow up with Dr. Winslow at the [facility]. She had 24 hr care with a home care agency augmenting her 's availability , who works time stamp assembler. She will likely continue to need 24 hr supervision. Discharge date is 07/12/2017. 07/04/17 14:21 Subjective: Continues to report increased difficulty ambulating and freezing episodes especially with turning or stepping backwards. Otherwise without complaints. Sleeping well, not in pain, no fevers or chills, no cough or dyspnea. Objective: Vital Signs Temp Pulse Resp BP Pulse Ox 36.4 C 66 16 132/73 H 96 07/04/17 06:35 07/04/17 06:35 07/04/17 06:35 07/04/17 06:35 07/04/17 06:35 Laboratory Results 06/30/17 10:10 06/30/17 10:10 07/03/17 07/04/17 07/05/17 05:59 05:59 05:59 Intake Total 700 765 360 Output Total 1300 400 Balance -600 365 360 - Time Spent With Patient Time Spent With Patient: Greater than 35 min floor time today, including coordination of care in discussion with primary neurologist Dr. Winslow, and counseling patient. Physical Exam - Physical Exam General Appearance: WD/WN, alert, no apparent distress Respiratory: No respiratory distress, No accessory muscle use Skin: normal color, warm/dry Neuro/Psych: alert, normal mood/affect, oriented x 3 ICD10 Worksheet Patient Problems: Problems Problem Status Onset Transient ischemic attack Active Delirium Acute Generalized weakness Acute Hypertension Acute Hypocalcemia Acute Intracranial hemorrhage following injury Acute Subdural hematoma, acute Acute
[2017-07-04] MEDS ORDERED: CARBIDOPA/LEVODOPA 25 MG/100 MG TAB ONE (14:31)
[2017-07-04] MEDS: CARBIDOPA/LEVODOPA 25 MG/100 MG TAB PO SCH ×2 (14:33→17:33)
[2017-07-04] MEDS: MULTIVITAMINS 1 EACH TAB PO SCH (17:33)
[2017-07-04] MEDS: CHOLECALCIFEROL VIT D3 1,000 UNITS TAB PO SCH (20:39)
[2017-07-04] MEDS: ATORVASTATIN CALCIUM 20 MG TAB PO SCH (20:40)
[2017-07-04] MEDS: clonazePAM 0.5 MG TAB PO SCH (20:40)
[2017-07-05] MEDS: LEVOTHYROXINE 50 MCG TAB PO SCH (06:27)
[2017-07-05] MEDS: ENTACAPONE 200 MG TAB PO SCH ×4 (06:27→17:57)
[2017-07-05] MEDS: AMANTADINE HCL 100 MG CAP PO SCH ×2 (06:27→13:48)
[2017-07-05] MEDS: CARBIDOPA/LEVODOPA 25 MG/100 MG TAB PO SCH ×4 (06:28→17:57)
[2017-07-05] MEDS: CITALOPRAM 20 MG TAB PO SCH (07:53)
[2017-07-05] MEDS: CALCIUM CARBONATE 500 MG TAB PO SCH ×2 (07:53→21:11)
[2017-07-05] MEDS: PRESERVISION AREDS2 FORMULA EYE VIT 1 EACH PO SCH ×2 (07:53→21:11)
[2017-07-05] MEDS: ROPINIROLE HCL 4 MG PO SCH ×2 (07:54→21:12)
[2017-07-05] MEDS: DOCUSATE SODIUM 100 MG CAP PO SCH ×2 (07:56→21:12)
--- NOTE | 2017-07-05 12:19 | SOAPPROG ---
SOAP Progress Note Assessment/Plan: Assessment: 76-year-old woman with almost 30 years of Parkinson's disease and recently increased falls and confusion. * Parkinson disease. Continue carbidopa/levodopa, entacapone and ropinirole. Discussed with primary neurologist Dr. Winslow ([phone]) 07/04/2009. Advised changing from Sinemet CR to Sinemet a release for better absorption. Appears to have improved movements on modified medication. Can consider increasing frequency from 4X/day to 5X/day. * Deficits to mobility and activities of daily living due to recent frequent falls and confusion, improved with medication adjustments in the hospital. * Initial functional independence measure of 62 on 06/30/2017. She she can arise from sit to stand with standby assist. She ambulated for 250 ft with standby assist and a front wheeled walker. She is initially retropulsive but subsequently ambulates better. She requires moderate assistance for upper body dressing and moderate to maximal assistance for lower body dressing. Her ambulation is more difficult in a small space or when frequent maneuvering is necessary. OT notes difficulty to let go of the walker to pull up her pants. She required moderate to moderate assistance for showering and maximal assistance for toileting. * Decreased function regarding ambulation over several days as of 07/03/2017. Better 07/05/2017 after medication adjustments 07/04/2017. * Continue PT and OT to optimize mobility and activities of daily living to the modified independence to independent level for transfers, ambulation and eating. Expect her to require assistance for other ADLs. * Cognitive impairment with likely recent delirium due to medications and possible sleep disturbance. Medications have been adjusted in the hospital, with discontinuation of hydralazine, decreasing clonazepam, decrease in ropinirole and decrease in amantadine.. 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 Noted to be worse than on her prior rehabilitation stay last fall. 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 * Seizure 06/30/2017. * No obvious etiology from lab tests or head CT. * Discussed with neurologist Dr. Winslow. Unlikely related to Parkinson's disease or parkinsonian medications. Consider hydralazine withdrawal. Unable to predict likelihood of a subsequent seizure. Also had reduction in dose of clonazepam from 0.5 to 0.25 mg while in the hospital. * Patient does not want to add another medication. Will not continue levetiracetam; had 1 dose this morning after seizure 06/30/2017 Will resume 0.5 mg dose of clonazepam at bedtime. * Insomnia and REM sleep disorder. Continue clonazepam. Increased dose from 0.25 mg at bedtime to 0.5 mg starting 06/30/2017. With increased clonazepam, discontinued quetiapine. Sleeping well. * Hypertension with hydralazine having been discontinued due to history of falls and confusion and possible cognitive effects. * Blood pressure was elevated the evening of 06/27/2017. Otherwise adequate control. * She is markedly orthostatic, with 43 point drop in systolic blood pressure from supine to standing and no change in heart rate. * Continue to monitor. Will not initiate any antihypertensives at present. * Had been on HS propranolol initiated during her prior rehabilitation stay last fall. Dr. Winslow reports that her wireless sales consultant preferred hydralazine. 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 * XR L hand ruled out dislocation or fracture 06/29/2017. * OT reports extensor tendon out of place over 3rd MCP. Has initiated taping. Reports full range of motion. * OT will focus on maximizing range of motion and use of the fingers. * Congestive heart failure, with elevated BNP in the hospital and pulmonary hypertension on echocardiogram. * Appears compensated at present, with no need for oxygen and no dyspnea noted with activities. * Would exercise caution with diuretics due to orthostatic hypotension. * Hypothyroidism. Continue levothyroxine. * Dyslipidemia. Continue atorvastatin. * Depression. Continue citalopram and consider titrating or augmenting with alternative medications. * Prophylaxis. She appears to have had good mobility. Ambulating 250 ft or more. Discontinued enoxaparin starting 07/01/2017. Followup. Her primary care provider is Dr. Antonia Jefferson. She will also follow up with Dr. Winslow at the [facility]. She had 24 hr care with a home care agency augmenting her 's availability , who works virtualization architect. She will likely continue to need 24 hr supervision. She will continue home OT, PT and CUSTODIAN MANAGER after discharge. Discharge date is 2017. 07/05/17 12:07 Subjective: Feels she is moving much better today. Has not noticed any dyskinesias. Otherwise without complaints. Objective: Vital Signs Temp Pulse Resp BP Pulse Ox 36.6 C 63 14 136/75 H 93 07/05/17 06:37 07/05/17 06:37 07/05/17 06:37 07/05/17 06:37 07/05/17 06:37 Laboratory Results 06/30/17 10:10 06/30/17 10:10 07/04/17 07/05/17 07/06/17 05:59 05:59 05:59 Intake Total 765 900 120 Output Total 400 550 Balance 365 350 120 Physical Exam - Physical Exam General Appearance: WD/WN, alert, no apparent distress, thin Respiratory: normal breath sounds, No crackles, No rhonchi, No wheezing Cardiac/Chest: regular rate, rhythm, No diastolic murmur, No systolic murmur Skin: normal color, warm/dry Neuro/Psych: alert, normal mood/affect, oriented x 3, cognition abnormalities ( Does not recall medication changes, which were discussed with her yesterday.), other (Mild cogwheeling bilateral upper extremity. Minimal tremor bilateral upper [place].) ICD10 Worksheet Patient Problems: Problems Problem Status Onset Transient ischemic attack Active Delirium Acute Generalized weakness Acute Hypertension Acute Hypocalcemia Acute Intracranial hemorrhage following injury Acute Subdural hematoma, acute Acute
[2017-07-05] MEDS: MULTIVITAMINS 1 EACH TAB PO SCH (17:57)
[2017-07-05] MEDS: ATORVASTATIN CALCIUM 20 MG TAB PO SCH (21:11)
[2017-07-05] MEDS: CHOLECALCIFEROL VIT D3 1,000 UNITS TAB PO SCH (21:12)
[2017-07-05] MEDS: clonazePAM 0.5 MG TAB PO SCH (21:12)
[2017-07-06] MEDS: AMANTADINE HCL 100 MG CAP PO SCH ×2 (05:43→13:35)
[2017-07-06] MEDS: ENTACAPONE 200 MG TAB PO SCH ×4 (05:44→17:41)
[2017-07-06] MEDS: CARBIDOPA/LEVODOPA 25 MG/100 MG TAB PO SCH ×5 (05:45→17:42)
[2017-07-06] MEDS: LEVOTHYROXINE 50 MCG TAB PO SCH (05:45)
[2017-07-06] MEDS: CALCIUM CARBONATE 500 MG TAB PO SCH ×2 (07:58→20:42)
[2017-07-06] MEDS: DOCUSATE SODIUM 100 MG CAP PO SCH ×2 (07:58→20:42)
[2017-07-06] MEDS: PRESERVISION AREDS2 FORMULA EYE VIT 1 EACH PO SCH ×2 (07:58→20:42)
[2017-07-06] MEDS: CITALOPRAM 20 MG TAB PO SCH (07:58)
[2017-07-06] MEDS: ROPINIROLE HCL 4 MG PO SCH ×2 (08:03→20:43)
--- NOTE | 2017-07-06 13:45 | SOAPPROG ---
SOAP Progress Note Assessment/Plan: Assessment: 76-year-old woman with almost 30 years of Parkinson's disease and recently increased falls and confusion. * Parkinson disease. Continue carbidopa/levodopa, entacapone and ropinirole. Discussed with primary neurologist Dr. Winslow ([phone]) 07/04/2009. Advised changing from Sinemet CR to Sinemet a release for better absorption. * Appears to have improved movements on modified medication on 07/05/2017. * She woul dlike more medication to prevent freezing; tolerates a few dyskinesias. Will increase Sinemet frequency from 4X/day to 5X/day, as suggested by Dr. Winslow. * Deficits to mobility and activities of daily living due to recent frequent falls and confusion, improved with medication adjustments in the hospital. * Initial functional independence measure of 62 on 06/30/2017. She she can arise from sit to stand with standby assist. She ambulated for 250 ft with standby assist and a front wheeled walker. She is initially retropulsive but subsequently ambulates better. She requires moderate assistance for upper body dressing and moderate to maximal assistance for lower body dressing. Her ambulation is more difficult in a small space or when frequent maneuvering is necessary. OT notes difficulty to let go of the walker to pull up her pants. She required moderate to moderate assistance for showering and maximal assistance for toileting. * Decreased function regarding ambulation over several days as of 07/03/2017. Better 07/05/2017 after medication adjustments 07/04/2017. * Continue PT and OT to optimize mobility and activities of daily living to the modified independence to independent level for transfers, ambulation and eating. Expect her to require assistance for other ADLs. * Cognitive impairment with likely recent delirium due to medications and possible sleep disturbance. Medications have been adjusted in the hospital, with discontinuation of hydralazine, decreasing clonazepam, decrease in ropinirole and decrease in amantadine. 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 Noted to be worse than on her prior rehabilitation stay last fall. 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 * Seizure 06/30/2017. * No obvious etiology from lab tests or head CT. * Discussed with neurologist Dr. Winslow. Unlikely related to Parkinson's disease or parkinsonian medications. Consider hydralazine withdrawal. Unable to predict likelihood of a subsequent seizure. Also had reduction in dose of clonazepam from 0.5 to 0.25 mg while in the hospital. * Patient does not want to add another medication. Will not continue levetiracetam; had 1 dose this morning after seizure 06/30/2017 Will resume 0.5 mg dose of clonazepam at bedtime. * Insomnia and REM sleep disorder. Continue clonazepam. Increased dose from 0.25 mg at bedtime to 0.5 mg starting 06/30/2017. With increased clonazepam, discontinued quetiapine. Sleeping well. * Hypertension with hydralazine having been discontinued due to history of falls and confusion and possible cognitive effects. * Blood pressure was elevated the evening of 06/27/2017. Otherwise adequate control. * She is markedly orthostatic, with 43 point drop in systolic blood pressure from supine to standing and no change in heart rate. * Continue to monitor. Will not initiate any antihypertensives at present. * Had been on HS propranolol initiated during her prior rehabilitation stay last fall. Dr. Winslow reports that her quality improvement consultant preferred hydralazine. 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 * XR L hand ruled out dislocation or fracture 06/29/2017. * OT reports extensor tendon out of place over 3rd MCP. Has initiated taping. Reports full range of motion. * OT will focus on maximizing range of motion and use of the fingers. * Congestive heart failure, with elevated BNP in the hospital and pulmonary hypertension on echocardiogram. * Appears compensated at present, with no need for oxygen and no dyspnea noted with activities. * Would exercise caution with diuretics due to orthostatic hypotension. * Hypothyroidism. Continue levothyroxine. * Dyslipidemia. Continue atorvastatin. * Depression. Continue citalopram and consider titrating or augmenting with alternative medications. * Prophylaxis. She appears to have had good mobility. Ambulating 250 ft or more. Discontinued enoxaparin starting 07/01/2017. Followup. Her primary care provider is Dr. Antonia Jefferson. She will also follow up with Dr. Winslow at the [facility]. She had 24 hr care with a home care agency augmenting her 's availability , who works signal timer. She will likely continue to need 24 hr supervision. She will continue home OT, PT and GROUP DYNAMICS INSTRUCTOR after discharge. Discharge date is 2017. 07/06/17 13:43 Subjective: Doing well today but felt better yesterday. Had an episode of dyskinesia this morning which she did not find bothersome. She would rather avoid freezing episodes. Otherwise without complaints. Objective: Vital Signs Temp Pulse Resp BP Pulse Ox 36.8 C 59 L 16 140/67 H 96 07/06/17 06:19 07/06/17 06:19 07/06/17 06:19 07/06/17 06:19 07/06/17 06:19 Laboratory Results 06/30/17 10:10 06/30/17 10:10 07/05/17 07/06/17 07/07/17 05:59 05:59 05:59 Intake Total 900 730 110 Output Total 550 250 Balance 350 480 110 Physical Exam - Physical Exam General Appearance: WD/WN, alert, no apparent distress Respiratory: No respiratory distress, No accessory muscle use Skin: normal color, warm/dry Neuro/Psych: alert, normal mood/affect, oriented x 3, cognition abnormalities ( Does not recall specifics of Sinemet dose changes yesterday.) ICD10 Worksheet Patient Problems: Problems Problem Status Onset Transient ischemic attack Active Delirium Acute Generalized weakness Acute Hypertension Acute Hypocalcemia Acute Intracranial hemorrhage following injury Acute Subdural hematoma, acute Acute
[2017-07-06] MEDS: MULTIVITAMINS 1 EACH TAB PO SCH (17:41)
[2017-07-06] MEDS: ACETAMINOPHEN 325 MG TAB PO PRN (19:21)
[2017-07-06] MEDS: ATORVASTATIN CALCIUM 20 MG TAB PO SCH (20:42)
[2017-07-06] MEDS: CHOLECALCIFEROL VIT D3 1,000 UNITS TAB PO SCH (20:42)
[2017-07-06] MEDS: clonazePAM 0.5 MG TAB PO SCH (20:42)
[2017-07-07] MEDS: AMANTADINE HCL 100 MG CAP PO SCH ×2 (06:09→14:52)
[2017-07-07] MEDS: LEVOTHYROXINE 50 MCG TAB PO SCH (06:09)
[2017-07-07] MEDS: CARBIDOPA/LEVODOPA 25 MG/100 MG TAB PO SCH ×5 (06:09→18:14)
[2017-07-07] MEDS: ENTACAPONE 200 MG TAB PO SCH ×4 (06:09→18:14)
[2017-07-07] MEDS: ROPINIROLE HCL 4 MG PO SCH ×2 (09:10→21:55)
[2017-07-07] MEDS: CITALOPRAM 20 MG TAB PO SCH (09:10)
[2017-07-07] MEDS: PRESERVISION AREDS2 FORMULA EYE VIT 1 EACH PO SCH ×2 (09:10→21:31)
[2017-07-07] MEDS: DOCUSATE SODIUM 100 MG CAP PO SCH ×2 (09:10→21:31)
[2017-07-07] MEDS: CALCIUM CARBONATE 500 MG TAB PO SCH ×2 (09:10→21:31)
--- NOTE | 2017-07-07 11:17 | SOAPPROG ---
SOAP Progress Note Assessment/Plan: Assessment: 76-year-old woman with almost 30 years of Parkinson's disease and recently increased falls and confusion. * Parkinson disease. Continue carbidopa/levodopa, entacapone and ropinirole. Discussed with primary neurologist Dr. Winslow ([phone]) 07/04/2009. Advised changing from Sinemet CR to Sinemet a release for better absorption. * Appears to have improved movements on modified medication on 07/05/2017. * She would like more medication to prevent freezing; tolerates a few dyskinesias. Will increase Sinemet frequency from 4X/day to 5X/day, as suggested by Dr. Winslow. * Significant decline in function noted by nursing and therapy staff 07/07/2017, needing more assistance for mobility and ADLs, having more confusion, and with new urinary incontinence. Timing is independent of Sinemet dosing. Head CT 1 week ago was unchanged from recent previous brain imaging. CBC and BMP are unrevealing 07/07/2017. suggested checking H pylori antigen as H pylori may interfere with absorption of Sinemet. * Function much improved this afternoon. Today is the 1st day of 5 times a day Sinemet. Continue to monitor. * Deficits to mobility and activities of daily living due to recent frequent falls and confusion, improved with medication adjustments in the hospital. * Initial functional independence measure of 62 on 06/30/2017; decline to 56 as of 07/07/2017. Now requiring moderate assistance for bed mobility and moderate to maximal assistance for transfers; had been standby assist. Minimal assist for ambulation; had been standby assist. Variable regarding ADLs requiring standby to moderate assist for upper body dressing and minimal to total assist for lower body dressing. * Decreased function regarding ambulation over several days as of 07/03/2017. Was initially better 07/05/2017 after medication adjustments 07/04/2017 but now declining again.. * Continue PT and OT to optimize mobility and activities of daily living to the modified independence to independent level for transfers, ambulation and eating. Expect her to require assistance for other ADLs. * Cognitive impairment with likely recent delirium due to medications and possible sleep disturbance. Medications have been adjusted in the hospital, with discontinuation of hydralazine, decreasing clonazepam, decrease in ropinirole and decrease in amantadine. 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 Noted to be worse than on her prior rehabilitation stay last fall. 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 * Seizure 06/30/2017. * No obvious etiology from lab tests or head CT. * Discussed with neurologist Dr. Winslow. Unlikely related to Parkinson's disease or parkinsonian medications. Consider hydralazine withdrawal. Unable to predict likelihood of a subsequent seizure. Also had reduction in dose of clonazepam from 0.5 to 0.25 mg while in the hospital. * Patient does not want to add another medication. Will not continue levetiracetam; had 1 dose this morning after seizure 06/30/2017 Will resume 0.5 mg dose of clonazepam at bedtime. * Insomnia and REM sleep disorder. Continue clonazepam. Increased dose from 0.25 mg at bedtime to 0.5 mg starting 06/30/2017. Had been up to 1 mg at HS at home. With increased clonazepam, discontinued quetiapine. Sleeping well. * Hypertension with hydralazine having been discontinued due to history of falls and confusion and possible cognitive effects. * Blood pressure was elevated the evening of 06/27/2017. Otherwise adequate control. * She is markedly orthostatic, with 43 point drop in systolic blood pressure from supine to standing and no change in heart rate. * Continue to monitor. Will not initiate any antihypertensives at present. * Had been on HS propranolol initiated during her prior rehabilitation stay last fall. Dr. Winslow reports that her food consultant preferred hydralazine. 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 * XR L hand ruled out dislocation or fracture 06/29/2017. * OT reports extensor tendon out of place over 3rd MCP. Has initiated taping. Reports full range of motion. * OT will focus on maximizing range of motion and use of the fingers. * Congestive heart failure, with elevated BNP in the hospital and pulmonary hypertension on echocardiogram. * Appears compensated at present, with no need for oxygen and no dyspnea noted with activities. * Would exercise caution with diuretics due to orthostatic hypotension. * Hypothyroidism. Continue levothyroxine. Normal TSH in the hospital. * Dyslipidemia. Continue atorvastatin. * Depression. Continue citalopram and consider titrating or augmenting with alternative medications. * Prophylaxis. She appears to have had good mobility. Ambulating 250 ft or more. Discontinued enoxaparin starting 07/01/2017. Followup. Her primary care provider is Dr. Antonia Jefferson. She will also follow up with Dr. Winslow at the [facility]. Attended staffing, 15 min. Discussed with case management, dietitian, nursing, PT, OT, JOURNEYMAN PRESS OPERATOR. She had 24 hr care with a home care agency augmenting her ' s availability, who works full time staff interpreter. She will likely continue to need 24 hr supervision. She will continue home OT, PT and JOURNEYMAN PRESS OPERATOR after discharge. Discharge date depends on functional status. repertoire manager to continue to work with and patient. 07/07/17 14:20 Subjective: Had urinary incontinence x2 yesterday. Had episode of freezing needing 2 person assist to transfer onto the commode this morning several days ago was standby assist with cane for ambulation and currently requires minimal assist with cues and front wheeled walker. Feels thirsty but denies orthostatic symptoms. No fevers or chills, no cough or dyspnea. Objective: Vital Signs Temp Pulse Resp BP Pulse Ox 36.1 C 63 16 167/88 H 96 07/07/17 06:25 07/07/17 06:25 07/07/17 06:25 07/07/17 06:25 07/07/17 06:25 Laboratory Results 06/30/17 10:10 06/30/17 10:10 07/06/17 07/07/17 07/08/17 05:59 05:59 05:59 Intake Total 730 428 240 Output Total 250 800 Balance 480 -372 240 - Time Spent With Patient Time Spent With Patient: Greater than 35 min floor time today, including more than 50% of time in coordination of care during staffing meeting, and counseling patient. Physical Exam - Physical Exam General Appearance: WD/WN, alert, no apparent distress, thin Respiratory: normal breath sounds, No crackles, No rhonchi, No wheezing Cardiac/Chest: regular rate, rhythm, No edema, No JVD, No diastolic murmur, No systolic murmur Skin: normal color, warm/dry Neuro/Psych: alert, normal mood/affect, abnormal gait ICD10 Worksheet Patient Problems: Problems Problem Status Onset Transient ischemic attack Active Delirium Acute Generalized weakness Acute Hypertension Acute Hypocalcemia Acute Intracranial hemorrhage following injury Acute Subdural hematoma, acute Acute
[2017-07-07 12:33] LABS: PLATELET COUNT 393 10^3/uL (150-400)
[2017-07-07] MEDS: MULTIVITAMINS 1 EACH TAB PO SCH (18:14)
[2017-07-07] MEDS: CHOLECALCIFEROL VIT D3 1,000 UNITS TAB PO SCH (21:31)
[2017-07-07] MEDS: ATORVASTATIN CALCIUM 20 MG TAB PO SCH (21:31)
[2017-07-07] MEDS: clonazePAM 0.5 MG TAB PO SCH (21:32)
[2017-07-08] MEDS: ACETAMINOPHEN 325 MG TAB PO PRN (04:08)
[2017-07-08] MEDS: CARBIDOPA/LEVODOPA 25 MG/100 MG TAB PO SCH ×5 (06:05→18:33)
[2017-07-08] MEDS: AMANTADINE HCL 100 MG CAP PO SCH ×2 (06:05→13:06)
[2017-07-08] MEDS: LEVOTHYROXINE 50 MCG TAB PO SCH (06:05)
[2017-07-08] MEDS: ENTACAPONE 200 MG TAB PO SCH ×4 (06:56→18:33)
[2017-07-08] MEDS: CITALOPRAM 20 MG TAB PO SCH (09:03)
[2017-07-08] MEDS: DOCUSATE SODIUM 100 MG CAP PO SCH ×2 (09:03→21:35)
[2017-07-08] MEDS: CALCIUM CARBONATE 500 MG TAB PO SCH ×2 (09:03→21:35)
[2017-07-08] MEDS: PRESERVISION AREDS2 FORMULA EYE VIT 1 EACH PO SCH ×2 (09:03→21:35)
[2017-07-08] MEDS: ROPINIROLE HCL 4 MG PO SCH ×2 (10:14→21:38)
--- NOTE | 2017-07-08 10:46 | SOAPPROG ---
SOAP Progress Note Assessment/Plan: Assessment: SOAP Progress Note Assessment/Plan: Assessment: 76-year-old woman with almost 30 years of Parkinson's disease and recently increased falls and confusion. * Parkinson disease. Continue carbidopa/levodopa, entacapone and ropinirole. Discussed with primary neurologist Dr. Winslow ([phone]) 07/04/2009. Advised changing from Sinemet CR to Sinemet a release for better absorption. * Appears to have improved movements on modified medication on 07/05/2017. * She would like more medication to prevent freezing; tolerates a few dyskinesias. Will increase Sinemet frequency from 4X/day to 5X/day, as suggested by Dr. Winslow. * Significant decline in function noted by nursing and therapy staff 07/07/2017, needing more assistance for mobility and ADLs, having more confusion, and with new urinary incontinence. Timing is independent of Sinemet dosing. Head CT 1 week ago was unchanged from recent previous brain imaging. WILL ASK NURSING TO MONITOR PATIENT FOR SIGNS OF URINARY TRACT INFECTION. CBC and BMP are unrevealing 07/07/2017. suggested checking H pylori antigen as H pylori may interfere with absorption of Sinemet. * Function much improved this afternoon. Today is the 1st day of 5 times a day Sinemet. Continue to monitor. * Deficits to mobility and activities of daily living due to recent frequent falls and confusion, improved with medication adjustments in the hospital. * Initial functional independence measure of 62 on 06/30/2017; decline to 56 as of 07/07/2017. Now requiring moderate assistance for bed mobility and moderate to maximal assistance for transfers; had been standby assist. Minimal assist for ambulation; had been standby assist. Variable regarding ADLs requiring standby to moderate assist for upper body dressing and minimal to total assist for lower body dressing. * Decreased function regarding ambulation over several days as of 07/03/2017. Was initially better 07/05/2017 after medication adjustments 07/04/2017 but now declining again.. * Continue PT and OT to optimize mobility and activities of daily living to the modified independence to independent level for transfers, ambulation and eating. Expect her to require assistance for other ADLs. * Cognitive impairment with likely recent delirium due to medications and possible sleep disturbance. Medications have been adjusted in the hospital, with discontinuation of hydralazine, decreasing clonazepam, decrease in ropinirole and decrease in amantadine. 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 Noted to be worse than on her prior rehabilitation stay last fall. 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 * Seizure 06/30/2017. * No obvious etiology from lab tests or head CT. * Discussed with neurologist Dr. Winslow. Unlikely related to Parkinson's disease or parkinsonian medications. Consider hydralazine withdrawal. Unable to predict likelihood of a subsequent seizure. Also had reduction in dose of clonazepam from 0.5 to 0.25 mg while in the hospital. * Patient does not want to add another medication. Will not continue levetiracetam; had 1 dose this morning after seizure 06/30/2017 Will resume 0.5 mg dose of clonazepam at bedtime. * Insomnia and REM sleep disorder. Continue clonazepam. Increased dose from 0.25 mg at bedtime to 0.5 mg starting 06/30/2017. Had been up to 1 mg at HS at home. With increased clonazepam, discontinued quetiapine. Sleeping well. * Hypertension with hydralazine having been discontinued due to history of falls and confusion and possible cognitive effects. * Blood pressure THIS A.M. 180/76. THEREFORE WILL HOLD OFF ON ADDING PROPRANOLOL. * She is markedly orthostatic, with 43 point drop in systolic blood pressure from supine to standing and no change in heart rate. SHE IS NOT COMPLAINING OF ORTHOSTATIC TYPE SYMPTOMS THIS MORNING. * Continue to monitor. Will not initiate any antihypertensives at present. * Had been on HS propranolol initiated during her prior rehabilitation stay last fall. Dr. Winslow reports that her big machine consultant preferred hydralazine. 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 * XR L hand ruled out dislocation or fracture 06/29/2017. * OT reports extensor tendon out of place over 3rd MCP. Has initiated taping. Reports full range of motion. * OT will focus on maximizing range of motion and use of the fingers. * Congestive heart failure, with elevated BNP in the hospital and pulmonary hypertension on echocardiogram. * Appears compensated at present, with no need for oxygen and no dyspnea noted with activities. * Would exercise caution with diuretics due to orthostatic hypotension. * Hypothyroidism. Continue levothyroxine. Normal TSH in the hospital. * Dyslipidemia. Continue atorvastatin. * Depression. Continue citalopram and consider titrating or augmenting with alternative medications. * Prophylaxis. She appears to have had good mobility. Ambulating 250 ft or more. Discontinued enoxaparin starting 07/01/2017. Followup. Her primary care provider is Dr. Antonia Jefferson. She will also follow up with Dr. Winslow at the [facility]. Plan: 07/08/17 10:43 Subjective: SHE REPORTS THAT SHE INTERMITTENTLY FEELS VERY HEAVY, AND LIE CONSIST TO HAVING A 200 LB BACKPACK ON. SHE UNDERSTANDS THAT HER SINEMET DOSAGE WAS CHANGED WELL THE FREQUENCY. SHE DENIES FEELING ORTHOSTATIC IN THE PAST DAY OR SO. SHE DENIES NEW ONSET OF UPPER OR LOWER EXTREMITY WEAKNESS. SHE DOES NOT REPORT THAT HER TREMOR HAS WORSENED. Objective: Vital Signs Temp Pulse Resp BP Pulse Ox 36.3 C 76 17 180/76 H 90 L 07/08/17 06:42 07/08/17 06:42 07/08/17 06:42 07/08/17 06:42 07/08/17 06:42 Laboratory Results 07/07/17 11:45 07/07/17 11:45 07/07/17 07/08/17 07/09/17 05:59 05:59 05:59 Intake Total 428 610 240 Output Total 800 600 300 Balance -372 10 -60 Physical Exam - Physical Exam General Appearance: WD/WN, alert, no apparent distress, thin Respiratory: lungs clear, normal breath sounds Cardiac/Chest: No edema Abdomen: normal bowel sounds, non-tender, soft Skin: normal color, warm/dry Extremities: normal range of motion, No swelling, No Jesus's sign Neuro/Psych: motor weakness (GENERALLY GOOD UPPER AND LOWER EXTREMITY STRENGTH. TREMOR NOTED.) ICD10 Worksheet Patient Problems: Problems Problem Status Onset Transient ischemic attack Active Delirium Acute Generalized weakness Acute Hypertension Acute Hypocalcemia Acute Intracranial hemorrhage following injury Acute Subdural hematoma, acute Acute
[2017-07-08] MEDS: MULTIVITAMINS 1 EACH TAB PO SCH (18:33)
[2017-07-08] MEDS: ATORVASTATIN CALCIUM 20 MG TAB PO SCH (21:34)
[2017-07-08] MEDS: clonazePAM 0.5 MG TAB PO SCH (21:36)
[2017-07-08] MEDS: CHOLECALCIFEROL VIT D3 1,000 UNITS TAB PO SCH (21:36)
[2017-07-09] MEDS: LEVOTHYROXINE 50 MCG TAB PO SCH (06:19)
[2017-07-09] MEDS: CARBIDOPA/LEVODOPA 25 MG/100 MG TAB PO SCH ×5 (06:19→18:37)
[2017-07-09] MEDS: AMANTADINE HCL 100 MG CAP PO SCH ×2 (06:19→13:00)
[2017-07-09] MEDS: ENTACAPONE 200 MG TAB PO SCH ×4 (06:19→18:37)
[2017-07-09] MEDS: CITALOPRAM 20 MG TAB PO SCH (09:50)
[2017-07-09] MEDS: CALCIUM CARBONATE 500 MG TAB PO SCH ×2 (09:50→20:21)
[2017-07-09] MEDS: PRESERVISION AREDS2 FORMULA EYE VIT 1 EACH PO SCH ×2 (09:51→20:21)
[2017-07-09] MEDS: DOCUSATE SODIUM 100 MG CAP PO SCH ×2 (09:51→20:22)
[2017-07-09] MEDS: ROPINIROLE HCL 4 MG PO SCH ×2 (09:51→20:28)
--- NOTE | 2017-07-09 10:17 | SOAPPROG ---
SOAP Progress Note Assessment/Plan: Assessment: SOAP Progress Note Assessment/Plan: Assessment: 76-year-old woman with almost 30 years of Parkinson's disease and recently increased falls and confusion. * Parkinson disease. Continue carbidopa/levodopa, entacapone and ropinirole. Discussed with primary neurologist Dr. Winslow ([phone]) 07/04/2009. Advised changing from Sinemet CR to Sinemet a release for better absorption. * Appears to have improved movements on modified medication on 07/05/2017. * She would like more medication to prevent freezing; tolerates a few dyskinesias. Will increase Sinemet frequency from 4X/day to 5X/day, as suggested by Dr. Winslow. * Significant decline in function noted by nursing and therapy staff 07/07/2017, needing more assistance for mobility and ADLs, having more confusion, and with new urinary incontinence. Timing is independent of Sinemet dosing. Head CT 1 week ago was unchanged from recent previous brain imaging. H PYLORI ANTIGEN CAME BACK POSITIVE. REVIEWED THIS WITH THE PATIENT AND EXPLAINED TO HER THAT MOST LIKELY DR. OWEN WILL TALK TO HER NEUROLOGIST ABOUT TREATING THIS ON THE BASIS THAT IT MAY CAUSE DECREASED ABSORPTION OF THE SINEMET, HOWEVER WILL NOT START TREATMENT FOR THIS TODAY AND SHE AGREED WITH THIS. * Function much improved this afternoon. Today is the 1st day of 5 times a day Sinemet. Continue to monitor. * Deficits to mobility and activities of daily living due to recent frequent falls and confusion, improved with medication adjustments in the hospital. * Initial functional independence measure of 62 on 06/30/2017; decline to 56 as of 07/07/2017. Now requiring moderate assistance for bed mobility and moderate to maximal assistance for transfers; had been standby assist. Minimal assist for ambulation; had been standby assist. Variable regarding ADLs requiring standby to moderate assist for upper body dressing and minimal to total assist for lower body dressing. * Decreased function regarding ambulation over several days as of 07/03/2017. Was initially better 07/05/2017 after medication adjustments 07/04/2017 but now declining again.. * Continue PT and OT to optimize mobility and activities of daily living to the modified independence to independent level for transfers, ambulation and eating. Expect her to require assistance for other ADLs. * Cognitive impairment with likely recent delirium due to medications and possible sleep disturbance. Medications have been adjusted in the hospital, with discontinuation of hydralazine, decreasing clonazepam, decrease in ropinirole and decrease in amantadine. 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 Noted to be worse than on her prior rehabilitation stay last fall. 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 * Seizure 06/30/2017. * No obvious etiology from lab tests or head CT. * Discussed with neurologist Dr. Winslow. Unlikely related to Parkinson's disease or parkinsonian medications. Consider hydralazine withdrawal. Unable to predict likelihood of a subsequent seizure. Also had reduction in dose of clonazepam from 0.5 to 0.25 mg while in the hospital. * Patient does not want to add another medication. Will not continue levetiracetam; had 1 dose this morning after seizure 06/30/2017 Will resume 0.5 mg dose of clonazepam at bedtime. * Insomnia and REM sleep disorder. Continue clonazepam. Increased dose from 0.25 mg at bedtime to 0.5 mg starting 06/30/2017. Had been up to 1 mg at HS at home. With increased clonazepam, discontinued quetiapine. Sleeping well. * Hypertension with hydralazine having been discontinued due to history of falls and confusion and possible cognitive effects. * BLOOD PRESSURE THIS MORNING 188/89 THEREFORE, WILL BEGIN PROPRANOLOL 10 MG AT BEDTIME. * Had been on HS propranolol initiated during her prior rehabilitation stay last fall. Dr. Winslow reports that her wardrobe consultant preferred hydralazine. 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 * XR L hand ruled out dislocation or fracture 06/29/2017. * OT reports extensor tendon out of place over 3rd MCP. Has initiated taping. Reports full range of motion. * OT will focus on maximizing range of motion and use of the fingers. * Congestive heart failure, with elevated BNP in the hospital and pulmonary hypertension on echocardiogram. * Appears compensated at present, with no need for oxygen and no dyspnea noted with activities. * Would exercise caution with diuretics due to orthostatic hypotension. * Hypothyroidism. Continue levothyroxine. Normal TSH in the hospital. * Dyslipidemia. Continue atorvastatin. * Depression. Continue citalopram and consider titrating or augmenting with alternative medications. * Prophylaxis. She appears to have had good mobility. Ambulating 250 ft or more. Discontinued enoxaparin starting 07/01/2017. Followup. Her primary care provider is Dr. Antonia Jefferson. She will also follow up with Dr. Winslow at the [facility]. Plan: 07/08/17 10:43 07/09/17 10:19 Subjective: SHE REPORTS THAT SHE FEELS THE BENEFICIAL EFFECTS OF THE SINEMET FOR 1-2 HOURS. SHE STATES THAT WHEN SHE FEELS THE SINEMET IS WORKING SHE REALLY FEELS GOOD BUT WHEN IT'S NOT WORKING SHE CAN TELL. Objective: Vital Signs Temp Pulse Resp BP Pulse Ox 36.4 C 73 18 188/89 H 92 07/09/17 04:22 07/09/17 04:22 07/09/17 04:22 07/09/17 04:22 07/09/17 04:22 Laboratory Results 07/07/17 11:45 07/07/17 11:45 07/08/17 07/09/17 07/10/17 05:59 05:59 05:59 Intake Total 610 920 0 Output Total 600 1350 Balance 10 -430 0 Physical Exam - Physical Exam General Appearance: WD/WN, alert, no apparent distress Respiratory: chest non-tender, lungs clear Abdomen: normal bowel sounds, non-tender, soft Extremities: No swelling, No Jesus's sign Neuro/Psych: motor weakness (POSITIVE RESTING TREMOR BOTH UPPER EXTREMITIES.) ICD10 Worksheet Patient Problems: Problems Problem Status Onset Transient ischemic attack Active Delirium Acute Generalized weakness Acute Hypertension Acute Hypocalcemia Acute Intracranial hemorrhage following injury Acute Subdural hematoma, acute Acute
[2017-07-09] MEDS: MULTIVITAMINS 1 EACH TAB PO SCH (18:37)
[2017-07-09] MEDS: CHOLECALCIFEROL VIT D3 1,000 UNITS TAB PO SCH (20:19)
[2017-07-09] MEDS: clonazePAM 0.5 MG TAB PO SCH (20:22)
[2017-07-09] MEDS: PROPRANOLOL HCL 10 MG TAB PO SCH (20:22)
[2017-07-09] MEDS: ATORVASTATIN CALCIUM 20 MG TAB PO SCH (20:22)
[2017-07-10] MEDS: CARBIDOPA/LEVODOPA 25 MG/100 MG TAB PO SCH ×5 (06:05→18:02)
[2017-07-10] MEDS: AMANTADINE HCL 100 MG CAP PO SCH ×2 (06:05→14:03)
[2017-07-10] MEDS: LEVOTHYROXINE 50 MCG TAB PO SCH (06:05)
[2017-07-10] MEDS: ENTACAPONE 200 MG TAB PO SCH ×4 (07:16→18:02)
[2017-07-10] MEDS: ROPINIROLE HCL 4 MG PO SCH ×2 (09:07→21:33)
[2017-07-10] MEDS: DOCUSATE SODIUM 100 MG CAP PO SCH ×2 (09:07→21:23)
[2017-07-10] MEDS: CALCIUM CARBONATE 500 MG TAB PO SCH ×2 (09:08→21:24)
[2017-07-10] MEDS: PRESERVISION AREDS2 FORMULA EYE VIT 1 EACH PO SCH ×2 (09:08→21:23)
[2017-07-10] MEDS: CITALOPRAM 20 MG TAB PO SCH (09:08)
--- NOTE | 2017-07-10 09:50 | SOAPPROG ---
SOAP Progress Note Assessment/Plan: Assessment: 76-year-old woman with almost 30 years of Parkinson's disease and recently increased falls and confusion. * Parkinson disease. Continue carbidopa/levodopa, entacapone and ropinirole. Discussed with primary neurologist Dr. Winslow ([phone]) 07/04/2009. Advised changing from Sinemet CR to Sinemet a release for better absorption. * Transient improvement 07/05/2017 when changed from Sinemet CR to minute release but subsequently had further decline. * Sinemet changed to 5 times a day on 07/06/2017. Has marked fluctuations. Sinemet affect seems to last 1.5 to 2 hr. Does well when she is on but needs up to 2 person assist for transfer when she is off. * Fell last night , 07/09 to 07/10/2017, when attempting to self transfer. * Deficits to mobility and activities of daily living due to recent frequent falls and confusion, improved with medication adjustments in the hospital. * Initial functional independence measure of 62 on 06/30/2017; decline to 56 as of 07/07/2017. Now requiring moderate assistance for bed mobility and moderate to maximal assistance for transfers; had been standby assist. Minimal assist for ambulation; had been standby assist. Variable regarding ADLs requiring standby to moderate assist for upper body dressing and minimal to total assist for lower body dressing. * Decreased function regarding ambulation over several days as of 07/03/2017. Was initially better 07/05/2017 after medication adjustments 07/04/2017 but now declining again.. * Continue PT and OT to optimize mobility and activities of daily living to the modified independence to independent level for transfers, ambulation and eating. Expect her to require assistance for other ADLs. * H. Pylori antigen positive. Testing suggested by . * Dr. Barnett advises treatment. H pylori affect on Sinemet absorption and improvement after treatment is well documented in the literature. * Will proceed with pantoprazole 40 mg BID, clarithromycin 500 mg BID ernesto amoxicillin 1000 mg BID X 14 days. * Check EKG due to risk for QT prolongation with clarithromycin plus citalopram. Normal QT interval 12/31/2016; EKG checked for chest pain in the hospital. * Cognitive impairment with likely recent delirium due to medications and possible sleep disturbance. Medications have been adjusted in the hospital, with discontinuation of hydralazine, decreasing clonazepam, decrease in ropinirole and decrease in amantadine. 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 Noted to be worse than on her prior rehabilitation stay last fall. 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 * Seizure 06/30/2017. * No obvious etiology from lab tests or head CT. * Discussed with neurologist Dr. Winslow. Unlikely related to Parkinson's disease or parkinsonian medications. Consider hydralazine withdrawal. Unable to predict likelihood of a subsequent seizure. Also had reduction in dose of clonazepam from 0.5 to 0.25 mg while in the hospital. * Patient does not want to add another medication. Will not continue levetiracetam; had 1 dose this morning after seizure 06/30/2017 Will resume 0.5 mg dose of clonazepam at bedtime. * Insomnia and REM sleep disorder. Continue clonazepam. Increased dose from 0.25 mg at bedtime to 0.5 mg starting 06/30/2017. Had been up to 1 mg at HS at home. With increased clonazepam, discontinued quetiapine. Sleeping well. * Hypertension with hydralazine having been discontinued due to history of falls and confusion and possible cognitive effects. * Propranolol begun at 10 mg at bedtime on 07/09/2017 for elevated blood pressures noted on morning testing. * She is markedly orthostatic, with 43 point drop in systolic blood pressure from supine to standing and no change in heart rate. * Monitor for orthostatic symptoms. Continue to monitor blood pressures. 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 * XR L hand ruled out dislocation or fracture 06/29/2017. * OT reports extensor tendon out of place over 3rd MCP. Has initiated taping. Reports full range of motion. * OT will focus on maximizing range of motion and use of the fingers. * Congestive heart failure, with elevated BNP in the hospital and pulmonary hypertension on echocardiogram. * Appears compensated at present, with no need for oxygen and no dyspnea noted with activities. * Would exercise caution with diuretics due to orthostatic hypotension. * Hypothyroidism. Continue levothyroxine. Normal TSH in the hospital. * Dyslipidemia. Continue atorvastatin. * Depression. Continue citalopram and consider titrating or augmenting with alternative medications. * Prophylaxis. She appears to have had good mobility. Ambulating 250 ft or more. Discontinued enoxaparin starting 07/01/2017. Followup. Her primary care provider is Dr. Antonia Jefferson. She will also follow up with Dr. Winslow at the [facility]. She had 24 hr care with a home care agency augmenting her 's availability , who works night time babysitter. She will likely continue to need 24 hr supervision. She will continue home OT, PT and CREDIT OPERATIONS PROCESSOR after discharge. Discharge set for 2017. 07/10/17 12:51 Subjective: Doing better when she is on. She is walking more. Did grooming and hygiene standing this morning though had loss of balance times in. Mild dyskinesias when she is on. Sinemet dose lasts approximately 1/2 to 2 hr and then she does not as well. Objective: Vital Signs Temp Pulse Resp BP Pulse Ox 36.3 C 59 L 14 152/66 H 94 07/10/17 06:43 07/10/17 06:43 07/10/17 06:43 07/10/17 06:43 07/10/17 06:43 Laboratory Results 07/07/17 11:45 07/07/17 11:45 07/09/17 07/10/17 07/11/17 05:59 05:59 05:59 Intake Total 920 700 Output Total 1350 1200 Balance -430 -500 - Time Spent With Patient Time Spent With Patient: Greater than 35 min floor time today, including discussing H pylori treatment with neurologist Dr. Winslow and with legal process specialist Dr. Mendoza, and reviewing chart regarding previous EKG for QT interval. Physical Exam - Physical Exam General Appearance: WD/WN, alert, no apparent distress, thin Respiratory: No accessory muscle use, No decreased breath sounds Skin: normal color, warm/dry Neuro/Psych: alert, normal mood/affect, oriented x 3, other (Seated in chair. Mild dyskinesias.) ICD10 Worksheet Patient Problems: Problems Problem Status Onset Transient ischemic attack Active Delirium Acute Generalized weakness Acute Hypertension Acute Hypocalcemia Acute Intracranial hemorrhage following injury Acute Subdural hematoma, acute Acute
--- NOTE | 2017-07-10 14:59 | CPEKG ---
Heart Rate: 65 RR Interval: 923 P-R Interval: 192 QRSD Interval: 78 QT Interval: 416 QTC Interval: 433 P [place]: 88 QRS [place]: 74 T Wave [place]: 81 EKG Severity - ABNORMAL ECG - EKG Impression: Sinus rhythm, artifact Electronically Signed By: Clement Bush 11-Jul-2017 19:26:02
[2017-07-10] MEDS: MULTIVITAMINS 1 EACH TAB PO SCH (18:02)
[2017-07-10] MEDS: CHOLECALCIFEROL VIT D3 1,000 UNITS TAB PO SCH (21:20)
[2017-07-10] MEDS: clonazePAM 0.5 MG TAB PO SCH (21:23)
[2017-07-10] MEDS: ATORVASTATIN CALCIUM 20 MG TAB PO SCH (21:24)
[2017-07-10] MEDS: PANTOPRAZOLE SODIUM 40 MG TAB PO SCH (21:24)
[2017-07-10] MEDS: PROPRANOLOL HCL 10 MG TAB PO SCH (21:25)
[2017-07-10] MEDS: CLARITHROMYCIN 500 MG TAB PO SCH (21:32)
[2017-07-11] MEDS: ENTACAPONE 200 MG TAB PO SCH ×4 (05:31→17:52)
[2017-07-11] MEDS: LEVOTHYROXINE 50 MCG TAB PO SCH (05:31)
[2017-07-11] MEDS: AMANTADINE HCL 100 MG CAP PO SCH ×2 (05:32→14:10)
[2017-07-11] MEDS: CARBIDOPA/LEVODOPA 25 MG/100 MG TAB PO SCH ×5 (05:32→17:52)
[2017-07-11] MEDS: DOCUSATE SODIUM 100 MG CAP PO SCH ×2 (08:46→21:44)
[2017-07-11] MEDS: CALCIUM CARBONATE 500 MG TAB PO SCH ×2 (08:46→21:43)
[2017-07-11] MEDS: PRESERVISION AREDS2 FORMULA EYE VIT 1 EACH PO SCH ×2 (08:46→21:43)
[2017-07-11] MEDS: PANTOPRAZOLE SODIUM 40 MG TAB PO SCH ×2 (08:47→21:45)
[2017-07-11] MEDS: CITALOPRAM 20 MG TAB PO SCH (08:47)
[2017-07-11] MEDS: CLARITHROMYCIN 500 MG TAB PO SCH ×2 (08:48→21:45)
[2017-07-11] MEDS: ROPINIROLE HCL 4 MG PO SCH ×2 (08:49→21:59)
--- NOTE | 2017-07-11 13:24 | SOAPPROG ---
SOAP Progress Note Assessment/Plan: Assessment: 76-year-old woman with almost 30 years of Parkinson's disease and recently increased falls and confusion. * Parkinson disease. Continue carbidopa/levodopa, entacapone and ropinirole. Discussed with primary neurologist Dr. Winslow ([phone]) 07/04/2009. Advised changing from Sinemet CR to Sinemet a release for better absorption. * Transient improvement 07/05/2017 when changed from Sinemet CR to minute release but subsequently had further decline. * Sinemet changed to 5 times a day on 07/06/2017. Has marked fluctuations. Sinemet affect seems to last 1.5 to 2 hr. Does well when she is on but needs up to 2 person assist for transfer when she is off. * Fell at night, 07/09 to 07/10/2017, when attempting to self transfer. * Deficits to mobility and activities of daily living due to recent frequent falls and confusion, improved with medication adjustments in the hospital. * Initial functional independence measure of 62 on 06/30/2017; decline to 56 as of 07/07/2017. Now requiring moderate assistance for bed mobility and moderate to maximal assistance for transfers; had been standby assist. Minimal assist for ambulation; had been standby assist. Variable regarding ADLs requiring standby to moderate assist for upper body dressing and minimal to total assist for lower body dressing. * Decreased function regarding ambulation over several days as of 07/03/2017. Was initially better 07/05/2017 after medication adjustments 07/04/2017 but now declining again.. * Continue PT and OT to optimize mobility and activities of daily living to the modified independence to independent level for transfers, ambulation and eating. Expect her to require assistance for other ADLs. * H. Pylori antigen positive. Testing suggested by . * Dr. Barnett advises treatment. H pylori affect on Sinemet absorption and improvement after treatment is well documented in the literature. * Will proceed with pantoprazole 40 mg BID, clarithromycin 500 mg BID ernetso amoxicillin 1000 mg BID X 14 days, starting 07/10/2017. * EKG 07/10/2017 without QT prolongation. Concern due to interaction between clarithromycin and citalopram which both can prolong the QT interval. * Brief literature review: Different studies have documented results at 6 weeks and 12 weeks. * Cognitive impairment with likely recent delirium due to medications and possible sleep disturbance. Medications have been adjusted in the hospital, with discontinuation of hydralazine, decreasing clonazepam, decrease in ropinirole and decrease in amantadine. 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 Noted to be worse than on her prior rehabilitation stay last fall. 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 * Seizure 06/30/2017. * No obvious etiology from lab tests or head CT. * Discussed with neurologist Dr. Winslow. Unlikely related to Parkinson's disease or parkinsonian medications. Consider hydralazine withdrawal. Unable to predict likelihood of a subsequent seizure. Also had reduction in dose of clonazepam from 0.5 to 0.25 mg while in the hospital. * Patient does not want to add another medication. Will not continue levetiracetam; had 1 dose this morning after seizure 06/30/2017 Will resume 0.5 mg dose of clonazepam at bedtime. * Insomnia and REM sleep disorder. Continue clonazepam. Increased dose from 0.25 mg at bedtime to 0.5 mg starting 06/30/2017. Had been up to 1 mg at HS at home. With increased clonazepam, discontinued quetiapine. Sleeping well. * Hypertension with hydralazine having been discontinued due to history of falls and confusion and possible cognitive effects. * Propranolol begun at 10 mg at bedtime on 07/09/2017 for elevated blood pressures noted on morning testing. * She is markedly orthostatic, with 43 point drop in systolic blood pressure from supine to standing and no change in heart rate. * Monitor for orthostatic symptoms. Continue to monitor blood pressures. 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 * XR L hand ruled out dislocation or fracture 06/29/2017. * OT reports extensor tendon out of place over 3rd MCP. Has initiated taping/ brace. Reports full range of motion. * OT will focus on maximizing range of motion and use of the fingers. * Congestive heart failure, with elevated BNP in the hospital and pulmonary hypertension on echocardiogram. * Appears compensated at present, with no need for oxygen and no dyspnea noted with activities. * Would exercise caution with diuretics due to orthostatic hypotension. * Hypothyroidism. Continue levothyroxine. Normal TSH in the hospital. * Dyslipidemia. Continue atorvastatin. * Depression. Continue citalopram and consider titrating or augmenting with alternative medications. * Prophylaxis. She appears to have had good mobility. Ambulating 250 ft or more. Discontinued enoxaparin starting 07/01/2017. Followup. Her primary care provider is Dr. Antonia Jefferson. She will also follow up with Dr. Winslow at the [facility]. She had 24 hr care with a home care agency augmenting her 's availability , who works yellow pages space salesperson. She will likely continue to need 24 hr supervision. She will continue home OT, PT and TOURIST INFORMATION ASSISTANT after discharge. Discharge set for 2017. 07/11/17 13:13 Subjective: Experiencing dyskinesias but they are not bothersome. Has slight nausea but quite tolerable. Otherwise without complaints per Objective: Vital Signs Temp Pulse Resp BP Pulse Ox 36.9 C 54 L 18 132/72 H 96 07/11/17 06:05 07/11/17 06:05 07/11/17 06:05 07/11/17 06:40 07/11/17 06:05 Laboratory Results 07/07/17 11:45 07/07/17 11:45 07/10/17 07/11/17 07/12/17 05:59 05:59 05:59 Intake Total 700 1050 120 Output Total 1200 950 600 Balance -500 100 -480 Physical Exam - Physical Exam General Appearance: WD/WN, alert, no apparent distress, thin Respiratory: No respiratory distress, No accessory muscle use Skin: normal color, warm/dry Neuro/Psych: alert, normal mood/affect, oriented x 3, other (Seated in PT gym, moderate dyskinesias.) ICD10 Worksheet Patient Problems: Problems Problem Status Onset Transient ischemic attack Active Delirium Acute Generalized weakness Acute Hypertension Acute Hypocalcemia Acute Intracranial hemorrhage following injury Acute Subdural hematoma, acute Acute
[2017-07-11] MEDS: MULTIVITAMINS 1 EACH TAB PO SCH (17:51)
[2017-07-11] MEDS: PROPRANOLOL HCL 10 MG TAB PO SCH (21:43)
[2017-07-11] MEDS: ATORVASTATIN CALCIUM 20 MG TAB PO SCH (21:44)
[2017-07-11] MEDS: CHOLECALCIFEROL VIT D3 1,000 UNITS TAB PO SCH (21:45)
[2017-07-11] MEDS: clonazePAM 0.5 MG TAB PO SCH (21:45)
[2017-07-12] MEDS: ENTACAPONE 200 MG TAB PO SCH ×4 (05:44→18:11)
[2017-07-12] MEDS: LEVOTHYROXINE 50 MCG TAB PO SCH (05:44)
[2017-07-12] MEDS: CARBIDOPA/LEVODOPA 25 MG/100 MG TAB PO SCH ×5 (05:45→18:11)
[2017-07-12] MEDS: AMANTADINE HCL 100 MG CAP PO SCH ×2 (05:45→14:22)
[2017-07-12] MEDS: CALCIUM CARBONATE 500 MG TAB PO SCH ×2 (09:09→21:07)
[2017-07-12] MEDS: DOCUSATE SODIUM 100 MG CAP PO SCH ×2 (09:09→21:07)
[2017-07-12] MEDS: PRESERVISION AREDS2 FORMULA EYE VIT 1 EACH PO SCH ×2 (09:09→21:07)
[2017-07-12] MEDS: CITALOPRAM 20 MG TAB PO SCH (09:10)
[2017-07-12] MEDS: PANTOPRAZOLE SODIUM 40 MG TAB PO SCH ×2 (09:10→21:08)
[2017-07-12] MEDS: ROPINIROLE HCL 4 MG PO SCH ×2 (09:12→21:06)
[2017-07-12] MEDS: CLARITHROMYCIN 500 MG TAB PO SCH ×2 (09:13→21:10)
--- NOTE | 2017-07-12 09:57 | SOAPPROG ---
SOAP Progress Note Assessment/Plan: Assessment: 76-year-old woman with almost 30 years of Parkinson's disease and recently increased falls and confusion. * Parkinson disease. Continue carbidopa/levodopa, entacapone and ropinirole. Discussed with primary neurologist Dr. Winslow ([phone]) 07/04/2009. Advised changing from Sinemet CR to Sinemet immediate release for better absorption. * Transient improvement 07/05/2017 when changed from Sinemet CR to minute release but subsequently had further decline. * Sinemet changed to 5 times a day on 07/06/2017. Has marked fluctuations. Sinemet affect seems to last 1.5 to 2 hr. Does well when she is on but needs up to 2 person assist for transfer when she is off. * Fell at night, 07/09 to 07/10/2017, when attempting to self transfer. * Increased dyskinesias noted, 07/12/2017, more prominent in the morning. Possibly due to improved absorption with treatment of H pylori. Change 0600 and 0900 doses from immediate release to Sinemet CR. * Deficits to mobility and activities of daily living due to recent frequent falls and confusion, improved with medication adjustments in the hospital. * Initial functional independence measure of 62 on 06/30/2017; decline to 56 as of 07/07/2017. Now requiring moderate assistance for bed mobility and moderate to maximal assistance for transfers; had been standby assist. Minimal assist for ambulation; had been standby assist. Variable regarding ADLs requiring standby to moderate assist for upper body dressing and minimal to total assist for lower body dressing. * Decreased function regarding ambulation over several days as of 07/03/2017. Was initially better 07/05/2017 after medication adjustments 07/04/2017 but now declining again.. * Continue PT and OT to optimize mobility and activities of daily living to the modified independence to independent level for transfers, ambulation and eating. Expect her to require assistance for other ADLs. * H. Pylori antigen positive. Testing suggested by . * Dr. Barnett advises treatment. H pylori affect on Sinemet absorption and improvement after treatment is well documented in the literature. * Will proceed with pantoprazole 40 mg BID, clarithromycin 500 mg BID ernesto amoxicillin 1000 mg BID X 14 days, starting 07/10/2017. * EKG 07/10/2017 without QT prolongation. Concern due to interaction between clarithromycin and citalopram which both can prolong the QT interval. Repeat EKG on 3rd day of antibiotics without QT prolongation. * Brief literature review: Different studies have documented results at 6 weeks and 12 weeks. * Cognitive impairment with likely recent delirium due to medications and possible sleep disturbance. Medications have been adjusted in the hospital, with discontinuation of hydralazine, decreasing clonazepam, decrease in ropinirole and decrease in amantadine. 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 Noted to be worse than on her prior rehabilitation stay last fall. * Continue LURER. * Seizure 06/30/2017. * No obvious etiology from lab tests or head CT. * Discussed with neurologist Dr. Winslow. Unlikely related to Parkinson's disease or parkinsonian medications. Consider hydralazine withdrawal. Unable to predict likelihood of a subsequent seizure. Also had reduction in dose of clonazepam from 0.5 to 0.25 mg while in the hospital. * Patient does not want to add another medication. Will not continue levetiracetam; had 1 dose this morning after seizure 06/30/2017 Will resume 0.5 mg dose of clonazepam at bedtime. * Insomnia and REM sleep disorder. Continue clonazepam. Increased dose from 0.25 mg at bedtime to 0.5 mg starting 06/30/2017. Had been up to 1 mg at HS at home. With increased clonazepam, discontinued quetiapine. Sleeping well. * Hypertension with hydralazine having been discontinued due to history of falls and confusion and possible cognitive effects. * Propranolol begun at 10 mg at bedtime on 07/09/2017 for elevated blood pressures noted on morning testing. * She is markedly orthostatic, with 43 point drop in systolic blood pressure from supine to standing and no change in heart rate. * Monitor for orthostatic symptoms. Continue to monitor blood pressures. 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 * XR L hand ruled out dislocation or fracture 06/29/2017. * OT reports extensor tendon out of place over 3rd MCP. Has initiated taping/ brace. Reports full range of motion. * OT will focus on maximizing range of motion and use of the fingers. * Congestive heart failure, with elevated BNP in the hospital and pulmonary hypertension on echocardiogram. * Appears compensated at present, with no need for oxygen and no dyspnea noted with activities. * Would exercise caution with diuretics due to orthostatic hypotension. * Hypothyroidism. Continue levothyroxine. Normal TSH in the hospital. * Dyslipidemia. Continue atorvastatin. * Depression. Continue citalopram and consider titrating or augmenting with alternative medications. * Prophylaxis. She appears to have had good mobility. Ambulating 250 ft or more. Discontinued enoxaparin starting 07/01/2017. Followup. Her primary care provider is Dr. Antonia Jefferson. She will also follow up with Dr. Winslow at the [facility]. She had 24 hr care with a home care agency augmenting her 's availability , who works multimedia coordinator. She will likely continue to need 24 hr supervision. She will continue home OT, PT and LURER after discharge. Discharge set for 2017. 07/12/17 14:19 07/12/17 16:31 Subjective: No complaints. Feels that she had an on day all day yesterday. Had some restlessness overnight. No diarrhea, abdominal pain or nausea. Therapy staff noted increased dyskinesias today. This morning they report that she almost fell out of her chair. She confirms that she's had increased dyskinesias today. Objective: Vital Signs Temp Pulse Resp BP Pulse Ox 36.6 C 48 L 16 142/74 H 92 07/12/17 06:07 07/12/17 06:07 07/12/17 06:07 07/12/17 06:07 07/12/17 06:07 Laboratory Results 07/07/17 11:45 07/07/17 11:45 07/11/17 07/12/17 07/13/17 05:59 05:59 05:59 Intake Total 1050 780 Output Total 950 800 Balance 100 -20 Physical Exam - Physical Exam General Appearance: WD/WN, alert, no apparent distress, thin Respiratory: No respiratory distress, No accessory muscle use Skin: normal color, warm/dry Neuro/Psych: no motor/sensory deficits, alert, normal mood/affect, oriented x 3 , other (No rigidity or dyskinesia) ICD10 Worksheet Patient Problems: Problems Problem Status Onset Transient ischemic attack Active Delirium Acute Generalized weakness Acute Hypertension Acute Hypocalcemia Acute Intracranial hemorrhage following injury Acute Subdural hematoma, acute Acute
--- NOTE | 2017-07-12 13:35 | CPEKG ---
Heart Rate: 65 RR Interval: 923 P-R Interval: 172 QRSD Interval: 82 QT Interval: 404 QTC Interval: 421 P [place]: 46 QRS [place]: 57 T Wave [place]: 71 EKG Severity - NORMAL ECG - EKG Impression: SINUS RHYTHM Electronically Signed By: Carlos Motley 13-Jul-2017 15:49:56
[2017-07-12] MEDS: MULTIVITAMINS 1 EACH TAB PO SCH (17:24)
[2017-07-12] MEDS: ATORVASTATIN CALCIUM 20 MG TAB PO SCH (21:07)
[2017-07-12] MEDS: clonazePAM 0.5 MG TAB PO SCH (21:08)
[2017-07-12] MEDS: CHOLECALCIFEROL VIT D3 1,000 UNITS TAB PO SCH (21:09)
[2017-07-12] MEDS: PROPRANOLOL HCL 10 MG TAB PO SCH (21:12)
[2017-07-13] MEDS: LEVOTHYROXINE 50 MCG TAB PO SCH (06:19)
[2017-07-13] MEDS: AMANTADINE HCL 100 MG CAP PO SCH ×2 (06:19→14:05)
[2017-07-13] MEDS: ENTACAPONE 200 MG TAB PO SCH ×4 (06:19→17:45)
[2017-07-13] MEDS: CARBIDOPA/LEVO CR 25 MG/100 MG TAB PO SCH ×4 (06:19→17:45)
[2017-07-13] MEDS: CALCIUM CARBONATE 500 MG TAB PO SCH ×2 (09:22→20:54)
[2017-07-13] MEDS: PRESERVISION AREDS2 FORMULA EYE VIT 1 EACH PO SCH ×2 (09:22→20:54)
[2017-07-13] MEDS: CITALOPRAM 20 MG TAB PO SCH (09:22)
[2017-07-13] MEDS: PANTOPRAZOLE SODIUM 40 MG TAB PO SCH ×2 (09:22→20:54)
[2017-07-13] MEDS: DOCUSATE SODIUM 100 MG CAP PO SCH ×2 (09:22→20:54)
[2017-07-13] MEDS: CLARITHROMYCIN 500 MG TAB PO SCH ×2 (09:26→20:54)
[2017-07-13] MEDS: ROPINIROLE HCL 4 MG PO SCH ×2 (09:27→20:58)
[2017-07-13] MEDS: SENNOSIDES 1 TAB PO PRN (09:29)
[2017-07-13] MEDS ORDERED: CARBIDOPA/LEVODOPA 25 MG/100 MG TAB PO SCH (12:00)
--- NOTE | 2017-07-13 14:06 | SOAPPROG ---
SOAP Progress Note Assessment/Plan: Assessment: 76-year-old woman with almost 30 years of Parkinson's disease and recently increased falls and confusion. * Parkinson disease. Continue carbidopa/levodopa, entacapone and ropinirole. Discussed with primary neurologist Dr. Winslow ([phone]) 07/04/2009. Advised changing from Sinemet CR to Sinemet immediate release for better absorption. * Transient improvement 07/05/2017 when changed from Sinemet CR to minute release but subsequently had further decline. * Sinemet changed to 5 times a day on 07/06/2017. Has marked fluctuations. Sinemet affect seems to last 1.5 to 2 hr. Does well when she is on but needs up to 2 person assist for transfer when she is off. * Fell at night, 07/09 to 07/10/2017, when attempting to self transfer. * Increased dyskinesias noted, 07/12/2017, more prominent in the morning. Possibly due to improved absorption with treatment of H pylori. Changed 0600 and 0900 doses from immediate release to Sinemet CR beginning 07/13/2017. She did well in the morning on 07/13/2017 but subsequently became dyskinetic when back on the immediate release dose at noon. Will change all doses to continuous release at 0600, 0900, 1200, 1500 and 1800. * Deficits to mobility and activities of daily living due to recent frequent falls and confusion, improved with medication adjustments in the hospital. * Initial functional independence measure of 62 on 06/30/2017; decline to 56 as of 07/07/2017. Now requiring moderate assistance for bed mobility and moderate to maximal assistance for transfers; had been standby assist. Minimal assist for ambulation; had been standby assist. Variable regarding ADLs requiring standby to moderate assist for upper body dressing and minimal to total assist for lower body dressing. * Decreased function regarding ambulation over several days as of 07/03/2017. Was initially better 07/05/2017 after medication adjustments 07/04/2017 but now declining again.. * Continue PT and OT to optimize mobility and activities of daily living to the modified independence to independent level for transfers, ambulation and eating. Expect her to require assistance for other ADLs. * H. Pylori antigen positive. Testing suggested by . * Dr. Barnett advises treatment. H pylori affect on Sinemet absorption and improvement after treatment is well documented in the literature. * Will proceed with pantoprazole 40 mg BID, clarithromycin 500 mg BID ernesto amoxicillin 1000 mg BID X 14 days, starting 07/10/2017. * EKG 07/10/2017 without QT prolongation. Concern due to interaction between clarithromycin and citalopram which both can prolong the QT interval. Repeat EKG on 3rd day of antibiotics without QT prolongation. * Brief literature review: Different studies have documented results at 6 weeks and 12 weeks. * Cognitive impairment with likely recent delirium due to medications and possible sleep disturbance. Medications have been adjusted in the hospital, with discontinuation of hydralazine, decreasing clonazepam, decrease in ropinirole and decrease in amantadine. 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 Noted to be worse than on her prior rehabilitation stay last fall. 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 * Seizure 06/30/2017. * No obvious etiology from lab tests or head CT. * Discussed with neurologist Dr. Winslow. Unlikely related to Parkinson's disease or parkinsonian medications. Consider hydralazine withdrawal. Unable to predict likelihood of a subsequent seizure. Also had reduction in dose of clonazepam from 0.5 to 0.25 mg while in the hospital. * Patient does not want to add another medication. Will not continue levetiracetam; had 1 dose this morning after seizure 06/30/2017 Will resume 0.5 mg dose of clonazepam at bedtime. * Insomnia and REM sleep disorder. Continue clonazepam. Increased dose from 0.25 mg at bedtime to 0.5 mg starting 06/30/2017. Had been up to 1 mg at HS at home. With increased clonazepam, discontinued quetiapine. Sleeping well. * Hypertension with hydralazine having been discontinued due to history of falls and confusion and possible cognitive effects. * Propranolol begun at 10 mg at bedtime on 07/09/2017 for elevated blood pressures noted on morning testing. * She is markedly orthostatic, with 43 point drop in systolic blood pressure from supine to standing and no change in heart rate. * Monitor for orthostatic symptoms. Continue to monitor blood pressures. 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 * XR L hand ruled out dislocation or fracture 06/29/2017. * OT reports extensor tendon out of place over 3rd MCP. Has initiated taping/ brace. Reports full range of motion. * OT will focus on maximizing range of motion and use of the fingers. * Congestive heart failure, with elevated BNP in the hospital and pulmonary hypertension on echocardiogram. * Appears compensated at present, with no need for oxygen and no dyspnea noted with activities. * Would exercise caution with diuretics due to orthostatic hypotension. * Hypothyroidism. Continue levothyroxine. Normal TSH in the hospital. * Dyslipidemia. Continue atorvastatin. * Depression. Continue citalopram and consider titrating or augmenting with alternative medications. * Prophylaxis. She appears to have had good mobility. Ambulating 250 ft or more. Discontinued enoxaparin starting 07/01/2017. Followup. Her primary care provider is Dr. Antonia Jefferson. She will also follow up with Dr. Winslow at the [facility]. She had 24 hr care with a home care agency augmenting her 's availability , who works multimedia editor. She will likely continue to need 24 hr supervision. She will continue home OT, PT and ZINC FURNACE CHARGER after discharge. Discharge set for 2017. 07/13/17 14:06 Subjective: Reports that she was moving well this morning with no dyskinesias. Now she has dyskinesias. Otherwise without complaints. Objective: Vital Signs Temp Pulse Resp BP Pulse Ox 36.6 C 60 18 148/68 H 94 07/13/17 08:00 07/13/17 08:00 07/13/17 08:00 07/13/17 08:00 07/13/17 08:00 Laboratory Results 07/07/17 11:45 07/07/17 11:45 07/12/17 07/13/17 07/14/17 05:59 05:59 05:59 Intake Total 780 390 640 Output Total 800 1000 350 Balance -20 -610 290 Physical Exam - Physical Exam General Appearance: WD/WN, alert, no apparent distress, thin Respiratory: No respiratory distress, No accessory muscle use Skin: normal color, warm/dry Neuro/Psych: alert, normal mood/affect, oriented x 3, other (Sitting on mat in PT gym, markedly dyskinetic.) ICD10 Worksheet Patient Problems: Problems Problem Status Onset Transient ischemic attack Active Delirium Acute Generalized weakness Acute Hypertension Acute Hypocalcemia Acute Intracranial hemorrhage following injury Acute Subdural hematoma, acute Acute
[2017-07-13] MEDS ORDERED: CARBIDOPA/LEVO CR 25 MG/100 MG TAB PO SCH (15:00)
[2017-07-13] MEDS: MULTIVITAMINS 1 EACH TAB PO SCH (17:45)
[2017-07-13] MEDS: CHOLECALCIFEROL VIT D3 1,000 UNITS TAB PO SCH (20:54)
[2017-07-13] MEDS: ATORVASTATIN CALCIUM 20 MG TAB PO SCH (20:54)
[2017-07-13] MEDS: clonazePAM 0.5 MG TAB PO SCH (20:54)
[2017-07-13] MEDS: PROPRANOLOL HCL 10 MG TAB PO SCH (20:55)
[2017-07-14] MEDS: LEVOTHYROXINE 50 MCG TAB PO SCH (06:28)
[2017-07-14] MEDS: CARBIDOPA/LEVO CR 25 MG/100 MG TAB PO SCH ×5 (06:28→17:22)
[2017-07-14] MEDS: ENTACAPONE 200 MG TAB PO SCH ×4 (06:28→17:22)
[2017-07-14] MEDS: AMANTADINE HCL 100 MG CAP PO SCH ×2 (06:28→15:11)
[2017-07-14] MEDS: PRESERVISION AREDS2 FORMULA EYE VIT 1 EACH PO SCH ×2 (08:18→21:18)
[2017-07-14] MEDS: CITALOPRAM 20 MG TAB PO SCH (08:19)
[2017-07-14] MEDS: PANTOPRAZOLE SODIUM 40 MG TAB PO SCH ×2 (08:19→21:18)
[2017-07-14] MEDS: CLARITHROMYCIN 500 MG TAB PO SCH ×2 (08:19→21:18)
[2017-07-14] MEDS: CALCIUM CARBONATE 500 MG TAB PO SCH ×2 (08:19→21:18)
[2017-07-14] MEDS: DOCUSATE SODIUM 100 MG CAP PO SCH ×2 (08:19→21:18)
[2017-07-14] MEDS: ROPINIROLE HCL 4 MG PO SCH ×2 (08:23→21:20)
--- NOTE | 2017-07-14 12:49 | SOAPPROG ---
SOAP Progress Note Assessment/Plan: Assessment: 76-year-old woman with almost 30 years of Parkinson's disease and recently increased falls and confusion. * Parkinson disease. Continue carbidopa/levodopa, entacapone and ropinirole. Discussed with primary neurologist Dr. Winslow ([phone]) 07/04/2009. * Changed from Sinemet CR to Sinemet it immediate release on 07/05/2017 with transient improvement, Sinemet immediate release subsequently changed to 5 times a day on 07/06/2017 with marked fluctuations noted, and she had a fall overnight on 07/09/2017 when attempting self transfer. She was found to be positive for H pylori antigen on 07/10/2017 and treatment was initiated with amoxicillin, clarithromycin and pantoprazole. She subsequently developed marked dyskinesias impairing safety consistent with much improved absorption of Sinemet, so she was changed back to Sinemet CR on 07/13/2017. * Deficits to mobility and activities of daily living due to recent frequent falls and confusion, improved with medication adjustments in the hospital. * Initial functional independence measure of 62 on 06/30/2017; decline to 56 as of 07/07/2017; improved to 74 as of 07/14/2017. She ambulated 300 ft with the U- walker. Mobility is variable and is standby assist at best.. Variable regarding ADLs, standby assist at best. * Continue PT and OT to optimize mobility and activities of daily living to the modified independence to independent level for transfers, ambulation and eating. Expect her to require assistance for other ADLs. * H. Pylori antigen positive. Testing suggested by . * Dr. Barnett advises treatment. H pylori affect on Sinemet absorption and improvement after treatment is well documented in the literature. * Initiated triple therapy with pantoprazole 40 mg BID, clarithromycin 500 mg BID ernesto amoxicillin 1000 mg BID X 14 days, starting 07/10/2017. * EKG 07/10/2017 without QT prolongation. Concern due to interaction between clarithromycin and citalopram which both can prolong the QT interval. Repeat EKG on 3rd day of antibiotics without QT prolongation. * Brief literature review: Different studies have documented results at 6 weeks and 12 weeks. * Cognitive impairment with likely recent delirium due to medications and possible sleep disturbance. Medications have been adjusted in the hospital, with discontinuation of hydralazine, decreasing clonazepam, decrease in ropinirole and decrease in amantadine. 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 Noted to be worse than on her prior rehabilitation stay last fall. * Not expected to be able to manage her own medications. 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 * Seizure 06/30/2017. * No obvious etiology from lab tests or head CT. * Discussed with neurologist Dr. Winslow. Unlikely related to Parkinson's disease or parkinsonian medications. Consider hydralazine withdrawal. Unable to predict likelihood of a subsequent seizure. Also had reduction in dose of clonazepam from 0.5 to 0.25 mg while in the hospital. * Patient does not want to add another medication. Will not continue levetiracetam; had 1 dose this morning after seizure 06/30/2017 Will resume 0.5 mg dose of clonazepam at bedtime. * Insomnia and REM sleep disorder. Continue clonazepam. Increased dose from 0.25 mg at bedtime to 0.5 mg starting 06/30/2017. Had been up to 1 mg at HS at home. With increased clonazepam, discontinued quetiapine. Sleeping well. * Hypertension with hydralazine having been discontinued due to history of falls and confusion and possible cognitive effects. * Propranolol begun at 10 mg at bedtime on 07/09/2017 for elevated blood pressures noted on morning testing. * She is markedly orthostatic, with 43 point drop in systolic blood pressure from supine to standing and no change in heart rate. * Monitor for orthostatic symptoms. Continue to monitor blood pressures. 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 * XR L hand ruled out dislocation or fracture 06/29/2017. * OT reports extensor tendon out of place over 3rd MCP. Has initiated taping/ brace. Reports full range of motion. * OT will focus on maximizing range of motion and use of the fingers. * Congestive heart failure, with elevated BNP in the hospital and pulmonary hypertension on echocardiogram. * Appears compensated at present, with no need for oxygen and no dyspnea noted with activities. * Would exercise caution with diuretics due to orthostatic hypotension. * Hypothyroidism. Continue levothyroxine. Normal TSH in the hospital. * Dyslipidemia. Continue atorvastatin. * Depression. Continue citalopram and consider titrating or augmenting with alternative medications. * Prophylaxis. She appears to have had good mobility. Ambulating 250 ft or more. Discontinued enoxaparin starting 07/01/2017. Followup. Her primary care provider is Dr. Antonia Jefferson. She will also follow up with Dr. Winslow at the [facility]. Attended staffing, 15 min. Discussed with case management, nursing, dietitian, PT, OT, RAIL CAR REPAIRMAN. She had 24 hr care with a home care agency augmenting her ' s availability, who works director airport operations. She will likely continue to need 24 hr supervision. She will continue home OT, PT and RAIL CAR REPAIRMAN after discharge. Discharge set for 07/18/2017. 07/14/17 12:41 Subjective: No complaints. Slept well. Feels her movement is a little bit more stiff today but she has fewer dyskinesias. Stomach feels slightly queasy but overall tolerating triple therapy for H pylori. Objective: Vital Signs Temp Pulse Resp BP Pulse Ox 36.6 C 61 18 156/76 H 94 07/14/17 07:27 07/14/17 07:27 07/14/17 07:27 07/14/17 07:27 07/14/17 07:27 Laboratory Results 07/07/17 11:45 07/07/17 11:45 07/13/17 07/14/17 07/15/17 05:59 05:59 05:59 Intake Total 390 1090 360 Output Total 1000 1300 200 Balance -610 -210 160 - Time Spent With Patient Time Spent With Patient: Greater than 35 min floor time today, including more than 50% of time in coordination of care during staffing meeting, and counseling patient. Physical Exam - Physical Exam General Appearance: WD/WN, alert, no apparent distress Respiratory: normal breath sounds, No crackles, No rhonchi, No wheezing Cardiac/Chest: regular rate, rhythm, No diastolic murmur, No systolic murmur Abdomen: normal bowel sounds, non-tender, soft, No distended Skin: normal color, warm/dry Neuro/Psych: alert, normal mood/affect, oriented x 3, other (No dyskinesias when supine. Develops [id number] dyskinesias after arising to seated on the edge of bed.) ICD10 Worksheet Patient Problems: Problems Problem Status Onset Transient ischemic attack Active Delirium Acute Generalized weakness Acute Hypertension Acute Hypocalcemia Acute Intracranial hemorrhage following injury Acute Subdural hematoma, acute Acute
[2017-07-14] MEDS: MULTIVITAMINS 1 EACH TAB PO SCH (17:22)
[2017-07-14] MEDS: CHOLECALCIFEROL VIT D3 1,000 UNITS TAB PO SCH (21:18)
[2017-07-14] MEDS: PROPRANOLOL HCL 10 MG TAB PO SCH (21:18)
[2017-07-14] MEDS: ATORVASTATIN CALCIUM 20 MG TAB PO SCH (21:18)
[2017-07-14] MEDS: clonazePAM 0.5 MG TAB PO SCH (21:19)
[2017-07-15] MEDS: AMANTADINE HCL 100 MG CAP PO SCH ×2 (02:00→05:34)
[2017-07-15] MEDS: CARBIDOPA/LEVO CR 25 MG/100 MG TAB PO SCH ×6 (05:34→18:00)
[2017-07-15] MEDS: ENTACAPONE 200 MG TAB PO SCH ×4 (05:34→17:43)
[2017-07-15] MEDS: LEVOTHYROXINE 50 MCG TAB PO SCH (05:34)
[2017-07-15] MEDS: PRESERVISION AREDS2 FORMULA EYE VIT 1 EACH PO SCH ×2 (08:36→21:07)
[2017-07-15] MEDS: CALCIUM CARBONATE 500 MG TAB PO SCH ×2 (08:36→21:07)
[2017-07-15] MEDS: CITALOPRAM 20 MG TAB PO SCH (08:38)
[2017-07-15] MEDS: CLARITHROMYCIN 500 MG TAB PO SCH ×2 (08:39→21:07)
[2017-07-15] MEDS: DOCUSATE SODIUM 100 MG CAP PO SCH ×2 (08:40→21:07)
[2017-07-15] MEDS: PANTOPRAZOLE SODIUM 40 MG TAB PO SCH ×2 (08:40→21:07)
[2017-07-15] MEDS: ROPINIROLE HCL 4 MG PO SCH ×2 (08:44→19:48)
--- NOTE | 2017-07-15 14:05 | SOAPPROG ---
ANDREWS Progress Note Assessment/Plan: Assessment: 76-year-old woman with almost 30 years of Parkinson's disease and recently increased falls and confusion. * Parkinson disease. Continue carbidopa/levodopa, entacapone and ropinirole. * Changed from Sinemet CR to Sinemet it immediate release on 07/05/2017 with transient improvement, Sinemet immediate release subsequently changed to 5 times a day on 07/06/2017 with marked fluctuations noted, and she had a fall overnight on 07/09/2017 when attempting self transfer. She was found to be positive for H pylori antigen on 07/10/2017 and treatment was initiated with amoxicillin, clarithromycin and pantoprazole. She subsequently developed marked dyskinesias impairing safety consistent with much improved absorption of Sinemet, so she was changed back to Sinemet CR on 07/13/2017. * Deficits to mobility and activities of daily living due to recent frequent falls and confusion, improved with medication adjustments in the hospital. * Initial functional independence measure of 62 on 06/30/2017; decline to 56 as of 07/07/2017; improved to 74 as of 07/14/2017. She ambulated 300 ft with the U- walker. Mobility is variable and is standby assist at best.. Variable regarding ADLs, standby assist at best. * Continue PT and OT to optimize mobility and activities of daily living to the modified independence to independent level for transfers, ambulation and eating. Expect her to require assistance for other ADLs. * H. Pylori antigen positive. Testing suggested by . * Dr. Barnett advises treatment. H pylori affect on Sinemet absorption and improvement after treatment is well documented in the literature. * Initiated triple therapy with pantoprazole 40 mg BID, clarithromycin 500 mg BID ernesto amoxicillin 1000 mg BID X 14 days, starting 07/10/2017. * EKG 07/10/2017 without QT prolongation. Concern due to interaction between clarithromycin and citalopram which both can prolong the QT interval. Repeat EKG on 3rd day of antibiotics without QT prolongation. * Brief literature review: Different studies have documented results at 6 weeks and 12 weeks. * Cognitive impairment with likely recent delirium due to medications and possible sleep disturbance. Medications have been adjusted in the hospital, with discontinuation of hydralazine, decreasing clonazepam, decrease in ropinirole and decrease in amantadine. 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 Noted to be worse than on her prior rehabilitation stay last fall. * Not expected to be able to manage her own medications. 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 * Seizure 06/30/2017. * No obvious etiology from lab tests or head CT. * Dr Moreau discussed with neurologist Dr. Winslow. Unlikely related to Parkinson' s disease or parkinsonian medications. Consider hydralazine withdrawal. Unable to predict likelihood of a subsequent seizure. Also had reduction in dose of clonazepam from 0.5 to 0.25 mg while in the hospital. * Patient does not want to add another medication. Will not continue levetiracetam; had 1 dose this morning after seizure 06/30/2017 Will resume 0.5 mg dose of clonazepam at bedtime. * Insomnia and REM sleep disorder. Continue clonazepam. Increased dose from 0.25 mg at bedtime to 0.5 mg starting 06/30/2017. Had been up to 1 mg at HS at home. With increased clonazepam, discontinued quetiapine. Sleeping well. * Hypertension with hydralazine having been discontinued due to history of falls and confusion and possible cognitive effects. * Propranolol begun at 10 mg at bedtime on 07/09/2017 for elevated blood pressures noted on morning testing. * She is markedly orthostatic, with 43 point drop in systolic blood pressure from supine to standing and no change in heart rate. * Monitor for orthostatic symptoms. Continue to monitor blood pressures. 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 * XR L hand ruled out dislocation or fracture 06/29/2017. * OT reports extensor tendon out of place over 3rd MCP. Has initiated taping/ brace. Reports full range of motion. * OT will focus on maximizing range of motion and use of the fingers. * Congestive heart failure, with elevated BNP in the hospital and pulmonary hypertension on echocardiogram. * Appears compensated at present, with no need for oxygen and no dyspnea noted with activities. * Would exercise caution with diuretics due to orthostatic hypotension. * Hypothyroidism. Continue levothyroxine. Normal TSH in the hospital. * Dyslipidemia. Continue atorvastatin. * Depression. Continue citalopram and consider titrating or augmenting with alternative medications. * Prophylaxis. She appears to have had good mobility. Ambulating 250 ft or more. Discontinued enoxaparin starting 07/01/2017. Followup. Her primary care provider is Dr. Antonia Jefferson. She will also follow up with Dr. Winslow at the [facility]. She will continue home OT, PT and PAVING FOREMAN after discharge. Discharge set for 2017. Plan: 07/15/17 14:02 Subjective: In good spirits No F/C/CP/SOB/N/V/D/C Objective: Vital Signs Temp Pulse Resp BP Pulse Ox 36.9 C 55 L 14 116/49 L 93 07/15/17 06:04 07/15/17 06:04 07/15/17 11:43 07/15/17 11:43 07/15/17 06:04 Laboratory Results 07/07/17 11:45 07/07/17 11:45 07/14/17 07/15/17 07/16/17 05:59 05:59 05:59 Intake Total 1090 1240 240 Output Total 1300 900 200 Balance -210 340 40 Physical Exam - Physical Exam General Appearance: alert, no apparent distress Respiratory: lungs clear Cardiac/Chest: regular rate, rhythm Skin: normal color, warm/dry Extremities: No pedal edema, No calf tenderness Neuro/Psych: alert, normal mood/affect, oriented x 3, abnormal gait, other ( severe dyskinesis, no change from baseline) ICD10 Worksheet Patient Problems: Problems Problem Status Onset Transient ischemic attack Active Delirium Acute Generalized weakness Acute Hypertension Acute Hypocalcemia Acute Intracranial hemorrhage following injury Acute Subdural hematoma, acute Acute
[2017-07-15] MEDS: MULTIVITAMINS 1 EACH TAB PO SCH (17:42)
[2017-07-15] MEDS: clonazePAM 0.5 MG TAB PO SCH (19:48)
[2017-07-15] MEDS: PROPRANOLOL HCL 10 MG TAB PO SCH (21:07)
[2017-07-15] MEDS: ATORVASTATIN CALCIUM 20 MG TAB PO SCH (21:07)
[2017-07-15] MEDS: CHOLECALCIFEROL VIT D3 1,000 UNITS TAB PO SCH (21:07)
[2017-07-16] MEDS: LEVOTHYROXINE 50 MCG TAB PO SCH (06:06)
[2017-07-16] MEDS: AMANTADINE HCL 100 MG CAP PO SCH ×2 (06:06→14:07)
[2017-07-16] MEDS: ENTACAPONE 200 MG TAB PO SCH ×4 (06:07→17:30)
[2017-07-16] MEDS: CARBIDOPA/LEVO CR 25 MG/100 MG TAB PO SCH ×5 (06:22→17:30)
[2017-07-16] MEDS: CLARITHROMYCIN 500 MG TAB PO SCH ×2 (08:48→20:16)
[2017-07-16] MEDS: PANTOPRAZOLE SODIUM 40 MG TAB PO SCH ×2 (08:48→20:16)
[2017-07-16] MEDS: PRESERVISION AREDS2 FORMULA EYE VIT 1 EACH PO SCH ×2 (08:48→20:15)
[2017-07-16] MEDS: CALCIUM CARBONATE 500 MG TAB PO SCH ×2 (08:49→20:15)
[2017-07-16] MEDS: ROPINIROLE HCL 4 MG PO SCH ×2 (08:49→20:17)
[2017-07-16] MEDS: CITALOPRAM 20 MG TAB PO SCH (08:49)
[2017-07-16] MEDS: DOCUSATE SODIUM 100 MG CAP PO SCH ×2 (08:49→20:16)
--- NOTE | 2017-07-16 11:39 | SOAPPROG ---
SOAP Progress Note Assessment/Plan: Assessment: 76-year-old woman with almost 30 years of Parkinson's disease and recently increased falls and confusion. Subjective: C/O increased dyskinesis this am, so requested to hold her sinemet. * Parkinson disease. Continue carbidopa/levodopa, entacapone and ropinirole. * Changed from Sinemet CR to Sinemet immediate release on 07/05/2017 with transient improvement, Sinemet immediate release subsequently changed to 5 times a day on 07/06/2017 with marked fluctuations noted, and she had a fall overnight on 07/09/2017 when attempting self transfer. She was found to be positive for H pylori antigen on 07/10/2017 and treatment was initiated with amoxicillin, clarithromycin and pantoprazole. She subsequently developed marked dyskinesias impairing safety consistent with much improved absorption of Sinemet, so she was changed back to Sinemet CR on 07/13/2017. * Deficits to mobility and activities of daily living due to recent frequent falls and confusion, improved with medication adjustments in the hospital. * Initial functional independence measure of 62 on 06/30/2017; decline to 56 as of 07/07/2017; improved to 74 as of 07/14/2017. She ambulated 300 ft with the U- walker. Mobility is variable and is standby assist at best.. Variable regarding ADLs, standby assist at best. * Continue PT and OT to optimize mobility and activities of daily living to the modified independence to independent level for transfers, ambulation and eating. Expect her to require assistance for other ADLs. * H. Pylori antigen positive. Testing suggested by . * Dr. Barnett advises treatment. H pylori affect on Sinemet absorption and improvement after treatment is well documented in the literature. * Initiated triple therapy with pantoprazole 40 mg BID, clarithromycin 500 mg BID ernesto amoxicillin 1000 mg BID X 14 days, starting 07/10/2017. * EKG 07/10/2017 without QT prolongation. Concern due to interaction between clarithromycin and citalopram which both can prolong the QT interval. Repeat EKG on 3rd day of antibiotics without QT prolongation. * Brief literature review: Different studies have documented results at 6 weeks and 12 weeks. * Cognitive impairment with likely recent delirium due to medications and possible sleep disturbance. Medications have been adjusted in the hospital, with discontinuation of hydralazine, decreasing clonazepam, decrease in ropinirole and decrease in amantadine. 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 Noted to be worse than on her prior rehabilitation stay last fall. * Not expected to be able to manage her own medications. 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 * Seizure 06/30/2017. * No obvious etiology from lab tests or head CT. * Dr Moreau discussed with neurologist Dr. Winslow. Unlikely related to Parkinson' s disease or parkinsonian medications. Consider hydralazine withdrawal. Unable to predict likelihood of a subsequent seizure. Also had reduction in dose of clonazepam from 0.5 to 0.25 mg while in the hospital. * Patient does not want to add another medication. Will not continue levetiracetam; had 1 dose this morning after seizure 06/30/2017 Will resume 0.5 mg dose of clonazepam at bedtime. * Insomnia and REM sleep disorder. Continue clonazepam. Increased dose from 0.25 mg at bedtime to 0.5 mg starting 06/30/2017. Had been up to 1 mg at HS at home. With increased clonazepam, discontinued quetiapine. Sleeping well. * Hypertension with hydralazine having been discontinued due to history of falls and confusion and possible cognitive effects. * Propranolol begun at 10 mg at bedtime on 07/09/2017 for elevated blood pressures noted on morning testing. * She is markedly orthostatic, with 43 point drop in systolic blood pressure from supine to standing and no change in heart rate. * Monitor for orthostatic symptoms. Continue to monitor blood pressures. 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 * XR L hand ruled out dislocation or fracture 06/29/2017. * OT reports extensor tendon out of place over 3rd MCP. Has initiated taping/ brace. Reports full range of motion. * OT will focus on maximizing range of motion and use of the fingers. * Congestive heart failure, with elevated BNP in the hospital and pulmonary hypertension on echocardiogram. * Appears compensated at present, with no need for oxygen and no dyspnea noted with activities. * Would exercise caution with diuretics due to orthostatic hypotension. * Hypothyroidism. Continue levothyroxine. Normal TSH in the hospital. * Dyslipidemia. Continue atorvastatin. * Depression. Continue citalopram and consider titrating or augmenting with alternative medications. * Prophylaxis. She appears to have had good mobility. Ambulating 250 ft or more. Discontinued enoxaparin starting 07/01/2017. Followup. Her primary care provider is Dr. Antonia Jefferson. She will also follow up with Dr. Winslow at the [facility]. She will continue home OT, PT and GROUNDS PERSON after discharge. Discharge set for 2017. Plan: Cont per Dr Moreau's rehab treatment plan 07/16/17 11:36 Objective: Vital Signs Temp Pulse Resp BP Pulse Ox 36.6 C 50 L 14 143/60 H 94 07/16/17 06:24 07/16/17 06:24 07/16/17 06:24 07/16/17 06:24 07/16/17 06:24 Laboratory Results 07/07/17 11:45 07/07/17 11:45 07/15/17 07/16/17 07/17/17 05:59 05:59 05:59 Intake Total 1240 790 120 Output Total 901 200 Balance 339 590 120 Physical Exam - Physical Exam General Appearance: alert, no apparent distress Neck: supple Respiratory: lungs clear Cardiac/Chest: regular rate, rhythm Extremities: No pedal edema, No calf tenderness Neuro/Psych: alert, normal mood/affect, oriented x 3, abnormal gait, other ( marked dyskinesias, query compared to baseline, patient well aware of the risk of freeze response from discontinuation of meds.) ICD10 Worksheet Patient Problems: Problems Problem Status Onset Transient ischemic attack Active Delirium Acute Generalized weakness Acute Hypertension Acute Hypocalcemia Acute Intracranial hemorrhage following injury Acute Subdural hematoma, acute Acute
[2017-07-16] MEDS: MULTIVITAMINS 1 EACH TAB PO SCH (17:29)
[2017-07-16] MEDS: ATORVASTATIN CALCIUM 20 MG TAB PO SCH (20:15)
[2017-07-16] MEDS: CHOLECALCIFEROL VIT D3 1,000 UNITS TAB PO SCH (20:16)
[2017-07-16] MEDS: PROPRANOLOL HCL 10 MG TAB PO SCH (20:16)
[2017-07-16] MEDS: clonazePAM 0.5 MG TAB PO SCH (20:19)
[2017-07-16] MEDS: ACETAMINOPHEN 325 MG TAB PO PRN (20:28)
[2017-07-17] MEDS: AMANTADINE HCL 100 MG CAP PO SCH ×2 (05:00→14:27)
[2017-07-17] MEDS: ENTACAPONE 200 MG TAB PO SCH ×4 (05:00→18:18)
[2017-07-17] MEDS: CARBIDOPA/LEVO CR 25 MG/100 MG TAB PO SCH ×4 (05:00→18:18)
[2017-07-17] MEDS: LEVOTHYROXINE 50 MCG TAB PO SCH (05:01)
[2017-07-17] MEDS: CLARITHROMYCIN 500 MG TAB PO SCH ×2 (08:34→21:28)
[2017-07-17] MEDS: PRESERVISION AREDS2 FORMULA EYE VIT 1 EACH PO SCH ×2 (08:34→21:26)
[2017-07-17] MEDS: PANTOPRAZOLE SODIUM 40 MG TAB PO SCH ×2 (08:35→21:28)
[2017-07-17] MEDS: DOCUSATE SODIUM 100 MG CAP PO SCH ×2 (08:35→21:25)
[2017-07-17] MEDS: CALCIUM CARBONATE 500 MG TAB PO SCH ×2 (08:35→21:25)
[2017-07-17] MEDS: CITALOPRAM 20 MG TAB PO SCH (08:36)
[2017-07-17] MEDS: ROPINIROLE HCL 4 MG PO SCH ×2 (08:38→21:31)
[2017-07-17] MEDS ORDERED: VSL#3 1 EACH CAP PO SCH (12:00)
--- NOTE | 2017-07-17 12:36 | SOAPPROG ---
SOAP Progress Note Assessment/Plan: Assessment: 76-year-old woman with almost 30 years of Parkinson's disease and recently increased falls and confusion. * Parkinson disease. Continue carbidopa/levodopa, entacapone and ropinirole. Discussed with primary neurologist Dr. Winslow ([phone]) 07/04/2009. * Changed from Sinemet CR to Sinemet it immediate release on 07/05/2017 with transient improvement, Sinemet immediate release subsequently changed to 5 times a day on 07/06/2017 with marked fluctuations noted, and she had a fall overnight on 07/09/2017 when attempting self transfer. She was found to be positive for H pylori antigen on 07/10/2017 and treatment was initiated with amoxicillin, clarithromycin and pantoprazole. She subsequently developed marked dyskinesias impairing safety consistent with much improved absorption of Sinemet, so she was changed back to Sinemet CR on 07/13/2017. * Due to continuing dyskinesias, changing Sinemet CR 2 three times daily at 0600 , noon and 1800, starting 07/17/2017. Dose and take up own on the same schedule. * Deficits to mobility and activities of daily living due to recent frequent falls and confusion, improved with medication adjustments in the hospital. * Initial functional independence measure of 62 on 06/30/2017; decline to 56 as of 07/07/2017; improved to 74 as of 07/14/2017. She ambulated 300 ft with the U- walker. Variable regarding ADLs, standby assist at best. * Continue PT and OT to optimize mobility and activities of daily living to the modified independence to independent level for transfers, ambulation and eating. Expect her to require assistance for other ADLs. * H. Pylori antigen positive. Testing suggested by . * Dr. Winslow advises treatment. H pylori affect on Sinemet absorption and improvement after treatment is well documented in the literature. * Initiated triple therapy with pantoprazole 40 mg BID, clarithromycin 500 mg BID ernesto amoxicillin 1000 mg BID X 14 days, starting 07/10/2017. * EKG 07/10/2017 without QT prolongation. Concern due to interaction between clarithromycin and citalopram which both can prolong the QT interval. Repeat EKG on 3rd day of antibiotics without QT prolongation. * Brief literature review: Different studies have documented results at 6 weeks and 12 weeks. * She has had a dramatic response and Sinemet dose has been reduced considerably. * Cognitive impairment with likely recent delirium due to medications and possible sleep disturbance. Medications have been adjusted in the hospital, with discontinuation of hydralazine, decreasing clonazepam, decrease in ropinirole and decrease in amantadine. 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 Noted to be worse than on her prior rehabilitation stay last fall. * Not expected to be able to manage her own medications. * Needing 24 hr supervision for safety. 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 * Seizure 06/30/2017. * No obvious etiology from lab tests or head CT. * Discussed with neurologist Dr. Winslow. Unlikely related to Parkinson's disease or parkinsonian medications. Consider hydralazine withdrawal. Unable to predict likelihood of a subsequent seizure. Also had reduction in dose of clonazepam from 0.5 to 0.25 mg while in the hospital. * Patient does not want to add another medication. Will not continue levetiracetam; had 1 dose this morning after seizure 06/30/2017 Will resume 0.5 mg dose of clonazepam at bedtime. * Insomnia and REM sleep disorder. Continue clonazepam. Increased dose from 0.25 mg at bedtime to 0.5 mg starting 06/30/2017. Had been up to 1 mg at HS at home. With increased clonazepam, discontinued quetiapine. Sleeping well. * Hypertension with hydralazine having been discontinued due to history of falls and confusion and possible cognitive effects. * Propranolol begun at 10 mg at bedtime on 07/09/2017 for elevated blood pressures noted on morning testing. * She is markedly orthostatic, with 43 point drop in systolic blood pressure from supine to standing and no change in heart rate. * Monitor for orthostatic symptoms. Continue to monitor blood pressures. 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 * XR L hand ruled out dislocation or fracture 06/29/2017. * OT reports extensor tendon out of place over 3rd MCP. Has initiated taping/ brace. Reports full range of motion. * OT will focus on maximizing range of motion and use of the fingers. * Congestive heart failure, with elevated BNP in the hospital and pulmonary hypertension on echocardiogram. * Appears compensated at present, with no need for oxygen and no dyspnea noted with activities. * Would exercise caution with diuretics due to orthostatic hypotension. * Hypothyroidism. Continue levothyroxine. Normal TSH in the hospital. * Dyslipidemia. Continue atorvastatin. * Depression. Continue citalopram and consider titrating or augmenting with alternative medications. * Prophylaxis. She appears to have had good mobility. Ambulating 250 ft or more. Discontinued enoxaparin starting 07/01/2017. Followup. Her primary care provider is Dr. Antonia Jefferson. She will also follow up with Dr. Winslow at the [facility]. She's had 24 hr care with a home care agency augmenting her 's availability, who works multimedia coordinator. She will continue to need 24 hr supervision. She will continue home OT, PT and MAIL HANDLERS SUPERVISOR after discharge. Discharge set for 07/18/2017. 07/17/17 12:32 Subjective: Refuse several doses of Sinemet CR yesterday and today due to increased dyskinesias. Otherwise without complaints. Not in pain. Sleeping well. No cough or dyspnea, no fevers or chills. Objective: Vital Signs Temp Pulse Resp BP Pulse Ox 36.4 C 68 15 180/78 H 94 07/17/17 06:24 07/17/17 06:24 07/17/17 06:24 07/17/17 06:24 07/17/17 06:24 Laboratory Results 07/07/17 11:45 07/07/17 11:45 07/16/17 07/17/17 07/18/17 05:59 05:59 05:59 Intake Total 790 760 320 Output Total 200 600 Balance 590 160 320 Physical Exam - Physical Exam General Appearance: WD/WN, alert, no apparent distress, thin Respiratory: No accessory muscle use, No decreased breath sounds Skin: normal color, warm/dry Neuro/Psych: alert, normal mood/affect, oriented x 3, abnormal gait (Ambulates with U-walker, narrow base, normal stride.), other (Mildly dyskinetic.) ICD10 Worksheet Patient Problems: Problems Problem Status Onset Transient ischemic attack Active Delirium Acute Generalized weakness Acute Hypertension Acute Hypocalcemia Acute Intracranial hemorrhage following injury Acute Subdural hematoma, acute Acute
[2017-07-17] MEDS: MULTIVITAMINS 1 EACH TAB PO SCH (18:18)
[2017-07-17] MEDS: CHOLECALCIFEROL VIT D3 1,000 UNITS TAB PO SCH (21:25)
[2017-07-17] MEDS: ATORVASTATIN CALCIUM 20 MG TAB PO SCH (21:27)
[2017-07-17] MEDS: PROPRANOLOL HCL 10 MG TAB PO SCH (21:27)
[2017-07-17] MEDS: clonazePAM 0.5 MG TAB PO SCH (21:28)
[2017-07-18] MEDS: ENTACAPONE 200 MG TAB PO SCH ×3 (05:18→18:24)
[2017-07-18] MEDS: AMANTADINE HCL 100 MG CAP PO SCH ×2 (05:18→14:27)
[2017-07-18] MEDS: LEVOTHYROXINE 50 MCG TAB PO SCH (05:19)
[2017-07-18] MEDS: CARBIDOPA/LEVO CR 25 MG/100 MG TAB PO SCH ×3 (05:19→18:24)
[2017-07-18] MEDS: DOCUSATE SODIUM 100 MG CAP PO SCH ×2 (08:15→20:11)
[2017-07-18] MEDS: CLARITHROMYCIN 500 MG TAB PO SCH ×2 (08:15→20:11)
[2017-07-18] MEDS: CITALOPRAM 20 MG TAB PO SCH (08:15)
[2017-07-18] MEDS: PANTOPRAZOLE SODIUM 40 MG TAB PO SCH ×2 (08:15→20:11)
[2017-07-18] MEDS: PRESERVISION AREDS2 FORMULA EYE VIT 1 EACH PO SCH ×2 (08:16→20:10)
[2017-07-18] MEDS: ROPINIROLE HCL 4 MG PO SCH ×2 (08:17→20:13)
[2017-07-18] MEDS: CALCIUM CARBONATE 500 MG TAB PO SCH ×2 (08:18→20:10)
--- NOTE | 2017-07-18 13:17 | SOAPPROG ---
SOAP Progress Note Assessment/Plan: Assessment: 76-year-old woman with almost 30 years of Parkinson's disease and recently increased falls and confusion. * Parkinson disease. Continue carbidopa/levodopa, entacapone and ropinirole. Discussed with primary neurologist Dr. Winslow ([phone]) 07/04/2009. * Changed from Sinemet CR to Sinemet it immediate release on 07/05/2017 with transient improvement, Sinemet immediate release subsequently changed to 5 times a day on 07/06/2017 with marked fluctuations noted, and she had a fall overnight on 07/09/2017 when attempting self transfer. She was found to be positive for H pylori antigen on 07/10/2017 and treatment was initiated with amoxicillin, clarithromycin and pantoprazole. She subsequently developed marked dyskinesias impairing safety consistent with much improved absorption of Sinemet, so she was changed back to Sinemet CR on 07/13/2017. * Due to continuing dyskinesias, changing Sinemet CR to three times daily at 0600, noon and 1800, starting 07/17/2017. Dose entacapone on the same schedule. * Deficits to mobility and activities of daily living due to recent frequent falls and confusion, improved with medication adjustments in the hospital. * Initial functional independence measure of 62 on 06/30/2017; decline to 56 as of 07/07/2017; improved to 74 as of 07/14/2017. She ambulated 300 ft with the U- walker. Variable regarding ADLs, standby assist at best. * Continue PT and OT to optimize mobility and activities of daily living to the modified independence to independent level for transfers, ambulation and eating. Expect her to require assistance for other ADLs. * H. Pylori antigen positive. Testing suggested by . * Dr. Winslow advises treatment. H pylori affect on Sinemet absorption and improvement after treatment is well documented in the literature. * Initiated triple therapy with pantoprazole 40 mg BID, clarithromycin 500 mg BID ernesto amoxicillin 1000 mg BID X 14 days, starting 07/10/2017. * EKG 07/10/2017 without QT prolongation. Concern due to interaction between clarithromycin and citalopram which both can prolong the QT interval. Repeat EKG on 3rd day of antibiotics without QT prolongation. * Brief literature review: Different studies have documented results at 6 weeks and 12 weeks. * She has had a dramatic response and Sinemet dose has been reduced considerably. * Cognitive impairment with likely recent delirium due to medications and possible sleep disturbance. Medications have been adjusted in the hospital, with discontinuation of hydralazine, decreasing clonazepam, decrease in ropinirole and decrease in amantadine. 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 Noted to be worse than on her prior rehabilitation stay last fall. * Not expected to be able to manage her own medications. * Needing 24 hr supervision for safety. 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 * Seizure 06/30/2017. * No obvious etiology from lab tests or head CT. * Discussed with neurologist Dr. Winslow. Unlikely related to Parkinson's disease or parkinsonian medications. Consider hydralazine withdrawal. Unable to predict likelihood of a subsequent seizure. Also had reduction in dose of clonazepam from 0.5 to 0.25 mg while in the hospital. * Patient does not want to add another medication. Will not continue levetiracetam; had 1 dose this morning after seizure 06/30/2017 Will resume 0.5 mg dose of clonazepam at bedtime. * Insomnia and REM sleep disorder. Continue clonazepam. Increased dose from 0.25 mg at bedtime to 0.5 mg starting 06/30/2017. Had been up to 1 mg at HS at home. With increased clonazepam, discontinued quetiapine. Sleeping well. * Hypertension with hydralazine having been discontinued due to history of falls and confusion and possible cognitive effects. * Propranolol begun at 10 mg at bedtime on 07/09/2017 for elevated blood pressures noted on morning testing. * She is markedly orthostatic, with 43 point drop in systolic blood pressure from supine to standing and no change in heart rate. * Monitor for orthostatic symptoms. Continue to monitor blood pressures. 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 * XR L hand ruled out dislocation or fracture 06/29/2017. * OT reports extensor tendon out of place over 3rd MCP. Has initiated taping/ brace. Reports full range of motion. * OT will focus on maximizing range of motion and use of the fingers. * Congestive heart failure, with elevated BNP in the hospital and pulmonary hypertension on echocardiogram. * Appears compensated at present, with no need for oxygen and no dyspnea noted with activities. * Would exercise caution with diuretics due to orthostatic hypotension. * Hypothyroidism. Continue levothyroxine. Normal TSH in the hospital. * Dyslipidemia. Continue atorvastatin. * Depression. Continue citalopram and consider titrating or augmenting with alternative medications. * Prophylaxis. She appears to have had good mobility. Ambulating 250 ft or more. Discontinued enoxaparin starting 07/01/2017. Followup. Her primary care provider is Dr. Antonia Jefferson. She will also follow up with Dr. Winslow at the [facility]. She's had 24 hr care with a home care agency augmenting her 's availability, who works mapping engineer. She will continue to need 24 hr supervision. She will continue home OT, PT and SPRING REPAIRER HELPER HAND after discharge. Discharge set for 07/18/2017. 07/18/17 13:14 Subjective: No complaints. Slept well. Not in pain. No cough or dyspnea, no fevers or chills. Feels that her Sinemet dosing is appropriate. Has mild dyskinesias but no freezing and feels like she is moving well. Objective: Vital Signs Temp Pulse Resp BP Pulse Ox 36.5 C 60 15 158/87 H 97 07/18/17 06:19 07/18/17 06:19 07/18/17 06:19 07/18/17 06:19 07/18/17 06:19 Laboratory Results 07/07/17 11:45 07/07/17 11:45 07/17/17 07/18/17 07/19/17 05:59 05:59 05:59 Intake Total 760 640 360 Output Total 600 1550 Balance 160 -910 360 Physical Exam - Physical Exam General Appearance: WD/WN, alert, no apparent distress, thin Respiratory: No respiratory distress, No accessory muscle use Skin: normal color, warm/dry Neuro/Psych: alert, normal mood/affect, oriented x 3, other (Resting in bed. No tremor. Very mild dyskinesias noted.) ICD10 Worksheet Patient Problems: Problems Problem Status Onset Transient ischemic attack Active Delirium Acute Generalized weakness Acute Hypertension Acute Hypocalcemia Acute Intracranial hemorrhage following injury Acute Subdural hematoma, acute Acute
[2017-07-18] MEDS: MULTIVITAMINS 1 EACH TAB PO SCH (18:24)
[2017-07-18] MEDS: ATORVASTATIN CALCIUM 20 MG TAB PO SCH (20:10)
[2017-07-18] MEDS: clonazePAM 0.5 MG TAB PO SCH (20:11)
[2017-07-18] MEDS: CHOLECALCIFEROL VIT D3 1,000 UNITS TAB PO SCH (20:11)
[2017-07-18] MEDS: PROPRANOLOL HCL 10 MG TAB PO SCH (20:12)
[2017-07-19] MEDS: ACETAMINOPHEN 325 MG TAB PO PRN (01:07)
[2017-07-19] MEDS: AMANTADINE HCL 100 MG CAP PO SCH ×2 (07:44→14:29)
[2017-07-19] MEDS: CARBIDOPA/LEVO CR 25 MG/100 MG TAB PO SCH ×4 (07:44→18:10)
[2017-07-19] MEDS: ENTACAPONE 200 MG TAB PO SCH ×4 (07:45→18:10)
[2017-07-19] MEDS: LEVOTHYROXINE 50 MCG TAB PO SCH (07:45)
[2017-07-19] MEDS: PRESERVISION AREDS2 FORMULA EYE VIT 1 EACH PO SCH ×2 (08:38→21:55)
[2017-07-19] MEDS: CITALOPRAM 20 MG TAB PO SCH (08:38)
[2017-07-19] MEDS: CALCIUM CARBONATE 500 MG TAB PO SCH ×2 (08:38→21:55)
[2017-07-19] MEDS: PANTOPRAZOLE SODIUM 40 MG TAB PO SCH ×2 (08:39→21:55)
[2017-07-19] MEDS: CLARITHROMYCIN 500 MG TAB PO SCH ×2 (08:39→21:54)
[2017-07-19] MEDS: DOCUSATE SODIUM 100 MG CAP PO SCH ×2 (08:39→21:54)
[2017-07-19] MEDS: ROPINIROLE HCL 4 MG PO SCH ×2 (08:46→21:55)
[2017-07-19] MEDS: MULTIVITAMINS 1 EACH TAB PO SCH (17:45)
--- NOTE | 2017-07-19 18:04 | SOAPPROG ---
SOAP Progress Note Assessment/Plan: Assessment: 76-year-old woman with almost 30 years of Parkinson's disease and recently increased falls and confusion. * Parkinson disease. Continue carbidopa/levodopa, entacapone and ropinirole. Discussed with primary neurologist Dr. Winslow ([phone]) 07/04/2009. * Changed from Sinemet CR to Sinemet it immediate release on 07/05/2017 with transient improvement, Sinemet immediate release subsequently changed to 5 times a day on 07/06/2017 with marked fluctuations noted, and she had a fall overnight on 07/09/2017 when attempting self transfer. She was found to be positive for H pylori antigen on 07/10/2017 and treatment was initiated with amoxicillin, clarithromycin and pantoprazole. She subsequently developed marked dyskinesias impairing safety consistent with much improved absorption of Sinemet, so she was changed back to Sinemet CR on 07/13/2017. * Due to continuing dyskinesias, changing Sinemet CR to three times daily at 0600, noon and 1800, starting 07/17/2017. Dose entacapone on the same schedule. * Off period in mid-afternoon 07/19/2017. Changed Sinemet CR and entacapone to four times daily at 0600, 1000, 1400 and 1800. * Deficits to mobility and activities of daily living due to recent frequent falls and confusion, improved with medication adjustments in the hospital. * Initial functional independence measure of 62 on 06/30/2017; decline to 56 as of 07/07/2017; improved to 74 as of 07/14/2017. She ambulated 300 ft with the U- walker. Variable regarding ADLs, standby assist at best. * Continue PT and OT to optimize mobility and activities of daily living to the modified independence to independent level for transfers, ambulation and eating. Expect her to require assistance for other ADLs. * H. Pylori antigen positive. Testing suggested by . * Dr. Winslow advises treatment. H pylori affect on Sinemet absorption and improvement after treatment is well documented in the literature. * Initiated triple therapy with pantoprazole 40 mg BID, clarithromycin 500 mg BID ernesto amoxicillin 1000 mg BID X 14 days, starting 07/10/2017. * EKG 07/10/2017 without QT prolongation. Concern due to interaction between clarithromycin and citalopram which both can prolong the QT interval. Repeat EKG on 3rd day of antibiotics without QT prolongation. * Brief literature review: Different studies have documented results at 6 weeks and 12 weeks. * She has had a dramatic response and Sinemet dose has been reduced considerably. * Cognitive impairment with likely recent delirium due to medications and possible sleep disturbance. Medications have been adjusted in the hospital, with discontinuation of hydralazine, decreasing clonazepam, decrease in ropinirole and decrease in amantadine. 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 Noted to be worse than on her prior rehabilitation stay last fall. * Not expected to be able to manage her own medications. * Needing 24 hr supervision for safety. * Continue AIRPLANE NAVIGATOR. * Seizure 06/30/2017. * No obvious etiology from lab tests or head CT. * Discussed with neurologist Dr. Winslow. Unlikely related to Parkinson's disease or parkinsonian medications. Consider hydralazine withdrawal. Unable to predict likelihood of a subsequent seizure. Also had reduction in dose of clonazepam from 0.5 to 0.25 mg while in the hospital. * Patient does not want to add another medication. Will not continue levetiracetam; had 1 dose this morning after seizure 06/30/2017 Will resume 0.5 mg dose of clonazepam at bedtime. * Insomnia and REM sleep disorder. Continue clonazepam. Increased dose from 0.25 mg at bedtime to 0.5 mg starting 06/30/2017. Had been up to 1 mg at HS at home. With increased clonazepam, discontinued quetiapine. Sleeping well. * Hypertension with hydralazine having been discontinued due to history of falls and confusion and possible cognitive effects. * Propranolol begun at 10 mg at bedtime on 07/09/2017 for elevated blood pressures noted on morning testing. * She is markedly orthostatic, with 43 point drop in systolic blood pressure from supine to standing and no change in heart rate. * Monitor for orthostatic symptoms. Continue to monitor blood pressures. 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 * XR L hand ruled out dislocation or fracture 06/29/2017. * OT reports extensor tendon out of place over 3rd MCP. Has initiated taping/ brace. Reports full range of motion. * OT will focus on maximizing range of motion and use of the fingers. * Congestive heart failure, with elevated BNP in the hospital and pulmonary hypertension on echocardiogram. * Appears compensated at present, with no need for oxygen and no dyspnea noted with activities. * Would exercise caution with diuretics due to orthostatic hypotension. * Hypothyroidism. Continue levothyroxine. Normal TSH in the hospital. * Dyslipidemia. Continue atorvastatin. * Depression. Continue citalopram and consider titrating or augmenting with alternative medications. * Prophylaxis. She appears to have had good mobility. Ambulating 250 ft or more. Discontinued enoxaparin starting 07/01/2017. Followup. Her primary care provider is Dr. Antonia Jefferson. She will also follow up with Dr. Winslow at the [facility]. She's had 24 hr care with a home care agency augmenting her 's availability, who works time analysis clerk. She will continue to need 24 hr supervision. She will continue home OT, PT and AIRPLANE NAVIGATOR after discharge. Discharge set for 07/20/2017. 07/19/17 18:02 Subjective: Reports feeling off in the middle of the afternoon. Otherwise doing well with mobility. Sleeping well. Objective: Vital Signs Temp Pulse Resp BP Pulse Ox 36.6 C 64 16 153/81 H 94 07/19/17 06:01 07/19/17 06:01 07/19/17 06:01 07/19/17 06:01 07/19/17 06:01 Laboratory Results 07/07/17 11:45 07/07/17 11:45 07/18/17 07/19/17 07/20/17 05:59 05:59 05:59 Intake Total 640 1340 180 Output Total 1550 Balance -910 1340 180 Physical Exam - Physical Exam General Appearance: WD/WN, alert, no apparent distress, thin Respiratory: No respiratory distress, No accessory muscle use Skin: normal color, warm/dry Neuro/Psych: alert, normal mood/affect, oriented x 3, abnormal gait (Difficulty with turning and stepping back to come to seated in her wheelchair from standing.) ICD10 Worksheet Patient Problems: Problems Problem Status Onset Transient ischemic attack Active Delirium Acute Generalized weakness Acute Hypertension Acute Hypocalcemia Acute Intracranial hemorrhage following injury Acute Subdural hematoma, acute Acute
[2017-07-19] MEDS: PROPRANOLOL HCL 10 MG TAB PO SCH (19:34)
[2017-07-19] MEDS: CHOLECALCIFEROL VIT D3 1,000 UNITS TAB PO SCH (21:54)
[2017-07-19] MEDS: ATORVASTATIN CALCIUM 20 MG TAB PO SCH (21:55)
[2017-07-19] MEDS: clonazePAM 0.5 MG TAB PO SCH (21:55)
[2017-07-20] MEDS: ENTACAPONE 200 MG TAB PO SCH ×3 (06:44→15:05)
[2017-07-20] MEDS: CARBIDOPA/LEVO CR 25 MG/100 MG TAB PO SCH ×3 (06:44→15:05)
[2017-07-20] MEDS: AMANTADINE HCL 100 MG CAP PO SCH ×2 (06:44→15:05)
[2017-07-20] MEDS: LEVOTHYROXINE 50 MCG TAB PO SCH (06:44)
[2017-07-20 07:23] VITALS: BP 152/84
[2017-07-20] MEDS: CLARITHROMYCIN 500 MG TAB PO SCH (08:21)
[2017-07-20] MEDS: DOCUSATE SODIUM 100 MG CAP PO SCH (08:21)
[2017-07-20] MEDS: CITALOPRAM 20 MG TAB PO SCH (08:21)
[2017-07-20] MEDS: PRESERVISION AREDS2 FORMULA EYE VIT 1 EACH PO SCH (08:21)
[2017-07-20] MEDS: PANTOPRAZOLE SODIUM 40 MG TAB PO SCH (08:21)
[2017-07-20] MEDS: CALCIUM CARBONATE 500 MG TAB PO SCH (08:22)
[2017-07-20] MEDS: ROPINIROLE HCL 4 MG PO SCH (08:23)
--- NOTE | 2017-07-20 18:26 | GDS ---
[f rep st] DISCHARGE SUMMARY DISCHARGE DIAGNOSIS: Parkinson disease with recent history of falls. DISCHARGE DIAGNOSIS: Parkinson disease with recent history of falls. CONSULTATIONS: There were none. PROCEDURES: There were none. COMPLICATIONS: There were none. HISTORY AND HOSPITAL COURSE: This patient was admitted to inpatient rehabilitation from [facility]. She had presented there with falls, confusion, and hallucinations. She had medication changes including discontinuation of hydralazine which she was taking for elevated blood pressures overnight in the context of orthostatic hypotension, reduction of ropinirole from 4 times a day to 2 times a day, and reduction of amantadine. She was medically stabilized and transferred to rehabilitation. She initially did well with improvement in function, but then had a decline in function with increased freezing episodes. In consultation with her primary neurologist, Dr. Jena Winslow at the [facility], she was changed from Sinemet CR to Sinemet immediate release for improved absorption. This was initially effective, but after several days she was continuing to decline in function. Dosing was increased from 4 times a day to 5 times per day with little improvement. At the suggestion of her , she had testing for H pylori as he had found some literature indicating that H pylori can interfere with absorption of Sinemet. She was positive for H pylori and she was begun on triple therapy with amoxicillin, clarithromycin, and pantoprazole. She had dramatic improvement and soon was exhibiting debilitating dyskinesias. Due to her dyskinesias, Sinemet immediate release was reduced to 4 times a day and subsequently changed to Sinemet CR, which was tapered over several days to twice a day. At twice a day, she began to exhibit freezing episodes, so it was increased to 3 times a day and then to 4 times a day. On the day of discharge, she was not having any freezing episodes, but was showing some dyskinesias, however, not as severe as they had been previously. Otherwise, she did well and was medically stable. DISCHARGE PLAN: 1. Condition upon discharge is good. 2. Diet is regular. 3. Activity: Ad venkatesh, but she needs supervision for safety 24 hours a day. MEDICATIONS ON DISCHARGE: 1. Acetaminophen 650 mg p.o. q.4 hours p.r.n. 2. Amantadine 100 mg p.o. twice daily at 0600 and 1400. 3. Amoxicillin 1000 mg p.o. q.12 hours for 4 more days. 4. Atorvastatin 20 mg p.o. q.h.s. 5. PreserVision tablets 1 p.o. twice daily. 6. Calcium carbonate 500 mg p.o. twice daily. 7. Sinemet CR 25/100, one tablet q.i.d. at 0600, 1000, 1400 and 1800. 8. Cholecalciferol 5000 units p.o. q.h.s. 9. Citalopram 20 mg p.o. daily. 10. Clarithromycin 500 mg p.o. twice daily for 4 more days. 11. Docusate 100 mg p.o. twice daily. 12. Entacapone 200 mg p.o. four times daily at 0600, 1000, 1400 and 1800. 13. Levothyroxine 50 mcg p.o. daily. 14. Multivitamin 1 p.o. daily. 15. Pantoprazole 40 mg p.o. b.i.d. for 4 more days. 16. Propranolol 10 mg p.o. q.h.s. 17. Ropinirole 4 mg p.o. twice daily. 18. Senna 1 tab p.o. daily. ISSUES TO BE ADDRESSED AT FOLLOWUP: 1. Control of Parkinson disease. Given that she is having dyskinesias on Sinemet CR 4 times a day but had freezing episodes at 3 times a day, the optimal dosing of her parkinsonian medications is not simple. Might consider holding some doses of entacapone. Advised followup soon with primary neurologist, Jena Winslow; she has an appointment set for 07/25/2017, with Dr. Winslow. 2. Helicobacter pylori with dramatic improvement in parkinsonian symptoms during treatment. Advise testing for H pylori fecal antigen 1-2 weeks after concluding treatment to ensure that H pylori has been eradicated. This can be done by her primary care provider. 3. Debility and history of falls. She will continue home OT and PT after discharge, and she can follow up regarding her progress with her primary care provider. 4. Cognitive impairment was noted. She was dysexecutive and worse than her prior rehabilitation stay. She will continue therapy with Speech and Language Pathology at home and again, can follow up with either her primary care provider or her neurologist regarding her progress. 5. Orthostatic hypotension with hypertension overnight. Hydralazine had been discontinued during her hospitalization due to concern for its possible contribution to delirium. She is currently on propranolol and she should be followed for adequate blood pressure control and monitored for orthostatic symptoms. Greater than 30 minutes was spent on this discharge summary including medication reconciliation, coordination of care, and counseling patient and . Copy requested to: Jena Winslow MD [facility] /[id number]/MODL MTDD
== END 2017-07-20 15:20 | disposition home health service (06) | DRG 57 ==
LOC: BREH 06-27 14:50
PROVIDERS: ADMIT Internal Medicine; ATTEND Internal Medicine
PROC: F08Z4ZZ Home Management Treatment (ICD-10-PCS; principal; 2017-06-27)
PROC: F07M3ZZ Motor Function Treatment of Musculoskeletal System - Whole Body (ICD-10-PCS; principal; 2017-06-27)
PROC: F0636ZZ Communicative/Cognitive Integration Skills Treatment of Neurological System - Whole Body (ICD-10-PCS; principal; 2017-06-27)
DX: G20 Parkinson's disease (principal); R41.9 Unspecified symptoms and signs involving cognitive functions and awareness; F32.9 Major depressive disorder, single episode, unspecified; G47.00 Insomnia, unspecified; I27.20 Pulmonary hypertension, unspecified; I50.30 Unspecified diastolic (congestive) heart failure; E03.9 Hypothyroidism, unspecified; E78.5 Hyperlipidemia, unspecified; I10 Essential (primary) hypertension; I95.1 Orthostatic hypotension; B96.81 Helicobacter pylori [H. pylori] as the cause of diseases classified elsewhere
CPT/HCPCS: 92507-GN; 92508-GN; 92522-GN; 92526-GN; 92610-GN; 97110-GO; 97110-GP; 97112-GO; 97112-GP; 97116-GP; 97140-GO; 97162-GP; 97166-GO; 97530-GO; 97530-GP; 97535-GO; J1650

== ENCOUNTER → 2017-08-02 | Outpatient (CLI) | payer OTHER | LOC: FIMAGING 15:33 | PROVIDERS: ATTEND Physician Assistant | DX: M43.16 Spondylolisthesis, lumbar region (principal); Z98.1 Arthrodesis status ==

== ENCOUNTER → 2017-08-24 | Outpatient (CLI) | payer OTHER | LOC: FIMAGING 18:56 | PROVIDERS: ATTEND Physician Assistant | DX: M51.26 Other intervertebral disc displacement, lumbar region (principal); M51.27 Other intervertebral disc displacement, lumbosacral region; M51.24 Other intervertebral disc displacement, thoracic region; M99.73 Connective tissue and disc stenosis of intervertebral foramina of lumbar region; Z90.49 Acquired absence of other specified parts of digestive tract ==

== ENCOUNTER → 2017-12-01 | Outpatient (CLI) | payer OTHER | LOC: FIMAGING 10:07 | PROVIDERS: ATTEND Physician Assistant | DX: Z12.31 Encounter for screening mammogram for malignant neoplasm of breast (principal); Z80.3 Family history of malignant neoplasm of breast ==

== ENCOUNTER 2017-12-16 12:20 | Emergency (ER) | payer OTHER ==
[2017-12-16] MEDS ORDERED: IBUPROFEN 600 MG TAB PO ONE (12:58)
[2017-12-16] MEDS ORDERED: LIDOCAINE 4%/MENTHOL 1% PATCH TD ONE (13:05)
--- NOTE | 2017-12-16 13:07 | EDPHY ---
H & P Stated Complaint[facility] furniture-L lower back area pain Time Seen by Provider: 12/16/17 12:58 HPI/ROS: CHIEF COMPLAINT: Left-sided rib pain HISTORY OF PRESENT ILLNESS: 77-year-old female with Parkinson's disease presents after a fall with left-sided rib pain. She lost her balance and fell over her couch approximately 2 hr ago. Sudden onset of left-sided rib pain. The pain is mild to moderate and worsens with movement. No shortness of breath or abdominal pain. No pain medications taken. No other injuries. She did not hit her head; no headache or neck pain. REVIEW OF SYSTEMS: complete 10 point ROS reviewed and is negative except for the noted elements in the HPI - Personal History Tetanus Vaccine Date: WITHIN 10 YEARS - Medical/Surgical History Hx Asthma: No Hx Chronic Respiratory Disease: No Hx Diabetes: No Hx Cardiac Disease: No Hx Renal Disease: No Hx Cirrhosis: No Hx Alcoholism: No Hx HIV/AIDS: No Hx Splenectomy or Spleen Trauma: No Other PMH: Polydiculitis, incontinence, orthostatic, Parkinsons, dyskinesia, cholecystectomy, tonsilectomy, appendectomy, brain surgery. Gene transfer therapy/back surg - Social History Smoking Status: Former smoker - Physical Exam Exam: General Appearance: Alert, pleasant Head: Atraumatic Eyes: No conjunctival erythema, PERRLA, EOMI ENT, Mouth: no oral trauma, no bony tenderness Neck: Nontender, range of motion without pain Respiratory: Normal inspection, Left lateral chest wall tenderness, lungs clear bilaterally Cardiovascular: Regular rate and rhythm Abdomen: Abdomen is soft and nontender Skin: No lacerations, no abrasions Back: No midline T/L/S tenderness Extremities: Pelvis is stable and nontender; no extremity tenderness or deformity Neurological: Alert and oriented, fairly continuous choreiform movements Psychiatric: Mood and affect normal Constitutional: Initial Vital Signs Temperature (C) 36.5 C 12/16/17 12:24 Heart Rate 81 12/16/17 12:24 Respiratory Rate 16 12/16/17 12:24 Blood Pressure 177/80 H 12/16/17 12:24 O2 Sat (%) 95 12/16/17 12:24 O2 Delivery Mode Room Air Allergies/Adverse Reactions: No Known Allergies Allergy (Verified 06/20/17 16:44) Home Medications: Medication Instructions Recorded Multivitamins [Multivitamin (*)] 1 tab PO DAILY@18 07/10/13 Docusate Sodium [Colace 100 MG (*)] 100 mg PO BID 07/17/13 Cholecalciferol Vit D3 [Vitamin D3 5,000 units PO HS tab 01/06/17 (*)] Calcium Carbonate [Oyster Shell 500 mg PO BID tab 01/19/17 Calcium 500 mg (*)] Sennosides [Senokot] 1 tab PO DAILY tab 01/19/17 C/E/Zn/Cu/OM3/DHA/EPA/LUT/ZEAX 1 each PO BID 06/20/17 [Preservision Areds 2 Softgel] Acetaminophen [Tylenol 325mg (*)] 650 mg PO Q4HRS PRN tab 07/17/17 Amantadine HCl [Symmetrel] 100 mg PO 0600,1400 #60 cap 07/17/17 Atorvastatin Calcium [Lipitor 20 20 mg PO HS #30 tab 07/17/17 mg (*)] Citalopram [CeleXA 20 MG] 20 mg PO DAILY #30 tab 07/17/17 Levothyroxine [Synthroid 50 mcg 50 mcg PO DAILY@06 #30 tab 07/17/17 (*)] Propranolol HCl [Inderal 10mg (*)] 10 mg PO HS #30 tab 07/17/17 clonazePAM [Klonopin (*)] 0.5 mg PO HS #30 tab 07/17/17 rOPINIRole HCL [Requip] 4 mg PO BID #60 tablet 07/17/17 Amoxicillin Trihydrate [Amoxil] 1,000 mg PO Q12H #16 cap 07/19/17 Carbidopa/Levo Cr 25/100Mg 1 tab PO QID@,,,18 #120 07/19/17 [Sinemet CR 25/100 MG (*)] tab.cr Clarithromycin [Biaxin (*)] 500 mg PO BID #8 tab 07/19/17 Entacapone [Comtan] 200 mg PO QID@,,,18 #120 tab 07/19/17 Pantoprazole Sodium [Protonix 40mg 40 mg PO BID #8 tab 07/19/17 (*)] Medical Decision Making - Diagnostics Imaging Results: Imaging Impressions Ribs w/Chest X-Ray 12/16/17 13:03 Impression: 1. No evidence of acute left rib injury. 2. No active cardiopulmonary disease seen. 3. Scoliosis. Imaging: I viewed and interpreted images myself ED Course/Re-evaluation: This patient presents with rib pain after a mechanical fall. No other injuries. Ibuprofen 600 mg orally given and a lidocaine patch was placed. X- ray reveals no definite rib fracture and no pneumothorax. Results discussed with the patient and her daughter. Feels the pain is adequately controlled. Will follow up with PCP. Differential Diagnosis: Differential diagnosis includes though it is not limited to fracture, intracranial hemorrhage, pneumothorax, hemothorax, intra-abdominal hemorrhage. - Data Points Medications Given: Discontinued Medications Ibuprofen (Motrin) 600 mg PO EDNOW ONE Stop: 12/16/17 12:59 Last Admin: 12/16/17 13:01 Dose: 600 mg Miscellaneous Medication (Icy Hot Lidocaine/Menthol 4%/1% Patch) 1 patch TD EDNOW ONE Stop: 12/16/17 13:06 Last Admin: 12/16/17 13:09 Dose: 1 patch Departure - Departure Disposition: Home, Routine, Self-Care Clinical Impression: Contusion of rib on left side Qualifiers: Encounter type: initial encounter Qualified Code(s): S20.212A - Contusion of left front wall of thorax, initial encounter Condition: Good Instructions: Rib Contusion (ED) Additional Instructions: Ibuprofen 600 mg 3 times daily while the pain persists. You may also take Tylenol 650 mg every 4 hr as needed for pain. Use a lidocaine patch as directed. Return for worsening symptoms, shortness of breath or any concerns. Referrals: Antonia Jefferson MD [Primary Care Provider] - As per Instructions
[2017-12-16 13:48] VITALS: BP 138/95
[2017-12-16] MEDS ORDERED: PATCH REMOVAL 1 EA PATCH TD SCH (21:00)
== END 2017-12-16 13:52 | disposition home or self-care (01) ==
DX: S20.212A Contusion of left front wall of thorax, initial encounter (principal); G20 Parkinson's disease; W22.03XA Walked into furniture, initial encounter; Y92.9 Unspecified place or not applicable; Z87.891 Personal history of nicotine dependence

== ENCOUNTER 2018-01-19 10:38 | Inpatient (IN) | payer OTHER ==
--- NOTE | 2018-01-19 10:56 | EDPHY ---
H & P Stated Complaint: [facility] fall - Personal History Current Tetanus/Diphtheria Vaccine: Yes Tetanus Vaccine Date: WITHIN 10 YEARS - Medical/Surgical History Hx Asthma: No Hx Chronic Respiratory Disease: No Hx Diabetes: No Hx Cardiac Disease: No Hx Renal Disease: No Hx Cirrhosis: No Hx Alcoholism: No Hx HIV/AIDS: No Hx Splenectomy or Spleen Trauma: No Other PMH: Polydiculitis, incontinence, orthostatic, Parkinsons, dyskinesia, cholecystectomy, tonsilectomy, appendectomy, brain surgery. Gene transfer therapy/back surg - Social History Smoking Status: Former smoker Time Seen by Provider: 01/19/18 10:46 HPI/ROS: CHIEF COMPLAINT: Left hip and knee pain post mechanical HISTORY OF PRESENT ILLNESS: 77-year-old female history of Parkinson's disease arrives via ambulance, not a trauma activation, complaining of acute left hip and knee pain after she was doing aerobics at [facility] this morning, slipped on the floor impacted her left knee and left hip. She is unable to bear weight. Denies paresthesia. Denies break in skin. Denies head injury. Denies alcohol or drug use. PRIMARY CARE PROVIDER: REVIEW OF SYSTEMS: 10 systems reviewed and negative with the exception of the elements mentioned in the history of present illness PAST MEDICAL/SURGICAL HISTORY: Parkinson's disease. Lumbar fusion. no anticoagulant use, no relevant medical/surgical history SOCIAL HISTORY: denies alcohol use at time of incident PHYSICAL EXAM 1) GENERAL: Well-developed, well-nourished, alert and oriented. Appears to be in no acute distress. Answering questions appropriately. 2) HEAD: Normocephalic, atraumatic 3) HEENT: Pupils equal, round, reactive to light bilaterally. Negative Horners. Nasopharynx, oropharynx, clear. No deformity or angulation of nose. No septal hematoma. No rhinorrhea. No oral trauma. Ears bilaterally with normal tympanic membranes. No hemotympanum. No fluid or blood in the external auditory canal. No raccoon eyes. No Whitt sign. Teeth are normally aligned with no gross malocclusion, TMJ bilaterally nontender, facial bones nontender including the zygomatic arch, maxilla mandible. 4) NECK: No cervical collar is on. Posterior cervical spine is nontender, no stepoff, no effusion. Full range of motion which does not elicit any midline cervical spine pain, no posterior midline tenderness, no step-off. Cervical collar is on.Cervical collar is removed while holding inline traction and patient is unable to completely differentiate between true midline pain versus just lateral of midline pain.Cervical collar is replaced at that point.and patient has no complaints of midline cervical pain, no effusion noted, trachea midline, no JVD. 5) LUNGS: Clear to auscultation bilaterally, no wheezes, no rhonchi, no retractions. No obvious signs of trauma. No chest wall pain. No flaring, no grunting. Moving symmetrically. No crepitus. 6) HEART: [Regular rate and rhythm, 7) ABDOMEN: No guarding, no rebound, no focal tenderness, no peritoneal signs, no signs of trauma, no ecchymosis 8) MUSCULOSKELETAL: Tender to palpation left anterior knee with no visible signs of trauma such as ecchymosis or erythema. Limited range of motion secondary to pain. Proximally distally nontender including the greater trochanteric region which is nontender however she does no pain with range of motion to same location. No shortening no malrotation. Distal DP PT pulses present and brisk. Soft compartments. Otherwise, Moving all extremities, no focal areas of tenderness, no obvious trauma. 9) BACK: No midline vertebral tenderness, no fluctuance, no step-off, no obvious trauma, no visual or palpable abnormality. 10) SKIN: No laceration. No abrasion DIFFERENTIAL DIAGNOSIS: In no particular order including but not limited to fracture, sprain, strain, dislocation (Felipe,Karey Sobia) Constitutional: Initial Vital Signs Temperature (C) 36.9 C 01/19/18 10:45 Heart Rate 88 01/19/18 10:45 Respiratory Rate 18 01/19/18 10:45 Blood Pressure 138/82 H 01/19/18 10:45 O2 Sat (%) 97 01/19/18 10:45 O2 Delivery Mode Room Air Allergies/Adverse Reactions: No Known Allergies Allergy (Verified 01/19/18 10:48) Home Medications: Medication Instructions Recorded Multivitamins [Multivitamin (*)] 1 tab PO DAILY@18 07/10/13 Docusate Sodium [Colace 100 MG (*)] 100 mg PO BID 07/17/13 Cholecalciferol Vit D3 [Vitamin D3 5,000 units PO HS tab 01/06/17 (*)] Calcium Carbonate [Oyster Shell 500 mg PO BID tab 01/19/17 Calcium 500 mg (*)] Sennosides [Senokot] 1 tab PO DAILY tab 01/19/17 C/E/Zn/Cu/OM3/DHA/EPA/LUT/ZEAX 1 each PO BID 06/20/17 [Preservision Areds 2 Softgel] Acetaminophen [Tylenol 325mg (*)] 650 mg PO Q4HRS PRN tab 07/17/17 Amantadine HCl [Symmetrel] 100 mg PO 0600,1400 #60 cap 07/17/17 Atorvastatin Calcium [Lipitor 20 20 mg PO HS #30 tab 07/17/17 mg (*)] Citalopram [CeleXA 20 MG] 20 mg PO DAILY #30 tab 07/17/17 Levothyroxine [Synthroid 50 mcg 50 mcg PO DAILY@06 #30 tab 07/17/17 (*)] clonazePAM [Klonopin (*)] 0.5 mg PO HS #30 tab 07/17/17 rOPINIRole HCL [Requip] 4 mg PO BID #60 tablet 07/17/17 Carbidopa/Levo Cr 25/100Mg 1 tab PO QID@06,10,14,18 #120 07/19/17 [Sinemet CR 25/100 MG (*)] tab.cr Entacapone [Comtan] 200 mg PO QID@06,10,14,18 #120 tab 07/19/17 hydrALAZINE [Apresoline 10 mg (*)] 10 mg PO HS 01/19/18 Medical Decision Making - Diagnostics Imaging Results: Imaging Impressions Knee X-Ray 01/19/18 10:46 Impression: Nondisplaced transverse fracture of the patella. Hip X-Ray 01/19/18 10:54 Impression: 1. No acute osseous findings. 2. Lucency adjacent to the sacral pedicle screws, suggesting loosening, similar to the comparison. Images reviewed myself (Karey Wang) ED Course/Re-evaluation: 10:56 a.m.: I reviewed the patient's old medical records. Will obtain x-rays. This pain more than likely admission for pain control, PT OT as patient is unable to bear weight, history of Parkinson's, has a baseline of gait instability, will be unable to care for self at this immediate time. I saw this patient independently based on established practice protocols. Care of patient under supervision of secondary supervising physician Dr Lucas Quintana with whom I discussed case. 11:20 a.m.: Patient noted to have a closed nondisplaced transverse patella fracture. Will plan on admission to hospitalist patient is unable to bear weight and has history of frequent falls, is not an appropriate candidate for crutch walking this time. Will consult hospitalist orthopedics. 11:24 a.m.: Consultation with hospitalist, Anneliese, admit Dr. Long 11:47 a.m.: Consultation with Orthopedics on-call Dr. Lan Paz, recommends knee immobilizer and he will consult (Karey Wang) I did not see this patient while she was in the emergency department. However her care was discussed with the PA while the patient was in the department. I agree with treatment plan and management (Lucas Quintana) - Data Points Laboratory Results: Laboratory Results 01/19/18 11:20 01/19/18 11:20 01/19/18 01/19/18 11:20 11:20 WBC 6.47 10^3/uL 10^3/uL (3.80-9.50) RBC 4.41 10^6/uL 10^6/uL (4.18-5.33) Hgb 13.3 g/dL g/dL (12.6-16.3) Hct 40.5 % % (38.0-47.0) MCV 91.8 fL fL (81.5-99.8) MCH 30.2 pg pg (27.9-34.1) MCHC 32.8 g/dL g/dL (32.4-36.7) RDW 12.6 % % (11.5-15.2) Plt Count 244 10^3/uL 10^3/uL (150-400) MPV 8.9 fL fL (8.7-11.7) Neut % (Auto) 68.9 % % (39.3-74.2) Lymph % (Auto) 20.7 % % (15.0-45.0) Donley % (Auto) 7.4 % % (4.5-13.0) Eos % (Auto) 2.2 % % (0.6-7.6) Baso % (Auto) 0.5 % % (0.3-1.7) Nucleat RBC Rel Count 0.0 % % (0.0-0.2) Absolute Neuts (auto) 4.46 10^3/uL 10^3/uL (1.70-6.50) Absolute Lymphs (auto) 1.34 10^3/uL 10^3/uL (1.00-3.00) Absolute Monos (auto) 0.48 10^3/uL 10^3/uL (0.30-0.80) Absolute Eos (auto) 0.14 10^3/uL 10^3/uL (0.03-0.40) Absolute Basos (auto) 0.03 10^3/uL 10^3/uL (0.02-0.10) Absolute Nucleated RBC 0.00 10^3/uL 10^3/uL (0-0.01) Immature Gran % 0.3 % % (0.0-1.1) Immature Gran # 0.02 10^3/uL 10^3/uL (0.00-0.10) Sodium 140 mEq/L mEq/L (135-145) Potassium 4.2 mEq/L mEq/L (3.3-5.0) Chloride 109 mEq/L mEq/L (97-110) Carbon Dioxide 25 mEq/l mEq/l (22-31) Anion Gap 6 mEq/L mEq/L (6-14) BUN 27 mg/dL H mg/dL (7-23) Creatinine 0.8 mg/dL mg/dL (0.6-1.0) Estimated GFR > 60 Glucose 82 mg/dL mg/dL (70-100) Calcium 9.1 mg/dL mg/dL (8.5-10.4) Medications Given: Discontinued Medications Sodium Chloride (Ns) 1,000 mls @ 0 mls/hr IV ONCE ONE PRN Reason: Wide Open Stop: 01/19/18 12:20 Last Admin: 01/19/18 14:17 Dose: 1,000 mls Departure - Departure Disposition: [facility] Inpatient Acute Clinical Impression: Parkinsons disease Patella fracture Qualifiers: Encounter type: initial encounter Fracture type: closed Fracture morphology: transverse Fracture alignment: nondisplaced Laterality: left Qualified Code(s): S82.035A - Nondisplaced transverse fracture of left patella, initial encounter for closed fracture Condition: Good
[2018-01-19 11:41] LABS: PLATELET COUNT 244 10^3/uL (150-400)
[2018-01-19] MEDS ORDERED: NS 1,000 ML IV ONE (12:19)
[2018-01-19] MEDS ORDERED: ONDANSETRON DISINTEGRATING 4 MG TAB PO PRN (12:34)
[2018-01-19] MEDS ORDERED: ONDANSETRON 4 MG/2 ML VIAL IVP PRN (12:34)
[2018-01-19] MEDS ORDERED: HYDROmorphONE/DILAUDID 1 MG/ML INJ IVP PRN (12:34)
[2018-01-19] MEDS ORDERED: oxyCODONE IR 5 MG TAB PO PRN (12:34)
[2018-01-19] MEDS ORDERED: NS 1,000 ML IV SCH (12:45)
--- NOTE | 2018-01-19 12:58 | PDGENHP ---
History and Physical - Chief Complaint Left knee pain - History of Present Illness 77 y/o female with history of Parkinson's presents today after sustaining a mechanical fall to her left side of her body. Past Medical/Surgical History 1. Parkinson's (since 1989) 2. Orthostatic Hypotension 3. Cognitive Impairment 4. Cholecystitis/Cholecystectomy 5. Appendicitis/Appendectomy 6. Subdural hematoma in 2013 7. HTN 8. Hypothyroidism 9. CHF with diastolic dysfunction and pulmonary HTN 10. Lumbar fusion surgery Vital signs: 138/62 88 18 Respirations 97% RA History Information - Allergies/Home Medication List Allergies/Adverse Reactions: No Known Allergies Allergy (Verified 01/19/18 10:48) Home Medications: Multivitamins [Multivitamin (*)] 1 tab PO DAILY@18 07/10/13 [Last Taken 01/19/18 ] Docusate Sodium [Colace 100 MG (*)] 100 mg PO BID 07/17/13 [Last Taken 01/19/18] C/E/Zn/Cu/OM3/DHA/EPA/LUT/ZEAX [Preservision Areds 2 Softgel] 1 each PO BID 12/28 [Last Taken 01/19/18] hydrALAZINE [Apresoline 10 mg (*)] 10 mg PO HS 01/19/18 [Last Taken 01/18/18] I have personally reviewed and updated: family history, medical history, social history, surgical history Past Medical History: See HPI list - Past Medical History Additional medical history: Parkinson's Disease with autonomic disregulation. SDH 2013. Osteopenia. Chronic opiate dependency from chronic pain. Hypothyroidism. TIA 2016. Depression. Pulmonary HTN. GERD. HLD. HTN. Radiculopathy from spinal stenosis - Surgical History Reports: cholecystectomy Additional surgical history: L3-S1 laminectomy x 2 ([address] Vaughn). SI injection 07/27. CEA R 2015 - Family History Additional family history: Father w/ [place] at 88, Mother w/ breast/uterine cancer, Sibling w/ melanoma - Social History Smoking Status: Former smoker Additional social history: normally ambulatory Review of Systems Review of Systems: Physical Exam Physical Exam: Temp Pulse Resp BP Pulse Ox 36.9 C 88 18 138/82 H 97 01/19/18 10:45 01/19/18 10:45 01/19/18 10:45 01/19/18 10:45 01/19/18 10:45 Lab Data & Imaging Review 01/19/18 11:20 01/19/18 11:20 WBC 6.47 10^3/uL (3.80-9.50) 01/19/18 11:20 RBC 4.41 10^6/uL (4.18-5.33) 01/19/18 11:20 Hgb 13.3 g/dL (12.6-16.3) 01/19/18 11:20 Hct 40.5 % (38.0-47.0) 01/19/18 11:20 MCV 91.8 fL (81.5-99.8) 01/19/18 11:20 MCH 30.2 pg (27.9-34.1) 01/19/18 11:20 MCHC 32.8 g/dL (32.4-36.7) 01/19/18 11:20 RDW 12.6 % (11.5-15.2) 01/19/18 11:20 Plt Count 244 10^3/uL (150-400) 01/19/18 11:20 MPV 8.9 fL (8.7-11.7) 01/19/18 11:20 Neut % (Auto) 68.9 % (39.3-74.2) 01/19/18 11:20 Lymph % (Auto) 20.7 % (15.0-45.0) 01/19/18 11:20 Holt % (Auto) 7.4 % (4.5-13.0) 01/19/18 11:20 Eos % (Auto) 2.2 % (0.6-7.6) 01/19/18 11:20 Baso % (Auto) 0.5 % (0.3-1.7) 01/19/18 11:20 Nucleat RBC Rel Count 0.0 % (0.0-0.2) 01/19/18 11:20 Absolute Neuts (auto) 4.46 10^3/uL (1.70-6.50) 01/19/18 11:20 Absolute Lymphs (auto) 1.34 10^3/uL (1.00-3.00) 01/19/18 11:20 Absolute Monos (auto) 0.48 10^3/uL (0.30-0.80) 01/19/18 11:20 Absolute Eos (auto) 0.14 10^3/uL (0.03-0.40) 01/19/18 11:20 Absolute Basos (auto) 0.03 10^3/uL (0.02-0.10) 01/19/18 11:20 Absolute Nucleated RBC 0.00 10^3/uL (0-0.01) 01/19/18 11:20 Immature Gran % 0.3 % (0.0-1.1) 01/19/18 11:20 Immature Gran # 0.02 10^3/uL (0.00-0.10) 01/19/18 11:20 Sodium 140 mEq/L (135-145) 01/19/18 11:20 Potassium 4.2 mEq/L (3.3-5.0) 01/19/18 11:20 Chloride 109 mEq/L (97-110) 01/19/18 11:20 Carbon Dioxide 25 mEq/l (22-31) 01/19/18 11:20 Anion Gap 6 mEq/L (6-14) 01/19/18 11:20 BUN 27 mg/dL (7-23) H 01/19/18 11:20 Creatinine 0.8 mg/dL (0.6-1.0) 01/19/18 11:20 Estimated GFR > 60 01/19/18 11:20 Glucose 82 mg/dL (70-100) 01/19/18 11:20 Calcium 9.1 mg/dL (8.5-10.4) 01/19/18 11:20 Assessment & Plan Plan: 77 y/o female with history of Parkinson's presents today after sustaining a mechanical fall to her left side of her body. 1. Left nondisplaced closed patellar fracture: as a result of her mechanical fall. Dr. Lan Paz will consult with pt. Will appreciate ortho recommendation for proper treatment. For now, she will be in an immobilizer. NWB until further notice. 2. Parkinson's: She has been diagnosed since 1989. PT/OT is recommended for strengthening. Continue her home medications. 3.
--- NOTE | 2018-01-19 13:23 | ASMTCMCOM ---
CM Note CM Note Notes: Pt. in FED after falling during aerobic exercise. She lives in [facility]. ED PA Davis Wang expressed concern regarding level of care and requested contact with [facility] to inform them of admission. This SW spoke with Crystal ([phone]) who is is an RN/directory carrier. She also expressed significant concern for the level of care. She indicated that the pt.'s (Vladimir) does not live with her and she is unsure of his involvement in her care. She reported that nursing staff was caring for the pt's dog Brennan but asked for assistance with pt. communication for continued care. Pt reported that she "thinks" her will be picking up her dog. Pt. was unaware of admission plan and could not recall if she spoke to the doctor. JAIME plans TRELL KING to follow. Date Signed: 01/19/2018 01:22 PM Electronically Signed By:Pete Frank LCSW
--- NOTE | 2018-01-19 15:55 | GHP ---
DATE OF ADMISSION: 01/19/2018 CHIEF COMPLAINT: Knee pain. HISTORY: This is a 77-year-old female with Parkinson's. She lives at the [facility]. She was doing a erobics class today when she slipped during the class, falling onto her left knee and left hip. She does have a history of frequent falls due to her Parkinson disease and typically falls 2-3 times a we ek. She tries to stay extremely active and independent. During the aerobics class, the class was ju mping which she now admits jumping was probably too aggressive an activity for her given her history. After her fall she is unable to bear weight on the left side due to severe pain. Prior to this aer obics class, she was in her normal state of health. She frequently will fall onto her knees as a man ner to break her falls. PAST MEDICAL HISTORY: 1. Parkinson's. 2. Hypertension. 3. Peripheral vascular disease status post right carotid endarterectomy. 4. Congestive heart failure secondary to diastolic dysfunction and pulmonary hypertension. 5. History of subdural hematoma. PAST SURGICAL HISTORY: Cholecystectomy, appendectomy, lumbar fusion. MEDICATIONS: Please see computer record for full detailed list. ALLERGIES: No known drug allergies. SOCIAL HISTORY: She quit smoking in 1979. She drinks alcohol 1 beverage 3 times a week socially. 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 She lives in independent living at the [facility]. Her still lives in their private home. She moved out to live at the [facility] to prove her independence from him. Taty hernandez did not like being dependent on him as her caregiver. REVIEW OF SYSTEMS: Complete review of systems obtained. Review of systems negative for constitution al, HEENT, GI, pulmonary, vascular, , hematology, endocrine, psych, except for positives and negati ves as in HPI. FAMILY HISTORY: Reviewed, noncontributory to presenting complaint. PHYSICAL EXAMINATION: GENERAL: Well-developed, well-nourished female, no acute distress. VITAL SIG NS: Temperature is 36.9, pulse 88, blood pressure 130/82, saturating 97% on room air. HEENT: Normal conjunctivae. Pupils reactive to light. ENT: Normal ears, nose. Hearing intact. Normal teeth. Or opharynx moist. NECK: Trachea midline. No thyromegaly. CHEST: Normal respiratory effort. LUNGS: Km ar to auscultation bilaterally. CARDIOVASCULAR: Regular rhythm. No murmur. No lower extremity edema. ABDOMEN: Soft, nontender. N o hepatosplenomegaly. SKIN: Warm, dry, intact. No rash. MUSCULOSKELETAL: No cyanosis or clubbing . Strength 5/5 upper and lower extremities. Her left lower extremity is in a brace placed in the em ergency room which is immobilizing it. NEURO: Examination of cranial nerves intact. Normal sensation to light touch. PSYCH: She is alert and oriented x3. Normal affect. Normal judgment. Normal memor y. LABORATORY DATA: White count 6.47, hematocrit 40.5, platelets 244. Sodium 140, potassium 4.2, chlor rojelio 101, bicarb 25, BUN 27, creatinine 0.8, glucose 82. Knee x-ray shows a transverse fracture of the patella. This case was discussed with Davis Edwards, emergency room provider regarding ER course. Medical tricia rds were reviewed. She was previously hospitalized in July of this year for a severe delirium episode which did require a prolonged rehab stay. ASSESSMENT/PLAN: 1. Patellar fracture. Dr. Murphy has been notified and Orthopedic Surgery will consult. 2. Parkinson disease with history of frequent falls. We will continue her Sinemet, amantadine and C omtan. 3. Peripheral vascular disease status post previous carotid endarterectomy. Continue her statin tracey pedro 4. Hypertension. Continue hydralazine q.h.s. per home regimen. CODE STATUS: Full. ADMISSION STATUS: Will admit to observation. Reevaluate tomorrow. DVT PROPHYLAXIS: She is high risk. Will place on subcu Lovenox. /[id number]/MODL
[2018-01-19] MEDS: CALCIUM CARBONATE 500 MG TAB PO SCH (20:36)
[2018-01-19] MEDS: DOCUSATE SODIUM 100 MG CAP PO SCH (20:37)
[2018-01-19] MEDS: PRESERVISION AREDS2 FORMULA EYE VIT 1 EACH PO SCH (20:37)
[2018-01-19] MEDS: ATORVASTATIN CALCIUM 20 MG TAB PO SCH (20:37)
[2018-01-19] MEDS: clonazePAM 0.5 MG TAB PO SCH (20:37)
[2018-01-19] MEDS: hydrALAZINE 10 MG TAB PO SCH (20:37)
[2018-01-19] MEDS: ENTACAPONE 200 MG TAB PO SCH (20:38)
[2018-01-19] MEDS: CARBIDOPA/LEVO CR 25 MG/100 MG TAB PO SCH (20:38)
[2018-01-20] MEDS: ACETAMINOPHEN 325 MG TAB PO PRN ×2 (04:10→21:41)
[2018-01-20] MEDS: LEVOTHYROXINE 50 MCG TAB PO SCH (05:40)
[2018-01-20] MEDS: ENTACAPONE 200 MG TAB PO SCH ×4 (05:40→17:38)
[2018-01-20] MEDS: CARBIDOPA/LEVO CR 25 MG/100 MG TAB PO SCH ×4 (05:40→17:38)
[2018-01-20] MEDS: AMANTADINE HCL 100 MG CAP PO SCH ×2 (05:40→14:29)
[2018-01-20] MEDS: CITALOPRAM 20 MG TAB PO SCH (08:27)
[2018-01-20] MEDS: CALCIUM CARBONATE 500 MG TAB PO SCH ×2 (08:27→20:03)
[2018-01-20] MEDS: DOCUSATE SODIUM 100 MG CAP PO SCH ×2 (08:27→20:04)
[2018-01-20] MEDS: PRESERVISION AREDS2 FORMULA EYE VIT 1 EACH PO SCH ×2 (08:27→20:04)
[2018-01-20] MEDS: SENNOSIDES 1 TAB PO SCH (08:27)
--- NOTE | 2018-01-20 08:34 | GCON ---
ORTHOPEDIC CONSULTATION CHIEF COMPLAINT: Left knee pain. HISTORY OF PRESENT ILLNESS: A 77-year-old female with Parkinson's, who lives at the [facility]. She w as doing an aerobics class when she tripped and fell onto her left knee. She does have a history of frequent falls. However, she is still extremely active and independent. After the fall, she was reva ble to weightbear and was transferred to the emergency department. X-rays were taken. She was place d into a knee immobilizer. She has not had any significant pain medication and is relatively comfort able. PAST MEDICAL HISTORY: Includes Parkinson's, hypertension, peripheral vascular disease, status post r ight carotid endarterectomy, CHF with diastolic dysfunction, pulmonary hypertension, and history of a subdural hematoma. PAST SURGICAL HISTORY: Cholecystectomy, appendectomy, lumbar fusion. MEDICATIONS: Reviewed. ALLERGIES: Reviewed. SOCIAL HISTORY: She quit smoking in 1979. REVIEW OF SYSTEMS: Negative, except for per HPI. PHYSICAL EXAM: GENERAL: She is awake, oriented x3. No acute distress. She is using nonlabored michoacano athing. EXTREMITIES: Left lower extremity is in a removable knee immobilizer with an ice bag on top . It is well fitting. This was removed for examination of the knee and the skin. There are no lace rations. The skin is intact. She has minimal to no swelling superficially or within the knee joint. There is tenderness to palpation at the midbody of the patella. She has no calf pain. Compartment s are soft and compressible. She is otherwise neurovascularly intact distally. IMAGING: Reveals a nondisplaced incomplete transverse left patella fracture. ASSESSMENT/PLAN: A 77-year-old female with a nondisplaced left patella fracture. Recommend weightbe aring as tolerated in her knee immobilizer. She may remove this for hygiene, but must keep her knee extended at all times. No active knee flexion until the fracture site has begun to heal. This will not likely require surgical intervention. She can follow up in 7-10 days for repeat x-rays. She und erstands and agrees. Questions answered. /[id number]/MODL
[2018-01-20] MEDS: ENOXAPARIN 40 MG/0.4 ML SYR SC SCH (08:37)
--- NOTE | 2018-01-20 13:25 | ASMTCMCOM ---
CM Note CM Note Notes: OT rec SNF, PT rec HHC/24/hr supervision/SNF. Spoke with pt about d/c planning and she wants to go to SNF, requests referral to [facility] which was sent in [employer]. Insurance authorization will be required and the earliest [facility] can submit is Monday. CM to follow. Date Signed: 01/20/2018 01:25 PM Electronically Signed By:EVAN Zurita
--- NOTE | 2018-01-20 15:40 | HOSPPROG ---
Hospitalist Progress Note Assessment/Plan: * Left patella fracture -WBAT with knee immobilizer -follow-up Dr. Paz 7-10 days -per PT/OT - not safe ambulation - will need rehab * Advanced Parkinson's with frequent falls -home meds - Sinemet, Comtan, amantadine * PVD s/p CEA -continue statin * HTN -hydralazine Subjective: Pain okay, but poor mobilization Objective: Vital Signs Temp Pulse Resp BP Pulse Ox 36.6 C 67 18 175/67 H 96 01/20/18 11:58 01/20/18 11:58 01/20/18 11:58 01/20/18 11:58 01/20/18 11:58 01/19/18 01/20/18 01/21/18 05:59 05:59 05:59 Intake Total 150 Output Total 300 Balance -150 - Physical Exam Constitutional: no apparent distress, appears nourished, not in pain Cardiovascular: regular rate and rhythym, no murmur, rub, or gallop Respiratory: no respiratory distress, no rales or rhonchi, clear to auscultation Gastrointestinal: normoactive bowel sounds, soft, non-tender abdomen, no palpable masses Skin: no rashes or abrasions, no fluctuance, no induration Neurologic: AAOx3, sensation intact bilaterally Psychiatric: interacting appropriately, not anxious, not encephalopathic, thought process linear ICD10 Worksheet Patient Problems: Problems Problem Status Onset Transient ischemic attack Active Intracranial hemorrhage following injury Acute Subdural hematoma, acute Acute Generalized weakness Acute Hypocalcemia Acute Hypertension Acute Delirium Acute Patella fracture Acute Parkinsons disease Acute
[2018-01-20] MEDS: hydrALAZINE 10 MG TAB PO SCH (20:03)
[2018-01-20] MEDS: clonazePAM 0.5 MG TAB PO SCH (20:03)
[2018-01-20] MEDS: ATORVASTATIN CALCIUM 20 MG TAB PO SCH (20:04)
[2018-01-21] MEDS: LEVOTHYROXINE 50 MCG TAB PO SCH (05:58)
[2018-01-21] MEDS: CARBIDOPA/LEVO CR 25 MG/100 MG TAB PO SCH ×4 (05:58→18:04)
[2018-01-21] MEDS: AMANTADINE HCL 100 MG CAP PO SCH ×2 (05:58→14:18)
[2018-01-21] MEDS: ENTACAPONE 200 MG TAB PO SCH ×4 (05:58→18:04)
--- NOTE | 2018-01-21 06:58 | PDMN ---
Medical Necessity Medical necessity: Change to inpt as of 01/20/18 @ 15:37. Pt meets inpt criteria per MD order and Muculoskeletal disease GRG. 77 y/o admitted after fall w/patella fx complicated by hx of Parkinson's disease w/frequent falls. Upgraded to inpt status for poor mobilization, ongoing need for PT/OT, further monitoring/treatment, anticipate>2MN.
[2018-01-21] MEDS ORDERED: amLODIPine BESYLATE 5 MG TAB PO SCH (09:00)
[2018-01-21] MEDS: PRESERVISION AREDS2 FORMULA EYE VIT 1 EACH PO SCH ×2 (09:10→20:32)
[2018-01-21] MEDS: SENNOSIDES 1 TAB PO SCH (09:11)
[2018-01-21] MEDS: CALCIUM CARBONATE 500 MG TAB PO SCH ×2 (09:11→20:32)
[2018-01-21] MEDS: DOCUSATE SODIUM 100 MG CAP PO SCH ×2 (09:12→20:31)
[2018-01-21] MEDS: CITALOPRAM 20 MG TAB PO SCH (09:12)
[2018-01-21] MEDS ORDERED: hydrALAZINE 20 MG/ML VIAL IVP PRN (09:32)
[2018-01-21] MEDS: ACETAMINOPHEN 325 MG TAB PO PRN ×2 (09:47→20:31)
[2018-01-21] MEDS: ENOXAPARIN 40 MG/0.4 ML SYR SC SCH (12:25)
--- NOTE | 2018-01-21 16:18 | HOSPPROG ---
Hospitalist Progress Note Assessment/Plan: * Left patella fracture -WBAT with knee immobilizer -follow-up Dr. Paz 7-10 days for repeat Xrays -per PT/OT - not safe ambulation - will need rehab * Advanced Parkinson's with frequent falls -home meds - Sinemet, Comtan, amantadine * Orthostatic hypotension - suspect autonomic -very dramatic drop SBP 190 while supine to SBP 98 when standing -denies dizziness -conservative measures - support hose recommended -consider trial of midodrine but baseline HTN makes it difficult balance -follows with Dr. Zepeda at [facility] * Supine HTN -hydralazine qhs * PVD s/p CEA -continue statin Subjective: No new complaints. Objective: Vital Signs Temp Pulse Resp BP Pulse Ox 36.8 C 65 14 130/62 H 95 01/21/18 15:12 01/21/18 15:12 01/21/18 15:12 01/21/18 15:12 01/21/18 15:12 01/20/18 01/21/18 01/22/18 05:59 05:59 05:59 Intake Total 1000 Output Total 700 300 Balance 300 -300 - Physical Exam Constitutional: no apparent distress, appears nourished, not in pain Cardiovascular: regular rate and rhythym, no murmur, rub, or gallop Respiratory: no respiratory distress, no rales or rhonchi, clear to auscultation Gastrointestinal: normoactive bowel sounds, soft, non-tender abdomen, no palpable masses Musculoskeletal: full muscle strength, no muscle tenderness, normal joint ROM Neurologic: AAOx3, sensation intact bilaterally Psychiatric: interacting appropriately, not anxious, not encephalopathic, thought process linear ICD10 Worksheet Patient Problems: Problems Problem Status Onset Transient ischemic attack Active Intracranial hemorrhage following injury Acute Subdural hematoma, acute Acute Generalized weakness Acute Hypocalcemia Acute Hypertension Acute Delirium Acute Patella fracture Acute Parkinsons disease Acute
[2018-01-21] MEDS: hydrALAZINE 10 MG TAB PO SCH (20:31)
[2018-01-21] MEDS: ATORVASTATIN CALCIUM 20 MG TAB PO SCH (20:31)
[2018-01-21] MEDS: clonazePAM 0.5 MG TAB PO SCH (20:32)
[2018-01-21] MEDS: NS 1,000 ML IV SCH (20:40)
[2018-01-22] MEDS: ACETAMINOPHEN 325 MG TAB PO PRN ×2 (02:54→20:47)
[2018-01-22] MEDS: AMANTADINE HCL 100 MG CAP PO SCH ×2 (05:40→16:03)
[2018-01-22] MEDS: CARBIDOPA/LEVO CR 25 MG/100 MG TAB PO SCH ×4 (05:40→19:01)
[2018-01-22] MEDS: LEVOTHYROXINE 50 MCG TAB PO SCH (05:40)
[2018-01-22] MEDS: ENTACAPONE 200 MG TAB PO SCH ×4 (05:40→19:01)
[2018-01-22] MEDS ORDERED: hydrALAZINE 10 MG TAB PO ONE (06:17)
[2018-01-22] MEDS: NS 1,000 ML IV SCH (10:23)
[2018-01-22] MEDS: PRESERVISION AREDS2 FORMULA EYE VIT 1 EACH PO SCH ×2 (10:24→20:46)
[2018-01-22] MEDS: SENNOSIDES 1 TAB PO SCH (10:24)
[2018-01-22] MEDS: CITALOPRAM 20 MG TAB PO SCH (10:24)
[2018-01-22] MEDS: CALCIUM CARBONATE 500 MG TAB PO SCH ×2 (10:24→20:46)
[2018-01-22] MEDS: DOCUSATE SODIUM 100 MG CAP PO SCH ×2 (10:24→20:46)
[2018-01-22] MEDS: ENOXAPARIN 40 MG/0.4 ML SYR SC SCH (10:25)
--- NOTE | 2018-01-22 10:53 | HOSPPROG ---
Hospitalist Progress Note Assessment/Plan: *Left patella fracture -WBAT with knee immobilizer -follow-up Dr. Paz 7-10 days for repeat Xrays -per PT/OT - not safe ambulation - will need rehab * Advanced Parkinson's with frequent falls -home meds - Sinemet, Comtan, amantadine * Orthostatic hypotension - suspect autonomic -very dramatic drop SBP 190 while supine to SBP 98 when standing. Cconservative measures - support hose recommended -consider trial of midodrine but baseline HTN makes it difficult balance -follows with Dr. Zepeda at [facility] * Supine HTN -hydralazine qhs * PVD s/p CEA: statin DVT ppx: Lovenox Disp: DC to SNF once accepted Subjective: no CUMMINGS or dizziness Objective: Vital Signs Temp Pulse Resp BP Pulse Ox 36.4 C 67 16 136/63 H 95 01/22/18 08:00 01/22/18 10:33 01/22/18 08:00 01/22/18 10:33 01/22/18 08:00 01/21/18 01/22/18 01/23/18 05:59 05:59 05:59 Intake Total 1000 2488 Output Total 700 500 350 Balance 300 1988 - - Time Spent With Patient Time Spent with Patient: greater than 35 minutes Time Spent with Patient: Greater than 35 minutes spent on this patients care, greater than 50% of time spent counseling, educating, and coordinating care regarding the above mentioned plan. - Physical Exam Constitutional: no apparent distress Eyes: PERRL Ears, Nose, Mouth, Throat: moist mucous membranes Cardiovascular: regular rate and rhythym Respiratory: no respiratory distress Gastrointestinal: normoactive bowel sounds Genitourinary: No solomon in urethra Musculoskeletal: full muscle strength, other (right knee in brace) Neurologic: AAOx3, CN II-XII Intact Psychiatric: interacting appropriately ICD10 Worksheet Patient Problems: Problems Problem Status Onset Parkinsons disease Acute Patella fracture Acute Transient ischemic attack Active Delirium Acute Generalized weakness Acute Hypertension Acute Hypocalcemia Acute Intracranial hemorrhage following injury Acute Subdural hematoma, acute Acute
[2018-01-22] MEDS: clonazePAM 0.5 MG TAB PO SCH (20:46)
[2018-01-22] MEDS: ATORVASTATIN CALCIUM 20 MG TAB PO SCH (20:46)
[2018-01-22] MEDS: hydrALAZINE 10 MG TAB PO SCH (20:46)
[2018-01-23] MEDS ORDERED: hydrALAZINE 10 MG TAB PO ONE (05:00)
[2018-01-23] MEDS: AMANTADINE HCL 100 MG CAP PO SCH (05:04)
[2018-01-23] MEDS: CARBIDOPA/LEVO CR 25 MG/100 MG TAB PO SCH ×2 (05:04→10:47)
[2018-01-23] MEDS: LEVOTHYROXINE 50 MCG TAB PO SCH (05:04)
[2018-01-23] MEDS: ENTACAPONE 200 MG TAB PO SCH ×2 (05:04→10:46)
[2018-01-23 09:14] VITALS: BP 133/45
--- NOTE | 2018-01-23 09:43 | PDIAF ---
- Diagnosis Diagnosis: patellar fracture Code Status: Full Code - Medication Management Discharge Medications: electronically signed and located in the Home Medication List. - Orders Services needed: Registered Nurse, Certified Drug Enforcement Administration Agent, Physical Therapy, Occupational Therapy Isolation Type: None Diet Recommendation: no restrictions on diet Diet Texture: Regular Texture Diet Additional Instructions: WBAT with knee immobilizer. Keep immobilizer in place at all times except for hygiene. Keep knee extended when immobilizer is off. No active knee extension/ quad activation. OK, for gentle knee flexion to 30-40 - Follow Up Care Current Providers and Referrals: Lan Paz MD [Medical Doctor] - follow up in 10 days Patient,NotPresent [Unknown] - As per Instructions
--- NOTE | 2018-01-23 10:10 | GDS ---
DISCHARGE DIAGNOSES: 1. Nondisplaced left patellar fracture. 2. Parkinson's. 3. Labile hypertension. 4. PVD, status post right carotid endarterectomy, diastolic heart failure. 5. Pulmonary hypertension. 6. History of subdural hematoma. CONSULTATIONS: Dr. Paz with Orthopedics. PROCEDURES: None. HISTORY OF PRESENT ILLNESS: A 77-year-old female with Parkinson's, living at the [facility], who was doing an aerobics class, when she slipped and fell, landing on her left knee and hip. She does fall frequently due to her Parkinson 's at least 2-3 times a week. After her fall, she was unable to bear weight due to severe pain. Next, an x-ray showed nondisplaced transverse fracture. HOSPITAL COURSE BY PROBLEM: 1. Nondisplaced fracture: No surgical intervention. Weightbearing as tolerated with knee immobilizer. She will follow up with Dr. Paz next week. She is not in any acute pain. 2. Advanced Parkinson's disease: Continue her home medications. 3. Autonomic dysfunction: She had very labile blood pressures here. She had supine hypertension. 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 We will continue this. No evidence of volume depletion. 4. Peripheral vascular disease, status post carotid endarterectomy: Continue statin. DISPOSITION: The patient is stable for discharge to SNF. MEDICATIONS: None new. FOLLOWUP: 1. Dr. Paz. 2. Dr. Wilks at [facility]. PHYSICAL EXAMINATION: VITAL SIGNS: Today, temperature 36.6, blood pressure 133 /45, heart rate in 70s, respirations 16, 95% on room air. GENERAL: She is well appearing. She is walking in the unit without issue. HEENT: PERRLA. Moist mucous membranes. CV: Regular rate and rhythm. LUNGS: Clear. ABDOMEN : Soft, nontender. Positive bowel sounds. : No Steve. MUSCULOSKELETAL: Left knee in immobilizer. NEURO: 2 through 12 intact. PSYCH: Alert and oriented x3. Time spent on discharge: Greater than 30 minutes coordinating with Case Management for discharge. Case discussed with Dr. Paz. /[id number]/MODL MTDD
--- NOTE | 2018-01-23 10:35 | ASMTLACE ---
LACE Length of stay for Answers: 3 days current admission Acuity / Level of Answers: Yes Care: Did the patient have an inpatient admission? Comorbidities - select Answers: Congestive heart failure all that apply Peripheral vascular disease Other Notes: Parkinsons, HTN # of Emergency department Answers: 1-2 visits in the last 6 months Score: 11 Date Signed: 01/23/2018 10:34 AM Electronically Signed By:EVAN Moreno
[2018-01-23] MEDS: CALCIUM CARBONATE 500 MG TAB PO SCH (10:43)
[2018-01-23] MEDS: PRESERVISION AREDS2 FORMULA EYE VIT 1 EACH PO SCH (10:44)
[2018-01-23] MEDS: CITALOPRAM 20 MG TAB PO SCH (10:46)
[2018-01-23] MEDS: DOCUSATE SODIUM 100 MG CAP PO SCH (10:47)
[2018-01-23] MEDS: SENNOSIDES 1 TAB PO SCH (10:47)
[2018-01-23] MEDS: ENOXAPARIN 40 MG/0.4 ML SYR SC SCH (10:48)
--- NOTE | 2018-01-23 12:14 | ASDISCHSUM ---
Discharge Information Plan Status:SNF Medically Cleared to Leave:01/22/2018 Discharge Date:01/22/2018 CM D/C Disposition:Detention Facility ADT D/C Disposition:Detention Facility Projected Discharge Date:01/23/2018 11:00 AM Transportation at D/C:Wheelchair Van Discharge Delay Reason: Follow-Up Date:01/23/2018 11:00 AM Discharge Slot: Final Diagnosis: Placement Information Referral Type:*[facility]/SNF Referral ID:[id number] Provider Name:[facility] Address 1:[address] Address 2: City:[place] Selection Factors: State:[place] Patient Contact Information Contact Name:ALTAGRACIA Relationship: [facility] City:[place] Alternate Phone: State/Zip Code:[place] [phone] Email: Financial Information Financial Class:Medicare Advantage Plans Primary Plan Desc:[employer] Primary Plan Number:[id number] Secondary Plan Desc: Secondary Plan Number: Assessment Information [facility] Progress Note CM Note CM Note Notes: Pt. in FED after falling during aerobic exercise. She lives in [facility]. ED PA Davis Wang expressed concern regarding level of care and requested contact with [facility] to inform them of admission. This SW spoke with Crystal ([phone]) who is is an RN/producer director. She also expressed significant concern for the level of care. She indicated that the pt.'s (Vladimir) does not live with her and she is unsure of his involvement in her care. She reported that nursing staff was caring for the pt's dog Brennan but asked for assistance with pt. communication for continued care. Pt reported that she "thinks" her will be picking up her dog. Pt. was unaware of admission plan and could not recall if she spoke to the doctor. JAIME plans TRELL KING to follow. Date Signed: 01/19/2018 01:22 PM Electronically Signed By:Pete Frank LCSW LACE LACE Length of stay for Answers: 3 days current admission Acuity / Level of Answers: Yes Care: Did the patient have an inpatient admission? Comorbidities - select Answers: Congestive heart failure all that apply Peripheral vascular disease Other Notes: Parkinsons, HTN # of Emergency department Answers: 1-2 visits in the last 6 months Score: 11 Date Signed: 01/23/2018 10:34 AM Electronically Signed By:EVAN Moreno [facility] CM Progress Note CM Note CM Note Notes: OT rec SNF, PT rec [facility]/24/hr supervision/SNF. Spoke with pt about d/c planning and she wants to go to SNF, requests referral to [facility] which was sent in [employer]. Insurance authorization will be required and the earliest [facility] can submit is Monday. CM to follow. Date Signed: 01/20/2018 01:25 PM Electronically Signed By:EVAN Zurita Intervention Information Intervention Type:*IM-Signed Date of Service:01/23/2018 11:18 AM Patient Type:Inpatient Staff Member:Henna Moy Hours: Discipline: Severity: Comment:
--- NOTE | 2018-01-23 12:15 | ASMTDCNOTE ---
Case Management Discharge Discharge Order Complete? Answers: Yes Patient to Obtain Answers: Other Notes: [facility] Medications Transportation Arranged Answers: Other Notes: [facility] w/c van Transport will Pick (Date 01/23/2018 12:00 PM & Time) Faxed Final Orders Answers: Yes Agency/Facility Transfer Answers: Yes Report Printed & Faxed to Receiving Agency Discharge Comments Notes: Pt is discharging to [facility] today. D/C order, meds, facility transfer sent via [employer]. Transportation arranged by [facility]. Date Signed: 01/23/2018 12:14 PM Electronically Signed By:EVAN Moreno
== END 2018-01-23 12:14 | DRG 563 ==
LOC: EDUNIT# → F1N 14:55 → OBSVTOIN 01-20 15:37
PROVIDERS: ADMIT Internal Medicine; ATTEND Internal Medicine
DX: S82.035A Nondisplaced transverse fracture of left patella, initial encounter for closed fracture (principal); I11.0 Hypertensive heart disease with heart failure; I50.30 Unspecified diastolic (congestive) heart failure; W01.0XXA Fall on same level from slipping, tripping and stumbling without subsequent striking against object, initial encounter; Y93.A3 Activity, aerobic and step exercise; I73.9 Peripheral vascular disease, unspecified; I27.20 Pulmonary hypertension, unspecified; Z23 Encounter for immunization
CPT/HCPCS: 97110-GP; 97116-GP; 97161-GP; 97165-GO; 97530-GO; 97535-GO; G0008; G0378; G8978-GP-CK; G8979-GP-CH; G8987-GO-CK; G8988-GO-CI; J1650; L1830